=== PATIENT | male | born 1940 | race African-American/Black ===

== ENCOUNTER 2022-06-07 21:47 | Observation (INO) ==
[2022-06-07 22:28] LABS: Basophils # (auto) 0.02 K/uL (0-0.2); Basophils % (auto) 0.4 %; Eosinophils # (auto) 0.05 K/uL (0-0.50); Eosinophils % (auto) 1.1 %; Hematocrit (blood only) 36.3 % (42.0-52.0); Hemoglobin 12.1 g/dl (14.0-18.0); Immature Granulocytes # (auto) 0.02 K/uL (0.01-0.20); Immature Granulocytes % (auto) 0.4 %; Lymphocytes # (auto) 1.07 K/uL (1.2-3.4); Lymphocytes % (auto) 23.1 %; Mean Corpuscular Hemoglobin 36.6 pg (25.0-34.0); Mean Corpuscular Hgb Conc 33.3 g/dL (32.0-36.0); Mean Corpuscular Volume 109.7 fL (80.0-100.0); Mean Platelet Volume 11.4 fL (9.4-12.4); Monocytes # (auto) 0.57 K/uL (0.11-0.59); Monocytes % (auto) 12.3 %; Neutrophils % (auto) 62.7 %; Platelet Count 170 K/uL (130-400); RDW Standard Deviation 49.4 fL (36.4-46.3); Red Blood Count 3.31 M/uL (4.70-6.10); White Blood Count 4.63 K/ul (4.8-10.8)
[2022-06-07 22:39] LABS: INR 1.1 (0.9-1.1); Partial Thromboplastin Time 27.1 Seconds (21.0-31.0); Prothrombin Time 11.2 Seconds (9.0-12.0)
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
[2022-06-07 23:03] LABS: Albumin Level 3.3 gm/dl (3.4-5.0); Bilirubin,Total 0.5 mg/dl (0.2-1.0); Calcium 8.3 mg/dl (8.5-10.1); Potassium 3.4 mmol/L (3.5-5.1)
[2022-06-07 23:09] LABS: BUN Creatinine Ratio 14.3 (10-20); Creatinine Clr Calc Pharmacy 58.7 ml/min; Est GFR (African American) 71.5 ml/min; Est GFR (Non-African American) 61.7 ml/min; Globulin 3.4 gm/dl (2.5-4.0); Total Protein 6.7 gm/dl (6.0-8.3)
[2022-06-07 23:14] LABS: Troponin I High Sensitivity 5.1 pg/ml (0-20)
[2022-06-07] MEDS ORDERED: MoRPHine SULFATE 4 MG/ML 1 ML CARP\\VIAL IV STA (23:21)
[2022-06-08] MEDS ORDERED: ASPIRIN CHEW 324 MG PO STA (00:17)
[2022-06-08] MEDS ORDERED: MoRPHine SULFATE 2 MG/ML CARP IV STA (02:27)
[2022-06-08] MEDS ORDERED: ACETAMINOPHEN 325 MG TAB PO PRN (04:00)
[2022-06-08] MEDS ORDERED: POLYETHYLENE (MIRALAX) 17 GM PACK PO PRN (04:00)
[2022-06-08] MEDS ORDERED: MoRPHine SULFATE 2 MG/ML CARP IV PRN (04:00)
[2022-06-08] MEDS ORDERED: NITROGLYCERIN SL 0.4 MG/TAB TAB SL PRN (04:00)
[2022-06-08 06:10] LABS: Basophils # (auto) 0.02 K/uL (0-0.2); Basophils % (auto) 0.4 %; Eosinophils # (auto) 0.07 K/uL (0-0.50); Eosinophils % (auto) 1.3 %; Hematocrit (blood only) 36.8 % (42.0-52.0); Hemoglobin 12.4 g/dl (14.0-18.0); Immature Granulocytes # (auto) 0.01 K/uL (0.01-0.20); Immature Granulocytes % (auto) 0.2 %; Lymphocytes # (auto) 1.92 K/uL (1.2-3.4); Lymphocytes % (auto) 35.4 %; Mean Corpuscular Hemoglobin 36.9 pg (25.0-34.0); Mean Corpuscular Hgb Conc 33.7 g/dL (32.0-36.0); Mean Corpuscular Volume 109.5 fL (80.0-100.0); Mean Platelet Volume 11.3 fL (9.4-12.4); Monocytes # (auto) 0.62 K/uL (0.11-0.59); Monocytes % (auto) 11.4 %; Neutrophils # (auto) 2.78 K/uL (1.40-6.50); Neutrophils % (auto) 51.3 %; Platelet Count 181 K/uL (130-400); RDW Standard Deviation 48.7 fL (36.4-46.3); Red Blood Count 3.36 M/uL (4.70-6.10); White Blood Count 5.42 K/ul (4.8-10.8)
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
[2022-06-08 06:19] LABS: BUN Creatinine Ratio 12.5 (10-20); Calcium 8.4 mg/dl (8.5-10.1); Creatinine Clr Calc Pharmacy 63.2 ml/min; Est GFR (African American) 78.2 ml/min; Est GFR (Non-African American) 67.5 ml/min; Magnesium 1.8 mg/dl (1.7-2.4); Potassium 3.6 mmol/L (3.5-5.1)
[2022-06-08 06:39] LABS: Troponin I High Sensitivity 10.1 pg/ml (0-20)
--- NOTE | 2022-06-08 07:38 | XRay Report ---
XR chest 1V portable CLINICAL HISTORY: Chest pain, nonspecific COMPARISON STUDY: Chest radiograph April 28, 2022. FINDINGS: Lung volumes are normal. Lungs are clear. There is no pneumothorax or pleural effusion. Car diomegaly is unchanged. Small hiatal hernia is again noted. There is no evidence for pulmonary edema. IMPRESSION: No acute cardiopulmonary findings. No change in appearance of the chest. ACT 112: Negative or not required by law. Electronically signed by: Orville Alston M.D. 06/08/2022 7:37 AM
[2022-06-08] MEDS: carvediloL 6.25 MG TAB PO SCH ×2 (08:11→21:25)
[2022-06-08] MEDS: RANOLAZINE 500 MG ER TAB PO SCH ×2 (08:11→22:15)
[2022-06-08] MEDS: ATORVASTATIN 40 MG TAB PO SCH (08:11)
[2022-06-08] MEDS: ASPIRIN 325 MG ECTAB PO SCH (08:11)
[2022-06-08] MEDS: CLOPIDOGREL BISULFATE 75 MG TAB PO SCH (08:11)
[2022-06-08] MEDS: LOSARTAN POTASSIUM 25 MG TAB PO SCH (08:11)
[2022-06-08] MEDS: MULTIVITAMIN TAB PO SCH (08:11)
[2022-06-08] MEDS: ISOSORBIDE MONO EXTENDED REL 30 MG TABCR PO SCH (08:12)
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
[2022-06-08] MEDS ORDERED: ATROPINE SULFATE 0.1 MG/ML 10ML SYR IV ONE (11:45)
[2022-06-08] MEDS ORDERED: METOPROLOL TARTRATE 1 MG/ML VIAL IV ONE (11:45)
[2022-06-08] MEDS ORDERED: DOBUTamine HCL 12.5 MG/ML 20 ML VIAL IV ONE (11:45)
--- NOTE | 2022-06-08 11:57 | Electrocardiogram Report ---
Test Reason : Blood Pressure : / mmHG Vent. Rate : 074 BPM Atrial Rate : 074 BPM P-R Int : 154 ms QRS Dur : 086 ms QT Int : 388 ms P-R-T Axes : 010 072 101 degrees QTc Int : 430 ms Poor data quality, interpretation may be adversely affected Sinus rhythm with Premature supraventricular complexes Nonspecific ST and T wave abnormality Abnormal ECG When compared with ECG of 28-APR-2022 18:10, Premature supraventricular complexes are now Present Confirmed by Clay Hearn ([id number]) on 06/08/2022 11:57:42 AM Referred By: Behzad [facility] Confirmed By:Clay Hearn
--- NOTE | 2022-06-08 12:04 | Electrocardiogram Report ---
Test Reason : Blood Pressure : / mmHG Vent. Rate : 060 BPM Atrial Rate : 060 BPM P-R Int : 168 ms QRS Dur : 088 ms QT Int : 420 ms P-R-T Axes : 046 -16 -09 degrees QTc Int : 420 ms Sinus rhythm with Premature atrial complexes Minimal voltage criteria for LVH, may be normal variant T wave abnormality, consider lateral ischemia Abnormal ECG When compared with ECG of 07-JUN-2022 22:04, (unconfirmed) Questionable change in QRS axis T wave inversion now evident in Anterior leads Confirmed by Clay Hearn ([id number]) on 06/08/2022 12:04:23 PM Referred By: Behzad JULIO Confirmed By:Clay Hearn
[2022-06-08] MEDS ORDERED: PERFLUTREN LIPID MICROSPHERE (DEFINITY) IV ONE (12:21)
[2022-06-08] MEDS: PANTOprazole 40 MG TAB PO SCH (15:55)
[2022-06-08] MEDS: NSS + 20MEQ KCL 20 MEQ/1,000 ML BAG IV SCH (16:00)
--- NOTE | 2022-06-08 16:30 | Hospitalist Progress Note ---
Date of Service June 08, 2022 Assessment & Plan (1) Chest pain: Plan: Presented with chest pain typical for angina Serial troponins are unremarkable and Echocardiogram showed normal LV wall thickness without regional wall motion abnormalities, EF 55 to 60%, aortic valve sclerosis mild without significant stenosis, mild tricuspid regurgitation, borderline to mild pulmonary hypertension and pulmonary artery systolic pressure estimated to be 38 mmHg with grade 1 diastolic dysfunction Has had negative dobutamine stress test Appreciate cardiology input and recommendation (2) Coronary artery disease: Plan: Significant coronary artery disease as in the chart Awaiting records (3) Hypertension: Plan: Noted to be very high blood pressure initially That went down to 111/71 Patient shows orthostatic symptoms with dizziness on standing and with ambulation We will continue current blood pressure medications We will try small dose of intravenous fluid (4) Dyslipidemia, goal LDL below 70: Plan: Continue statin (5) Gastroesophageal reflux: Plan: Has not been taking any PPI Will start PPI (6) Depression: Plan: Continue current medicine Plan DVT prophylaxis Will start subcu heparin CODE STATUS Full Admission and Anticipated Discharge Date Admission Date: June 08, 2022 Subjective 06/08/2022 The patient was seen and examined in emergency room He has significant cardiac disease and was admitted with chest pain that was typical for angina He also complains to have dizziness with standing and with ambulation Review of Systems Review of Systems: All systems reviewed and are unremarkable except as noted below Cardiovascular: Additional Comments: Chest pressure/pain in the lower central chest Gastrointestinal: Epigastric discomfort Neurologic: Dizziness on standing and ambulation Physical Exam Physical Exam: Lying in bed comfortable Constitutional: well developed, well nourished, + ill appearing and + obese Eyes: PERRL, conjunctivae normal, anicteric sclerae ENMT: external ear and nose normal, oropharynx normal Neck: trachea midline, no thyromegaly Respiratory: no respiratory distress Auscultation: + diminished lung sounds and + crackles (Minimal crackles bibasally) Cardiovascular: Rate/Rhythm: regular rate, regular rhythm and + bradycardic Heart Sounds: normal S1, normal S2 and + murmur Extremities: no edema Gastrointestinal (Abdomen): Inspection/Auscultation: normal bowel sounds; abdomen not distended Percussion/Palpation: + abdomen tender (Epigastric tenderness) and abdomen soft Musculoskeletal: No acute arthritis involving any joint Neurologic: Alert, awake and oriented x3. No focal sensory or no motor deficit appreciated Lymphatic: no cervical or axillary lymphadenopathy Results & Data Results & Data ([facility]) Vital Signs (Past 12 Hours) Vital Signs Pulse Pulse Resp BP BP Pulse Ox O2 Del Method 06/08/22 11:00 59 L 18 111/71 96 Room Air 06/08/22 09:00 63 18 160/84 H 95 Room Air 06/08/22 06:40 60 17 98 06/08/22 06:30 64 14 99 06/08/22 06:30 164/73 H 06/08/22 06:20 98 06/08/22 06:10 96 06/08/22 06:01 157/80 H 06/08/22 06:01 98 06/08/22 06:00 97 06/08/22 05:50 100 06/08/22 05:40 98 06/08/22 05:31 96 06/08/22 05:30 98 06/08/22 05:20 96 06/08/22 06:46 Room Air 06/08/22 05:10 96 06/08/22 05:00 98 06/08/22 05:00 153/79 H 06/08/22 04:55 95 06/08/22 04:40 64 16 95 06/08/22 04:30 59 L 15 93 06/08/22 04:30 165/81 H Laboratory Results Short CBC 06/07/22 06/08/22 Range/Units 22:09 05:34 WBC 4.63 L 5.42 (4.8-10.8) K/ul Hgb 12.1 L 12.4 L (14.0-18.0) g/dl Hct 36.3 L 36.8 L (42.0-52.0) % Plt Count 170 181 (130-400) K/uL BMP 06/07/22 06/08/22 22:09 05:34 Sodium 137 139 Potassium 3.4 L 3.6 Chloride 108 H 107 Carbon Dioxide 23 27 BUN 16 13 Creatinine 1.12 1.04 Glucose 134 H 95 Calcium 8.3 L 8.4 L Liver Function 06/07/22 Range/Units 22:09 Total Bilirubin 0.5 (0.2-1.0) mg/dl AST 12 L (13-39) U/L ALT 8 (7-52) U/L Alkaline Phosphatase 126 H (34-104) U/L Albumin 3.3 L (3.4-5.0) gm/dl Medications Administered Current Inpatient Medications Acetaminophen (Acetaminophen 325 Mg Tab) 650 mg PO Q4H PRN PRN Reason: Pain or Fever Stop: 07/08/22 03:59 Aspirin (Aspirin 325 Mg Ectab) 325 mg PO DAILY [facility] Stop: 07/08/22 08:59 Last Admin: 06/08/22 08:11 Dose: 325 mg Atorvastatin Calcium (Atorvastatin 40 Mg Tab) 80 mg PO DAILY [facility] Stop: 07/08/22 08:59 Last Admin: 06/08/22 08:11 Dose: 80 mg Carvedilol (Carvedilol 6.25 Mg Tab) 6.25 mg PO BID [facility] Stop: 07/08/22 08:59 Last Admin: 06/08/22 08:11 Dose: 6.25 mg Clopidogrel Bisulfate (Clopidogrel Bisulfate 75 Mg Tab) 75 mg PO DAILY [facility] Stop: 07/08/22 08:59 Last Admin: 06/08/22 08:11 Dose: 75 mg Potassium Chloride/Sodium Chloride (Normal Saline W/20 Meq Kcl) 20 meq in 1,000 mls @ 80 mls/hr IV .[id number] [facility]; Protocol Stop: 06/09/22 15:59 Last Admin: 06/08/22 16:00 Dose: 80 mls/hr Isosorbide Mononitrate (Isosorbide [place] Extended Rel 30 Mg Tabcr) 30 mg PO DAILY [facility] Stop: 07/08/22 08:59 Last Admin: 06/08/22 08:12 Dose: 30 mg Losartan Potassium (Losartan Potassium 25 Mg Tab) 25 mg PO DAILY [facility] Stop: 07/08/22 08:59 Last Admin: 06/08/22 08:11 Dose: 25 mg Morphine Sulfate (Morphine Sulfate 2 Mg/Ml Carp) 2 mg IV Q30M PRN PRN Reason: Chest Pain Stop: 06/22/22 03:59 Multivitamins (Multivitamin Tab) 1 tab PO DAILY [facility] Stop: 07/08/22 08:59 Last Admin: 06/08/22 08:11 Dose: 1 tab Nitroglycerin (Nitroglycerin Sl 0.4 Mg/Tab Tab) 0.4 mg SL UD PRN PRN Reason: Chest Pain Stop: 07/08/22 03:59 Pantoprazole Sodium (Pantoprazole 40 Mg Tab) 40 mg PO QAM [facility] Stop: 07/08/22 14:59 Last Admin: 06/08/22 15:55 Dose: 40 mg Polyethylene Glycol (Polyethylene (Miralax) 17 Gm Pack) 17 gm PO DAILY PRN PRN Reason: Constipation Stop: 07/08/22 03:59 Ranolazine (Ranolazine 500 Mg Er Tab) 1,000 mg PO BID [facility] Stop: 07/08/22 08:59 Last Admin: 06/08/22 08:11 Dose: 1,000 mg (1) Chest pain Chest pain type: unspecified Qualified Code(s): R07.9 - Chest pain, unspecified
[2022-06-08] MEDS: HEPARIN SOD 5,000 UNIT/0.5 ML VIAL SQ SCH ×2 (18:36→21:45)
[2022-06-09] MEDS: NSS + 20MEQ KCL 20 MEQ/1,000 ML BAG IV SCH (06:13)
--- NOTE | 2022-06-09 07:42 | CT Scan Report ---
CT head/brain wo con CLINICAL HISTORY: 81 years-old Male with fall. Acute head injury status post fall TECHNIQUE: Multiple axial CT images of the head were obtained without contrast. A dose lowering tech nique was utilized adhering to the principles of ALARA. CT DOSE: 614.27 mGy.cm COMPARISON: None. FINDINGS: No acute intracranial hemorrhage, midline shift, intracranial mass, hydrocephalus, territorial ischem ia or abnormal extra-axial collection. Involutional changes with mild white matter hypodensities sugg estive of chronic microvascular ischemic disease. The calvarium is intact. Chronic appearing right maxillary osseous defect may be on a postsurgical ba sis. The paranasal sinuses, mastoid air cells, and middle ear cavities are clear. IMPRESSION: No acute intracranial abnormality or calvarial fracture. ACT 112: Negative or not required by law. The above report was generated using voice recognition software. It may contain grammatical, syntax o r spelling errors. Electronically signed by: Dustin Hurtado M.D. 06/09/2022 7:41 AM
[2022-06-09 08:16] LABS: Basophils # (auto) 0.02 K/uL (0-0.2); Basophils % (auto) 0.4 %; Eosinophils # (auto) 0.09 K/uL (0-0.50); Eosinophils % (auto) 1.9 %; Hematocrit (blood only) 38.2 % (42.0-52.0); Hemoglobin 12.4 g/dl (14.0-18.0); Immature Granulocytes # (auto) 0.01 K/uL (0.01-0.20); Immature Granulocytes % (auto) 0.2 %; Lymphocytes # (auto) 1.16 K/uL (1.2-3.4); Lymphocytes % (auto) 24.2 %; Mean Corpuscular Hemoglobin 36.3 pg (25.0-34.0); Mean Corpuscular Hgb Conc 32.5 g/dL (32.0-36.0); Mean Corpuscular Volume 111.7 fL (80.0-100.0); Mean Platelet Volume 11.3 fL (9.4-12.4); Monocytes # (auto) 0.48 K/uL (0.11-0.59); Neutrophils # (auto) 3.03 K/uL (1.40-6.50); Neutrophils % (auto) 63.3 %; Platelet Count 179 K/uL (130-400); RDW Coefficient of Variation 12.1 % (11.5-14.5); Red Blood Count 3.42 M/uL (4.70-6.10); White Blood Count 4.79 K/ul (4.8-10.8)
--- NOTE | 2022-06-09 08:34 | Communication Note ---
Date of Service: June 09, 2022 Patent seems was dizzy while going to bathroom and hit head to door. Seemed confused for sometime. Now back to baseline and could narrate what happened.. CT head ok. Exam speech clear and non focal. [place]ine to monitor. Ordered PT.
[2022-06-09 08:40] LABS: BUN Creatinine Ratio 10.4 (10-20); Calcium 8.9 mg/dl (8.5-10.1); Creatinine Clr Calc Pharmacy 51.3 ml/min; Est GFR (African American) 62.6 ml/min; Magnesium 1.8 mg/dl (1.7-2.4); Potassium 3.9 mmol/L (3.5-5.1)
[2022-06-09 09:16] LABS: RBC Morphology Unremarkable
[2022-06-09] MEDS: carvediloL 6.25 MG TAB PO SCH ×2 (10:42→20:53)
[2022-06-09] MEDS: RANOLAZINE 500 MG ER TAB PO SCH ×2 (10:43→20:56)
[2022-06-09] MEDS: HEPARIN SOD 5,000 UNIT/0.5 ML VIAL SQ SCH ×2 (10:43→20:56)
[2022-06-09] MEDS: MULTIVITAMIN TAB PO SCH (10:44)
[2022-06-09] MEDS: ASPIRIN 325 MG ECTAB PO SCH (10:44)
[2022-06-09] MEDS: CLOPIDOGREL BISULFATE 75 MG TAB PO SCH (10:44)
[2022-06-09] MEDS: ISOSORBIDE MONO EXTENDED REL 30 MG TABCR PO SCH (10:45)
[2022-06-09] MEDS: LOSARTAN POTASSIUM 25 MG TAB PO SCH (10:45)
[2022-06-09] MEDS: ATORVASTATIN 40 MG TAB PO SCH (10:45)
[2022-06-09] MEDS: PANTOprazole 40 MG TAB PO SCH (10:46)
[2022-06-09] MEDS ORDERED: MECLIZINE 12.5 MG TAB PO PRN (12:54)
--- NOTE | 2022-06-09 13:15 | Electrocardiogram Report ---
Test Reason : Blood Pressure : / mmHG Vent. Rate : 065 BPM Atrial Rate : 065 BPM P-R Int : 164 ms QRS Dur : 086 ms QT Int : 438 ms P-R-T Axes : 080 037 -15 degrees QTc Int : 455 ms Normal sinus rhythm Nonspecific T wave abnormality Abnormal ECG When compared with ECG of 08-JUN-2022 09:30, Premature atrial complexes are no longer Present Confirmed by Clay Hearn ([id number]) on 06/09/2022 1:15:36 PM Referred By: Behzad JULIO Confirmed By:Clay Hearn
--- NOTE | 2022-06-09 14:50 | Hospitalist Progress Note ---
Date of Service June 09, 2022 Assessment & Plan (1) Chest pain: Plan: Presented with chest pain typical for angina Serial troponins are unremarkable and Echocardiogram showed normal LV wall thickness without regional wall motion abnormalities, EF 55 to 60%, aortic valve sclerosis mild without significant stenosis, mild tricuspid regurgitation, borderline to mild pulmonary hypertension and pulmonary artery systolic pressure estimated to be 38 mmHg with grade 1 diastolic dysfunction Has had negative dobutamine stress test Appreciate cardiology input and recommendation No more chest pain and/or palpitation Ongoing dizziness Received small amount of intravenous fluid and has been drinking enough No postural hypotension Will try small dose of meclizine Likely discharge tomorrow (2) Coronary artery disease: Plan: Significant coronary artery disease as in the chart Awaiting records (3) Hypertension: Plan: Noted to be very high blood pressure initially That went down to 111/71 Patient shows orthostatic symptoms with dizziness on standing and with ambulation We will continue current blood pressure medications We will try small dose of intravenous fluid Blood pressure remains stable at 158/72 today (4) Dyslipidemia, goal LDL below 70: Plan: Continue statin (5) Gastroesophageal reflux: Plan: Has not been taking any PPI Will start PPI (6) Depression: Plan: Continue current medicine Plan DVT prophylaxis Will start subcu heparin CODE STATUS Full Admission and Anticipated Discharge Date Admission Date: June 08, 2022 Subjective 06/08/2022 The patient was seen and examined in emergency room He has significant cardiac disease and was admitted with chest pain that was typical for angina He also complains to have dizziness with standing and with ambulation 06/09/2022 The patient was seen and examined in emergency room He has been complaining of ongoing dizziness but does not have any more chest pain and/or palpitation His orthostatic vitals remain unremarkable He will be given small dose of Antivert for symptomatic relief of vertigo Review of Systems Review of Systems: All systems reviewed and are unremarkable except as noted below Cardiovascular: Additional Comments: Chest pressure/pain in the lower central chest Gastrointestinal: Epigastric discomfort Neurologic: Dizziness on standing and ambulation Physical Exam Physical Exam: Lying in bed comfortable Constitutional: well developed, well nourished, + ill appearing and + obese Eyes: PERRL, conjunctivae normal, anicteric sclerae ENMT: external ear and nose normal, oropharynx normal Neck: trachea midline, no thyromegaly Respiratory: no respiratory distress Auscultation: + diminished lung sounds and + crackles (Minimal crackles bibasally) Cardiovascular: Rate/Rhythm: regular rate, regular rhythm and + bradycardic Heart Sounds: normal S1, normal S2 and + murmur Extremities: no edema Gastrointestinal (Abdomen): Inspection/Auscultation: normal bowel sounds; abdomen not distended Percussion/Palpation: + abdomen tender (Epigastric tenderness) and abdomen soft Musculoskeletal: All systems reviewed and are unremarkable except as noted below Neurologic: Alert, awake and oriented x3. No focal sensory and motor deficit appreciated Psychiatric: A+Ox3, euthymic affect Lymphatic: no cervical or axillary lymphadenopathy Results & Data Results & Data ([facility]) Vital Signs (Past 12 Hours) Vital Signs Temp Pulse Resp BP Pulse Ox O2 Del Method 06/09/22 11:14 37 C 70 18 158/72 H 97 Room Air 06/09/22 06:00 36.4 C L 64 18 176/67 H 100 Room Air 06/09/22 03:51 36.7 C 69 18 110/68 94 Room Air 06/09/22 03:58 67 20 188/83 H 99 Room Air Laboratory Results Short CBC 06/09/22 Range/Units 07:25 WBC 4.79 L (4.8-10.8) K/ul Hgb 12.4 L (14.0-18.0) g/dl Hct 38.2 L (42.0-52.0) % Plt Count 179 (130-400) K/uL BMP 06/09/22 07:25 Sodium 138 Potassium 3.9 Chloride 107 Carbon Dioxide 26 BUN 13 Creatinine 1.25 Glucose 136 H Calcium 8.9 Medications Administered Current Inpatient Medications Acetaminophen (Acetaminophen 325 Mg Tab) 650 mg PO Q4H PRN PRN Reason: Pain or Fever Stop: 07/08/22 03:59 Aspirin (Aspirin 325 Mg Ectab) 325 mg PO DAILY [facility] Stop: 07/08/22 08:59 Last Admin: 06/09/22 10:44 Dose: 325 mg Atorvastatin Calcium (Atorvastatin 40 Mg Tab) 80 mg PO DAILY [facility] Stop: 07/08/22 08:59 Last Admin: 06/09/22 10:45 Dose: 80 mg Carvedilol (Carvedilol 6.25 Mg Tab) 6.25 mg PO BID [facility] Stop: 07/08/22 08:59 Last Admin: 06/09/22 10:42 Dose: 6.25 mg Clopidogrel Bisulfate (Clopidogrel Bisulfate 75 Mg Tab) 75 mg PO DAILY [facility] Stop: 07/08/22 08:59 Last Admin: 06/09/22 10:44 Dose: 75 mg Heparin Sodium (Porcine) (Heparin Sod 5,000 Unit/0.5 Ml Vial) 5,000 units SQ Q12 [facility] Stop: 07/08/22 16:44 Last Admin: 06/09/22 10:43 Dose: 5,000 units Potassium Chloride/Sodium Chloride (Normal Saline W/20 Meq Kcl) 20 meq in 1,000 mls @ 80 mls/hr IV .[id number] [facility]; Protocol Stop: 06/09/22 15:59 Last Admin: 06/09/22 06:13 Dose: 80 mls/hr Isosorbide Mononitrate (Isosorbide [place] Extended Rel 30 Mg Tabcr) 30 mg PO DAILY [facility] Stop: 07/08/22 08:59 Last Admin: 06/09/22 10:45 Dose: 30 mg Losartan Potassium (Losartan Potassium 25 Mg Tab) 25 mg PO DAILY [facility] Stop: 07/08/22 08:59 Last Admin: 06/09/22 10:45 Dose: 25 mg Meclizine HCl (Meclizine 12.5 Mg Tab) 12.5 mg PO Q6H PRN PRN Reason: Vertigo Stop: 07/09/22 12:53 Last Admin: 06/09/22 14:43 Dose: 12.5 mg Morphine Sulfate (Morphine Sulfate 2 Mg/Ml Carp) 2 mg IV Q30M PRN PRN Reason: Chest Pain Stop: 06/22/22 03:59 Multivitamins (Multivitamin Tab) 1 tab PO DAILY [facility] Stop: 07/08/22 08:59 Last Admin: 06/09/22 10:44 Dose: 1 tab Nitroglycerin (Nitroglycerin Sl 0.4 Mg/Tab Tab) 0.4 mg SL UD PRN PRN Reason: Chest Pain Stop: 07/08/22 03:59 Last Admin: 06/09/22 04:09 Dose: 0.4 mg Pantoprazole Sodium (Pantoprazole 40 Mg Tab) 40 mg PO QAM [facility] Stop: 07/08/22 14:59 Last Admin: 06/09/22 10:46 Dose: 40 mg Polyethylene Glycol (Polyethylene (Miralax) 17 Gm Pack) 17 gm PO DAILY PRN PRN Reason: Constipation Stop: 07/08/22 03:59 Ranolazine (Ranolazine 500 Mg Er Tab) 1,000 mg PO BID [facility] Stop: 07/08/22 08:59 Last Admin: 06/09/22 10:43 Dose: 1,000 mg (1) Chest pain Chest pain type: unspecified Qualified Code(s): R07.9 - Chest pain, unspecified
[2022-06-10] MEDS: HEPARIN SOD 5,000 UNIT/0.5 ML VIAL SQ SCH (08:02)
[2022-06-10] MEDS: LOSARTAN POTASSIUM 25 MG TAB PO SCH (08:03)
[2022-06-10] MEDS: ASPIRIN 325 MG ECTAB PO SCH (08:03)
[2022-06-10] MEDS: carvediloL 6.25 MG TAB PO SCH (08:03)
[2022-06-10] MEDS: ISOSORBIDE MONO EXTENDED REL 30 MG TABCR PO SCH (08:03)
[2022-06-10] MEDS: RANOLAZINE 500 MG ER TAB PO SCH (08:03)
[2022-06-10] MEDS: MULTIVITAMIN TAB PO SCH (08:03)
[2022-06-10] MEDS: ATORVASTATIN 40 MG TAB PO SCH (08:03)
[2022-06-10] MEDS: CLOPIDOGREL BISULFATE 75 MG TAB PO SCH (08:04)
[2022-06-10] MEDS: PANTOprazole 40 MG TAB PO SCH (08:04)
--- NOTE | 2022-06-10 10:05 | Hospitalist Progress Note ---
Date of Service June 10, 2022 Assessment & Plan (1) Chest pain: Plan: Presented with chest pain typical for angina Serial troponins are unremarkable and Echocardiogram showed normal LV wall thickness without regional wall motion abnormalities, EF 55 to 60%, aortic valve sclerosis mild without significant stenosis, mild tricuspid regurgitation, borderline to mild pulmonary hypertension and pulmonary artery systolic pressure estimated to be 38 mmHg with grade 1 diastolic dysfunction Has had negative dobutamine stress test Appreciate cardiology input and recommendation No more chest pain and/or palpitation Remains stable without any cardiac symptoms Ongoing dizziness Received small amount of intravenous fluid and has been drinking enough No postural hypotension Will try small dose of meclizine Dizziness resolved and there is no orthostatic changes Will be discharged home this afternoon (2) Coronary artery disease: Plan: Significant coronary artery disease as in the chart Awaiting records (3) Hypertension: Plan: Noted to be very high blood pressure initially That went down to 111/71 Patient shows orthostatic symptoms with dizziness on standing and with ambulation We will continue current blood pressure medications We will try small dose of intravenous fluid Blood pressure remains stable at 158/72 today Will not change any blood pressure medications (4) Dyslipidemia, goal LDL below 70: Plan: Continue statin (5) Gastroesophageal reflux: Plan: Has not been taking any PPI Will start PPI PPI has been working and will be continued (6) Depression: Plan: Continue current medicine Plan DVT prophylaxis Will start subcu heparin CODE STATUS Full Discharge to long term this afternoon Admission and Anticipated Discharge Date Admission Date: June 08, 2022 Subjective 06/08/2022 The patient was seen and examined in emergency room He has significant cardiac disease and was admitted with chest pain that was typical for angina He also complains to have dizziness with standing and with ambulation 06/09/2022 The patient was seen and examined in emergency room He has been complaining of ongoing dizziness but does not have any more chest pain and/or palpitation His orthostatic vitals remain unremarkable He will be given small dose of Antivert for symptomatic relief of vertigo 06/10/2022 The patient was seen and examined in medical telemetry unit He has been feeling much better and does not have any more dizziness He remains hemodynamically stable with a blood pressure on the higher side No postural changes were noted Review of Systems Review of Systems: All systems reviewed and are unremarkable except as noted below Cardiovascular: Additional Comments: No more chest pain and/or pressure Gastrointestinal: Epigastric discomfort Neurologic: Dizziness on standing and ambulation-resolved Physical Exam 2 Physical Exam: Lying in bed comfortable Constitutional: well developed, well nourished, + ill appearing and + obese Eyes: PERRL, conjunctivae normal, anicteric sclerae ENMT: external ear and nose normal, oropharynx normal Neck: trachea midline, no thyromegaly Respiratory: no respiratory distress Auscultation: + diminished lung sounds and + crackles (Minimal crackles bibasally) Cardiovascular: Rate/Rhythm: regular rate, regular rhythm and + bradycardic Heart Sounds: normal S1, normal S2 and + murmur Extremities: no edema Gastrointestinal (Abdomen): Inspection/Auscultation: normal bowel sounds; abdomen not distended Percussion/Palpation: + abdomen tender (Epigastric tenderness) and abdomen soft Musculoskeletal: No acute arthritis involving any joint Neurologic: Alert, awake and oriented x3. Moves all extremities equally and there is no focal neurological deficit Psychiatric: A+Ox3, euthymic affect Lymphatic: no cervical or axillary lymphadenopathy Results & Data Results & Data ([facility]) Vital Signs (Past 12 Hours) Vital Signs Temp Pulse Pulse Resp BP BP Pulse Ox 06/10/22 08:30 06/10/22 07:24 36.5 C 66 18 151/71 H 97 06/10/22 03:06 36.8 C 71 18 152/82 H 96 06/09/22 22:59 36.4 C L 78 18 120/68 95 06/09/22 22:16 36.8 C 69 16 108/64 96 O2 Del Method 06/10/22 08:30 Room Air 06/10/22 07:24 Room Air 06/10/22 03:06 Room Air 06/09/22 22:59 Room Air 06/09/22 22:16 Room Air Medications Administered Current Inpatient Medications Acetaminophen (Acetaminophen 325 Mg Tab) 650 mg PO Q4H PRN PRN Reason: Pain or Fever Stop: 07/08/22 03:59 Aspirin (Aspirin 325 Mg Ectab) 325 mg PO DAILY [facility] Stop: 07/08/22 08:59 Last Admin: 06/10/22 08:03 Dose: 325 mg Atorvastatin Calcium (Atorvastatin 40 Mg Tab) 80 mg PO DAILY [facility] Stop: 07/08/22 08:59 Last Admin: 06/10/22 08:03 Dose: 80 mg Carvedilol (Carvedilol 6.25 Mg Tab) 6.25 mg PO BID [facility] Stop: 07/08/22 08:59 Last Admin: 06/10/22 08:03 Dose: 6.25 mg Clopidogrel Bisulfate (Clopidogrel Bisulfate 75 Mg Tab) 75 mg PO DAILY [facility] Stop: 07/08/22 08:59 Last Admin: 06/10/22 08:04 Dose: 75 mg Heparin Sodium (Porcine) (Heparin Sod 5,000 Unit/0.5 Ml Vial) 5,000 units SQ Q12 [facility] Stop: 07/08/22 16:44 Last Admin: 06/10/22 08:02 Dose: 5,000 units Isosorbide Mononitrate (Isosorbide [place] Extended Rel 30 Mg Tabcr) 30 mg PO DAILY [facility] Stop: 07/08/22 08:59 Last Admin: 06/10/22 08:03 Dose: 30 mg Losartan Potassium (Losartan Potassium 25 Mg Tab) 25 mg PO DAILY [facility] Stop: 07/08/22 08:59 Last Admin: 06/10/22 08:03 Dose: 25 mg Meclizine HCl (Meclizine 12.5 Mg Tab) 12.5 mg PO Q6H PRN PRN Reason: Vertigo Stop: 07/09/22 12:53 Last Admin: 06/09/22 14:43 Dose: 12.5 mg Morphine Sulfate (Morphine Sulfate 2 Mg/Ml Carp) 2 mg IV Q30M PRN PRN Reason: Chest Pain Stop: 06/22/22 03:59 Multivitamins (Multivitamin Tab) 1 tab PO DAILY [facility] Stop: 07/08/22 08:59 Last Admin: 06/10/22 08:03 Dose: 1 tab Nitroglycerin (Nitroglycerin Sl 0.4 Mg/Tab Tab) 0.4 mg SL UD PRN PRN Reason: Chest Pain Stop: 07/08/22 03:59 Last Admin: 06/09/22 04:09 Dose: 0.4 mg Pantoprazole Sodium (Pantoprazole 40 Mg Tab) 40 mg PO QAM [facility] Stop: 07/08/22 14:59 Last Admin: 06/10/22 08:04 Dose: 40 mg Polyethylene Glycol (Polyethylene (Miralax) 17 Gm Pack) 17 gm PO DAILY PRN PRN Reason: Constipation Stop: 07/08/22 03:59 Ranolazine (Ranolazine 500 Mg Er Tab) 1,000 mg PO BID [facility] Stop: 07/08/22 08:59 Last Admin: 06/10/22 08:03 Dose: 1,000 mg (1) Chest pain Chest pain type: unspecified Qualified Code(s): R07.9 - Chest pain, unspecified
--- NOTE | 2022-06-10 10:47 | Electrocardiogram Report ---
Test Reason : Blood Pressure : / mmHG Vent. Rate : 065 BPM Atrial Rate : 065 BPM P-R Int : 142 ms QRS Dur : 078 ms QT Int : 402 ms P-R-T Axes : 037 001 -44 degrees QTc Int : 418 ms Sinus rhythm with Premature supraventricular complexes Voltage criteria for left ventricular hypertrophy ST elevation, consider early repolarization, pericarditis, or injury Nonspecific T wave abnormality Abnormal ECG When compared with ECG of 09-JUN-2022 04:08, Premature supraventricular complexes are now Present Non-specific change in ST segment in Anterior leads Inverted T waves have replaced nonspecific T wave abnormality in Inferior leads Nonspecific T wave abnormality, worse in Anterior leads Confirmed by Clay Hearn ([id number]) on 06/10/2022 10:47:01 AM Referred By: Behzad SCI Confirmed By:Clay Hearn
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
== END 2022-06-10 16:32 ==
LOC: EDINP 21:47 → ED 21:47 → 2W 06-08 04:00

== ENCOUNTER 2022-06-15 20:37 | Inpatient (IN) ==
[2022-06-15 21:55] LABS: Alanine Aminotransferase 14 U/L (7-52); Albumin Globulin Ratio 0.7 (0.9-2); Albumin Level 3.5 gm/dl (3.4-5.0); Alkaline Phosphatase 114 U/L (34-104); BUN Creatinine Ratio 24.1 (10-20); Bilirubin,Total 1.8 mg/dl (0.2-1.0); Blood Urea Nitrogen 33 mg/dl (6-23); Calcium 9.2 mg/dl (8.5-10.1); Carbon Dioxide 24 mmol/L (21-32); Chloride 102 mmol/L (98-107); Est GFR (African American) 56.1 ml/min; Est GFR (Non-African American) 48.4 ml/min; Glucose 136 mg/dl (70-99(Fasting)); Total Protein 8.5 gm/dl (6.0-8.3)
[2022-06-15 22:17] LABS: Basophils # (auto) 0.02 K/uL (0-0.2); Basophils % (auto) 0.1 %; Hematocrit (blood only) 40.5 % (42.0-52.0); Hemoglobin 13.5 g/dl (14.0-18.0); Immature Granulocytes # (auto) 0.07 K/uL (0.01-0.20); Immature Granulocytes % (auto) 0.5 %; Lymphocytes # (auto) 0.93 K/uL (1.2-3.4); Lymphocytes % (auto) 6.4 %; Mean Corpuscular Hemoglobin 36.6 pg (25.0-34.0); Mean Corpuscular Hgb Conc 33.3 g/dL (32.0-36.0); Mean Corpuscular Volume 109.8 fL (80.0-100.0); Mean Platelet Volume 10.5 fL (9.4-12.4); Monocytes # (auto) 1.69 K/uL (0.11-0.59); Monocytes % (auto) 11.7 %; Neutrophils # (auto) 11.75 K/uL (1.40-6.50); Neutrophils % (auto) 81.3 %; Platelet Count 248 K/uL (130-400); RDW Coefficient of Variation 11.8 % (11.5-14.5); RDW Standard Deviation 48.6 fL (36.4-46.3); Red Blood Count 3.69 M/uL (4.70-6.10); White Blood Count 14.46 K/ul (4.8-10.8)
[2022-06-15] MEDS ORDERED: diphenhydrAMINE 50 MG/ML VIAL IV STA (23:07)
[2022-06-15] MEDS ORDERED: methylPREDNISolone 125 MG/2 ML VIAL IV STA (23:07)
[2022-06-15] MEDS ORDERED: TRANEXAMIC ACID / 0.7% NACL 1,000 MG/100 ML BAG IV STA (23:07)
--- NOTE | 2022-06-15 23:11 | Emergency Department Note ---
History of Present Illness General Chief complaint: Throat Pain Stated complaint: THROAT PAIN, TONSIL INFLAMMED Time Seen by Provider: 06/15/22 22:53 History of Present Illness Maximum Pain Intensity: 9 81-year-old male presents emergency department from [facility] reportedly was recently admitted for a cardiac work-up he is on losartan he states a 3-day history of cough cold congestion difficulty swallowing. He states that he was vomiting over the past 2 days. Patient states that he feels like his throat is swelling he initially had laryngitis and was unable to speak and lost his voice. Now he is able to swallow however he states that there is a fullness in the back of his throat. There are no other complaints. There is been no fever no trauma. Home Medications Medication Instructions Recorded Confirmed Type aspirin 325 mg tablet 325 mg PO DAILY 06/08/22 06/15/22 History atorvastatin 80 mg tablet 80 mg PO DAILY 06/08/22 06/15/22 History carvedilol 6.25 mg tablet 6.25 mg PO BID 06/08/22 06/15/22 History clopidogrel 75 mg tablet 75 mg PO DAILY 06/08/22 06/15/22 History isosorbide mononitrate 30 mg 30 mg PO DAILY 06/08/22 06/15/22 History tablet,extended release 24 hr losartan 25 mg tablet 25 mg PO DAILY 06/08/22 06/15/22 History multivitamin 1 tab PO DAILY 06/08/22 06/15/22 History nitroglycerin 0.4 mg sublingual 0.4 mg sublingual UD PRN Chest Pain 06/08/22 06/15/22 History tablet ranolazine 1,000 mg 1,000 mg PO BID 06/08/22 06/15/22 History tablet,extended release,12 hr pantoprazole 40 mg tablet,delayed 40 mg PO QAM 30 days #30 tabs 06/10/22 06/15/22 Rx release benzocaine 6 mg-menthol 10 mg 1 marcellus PO BID 06/15/22 06/15/22 History lozenges (Chloraseptic Sore Throat) guaifenesin 100 mg/5 mL oral liquid 400 mg PO QID PRN Cough 06/15/22 06/15/22 History guaifenesin 400 mg tablet (Mucus 400 mg PO .START BID 06/17/22 06/15/22 06/15/22 History Relief) nystatin 100,000 unit/mL oral 6 ml PO BID 06/15/22 06/15/22 History suspension Allergies Allergy/AdvReac Type Severity Reaction Status Date / Time Iodinated Contrast Media Allergy Unknown Verified 06/15/22 23:05 iodine Allergy Unknown Verified 06/15/22 23:05 Past Med/Surg History Medical History Angina pectoris, unspecified Coronary artery disease Depression Gastroesophageal reflux Hyperlipidemia Hypertension Social History Smoking Status: Never smoker Hx Alcohol Use: No Hx Substance Use: No Preferred Language: Frisian Communication Ability: Effective Sack Sorter Required: No Beliefs That Will Affect Care: None Current Living Situation: Other Current Living Situation Comment: correctional facility Feels Safe at Home: No Is there a partner from a previous relationship who is making you feel unsafe now?: No Assistive Devices: None Review of Systems A total of 10 systems reviewed and were otherwise negative Constitutional: no fever Ear, Nose, Mouth, Throat: + hoarseness Respiratory: + cough Cardiovascular: + dyspnea Physical Exam Vital Signs Vital Signs - 24 hr 06/15/22 20:48 Temperature 36.4 C L Temperature Source Temporal Artery Scan Pulse Rate 109 H Respiratory Rate 18 Blood Pressure 131/86 Blood Pressure Mean 101 Pulse Oximetry 98 Oxygen Delivery Method Room Air Sepsis Recent Fever Within 48 Hours No Sepsis New/Unexplained Change in Mental Status No Sepsis Action Taken by Nursing No Action Required GENERAL: Patient is awake alert in no acute distress patient is resting comfortably and showing no signs of anxiety EYES: The conjunctivae are clear. The pupils are round and reactive. EARS, NOSE, MOUTH AND THROAT: The nose is without any evidence of any deformity. Mucous membranes are moist. Tongue is midline. Patient has some diffuse swelling in the posterior pharynx the uvula is midline the patient is able to maintain his own secretions he does have hoarseness to his voice that he states is not normal. NECK: The neck is nontender and supple. RESPIRATORY: Normal respiratory effort is noted there is no evidence of wheezing rhonchi or rales CARDIOVASCULAR: Regular rate and rhythm noted there no murmurs rubs or gallops normal S1 normal S2. GASTROINTESTINAL: The abdomen is soft. Abdomen is nontender. PELVIS: The Pelvis is stable. No tenderness to palpation is noted. BACK: No midline tenderness or or step-off noted range of motion in flexion extension as well as rotation no signs of muscle spasm noted MUSCULOSKELETAL/EXTREMITIES: There is no evidence of gross deformity full range of motion is noted in the hips and shoulders. SKIN: There is no obvious evidence of any rash. There are no petechiae, pallor or cyanosis noted. NEUROLOGIC: Patient is awake alert and oriented x3 strength is symmetric Course Reevaluation(s) Reevaluation #1: Patient is resting in no distress phonating without any difficulty able to swallow his own secretions. Patient was started on IV Rocephin, TXA, Benadryl, Solu-Medrol, Pepcid Time: :46 Consultations [facility]ation #1: [facility] versus angioedema Time: :46 Administered Medications Discontinued Medications Diphenhydramine HCl (Diphenhydramine 50 Mg/Ml Vial) 25 mg IV NOW STA Stop: 06/15/22 23:08 Last Admin: 06/15/22 23:16 Dose: 25 mg Documented By: LACEY Tranexamic Acid (Tranexamic Acid / 0.7% Nacl) 1,000 mg in 100 mls @ 600 mls/hr IV NOW STA Stop: 06/15/22 23:16 Last Admin: 06/15/22 23:17 Dose: 600 mls/hr Documented By: LACEY Methylprednisolone (Methylprednisolone 125 Mg/2 Ml Vial) 125 mg IV NOW STA Stop: 06/15/22 23:08 Last Admin: 06/15/22 23:16 Dose: 125 mg Documented By: LACEY Medical Decision Making Medical Records Attestation: I reviewed the patient's medical records. Home Medications Current Medication List: was personally reviewed by me Laboratory Data Attestation: I reviewed the patient's lab results. Patient has leukocytosis 06/15/22 22:00 06/15/22 21:10 Lab Results 06/15/22 06/15/22 06/15/22 Range/Units 21:10 21:10 21:10 WBC Cancelled RBC Cancelled Hgb Cancelled Hct Cancelled MCV Cancelled MCH Cancelled MCHC Cancelled RDW Std Deviation Cancelled RDW Coeff of [place] Cancelled Plt Count Cancelled MPV Cancelled Immature Gran % (Auto) Cancelled Neut % (Auto) Cancelled Lymph % (Auto) Cancelled [place] % (Auto) Cancelled Eos % (Auto) Cancelled Baso % (Auto) Cancelled Neut # (Auto) Cancelled Lymph # (Auto) Cancelled [place] # (Auto) Cancelled Eos # (Auto) Cancelled Baso # (Auto) Cancelled Immature Gran # (Auto) Cancelled Absolute Nucleated RBC Cancelled Nucleated RBC % (auto) Cancelled Neutrophils % (Manual) Cancelled Band Neutrophils % Cancelled Lymphocytes % (Manual) Cancelled Prolymphocyte % Cancelled Reactive Lymphs % (Man) Cancelled Monocytes % (Manual) Cancelled Eosinophils % (Manual) Cancelled Basophils % (Manual) Cancelled Metamyelocytes % (Man) Cancelled Myelocytes % (Man) Cancelled Promyelocytes % (Man) Cancelled Blast Cells % (Manual) Cancelled Plasma Cell % (Manual) Cancelled Other Cells % Cancelled Nucleated RBC % Cancelled Neutrophils # (Manual) Cancelled Band Neutrophils # Cancelled Total Absolute Neuts Cancelled Lymphocytes # (Manual) Cancelled Prolymphocyte # Cancelled Reactive Lymphs # Cancelled Total Abs Lymphocytes Cancelled Monocytes # (Manual) Cancelled Eosinophils # (Manual) Cancelled Basophils # (Manual) Cancelled Metamyelocytes # (Man) Cancelled Myelocytes # (Manual) Cancelled Promyelocytes # (Man) Cancelled Blast Cells # (Man) Cancelled Plasma Cell # (Manual) Cancelled Other Cells # Cancelled Nucleated RBCs # (Man) Cancelled Hypersegmented Neuts Cancelled Hyposegmented Neuts Cancelled Hypogranular Neuts Cancelled Large Granular Lymphs Cancelled # Lrg Granular Lymphs Cancelled Hairy Cells Cancelled Smudge Cells Cancelled Toxic Granulation Cancelled Toxic Vacuolation Cancelled Dohle Bodies Cancelled Lola Rods Cancelled Platelet Estimate Cancelled Hypogranular Platelets Cancelled Clumped Platelets Cancelled Giant Platelets Cancelled Platelet Satelliting Cancelled RBC Morphology Cancelled Polychromasia Cancelled Hypochromasia Cancelled Poikilocytosis Cancelled Basophilic Stippling Cancelled Anisocytosis Cancelled Microcytosis Cancelled Macrocytosis Cancelled Spherocytes Cancelled Pappenheimer Bodies Cancelled Sickle Cells Cancelled Target Cells Cancelled Tear Drop Cells Cancelled Ovalocytes Cancelled Stomatocytes Cancelled Cooney-Brundidge Bodies Cancelled Echinocytes Cancelled Acanthocytes (Spur) Cancelled Rouleaux Cancelled RBC Agglutinates Cancelled Schistocytes Cancelled [place] Cell Cancelled Sodium TNP Potassium TNP Chloride 102 (98-107) mmol/L Carbon Dioxide 24 (21-32) mmol/L Anion Gap TNP BUN 33 H (6-23) mg/dl Creatinine 1.37 (0.6-1.4) mg/dl Est Cr Clr Drug Dosing Not Reportable Est GFR ( Amer) 56.1 ml/min Est GFR (Non-Af Amer) 48.4 ml/min BUN/Creatinine Ratio 24.1 H (10-20) Glucose 136 H (70-99(Fasting)) mg/dl Calcium 9.2 (8.5-10.1) mg/dl Total Bilirubin 1.8 H (0.2-1.0) mg/dl AST TNP ALT 14 (7-52) U/L Alkaline Phosphatase 114 H (34-104) U/L Total Protein 8.5 H (6.0-8.3) gm/dl Albumin 3.5 (3.4-5.0) gm/dl Globulin 5.0 H (2.5-4.0) gm/dl Albumin/Globulin Ratio 0.7 L (0.9-2) SARS-CoV-2, RNA, NAAT (NEGATIVE) Group A Strep (PCR) NOT DETECTED (NotDetected) Blood Parasites ID Cancelled 06/15/22 06/15/22 Range/Units 22:00 23:40 WBC 14.46 H RBC 3.69 L Hgb 13.5 L Hct 40.5 L MCV 109.8 H MCH 36.6 H MCHC 33.3 RDW Std Deviation 48.6 H RDW Coeff of [place] 11.8 Plt Count 248 MPV 10.5 Immature Gran % (Auto) 0.5 Neut % (Auto) 81.3 Lymph % (Auto) 6.4 [place] % (Auto) 11.7 Eos % (Auto) 0.0 Baso % (Auto) 0.1 Neut # (Auto) 11.75 H Lymph # (Auto) 0.93 L [place] # (Auto) 1.69 H Eos # (Auto) 0.00 Baso # (Auto) 0.02 Immature Gran # (Auto) 0.07 Absolute Nucleated RBC Nucleated RBC % (auto) Neutrophils % (Manual) Band Neutrophils % Lymphocytes % (Manual) Prolymphocyte % Reactive Lymphs % (Man) Monocytes % (Manual) Eosinophils % (Manual) Basophils % (Manual) Metamyelocytes % (Man) Myelocytes % (Man) Promyelocytes % (Man) Blast Cells % (Manual) Plasma Cell % (Manual) Other Cells % Nucleated RBC % Neutrophils # (Manual) Band Neutrophils # Total Absolute Neuts Lymphocytes # (Manual) Prolymphocyte # Reactive Lymphs # Total Abs Lymphocytes Monocytes # (Manual) Eosinophils # (Manual) Basophils # (Manual) Metamyelocytes # (Man) Myelocytes # (Manual) Promyelocytes # (Man) Blast Cells # (Man) Plasma Cell # (Manual) Other Cells # Nucleated RBCs # (Man) Hypersegmented Neuts Hyposegmented Neuts Hypogranular Neuts Large Granular Lymphs # Lrg Granular Lymphs Hairy Cells Smudge Cells Toxic Granulation Toxic Vacuolation Dohle Bodies Lola Rods Platelet Estimate Hypogranular Platelets Clumped Platelets Giant Platelets Platelet Satelliting RBC Morphology Polychromasia Hypochromasia Poikilocytosis Basophilic Stippling Anisocytosis Microcytosis Macrocytosis Spherocytes Pappenheimer Bodies Sickle Cells Target Cells Tear Drop Cells Ovalocytes Stomatocytes Cooney-Brundidge Bodies Echinocytes Acanthocytes (Spur) Rouleaux RBC Agglutinates Schistocytes Sezary Cell Sodium Potassium Chloride (98-107) mmol/L Carbon Dioxide (21-32) mmol/L Anion Gap BUN (6-23) mg/dl Creatinine (0.6-1.4) mg/dl Est Cr Clr Drug Dosing Est GFR ( Amer) ml/min Est GFR (Non-Af Amer) ml/min BUN/Creatinine Ratio (10-20) Glucose (70-99(Fasting)) mg/dl Calcium (8.5-10.1) mg/dl Total Bilirubin (0.2-1.0) mg/dl AST ALT (7-52) U/L Alkaline Phosphatase (34-104) U/L Total Protein (6.0-8.3) gm/dl Albumin (3.4-5.0) gm/dl Globulin (2.5-4.0) gm/dl Albumin/Globulin Ratio (0.9-2) SARS-CoV-2, RNA, NAAT NEGATIVE (NEGATIVE) Group [facility] Strep ([facility]) [facility] Blood Parasites ID Imaging Data Attestation: I personally reviewed and interpreted this imaging study as fo llows: My Impression: Chest x-ray interpreted by me negative for infiltrate CT neck reviewed by me and appreciate radiologist interpretation Radiologist's Impression: * Patient: IAN HUMPHRIES [id number] (Male) : 42 Status: ER Date: 06/16/22 00:36 Room #: History: neck pain, marker placed Slices: 540 Priors: Tech: Jaz Jacobson @ [id number] Exams: CT NECK Contrast: Accession Numbers: [id number] Referring Physician: LISA JULIO Preliminary Findings Only See Final Report For Complete Findings CT NECK: Enlarged right submandibular gland with adjacent inflammatory stranding. This may be infectious or inflammatory. No evidence of abscess. The palatine tonsils are markedly enlarged resulting in mass-effect of the adjacent airway. Clinical correlation is recommended. Heterogeneously enlarged left thyroid gland, consider further evaluation with dedicated thyroid ultrasound on a nonemergent basis. Radiologist: Terri Maurer MD1:31 AM10 days left MDM Narrative Medical decision making differential diagnosis includes angioedema, viral syndrome, pharyngitis, tonsillitis, upper respiratory tract infection, bronchitis, pneumonia, metabolic derangement, dehydration Medical records were reviewed by me, patient admission for chest pain External medical records from the [facility] were reviewed by me Nursing notes were reviewed by me Plan is to check labs, chest x-ray, CT patient's neck Patient has an abnormal CT concerning his angioedema versus an infectious etiology, patient was treated with antibiotics and other medications for angioedema he remained in stable condition. Patient requires admission Impression & Plan Acute tonsillitis, Angioedema Discharge Plan Visit Data Chief Complaint: Throat Pain Stated Complaint: THROAT PAIN, TONSIL INFLAMMED ED Provider: Jonathon Griffith Discharge Problem: Acute tonsillitis, Angioedema Patient Disposition: Admitted As Inpatient Forms Stand Alone Forms: My [facility] Prescriptions Prescriptions: No Action aspirin 325 mg Tablet 325 mg PO DAILY Rx Instructions: take with food losartan 25 mg Tablet 25 mg PO DAILY multivitamin Tablet 1 tab PO DAILY atorvastatin 80 mg Tablet 80 mg PO DAILY carvedilol 6.25 mg Tablet 6.25 mg PO BID Rx Instructions: must administer with a meal/food isosorbide mononitrate 30 mg Tablet Extended Release 24 Hr 30 mg PO DAILY clopidogrel 75 mg Tablet 75 mg PO DAILY nitroglycerin 0.4 mg Tablet, Sublingual 0.4 mg sublingual UD PRN (Reason: Chest Pain) Rx Instructions: place 1 tablet under the tongue on daily as needed x3 if no relief ,call medical ranolazine 1,000 mg Tablet Extended Release 12 Hr 1,000 mg PO BID pantoprazole 40 mg Tablet,Delayed Release (Dr/Ec) 40 mg PO QAM 30 Days Qty: 30 0RF guaifenesin [Mucus Relief] 400 mg Tablet 400 mg PO .START BID 06/17/22 nystatin [Mycostatin] 100,000 unit/mL Suspension 6 ml PO BID Rx Instructions: swish and swallow to stop 06/20/22 Chloraseptic Sore Throat 6-10 mg Lozenge 1 marcellus PO BID Rx Instructions: sugar free guaifenesin [Robitussin] 100 mg/5 mL Liquid 400 mg PO QID PRN (Reason: Cough) Rx Instructions: 20 ml dose Referrals Referrals: Lisa JULIO [Primary Care Provider] -
[2022-06-16] MEDS ORDERED: cefTRIAXone SODIUM 2,000 MG/70 ML BAG IV STA (01:33)
[2022-06-16] MEDS ORDERED: AMPICILLIN/SULBACTAM SOD 3,000 MG in 0.9 % SODIUM CHLORIDE 100 ML IV STA (01:45)
--- NOTE | 2022-06-16 01:52 | History & Physical Report ---
Date of Service June 16, 2022 Assessment & Plan (1) Sepsis: Plan: Multifactorial: Oropharyngeal (tonsillar) source with signs of upper airway obstruction Sialodenitis Aspiration pneumonitis hx CAD status post stent hypertension, slightly elevated hyperlipidemia on statin Rx mild tricuspid regurgitation pulmonary hypertension history of latent TB status post treatment chronic anemia, hemoglobin at baseline Nontoxic goiter as per records Hyperglycemia rule out DM psychotic disorder as per records PCU monitoring CS, Zosyn Solu-Medrol given upper airway obstruction Aspiration precautions, neb treatment 1 dose given scattered wheezing on exam ENT consult Re: Tonsillopharyngitis, sialodenitis N.p.o. until patient seen by ENT Outpatient work-up for nontoxic goiter if not yet done Check hemoglobin A1c DVT prophylaxis per Lovenox subcu Full code Text document was generated using [employer] voice recognition software. It may contain grammatical or spelling errors. Kindly contact undersigned for clarification of any documentation item in quest ion. History of Present Illness Chief Complaint: Sore throat, trouble swallowing Primary Care Provider: SUMANTH Wen History obtained from patient and records. History somewhat difficult to obtain secondary to current muffled speech. Medical history significant for CAD status post stent, hypertension, hyperlipidemia, mild tricuspid regurgitation, pulmonary hypertension, history of latent TB status post treatment, GERD, chronic anemia (baseline hemoglobin 12- 13), nontoxic goiter as per records, antisocial personality disorder/mood disorder as per records. Recent confinement last week for chest pain. ACS ruled out with negative dobutamine stress echo. 3 days ago, patient noted sore throat, trouble swallowing. Painful swelling under the jaw associated with tooth ache. Painful mouth opening as per patient. Episode of neck swelling last year which led to confinement at a hospital in [place]. Swelling attributed to infection. Biopsy done of a lump was negative for cancer as per patient. Patient had an episode of emesis followed by cough symptoms productive of yellow-green sputum. Patient short of breath. Denies chest pain. Denies abdominal pain. Patient brought to the ER for evaluation. 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 Allergies Allergy/AdvReac Type Severity Reaction Status Date / Time Iodinated Contrast Media Allergy Unknown Verified 06/15/22 23:05 iodine Allergy Unknown Verified 06/15/22 23:05 Home Medications Medication Instructions Recorded Confirmed Type aspirin 325 mg tablet 325 mg PO DAILY 06/08/22 06/15/22 History atorvastatin 80 mg tablet 80 mg PO DAILY 06/08/22 06/15/22 History carvedilol 6.25 mg tablet 6.25 mg PO BID 06/08/22 06/15/22 History clopidogrel 75 mg tablet 75 mg PO DAILY 06/08/22 06/15/22 History isosorbide mononitrate 30 mg 30 mg PO DAILY 06/08/22 06/15/22 History tablet,extended release 24 hr losartan 25 mg tablet 25 mg PO DAILY 06/08/22 06/15/22 History multivitamin 1 tab PO DAILY 06/08/22 06/15/22 History nitroglycerin 0.4 mg sublingual 0.4 mg sublingual UD PRN Chest Pain 06/08/22 06/15/22 History tablet ranolazine 1,000 mg 1,000 mg PO BID 06/08/22 06/15/22 History tablet,extended release,12 hr pantoprazole 40 mg tablet,delayed 40 mg PO QAM 30 days #30 tabs 06/10/22 06/15/22 Rx release benzocaine 6 mg-menthol 10 mg 1 marcellus PO BID 06/15/22 06/15/22 History lozenges (Chloraseptic Sore Throat) guaifenesin 100 mg/5 mL oral liquid 400 mg PO QID PRN Cough 06/15/22 06/15/22 History guaifenesin 400 mg tablet (Mucus 400 mg PO .START BID 06/17/22 06/15/22 06/15/22 History Relief) nystatin 100,000 unit/mL oral 6 ml PO BID 06/15/22 06/15/22 History suspension Past Med/Surg History Medical History Angina pectoris, unspecified Coronary artery disease Depression Gastroesophageal reflux Hyperlipidemia Hypertension Social History Smoking Status: Never smoker Hx Alcohol Use: No Hx Substance Use: No Preferred Language: Swedish Communication Ability: Effective Obstetrician/Gynecologist Required: No Beliefs That Will Affect Care: None Current Living Situation: Other Current Living Situation Comment: SUMANTH WEN Feels Safe at Home: No Is there a partner from a previous relationship who is making you feel unsafe now?: No Assistive Devices: Glasses Review of Systems Review of Systems: Could not be reliably obtained secondary to muffled speech Physical Exam Physical Exam: GENERAL: Slightly uncomfortable, no stridor, muffled hyponasal voice, pleasant, no respiratory distress SKIN: Pallor, warm HEENT: Partial alopecia, pale palpebral conjunctivae, no ptosis, asymmetric nasal tip/philtrum, no trismus, dry buccal mucosa, partially edentulous, carious molars right mandible NECK : Supple, right submandibular tenderness CHEST : Decreased breath sounds, scattered expiratory wheezes, no tenderness HEART : Tachycardic, no obvious murmurs ABDOMEN: Some distention, nontender EXTREMITIES : Minimal LE swelling, no LE tenderness, no other conspicuous deformities noted NEUROLOGIC : Coherent, nasal asymmetry, gait and stance not assessed Results & Data Results & Data ([facility]) Vital Signs (Past 12 Hours) Vital Signs Temp Pulse Resp BP Pulse Ox O2 Del Method 06/15/22 20:48 36.4 C L 109 H 18 131/86 98 Room Air Laboratory Results Laboratory Results WBC 14.46 K/ul (4.8-10.8) H 06/15/22 22:00 RBC 3.69 M/uL (4.70-6.10) L 06/15/22 22:00 Hgb 13.5 g/dl (14.0-18.0) L 06/15/22 22:00 Hct 40.5 % (42.0-52.0) L 06/15/22 22:00 MCV 109.8 fL (80.0-100.0) H 06/15/22 22:00 MCH 36.6 pg (25.0-34.0) H 06/15/22 22:00 MCHC 33.3 g/dL (32.0-36.0) 06/15/22 22:00 RDW Std Deviation 48.6 fL (36.4-46.3) H 06/15/22 22:00 RDW Coeff of [place] 11.8 % (11.5-14.5) 06/15/22 22:00 Plt Count 248 K/uL (130-400) 06/15/22 22:00 MPV 10.5 fL (9.4-12.4) 06/15/22 22:00 Immature Gran % (Auto) 0.5 % 06/15/22 22:00 Neut % (Auto) 81.3 % 06/15/22 22:00 Lymph % (Auto) 6.4 % 06/15/22 22:00 [place] % (Auto) 11.7 % 06/15/22 22:00 Eos % (Auto) 0.0 % 06/15/22 22:00 Baso % (Auto) 0.1 % 06/15/22 22:00 Neut # (Auto) 11.75 K/uL (1.40-6.50) H 06/15/22 22:00 Lymph # (Auto) 0.93 K/uL (1.2-3.4) L 06/15/22 22:00 [place] # (Auto) 1.69 K/uL (0.11-0.59) H 06/15/22 22:00 Eos # (Auto) 0.00 K/uL (0-0.50) 06/15/22 22:00 Baso # (Auto) 0.02 K/uL (0-0.2) 06/15/22 22:00 Immature Gran # (Auto) 0.07 K/uL (0.01-0.20) 06/15/22 22:00 Absolute Nucleated RBC Cancelled 06/15/22 21:10 Nucleated RBC % (auto) Cancelled 06/15/22 21:10 Neutrophils % (Manual) Cancelled 06/15/22 21:10 Band Neutrophils % Cancelled 06/15/22 21:10 Lymphocytes % (Manual) Cancelled 06/15/22 21:10 Prolymphocyte % Cancelled 06/15/22 21:10 Reactive Lymphs % (Man) Cancelled 06/15/22 21:10 Monocytes % (Manual) Cancelled 06/15/22 21:10 Eosinophils % (Manual) Cancelled 06/15/22 21:10 Basophils % (Manual) Cancelled 06/15/22 21:10 Metamyelocytes % (Man) Cancelled 06/15/22 21:10 Myelocytes % (Man) Cancelled 06/15/22 21:10 Promyelocytes % (Man) Cancelled 06/15/22 21:10 Blast Cells % (Manual) Cancelled 06/15/22 21:10 Plasma Cell % (Manual) Cancelled 06/15/22 21:10 Other Cells % Cancelled 06/15/22 21:10 Nucleated RBC % Cancelled 06/15/22 21:10 Neutrophils # (Manual) Cancelled 06/15/22 21:10 Band Neutrophils # Cancelled 06/15/22 21:10 Total Absolute Neuts Cancelled 06/15/22 21:10 Lymphocytes # (Manual) Cancelled 06/15/22 21:10 Prolymphocyte # Cancelled 06/15/22 21:10 Reactive Lymphs # Cancelled 06/15/22 21:10 Total Abs Lymphocytes Cancelled 06/15/22 21:10 Monocytes # (Manual) Cancelled 06/15/22 21:10 Eosinophils # (Manual) Cancelled 06/15/22 21:10 Basophils # (Manual) Cancelled 06/15/22 21:10 Metamyelocytes # (Man) Cancelled 06/15/22 21:10 Myelocytes # (Manual) Cancelled 06/15/22 21:10 Promyelocytes # (Man) Cancelled 06/15/22 21:10 Blast Cells # (Man) Cancelled 06/15/22 21:10 Plasma Cell # (Manual) Cancelled 06/15/22 21:10 Other Cells # Cancelled 06/15/22 21:10 Nucleated RBCs # (Man) Cancelled 06/15/22 21:10 Hypersegmented Neuts Cancelled 06/15/22 21:10 Hyposegmented Neuts Cancelled 06/15/22 21:10 Hypogranular Neuts Cancelled 06/15/22 21:10 Large Granular Lymphs Cancelled 06/15/22 21:10 # Lrg Granular Lymphs Cancelled 06/15/22 21:10 Hairy Cells Cancelled 06/15/22 21:10 Smudge Cells Cancelled 06/15/22 21:10 Toxic Granulation Cancelled 06/15/22 21:10 Toxic Vacuolation Cancelled 06/15/22 21:10 Dohle Bodies Cancelled 06/15/22 21:10 Lola Rods Cancelled 06/15/22 21:10 Platelet Estimate Cancelled 06/15/22 21:10 Hypogranular Platelets Cancelled 06/15/22 21:10 Clumped Platelets Cancelled 06/15/22 21:10 Giant Platelets Cancelled 06/15/22 21:10 Platelet Satelliting Cancelled 06/15/22 21:10 RBC Morphology Cancelled 06/15/22 21:10 Polychromasia Cancelled 06/15/22 21:10 Hypochromasia Cancelled 06/15/22 21:10 Poikilocytosis Cancelled 06/15/22 21:10 Basophilic Stippling Cancelled 06/15/22 21:10 Anisocytosis Cancelled 06/15/22 21:10 Microcytosis Cancelled 06/15/22 21:10 Macrocytosis Cancelled 06/15/22 21:10 Spherocytes Cancelled 06/15/22 21:10 Pappenheimer Bodies Cancelled 06/15/22 21:10 Sickle Cells Cancelled 06/15/22 21:10 Target Cells Cancelled 06/15/22 21:10 Tear Drop Cells Cancelled 06/15/22 21:10 Ovalocytes Cancelled 06/15/22 21:10 Stomatocytes Cancelled 06/15/22 21:10 Cooney-[place]ala[place] Bodies Cancelled 06/15/22 21:10 Echinocytes Cancelled 06/15/22 21:10 Acanthocytes (Spur) Cancelled 06/15/22 21:10 Rouleaux Cancelled 06/15/22 21:10 RBC Agglutinates Cancelled 06/15/22 21:10 Schistocytes Cancelled 06/15/22 21:10 Sezary Cell Cancelled 06/15/22 21:10 Sodium TNP 06/15/22 21:10 Potassium TNP 06/15/22 21:10 Chloride 102 mmol/L (98-107) 06/15/22 21:10 Carbon Dioxide 24 mmol/L (21-32) 06/15/22 21:10 Anion Gap TNP 06/15/22 21:10 BUN 33 mg/dl (6-23) H 06/15/22 21:10 Creatinine 1.37 mg/dl (0.6-1.4) 06/15/22 21:10 Est Cr Clr Drug Dosing Not Reportable 06/15/22 21:10 Est GFR ( Amer) 56.1 ml/min 06/15/22 21:10 Est GFR (Non-Af Amer) 48.4 ml/min 06/15/22 21:10 BUN/Creatinine Ratio 24.1 (10-20) H 06/15/22 21:10 Glucose 136 mg/dl (70-99(Fasting)) H 06/15/22 21:10 Calcium 9.2 mg/dl (8.5-10.1) 06/15/22 21:10 Total Bilirubin 1.8 mg/dl (0.2-1.0) H 06/15/22 21:10 AST TNP 06/15/22 21:10 ALT 14 U/L (7-52) 06/15/22 21:10 Alkaline Phosphatase 114 U/L (34-104) H 06/15/22 21:10 Total Protein 8.5 gm/dl (6.0-8.3) H 06/15/22 21:10 Albumin 3.5 gm/dl (3.4-5.0) 06/15/22 21:10 Globulin 5.0 gm/dl (2.5-4.0) H 06/15/22 21:10 Albumin/Globulin Ratio 0.7 (0.9-2) L 06/15/22 21:10 SARS-CoV-2, RNA, NAAT NEGATIVE (NEGATIVE) 06/15/22 23:40 Group A Strep (PCR) NOT DETECTED (NotDetected) 06/15/22 21:10 Blood Parasites ID Cancelled 06/15/22 21:10 Diagnostic Findings Soft tissue neck CT initial read: Enlarged right submandibular gland with adjacent inflammatory stranding. This may be infectious or inflammatory. No evidence of abscess. The palatine tonsils are markedly enlarged resulting in mass-effect of the adjacent airway. Clinical correlation is recommended. Heterogeneously enlarged left thyroid gland, consider further evaluation with dedicated thyroid ultrasound on a nonemergent basis. Chest x-ray as per my interpretation: Cardiomegaly, elevated right hemidiaphragm, atelectasis EKG as per my interpretation :
[2022-06-16] MEDS ORDERED: PIPERACILLIN/TAZOBACTAM 4.5 GM/120 ML BAG IV STA (02:18)
[2022-06-16] MEDS ORDERED: XOPENEX/ATROVENT 1.25mg/0.5MG NEB COMBO NEB STA (02:45)
[2022-06-16] MEDS ORDERED: LEVALBUTEROL 1.25MG/0.5ML NEB INH STA (02:45)
[2022-06-16] MEDS ORDERED: IPRATROPIUM BROMIDE NEB SOLN 0.02% 2.5 ML VIAL INH STA (02:45)
[2022-06-16] MEDS ORDERED: SODIUM CHLORIDE 0.9% 1000ML 1,000 ML IV STA (02:55)
[2022-06-16 03:45] LABS: INR 1.1 (0.9-1.1); Partial Thromboplastin Ratio 1.2; Partial Thromboplastin Time 33.8 Seconds (21.0-31.0); Prothrombin Time 11.8 Seconds (9.0-12.0)
[2022-06-16 03:46] LABS: Potassium 3.9 mmol/L (3.5-5.1)
[2022-06-16] MEDS ORDERED: traMADol HCL 50 MG TABLET PO PRN (03:47)
[2022-06-16] MEDS ORDERED: ACETAMINOPHEN 325 MG TAB PO PRN (03:47)
[2022-06-16] MEDS ORDERED: PROMETHAZINE HCL 6.25 MG in SODIUM CHLORIDE 0.9% 50 ML IV PRN (03:47)
[2022-06-16] MEDS: SODIUM CHLORIDE 0.9% 1000ML 1,000 ML IV SCH ×2 (05:47→23:53)
[2022-06-16 06:49] LABS: Hematocrit (blood only) 37.5 % (42.0-52.0); Hemoglobin 12.7 g/dl (14.0-18.0); Mean Corpuscular Hemoglobin 36.8 pg (25.0-34.0); Mean Corpuscular Hgb Conc 33.9 g/dL (32.0-36.0); Mean Corpuscular Volume 108.7 fL (80.0-100.0); Mean Platelet Volume 10.8 fL (9.4-12.4); Platelet Count 251 K/uL (130-400); RDW Coefficient of Variation 11.8 % (11.5-14.5); RDW Standard Deviation 47.1 fL (36.4-46.3); Red Blood Count 3.45 M/uL (4.70-6.10); White Blood Count 13.25 K/ul (4.8-10.8)
[2022-06-16 06:57] LABS: BUN Creatinine Ratio 30.2 (10-20); Calcium 9.1 mg/dl (8.5-10.1); Creatinine Clr Calc Pharmacy 45.7 ml/min; Est GFR (African American) 60.3 ml/min; Potassium 3.7 mmol/L (3.5-5.1)
[2022-06-16 07:43] LABS: Basophils # (auto) 0.01 K/uL (0-0.2); Basophils % (auto) 0.1 %; Immature Granulocytes # (auto) 0.09 K/uL (0.01-0.20); Immature Granulocytes % (auto) 0.7 %; Lymphocytes # (auto) 0.45 K/uL (1.2-3.4); Lymphocytes % (auto) 3.4 %; Monocytes # (auto) 0.13 K/uL (0.11-0.59); Neutrophils # (auto) 12.57 K/uL (1.40-6.50); Neutrophils % (auto) 94.8 %
[2022-06-16 07:58] LABS: Estimated Average Glucose 85 mg/dl; Hemoglobin A1C 4.6 % (4.5-5.6)
[2022-06-16] MEDS: ASPIRIN 81 MG ECTAB PO SCH (09:29)
[2022-06-16] MEDS: ATORVASTATIN 40 MG TAB PO SCH (09:30)
[2022-06-16] MEDS: carvediloL 6.25 MG TAB PO SCH ×2 (09:31→21:31)
[2022-06-16] MEDS: ENOXAPARIN INJ 40 MG/0.4 ML SYR SQ SCH (09:31)
[2022-06-16] MEDS: CLOPIDOGREL BISULFATE 75 MG TAB PO SCH (09:31)
[2022-06-16] MEDS: LOSARTAN POTASSIUM 25 MG TAB PO SCH (09:32)
[2022-06-16] MEDS: ISOSORBIDE MONO EXTENDED REL 30 MG TABCR PO SCH (09:32)
[2022-06-16] MEDS: methylPREDNISolone 40 MG in SYRINGE 0 ML IV SCH (09:33)
[2022-06-16] MEDS: MULTIVITAMIN TAB PO SCH (09:33)
[2022-06-16] MEDS: PANTOprazole 40 MG TAB PO SCH (09:34)
[2022-06-16] MEDS: RANOLAZINE 500 MG ER TAB PO SCH ×2 (09:34→21:31)
[2022-06-16] MEDS: PIPERACILLIN/TAZOBACTAM 3.375 GM in DEXTROSE 5% 100 ML IV SCH ×2 (09:35→17:31)
--- NOTE | 2022-06-16 09:36 | CT Scan Report ---
NECK CT WITHOUT CONTRAST CLINICAL HISTORY: Neck pain. IV dye allergy. COMPARISON STUDY: No previous studies for comparison. TECHNIQUE: Axial images of the neck were obtained without IV contrast. Sagittal and coronal reconstru ctions were viewed. Automated exposure control was utilized for the study. A dose lowering technique was utilized adhering to the principles of ALARA. No intravenous contrast was administered due to IV dye allergy. FINDINGS: Visualized portions of the intracranial contents are unremarkable. Marked tonsillar enlarge ment is greater on the right with associated parapharyngeal edema. Although suboptimally assessed on this unenhanced exam, there is a suspected 1.7 x 1.7 cm right peritonsillar abscess on axial image 50 of 108. Tonsillar enlargement results in moderate airway narrowing. There is no soft tissue gas. Mil d prevertebral edema. There is thickening of the right platysma muscle. There is mild asymmetric enla rgement of the right submandibular and parotid glands. Multinodular left thyroid lobe is incidentally noted. Lung apices are unremarkable. No acute fractures are present within the cervical spine. Epigl ottis is normal. No sialolith is identified. IMPRESSION: 1. Markedly enlarged palatine tonsils, greater on the right, with extensive associated inflammation, suggestive of acute tonsillitis. Moderate associated airway narrowing. Probable 1.7 cm right peritons illar abscess, suboptimally assessed on this unenhanced exam. This finding will be called/faxed to [facility] ordering provider at time of dictation. 2. Multinodular left lobe thyroid gland. ACT 112: Negative or not required by law. Electronically signed by: Orville Alston M.D. 06/16/2022 9:34 AM
--- NOTE | 2022-06-16 10:25 | XRay Report ---
XR chest 1V portable CLINICAL HISTORY: Cough. COMPARISON STUDY: Chest radiograph June 07, 2022. FINDINGS: No pneumothorax or pleural effusion is present. Cardiomediastinal silhouette is stable. Sma ll hiatal hernia is again noted. There is no consolidation to suggest pneumonia. No evidence for pulm onary edema. IMPRESSION: No acute cardiopulmonary findings. No change in appearance of the chest. ACT 112: Negative or not required by law. Electronically signed by: Orville Alston M.D. 06/16/2022 10:24 AM
--- NOTE | 2022-06-16 18:44 | Communication Note ---
Date of Service: June 16, 2022 Pt was seen and examined for sore throat and dysphagia. Lying in bed with 2 securities guard at bedside. Pt said that whenever she eats or take his pills that he regurgitated them. Pt said that his breathing is stable. He has been spitting on a tissue constantly. Denies any chest pain, palpitation, dizziness and SOB. he is saturated well on RA. On exam there is no stridor, no accessory muscle used. Soft tissue CT showed markedly enlarged palatine tonsils, greater on the right, with extensive associated inflammation, suggestive of acute tonsillitis. Moderate associated airway narrowing. Probable 1.7 cm right peritonsillar abscess, suboptimally assessed on this unenhanced exam. Multinodular left lobe thyroid gland.case discussed with ENT dr. Derek cobb about the CT finding. Dr. Cobb will evaluate pt later. Continue IV Zosyn and IV Solumedrol. I discussed the case with staff certified nurse midwife in case pt decompensates that will require to transfer to ICU. Speech consult. Will keep NPO for now until evaluate by speech therapy. Continue monitor closely. MD Presley
[2022-06-16] MEDS: METOPROLOL TARTRATE 1 MG/ML VIAL IV SCH (23:19)
[2022-06-16] MEDS ORDERED: Nursing to Pharmacy Communication SCH (23:45)
[2022-06-17] MEDS: PIPERACILLIN/TAZOBACTAM 3.375 GM in DEXTROSE 5% 100 ML IV SCH ×3 (02:03→17:36)
[2022-06-17] MEDS: SODIUM CHLORIDE 0.9% 1000ML 1,000 ML IV SCH ×2 (02:03→13:09)
[2022-06-17] MEDS: METOPROLOL TARTRATE 1 MG/ML VIAL IV SCH ×4 (05:53→23:43)
[2022-06-17] MEDS: CLOPIDOGREL BISULFATE 75 MG TAB PO SCH (08:39)
[2022-06-17] MEDS: ATORVASTATIN 40 MG TAB PO SCH (08:39)
[2022-06-17] MEDS: MULTIVITAMIN TAB PO SCH (08:39)
[2022-06-17] MEDS: ISOSORBIDE MONO EXTENDED REL 30 MG TABCR PO SCH (08:39)
[2022-06-17] MEDS: LOSARTAN POTASSIUM 25 MG TAB PO SCH (08:39)
[2022-06-17] MEDS: carvediloL 6.25 MG TAB PO SCH ×2 (08:39→20:09)
[2022-06-17] MEDS: ASPIRIN 81 MG ECTAB PO SCH (08:39)
[2022-06-17] MEDS: RANOLAZINE 500 MG ER TAB PO SCH ×2 (08:40→20:09)
[2022-06-17] MEDS: PANTOprazole 40 MG TAB PO SCH (08:40)
[2022-06-17] MEDS: ENOXAPARIN INJ 40 MG/0.4 ML SYR SQ SCH (08:45)
[2022-06-17] MEDS: methylPREDNISolone 40 MG in SYRINGE 0 ML IV SCH (08:46)
[2022-06-17 08:53] LABS: Hematocrit (blood only) 35.1 % (42.0-52.0); Hemoglobin 11.9 g/dl (14.0-18.0); Mean Corpuscular Hemoglobin 36.6 pg (25.0-34.0); Mean Corpuscular Hgb Conc 33.9 g/dL (32.0-36.0); Mean Platelet Volume 10.9 fL (9.4-12.4); Platelet Count 264 K/uL (130-400); RDW Coefficient of Variation 11.7 % (11.5-14.5); RDW Standard Deviation 46.5 fL (36.4-46.3); Red Blood Count 3.25 M/uL (4.70-6.10); White Blood Count 20.59 K/ul (4.8-10.8)
[2022-06-17 09:11] LABS: BUN Creatinine Ratio 31.9 (10-20); Creatinine Clr Calc Pharmacy 30.8 ml/min; Est GFR (African American) 37.5 ml/min; Est GFR (Non-African American) 32.4 ml/min; Potassium 3.4 mmol/L (3.5-5.1)
[2022-06-17] MEDS: POTASSIUM CHLORIDE / WTR 10 MEQ/100 ML PLCT IV SCH ×2 (10:30→11:53)
--- NOTE | 2022-06-17 17:29 | Hospitalist Progress Note ---
Date of Service June 17, 2022 Assessment & Plan (1) Acute tonsillitis: Plan: Sepsis Present on admission with chest pain and sore throat Met sepsis criteria on admission with tachycardia and Leukocytosis Soft Tissue CT showed markedly enlarged palatine tonsils, greater on the right, with extensive associated inflammation, suggestive of acute tonsillitis. Moderate associated airway narrowing. Probable 1.7 cm right peritonsillar abscess. Received Unasyn in the ER and steroid Currently on IV Zosyn and Solumedrol ENT consulted - no indication for any surgical intervention Speech on board - Plan for bedside FEES tomorrow Case discussed with store host Dr. Tapia yesterday in case pt became unstable to minitor in the ICU We will keep n.p.o. for now Elevated WBC WBC increased to 20.5 today mostly due to steroid in the setting of infection Continue IV abx Thyroid nodule 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 Continue outpatient follow up Acute kidney injury Mostly due to poor oral intake Creatinine 1.9 today Continue IV fluid Avoid nephrotoxic agent Continue monitor BMP Hypokalemia Potassium 3.4 today K replaced Continue monitor BMP CAD Denies any chest pain Currently unable to swallow any PO meds Metoprolol, statin, aspirin and Plavix on hold since pt NPO Will change aspirin to rectal HTN BP stable Continue to hold PO med If BP start to elevate, will add PRN IV Continue monitor BP DVT px on Lovenox Code status Full code Admission and Anticipated Discharge Date Admission Date: June 16, 2022 Subjective Pt was seen and examined for follow up of dysphagia and sore throat Lying in bed with 2 officers at bedside Pt said that he continues to spit his pills He could not swallow his tablets because he feels like they stuck Denies any chest pain, palpitation, dizziness and SOB Review of Systems Review of Systems: All systems reviewed & are unremarkable except as noted in Subjective Physical Exam Physical Exam: General- No acute distress Head- atraumatic Eyes- PERRL, EOMI, ENT- oropharynx clear Neck- supple, no JVD Lungs- No stridor, no crackle, no wheezing Heart- regular rhythm; no murmur Abdomen- normal bowel sounds, soft, nontender Extremities- no calf tenderness Neuro- alert, oriented x 3; PERRL, EOMI; no facial palsy; no dysarthria Skin- warm & dry Results & Data Results & Data ([facility]) Vital Signs (Past 12 Hours) Vital Signs Temp Pulse Pulse Resp BP BP Pulse Ox 06/17/22 15:58 36.9 C 77 18 139/86 97 06/17/22 16:19 63 06/17/22 12:30 78 136/78 06/17/22 12:00 36.8 C 78 18 136/87 95 06/17/22 08:00 06/17/22 08:00 36.9 C 77 18 125/71 95 06/17/22 07:14 63 06/17/22 05:53 72 116/70 06/17/22 05:52 36.8 C 72 16 116/70 94 O2 Del Method 06/17/22 15:58 Room Air 06/17/22 16:19 06/17/22 12:30 06/17/22 12:00 Room Air 06/17/22 08:00 Room Air 06/17/22 08:00 Room Air 06/17/22 07:14 06/17/22 05:53 06/17/22 05:52 Room Air
[2022-06-18] MEDS: PIPERACILLIN/TAZOBACTAM 3.375 GM in DEXTROSE 5% 100 ML IV SCH ×3 (01:31→17:14)
[2022-06-18] MEDS: SODIUM CHLORIDE 0.9% 1000ML 1,000 ML IV SCH ×2 (01:32→12:26)
--- NOTE | 2022-06-18 05:19 | ENT Consultation ---
Date of Consultation June 16, 2022 Assessment & Plan (1) Acute tonsillitis: (2) Peritonsillar abscess: (3) Dysphagia: (4) Thyroid nodule: Plan Mr. Villalobos is an 81 year old gentleman with a history of CAD s/p stent, angina, HTN, TB, and thyroid goiter who presents with tonsillitis complicated by a peritonsillar abscess, dysphagia, and an enlarged left thyroid lobe. Mr. Villalobos is overall doing well and, while the CT is noncontrasted, the fluid collection appears small on imaging, while he has began to improve on antibiotics and his exam is overall reassuring. His swallowing should continue to improve, however, speech has been consulted given that his baseline function is uncertain and he has had difficulty with oral intake and while taking his medicine and also has pooled secretions on exam. -Speech/swallow therapy -Advance diet as tolerated -Ok for discharge once improving, tolerating oral diet, and transitioned to oral antibiotics -Thyroid ultrasound to include bilateral necks as outpatient History of Present Illness Reason for Consultation: Peritonsillar Abscess Attending Physician: Suzan Sherwood MD History of Present Illness Mr. Villalobos is an 81 year old gentleman with a history of CAD s/p stent, angina, HTN, TB, and thyroid goiter who presents with right peritonsillar abscess. Several days prior to presentation, he had a sore throat, primarily on the right side, along with odynophagia and trismus. He has also had intermittent coughing and choking while taking things by mouth, including his medicines while being admitted. In the ED, he is hemodynamically stable, afebrile, with a WBC of 14. A noncontrasted CT scan reveals phlegmonous changes of the oropharynx, likely with a small fluid collection, bilateral scattered and reactive lymphadenopathy, as well as a large heterogenous thyroid lobe on the left without a discrete nodule. Allergies Allergy/AdvReac Type Severity Reaction Status Date / Time Iodinated Contrast Media Allergy Unknown Verified 06/15/22 23:05 iodine Allergy Unknown Verified 06/15/22 23:05 Home Medications Medication Instructions Recorded Confirmed Type aspirin 325 mg tablet 325 mg PO DAILY 06/08/22 06/15/22 History atorvastatin 80 mg tablet 80 mg PO DAILY 06/08/22 06/15/22 History carvedilol 6.25 mg tablet 6.25 mg PO BID 06/08/22 06/15/22 History clopidogrel 75 mg tablet 75 mg PO DAILY 06/08/22 06/15/22 History isosorbide mononitrate 30 mg 30 mg PO DAILY 06/08/22 06/15/22 History tablet,extended release 24 hr losartan 25 mg tablet 25 mg PO DAILY 06/08/22 06/15/22 History multivitamin 1 tab PO DAILY 06/08/22 06/15/22 History nitroglycerin 0.4 mg sublingual 0.4 mg sublingual UD PRN Chest Pain 06/08/22 06/15/22 History tablet ranolazine 1,000 mg 1,000 mg PO BID 06/08/22 06/15/22 History tablet,extended release,12 hr pantoprazole 40 mg tablet,delayed 40 mg PO QAM 30 days #30 tabs 06/10/22 06/15/22 Rx release benzocaine 6 mg-menthol 10 mg 1 marcellus PO BID 06/15/22 06/15/22 History lozenges (Chloraseptic Sore Throat) guaifenesin 100 mg/5 mL oral liquid 400 mg PO QID PRN Cough 06/15/22 06/15/22 History guaifenesin 400 mg tablet (Mucus 400 mg PO .START BID 06/17/22 06/15/22 06/15/22 History Relief) nystatin 100,000 unit/mL oral 6 ml PO BID 06/15/22 06/15/22 History suspension Patient History Medical History (Updated 06/18/22 @ 05:49 by Derek Interiano MD) Angina pectoris, unspecified Coronary artery disease Depression Gastroesophageal reflux Hyperlipidemia Hypertension Peritonsillar abscess Social History Smoking Status: Never smoker Hx Alcohol Use: No Hx Substance Use: No Preferred Language: Algerian Communication Ability: Effective Instructional Aide Required: No Beliefs That Will Affect Care: None Current Living Situation: Other Current Living Situation Comment: SUMANTH GONZALEZ Feels Safe at Home: No Is there a partner from a previous relationship who is making you feel unsafe now?: No Assistive Devices: Glasses Physical Exam Physical Exam: GENERAL: NAD, AOx3 FACE: Symmetric and intact EYES: EOMI, reactive and symmetric pupils EARS: Auricles are symmetric, external auditory canals are patent NOSE: Mild external deviation, mucosa intact ORAL CAVITY: No trismus, edentulous; Mucosal intact without lesions, ulcerations, or superficial changes; Tongue mobile OROPHARYNX: No masses or bleeding, erythema and fullness of tonsillar pillars bilaterally, right greater than the left; Symmetric palatal rise NECK: No masses, lymphadenopathy, or salivary tumors; Trachea midline RESPIRATORY: Symmetric chest expansion, no wheezing, stridor, or shortness of breath CARDIAC: Warm and well perfused extremities, no evidence of peripheral vascular disease NEURO: Alert and oriented, CNII-XII grossly intact Results & Data ([facility]) Vital Signs (Past 12 Hours) Vital Signs Temp Pulse Pulse Resp BP BP Pulse Ox 06/18/22 03:35 36.4 C L 58 L 20 143/71 H 98 06/17/22 22:00 60 06/17/22 23:43 62 143/75 H 06/17/22 23:42 36.6 C 62 16 143/75 H 95 06/17/22 19:34 36.7 C 70 20 129/71 96 06/17/22 19:40 O2 Del Method 06/18/22 03:35 Room Air 06/17/22 22:00 06/17/22 23:43 06/17/22 23:42 Room Air 06/17/22 19:34 Room Air 06/17/22 19:40 Room Air PG Care Time/CCT Total # of Minutes Spent Total Time Spent with Patient: Total time spent is greater than 50% in coordination of care (as documented) at patient's floor/unit and/or counseling patient: Coding Level of Care Code INP/OBS CONSULT LVL 2, 35 MIN Diagnoses Acute tonsillitis J03.90 Peritonsillar abscess J36 Dysphagia R13.10 Thyroid nodule E04.1
[2022-06-18 06:15] LABS: Hematocrit (blood only) 34.4 % (42.0-52.0); Hemoglobin 11.6 g/dl (14.0-18.0); Mean Corpuscular Hemoglobin 36.5 pg (25.0-34.0); Mean Corpuscular Hgb Conc 33.7 g/dL (32.0-36.0); Mean Corpuscular Volume 108.2 fL (80.0-100.0); Mean Platelet Volume 10.9 fL (9.4-12.4); Platelet Count 254 K/uL (130-400); RDW Coefficient of Variation 11.8 % (11.5-14.5); RDW Standard Deviation 46.7 fL (36.4-46.3); Red Blood Count 3.18 M/uL (4.70-6.10); White Blood Count 13.15 K/ul (4.8-10.8)
[2022-06-18] MEDS: METOPROLOL TARTRATE 1 MG/ML VIAL IV SCH (06:19)
[2022-06-18 06:25] LABS: BUN Creatinine Ratio 38.9 (10-20); Calcium 8.5 mg/dl (8.5-10.1); Creatinine Clr Calc Pharmacy 46.8 ml/min; Est GFR (Non-African American) 53.5 ml/min; Potassium 3.7 mmol/L (3.5-5.1)
[2022-06-18] MEDS: CLOPIDOGREL BISULFATE 75 MG TAB PO SCH (08:31)
[2022-06-18] MEDS: ATORVASTATIN 40 MG TAB PO SCH (08:31)
[2022-06-18] MEDS: carvediloL 6.25 MG TAB PO SCH ×2 (08:31→20:45)
[2022-06-18] MEDS: ASPIRIN 81 MG ECTAB PO SCH (08:31)
[2022-06-18] MEDS: ISOSORBIDE MONO EXTENDED REL 30 MG TABCR PO SCH (08:32)
[2022-06-18] MEDS: RANOLAZINE 500 MG ER TAB PO SCH ×2 (08:32→20:47)
[2022-06-18] MEDS: MULTIVITAMIN TAB PO SCH (08:32)
[2022-06-18] MEDS: LOSARTAN POTASSIUM 25 MG TAB PO SCH (08:32)
[2022-06-18] MEDS: ENOXAPARIN INJ 40 MG/0.4 ML SYR SQ SCH (08:35)
[2022-06-18] MEDS: methylPREDNISolone 40 MG in SYRINGE 0 ML IV SCH (08:35)
[2022-06-18] MEDS: PANTOprazole 40 MG TAB PO SCH (08:36)
--- NOTE | 2022-06-18 11:31 | Fluoroscopy Report ---
MODIFIED BARIUM SWALLOW CLINICAL HISTORY: Difficulty swallowing. COMPARISON STUDY: Neck CT June 15, 2022. FLUOROSCOPY TIME: 4.2 minutes. Exposure dose: 57.65 mGy TECHNIQUE: A modified barium swallow was performed in conjunction with Speech Pathology. The patient ingested varying consistencies of barium containing material. Video fluoroscopy was performed. FINDINGS: No tracheal aspiration was identified with thin liquids by spoon or cup. There was no trach eal aspiration with mildly thick liquids, pudding or crackers with paste. Note was made of mild hodges cular and piriform sinus residuals. There was moderate esophageal dysmotility. 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 IMPRESSION: 1. No tracheal aspiration identified. 2. Mild residuals within the vallecula and piriform sinuses. 3. 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 Esophageal dysmotility. 4. Full recommendations by Speech pathology to follow. ACT 112: Negative or not required by law. Electronically signed by: Orville Alston M.D. 06/18/2022 11:29 AM
--- NOTE | 2022-06-18 16:10 | Hospitalist Progress Note ---
Date of Service June 18, 2022 Assessment & Plan (1) Acute tonsillitis: Plan: Sepsis Present on admission with chest pain and sore throat Met sepsis criteria on admission with tachycardia and Leukocytosis Soft Tissue CT showed markedly enlarged palatine tonsils, greater on the right, with extensive associated inflammation, suggestive of acute tonsillitis. Moderate associated airway narrowing. Probable 1.7 cm right peritonsillar abscess. Case discussed with want ad supervisor Dr. Tapia yesterday in case pt became unstable to minitor in the ICU Received Unasyn in the ER and steroid Currently on IV Zosyn and Solumedrol ENT consulted - no indication for any surgical intervention Speech on board Video swallow done showed no tracheal aspiration identified. Mild residuals within the vallecula and piriform sinuses. Moderate narrowing at the upper es ophagus due to the cricopharyngeus. Esophageal dysmotility. Case discussed with GI ( no official consult) that recommended outpatient EGD but not until the peritonsillar abscess is resolved. 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 Continue outpatient follow up Acute kidney injury Mostly due to poor oral intake Creatinine increased to 1.9 creatinine improved to 1.2 with IV fluid Avoid nephrotoxic agent Continue monitor BMP Hypokalemia Potassium 3.7 today Continue monitor BMP CAD Denies any chest pain will resume PO Metoprolol, statin, aspirin and Plavix HTN BP stable PO hypertensive meds resumed Continue monitor BP DVT px on Lovenox Code status Full code Admission and Anticipated Discharge Date Admission Date: June 16, 2022 Subjective Pt was seen and examined for follow up of dysphagia and sore throat Lying in bed with 2 officers at bedside Pt said that he feels better today He said that he is not spitting much today he said that he does not have any sore throat today Denies any chest pain, palpitation, dizziness and SOB Review of Systems Review of Systems: All systems reviewed & are unremarkable except as noted in Subjective Physical Exam Physical Exam: General- No acute distress Head- atraumatic Eyes- PERRL, EOMI, ENT- oropharynx clear Neck- supple, no JVD Lungs- No stridor, no crackle, no wheezing Heart- regular rhythm; no murmur Abdomen- normal bowel sounds, soft, nontender Extremities- no calf tenderness Neuro- alert, oriented x 3; PERRL, EOMI; no facial palsy; no dysarthria Skin- warm & dry Results & Data Results & Data ([facility]) Vital Signs (Past 12 Hours) Vital Signs Temp Pulse Pulse Resp BP BP Pulse Ox 06/18/22 15:00 61 06/18/22 12:03 36.6 C 57 L 18 143/77 H 100 06/18/22 09:47 59 L 06/18/22 07:30 36.5 C 57 L 18 146/74 H 97 06/18/22 06:19 53 L 141/92 H O2 Del Method 06/18/22 15:00 06/18/22 12:03 Room Air 06/18/22 09:47 06/18/22 07:30 Room Air 06/18/22 06:19
[2022-06-19] MEDS: PIPERACILLIN/TAZOBACTAM 3.375 GM in DEXTROSE 5% 100 ML IV SCH ×2 (01:17→09:29)
[2022-06-19 06:34] LABS: Hematocrit (blood only) 37.3 % (42.0-52.0); Hemoglobin 12.4 g/dl (14.0-18.0); Mean Corpuscular Hemoglobin 36.4 pg (25.0-34.0); Mean Corpuscular Hgb Conc 33.2 g/dL (32.0-36.0); Mean Corpuscular Volume 109.4 fL (80.0-100.0); Mean Platelet Volume 10.6 fL (9.4-12.4); Platelet Count 268 K/uL (130-400); RDW Coefficient of Variation 11.5 % (11.5-14.5); RDW Standard Deviation 46.6 fL (36.4-46.3); Red Blood Count 3.41 M/uL (4.70-6.10); White Blood Count 10.04 K/ul (4.8-10.8)
[2022-06-19 06:51] LABS: BUN Creatinine Ratio 27.2 (10-20); Calcium 8.5 mg/dl (8.5-10.1); Creatinine Clr Calc Pharmacy 51.8 ml/min; Est GFR (African American) 62.6 ml/min; Potassium 3.5 mmol/L (3.5-5.1)
[2022-06-19] MEDS: methylPREDNISolone 40 MG in SYRINGE 0 ML IV SCH (09:29)
[2022-06-19] MEDS: PANTOprazole 40 MG TAB PO SCH (09:31)
[2022-06-19] MEDS: carvediloL 6.25 MG TAB PO SCH ×2 (09:31→19:38)
[2022-06-19] MEDS: ATORVASTATIN 40 MG TAB PO SCH (09:31)
[2022-06-19] MEDS: ENOXAPARIN INJ 40 MG/0.4 ML SYR SQ SCH (09:32)
[2022-06-19] MEDS: MULTIVITAMIN TAB PO SCH (09:32)
[2022-06-19] MEDS: CLOPIDOGREL BISULFATE 75 MG TAB PO SCH (09:32)
[2022-06-19] MEDS: ASPIRIN 81 MG ECTAB PO SCH (09:32)
[2022-06-19] MEDS: ISOSORBIDE MONO EXTENDED REL 30 MG TABCR PO SCH (10:20)
[2022-06-19] MEDS: RANOLAZINE 500 MG ER TAB PO SCH ×3 (10:20→19:39)
[2022-06-19] MEDS ORDERED: AMOXICILLIN/CLAVULANATE 875 MG TAB PO SCH (14:15)
--- NOTE | 2022-06-19 17:57 | Hospitalist Progress Note ---
Date of Service June 19, 2022 Assessment & Plan (1) Acute tonsillitis: Plan: Sepsis Present on admission with chest pain and sore throat Met sepsis criteria on admission with tachycardia and Leukocytosis Soft Tissue CT showed markedly enlarged palatine tonsils, greater on the right, with extensive associated inflammation, suggestive of acute tonsillitis. Moderate associated airway narrowing. Probable 1.7 cm right peritonsillar abscess. Case discussed with giant tire repairer Dr. Tapia yesterday in case pt became unstable to minitor in the ICU Received Unasyn in the ER and steroid Currently on IV Zosyn and Solumedrol ENT consulted - no indication for any surgical intervention Speech on board Video swallow done showed no tracheal aspiration identified. Mild residuals within the vallecula and piriform sinuses. 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 Esophageal dysmotility. Case discussed with GI ( no official consult) that recommended outpatient EGD but not until the peritonsillar abscess is resolved. I gave pt name to GI team (Roni) that they can schedule and to arrange outpatient GI visit to make sure he is ready for EGD and work up for esophageal dysmotility Speech recommended to start on minced and moist diet - Tolerated well Spoke to ENT today that agreed with Augmentin, will do the suspension form. No Steroid needed on discharge as per ENT dr. Interiano I called [facility] and gave a detail sign out to the Mid level [facility] has to order the Augmentin suspension because they don't have it in stock They are expected to get it on I reached out to our pharmacy (spoke to Christine ) about to dispense 2 doses of Augmentin tomorrow [facility] Christine agreed to dispense the 2 doses Augmentin, but asked to place the order tomorrow before discharge Continue aspiration precaution Elevated WBC WBC increased to 20.5 today mostly due to steroid in the setting of infection WBC normalized at 10K today IV Zosyn changed to PO augmentin Thyroid nodule 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 Continue outpatient follow up Acute kidney injury Mostly due to poor oral intake Creatinine increased to 1.9 creatinine improved to 1.2 with IV fluid Avoid nephrotoxic agent Continue monitor BMP resolved Hypokalemia Potassium 3.7 today Continue monitor BMP CAD Denies any chest pain will resume PO Metoprolol, statin, aspirin and Plavix HTN BP stable PO hypertensive meds resumed Continue monitor BP DVT px on Lovenox Code status Full code Disposition Plan to discharge to [facility] tomorrow Admission and Anticipated Discharge Date Admission Date: June 16, 2022 Subjective Pt was seen and examined for follow up of dysphagia and sore throat Lying in bed with no acute distress with 2 officers at bedside Pt said that he feels alot better he was able to tolerate his diet I called [facility] and gave a detail sign out to the Mid level Ericka [facility] has to order the Augmentin suspension because they don't have it in stock They are expected to get it on I reached out to our pharmacy (spoke to Christine ) about to dispense 2 doses of Augmentin tomorrow to [facility] to the [facility] Christine agreed to dispense the 2 doses Augmentin, but asked to place the order tomorrow before discharge Denies any chest pain, palpitation, dizziness, sore throat and SOB Review of Systems Review of Systems: All systems reviewed & are unremarkable except as noted in Subjective Physical Exam Physical Exam: General- No acute distress Head- atraumatic Eyes- PERRL, EOMI, ENT- oropharynx clear Neck- supple, no JVD Lungs- No stridor, no crackle, no wheezing Heart- regular rhythm; no murmur Abdomen- normal bowel sounds, soft, nontender Extremities- no calf tenderness Neuro- alert, oriented x 3; PERRL, EOMI; no facial palsy; no dysarthria Skin- warm & dry Results & Data Results & Data ([facility]) Vital Signs (Past 12 Hours) Vital Signs Temp Pulse Pulse Resp BP Pulse Ox O2 Del Method 06/19/22 14:26 67 06/19/22 15:44 36.8 C 63 17 144/84 H 97 Room Air 06/19/22 11:29 36.5 C 60 17 130/65 97 Room Air 06/19/22 06:00 61 06/19/22 07:34 36.5 C 57 L 17 159/81 H 99 Room Air
[2022-06-20] MEDS ORDERED: AMOXICILLIN/CLAVULANATE SUSP 400/57 MG 5 ML BTL PO SCH ×4 (03:00→18:00)
[2022-06-20] MEDS: methylPREDNISolone 40 MG in SYRINGE 0 ML IV SCH (09:26)
[2022-06-20] MEDS: carvediloL 6.25 MG TAB PO SCH (09:26)
[2022-06-20] MEDS: CLOPIDOGREL BISULFATE 75 MG TAB PO SCH (09:27)
[2022-06-20] MEDS: ATORVASTATIN 40 MG TAB PO SCH (09:27)
[2022-06-20] MEDS: MULTIVITAMIN TAB PO SCH (09:27)
[2022-06-20] MEDS: ASPIRIN 81 MG ECTAB PO SCH (09:27)
[2022-06-20] MEDS: ENOXAPARIN INJ 40 MG/0.4 ML SYR SQ SCH (09:28)
[2022-06-20] MEDS: PANTOprazole 40 MG TAB PO SCH (09:28)
[2022-06-20] MEDS: RANOLAZINE 500 MG ER TAB PO SCH (09:32)
[2022-06-20] MEDS: ISOSORBIDE MONO EXTENDED REL 30 MG TABCR PO SCH (09:32)
[2022-06-20] MEDS ORDERED: ISOSORBIDE MONONITRATE 20 MG TAB PO SCH ×2 (09:45→10:00)
--- NOTE | 2022-06-20 10:00 | Discharge Summary ---
Date of Service June 20, 2022 Admission HPI Per Admitting Provider History obtained from patient and records. History somewhat difficult to obtain secondary to current muffled speech. Medical history significant for CAD status post stent, hypertension, hyperlipidemia, mild tricuspid regurgitation, pulmonary hypertension, history of latent TB status post treatment, GERD, chronic anemia (baseline hemoglobin 12- 13), nontoxic goiter as per records, antisocial personality disorder/mood disorder as per records. Recent confinement last week for chest pain. ACS ruled out with negative dobutamine stress echo. 3 days ago, patient noted sore throat, trouble swallowing. Painful swelling under the jaw associated with tooth ache. Painful mouth opening as per patient. Episode of neck swelling last year which led to confinement at a hospital in [place]. Swelling attributed to infection. Biopsy done of a lump was negative for cancer as per patient. Patient had an episode of emesis followed by cough symptoms productive of yellow-green sputum. Patient short of breath. Denies chest pain. Denies abdominal pain. Patient brought to the ER for evaluation. Medical History as above Surgical History : Cleft lip/palate repair, cataract surgeries Family History : Heart disease, DM, craniofacial cleft deformities Personal/Social history : Non-smoker, no EtOH intake, detention inmate Admission Exam Per Admitting Provider GENERAL: Slightly uncomfortable, no stridor, muffled hyponasal voice, pleasant, no respiratory distress SKIN: Pallor, warm HEENT: Partial alopecia, pale palpebral conjunctivae, no ptosis, asymmetric nasal tip/philtrum, no trismus, dry buccal mucosa, partially edentulous, carious molars right mandible NECK : Supple, right submandibular tenderness CHEST : Decreased breath sounds, scattered expiratory wheezes, no tenderness HEART : Tachycardic, no obvious murmurs ABDOMEN: Some distention, nontender EXTREMITIES : Minimal LE swelling, no LE tenderness, no other conspicuous deformities noted NEUROLOGIC : Coherent, nasal asymmetry, gait and stance not assessed Principal Diagnosis Acute tonsillitis Sepsis SURI Discharge Exam General- elderly M in No acute distress Head- atraumatic Eyes- PERRL, EOMI, ENT- oropharynx erythematous R>L Neck- supple, no JVD Lungs- No stridor, no crackle, no wheezing Heart- regular rhythm; no murmur Abdomen- normal bowel sounds, soft, nontender Extremities- no calf tenderness Neuro- alert, oriented x 3; PERRL, EOMI; no facial palsy; no dysarthria, moves extremities Skin- warm & dry Discharge Data Allergies Allergy/AdvReac Type Severity Reaction Status Date / Time Iodinated Contrast Media Allergy Unknown Verified 06/15/22 23:05 iodine Allergy Unknown Verified 06/15/22 23:05 Consultations 06/16/22 01:44 ED Decision to Admit Stat 06/16/22 02:42 Consult Otolaryngology (Head and Neck) Routine Ordered Studies 06/15/22 23:01 CT neck soft tissues [CT soft tissue neck wo con] Urgent FINDINGS: Visualized portions of the intracranial contents are unremarkable. Marked tonsillar enlargement is greater on the right with associated parapharyngeal edema. Although suboptimally assessed on this unenhanced exam, there is a suspected 1.7 x 1.7 cm right peritonsillar abscess on axial image 50 of 108. Tonsillar enlargement results in moderate airway narrowing. There is no soft tissue gas. Mild prevertebral edema. There is thickening of the right platysma muscle. There is mild asymmetric enlargement of the right submandibular and parotid glands. Multinodular left thyroid lobe is incidentally noted. Lung apices are unremarkable. No acute fractures are present within the cervical spine. Epiglottis is normal. No sialolith is identified. IMPRESSION: 1. Markedly enlarged palatine tonsils, greater on the right, with extensive associated inflammation, suggestive of acute tonsillitis. Moderate associated airway narrowing. Probable 1.7 cm right peritonsillar abscess, suboptimally assessed on this unenhanced exam. This finding will be called/faxed to the ordering provider at time of dictation. 2. Multinodular left lobe thyroid gland. 06/18/22 07:00 FL video swallow Routine FINDINGS: No tracheal aspiration was identified with thin liquids by spoon or cup. There was no tracheal aspiration with mildly thick liquids, pudding or crackers with paste. Note was made of mild vallecular and piriform sinus residuals. There was moderate esophageal dysmotility. 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 IMPRESSION: 1. No tracheal aspiration identified. 2. Mild residuals within the vallecula and piriform sinuses. 3. 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 Esophageal dysmotility. 4. Full recommendations by Speech pathology to follow. Hospital Course (1) Acute tonsillitis: Sepsis Present on admission with chest pain and sore throat Met sepsis criteria on admission with tachycardia and Leukocytosis Soft Tissue CT showed markedly enlarged palatine tonsils, greater on the right, with extensive associated inflammation, suggestive of acute tonsillitis. Moderate associated airway narrowing. Probable 1.7 cm right peritonsillar abscess. Case discussed with plan consultant Dr. Tapia initially in case pt became unstable to monitor in the ICU Received Unasyn in the ER and steroid Then on IV Zosyn and Solumedrol ENT consulted - no indication for any surgical intervention Speech on board Video swallow done showed no tracheal aspiration identified. Mild residuals within the vallecula and piriform sinuses. 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 Esophageal dysmotility. Case discussed with GI ( no official consult) that recommended outpatient EGD but not until the peritonsillar abscess is resolved. [facility] to schedule and to arrange outpatient GI visit to make sure he is ready for EGD and work up for esophageal dysmotility Speech recommended to start on minced and moist diet - Tolerated well Spoke to ENT that agreed with Augmentin, will do the suspension form. No Steroid needed on discharge as per ENT Dr. Laisha Sherwood called [facility] and gave a detail sign out to the Mid level Ericka [facility] has to order the Augmentin suspension because they don't have it in stock They are expected to get it on [facility] about to dispense 2 doses of Augmentin (24 hrs supply) today to take to the detention Continue aspiration precaution Elevated WBC WBC increased to 20.5 mostly due to steroid in the setting of infection WBC normalized at 10K IV Zosyn changed to PO augmentin - plan to finish 10 day course Thyroid nodule 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 US neck recommended as outpt Continue outpatient follow up Acute kidney injury Mostly due to poor oral intake Creatinine increased to 1.9 creatinine improved to 1.2 with IV fluid Avoid nephrotoxic agent Continue monitor BMP resolved Hypokalemia replete and monitor Continue monitor BMP CAD Denies any chest pain will resume PO Metoprolol, statin, aspirin and Plavix HTN BP stable PO hypertensive meds resumed Not able to take due to size of the pill Changed Imdur to 20 mg twice daily isosorbide mononitrate immediate release form that can be crushed with applesauce. Discussed with pharmacy, they will provide 24-hour supply for detention. He should resume his regular regimen once able to swallow pills. Patient has been doing better and better every day with swallowing. He should be soon able to take his regular pills with applesauce. Continue monitor BP Disposition Plan to discharge to [facility] Total Time Total Time Spent Total Time Spent (In Minutes): 40 Discharge Plan Discharge Items [facility]position[facility] Reason For Visit: UPPER AIRWAY OBSTRUCTION, SEPSIS Discharge Diagnosis: Acute tonsillitis Sepsis SURI Activity: Per Instructions section Non-emergency contact: Primary Care Provider Call non-emergency contact if: you have any medication questions and your symptoms worsen Follow-up/Referrals: Behzad JULIO [Primary Care Provider] - Diet: Heart Healthy Diet Texture: Pureed (blended smooth) Addtl Attending Provider Instructions: Finish antibiotic Augmentin, for total of 10 days. For next few days, take Isosorbide mononitrate immediate release form - 20 mg twice a day (instead of Imdur 30 mg extended release daily), crushed with applesauce, until swallowing is easier for you. You should take all the pills with applesauce if possible, to make swallowing easier. Once you can take your regular pills, switch to your previous regimen. You will be provided with Augmentin suspension and Isosorbide mononitrate immediate release form - 20 mg tablet, 24 hrs supply from our pharmacy. Pending Studies at Discharge: Yes Studies:: Final blood culture Stand-Alone Forms: My [facility] Skilled Items Patient informed of condition?: Yes Discharge Level of Care: Other Communicable Disease: No Discharge Prognosis: Stable Lines: None Urinary Catheter: No Medications and DC Order Prescriptions: New amoxicillin-pot clavulanate 400-57 mg/5 mL Suspension For Reconstitution 875 mg PO Q12H 7 Days Qty: 134.026 0RF Continued aspirin 325 mg Tablet 325 mg PO DAILY Rx Instructions: take with food losartan 25 mg Tablet 25 mg PO DAILY multivitamin Tablet 1 tab PO DAILY atorvastatin 80 mg Tablet 80 mg PO DAILY carvedilol 6.25 mg Tablet 6.25 mg PO BID Rx Instructions: must administer with a meal/food isosorbide mononitrate 30 mg Tablet Extended Release 24 Hr 30 mg PO DAILY clopidogrel 75 mg Tablet 75 mg PO DAILY nitroglycerin 0.4 mg Tablet, Sublingual 0.4 mg sublingual UD PRN (Reason: Chest Pain) Rx Instructions: place 1 tablet under the tongue on daily as needed x3 if no relief ,call medical ranolazine 1,000 mg Tablet Extended Release 12 Hr 1,000 mg PO BID pantoprazole 40 mg Tablet,Delayed Release (Dr/Ec) 40 mg PO QAM 30 Days Qty: 30 0RF guaifenesin [Mucus Relief] 400 mg Tablet 400 mg PO .START BID 06/17/22 nystatin [Mycostatin] 100,000 unit/mL Suspension 6 ml PO BID Rx Instructions: swish and swallow to stop 06/20/22 Chloraseptic Sore Throat 6-10 mg Lozenge 1 marcellus PO BID Rx Instructions: sugar free guaifenesin [Robitussin] 100 mg/5 mL Liquid 400 mg PO QID PRN (Reason: Cough) Rx Instructions: 20 ml dose Discharge Orders: Discharge Order (Routine); Ordered 06/20/22 Ordered By: Mathew Maldonado Admission Data Admit Date/Time: 06/16/22 02:39 Attending Provider: Mathew Maldonado Admit Provider: Ernie Edge Primary Care Provider: Behzad JULIO Other Providers: Ernie Edge ; Erna Aburto ; Matthew Chew ; Rose Munson ; Derek Interiano ; Suzan Sherwood
== END 2022-06-20 12:46 | DRG 872 ==
LOC: ED 20:37 → SUATTDRO 06-16 02:39 → 2S 06-16 02:39

== ENCOUNTER 2022-10-10 11:55 | Observation (INO) ==
[~2022-10-10 11:55] MED LIST: SODIUM CHLORIDE 0.9% 1000ML 1,000 ML IV ONE
--- NOTE | 2022-10-10 11:57 | Emergency Department Note ---
Impression & Plan Stroke-like symptoms, Hypertension, Fall, Sacral fracture, closed ED Provider Note NAME: IAN [id number] YANDEL AGE: 81 SEX: M ARRIVES VIA: Ambulance INFORMANT: Patient ED PROVIDER(S): Sabino Gallegos MD CHIEF COMPLAINT: Stroke symptoms, [facility], referred. PLAN: Disposition: Admit MEDICAL DECISION MAKING: The patient is a 81-year-old gentleman, current custodial inmate at [facility] with a past medical history of CAD with history PCI on aspirin and Plavix, hyp ertension hyperlipidemia, mild tricuspid regurgitation, pulmonary hypertension, history of latent TB status posttreatment, GERD, chronic anemia with baseline hemoglobin 12-13, nontoxic goiter per records and antisocial personality/mood disorder per records who presents to the emergency department from his custodial facility for acute change in mental status with confusion dizziness and concern for stroke with EMS report of right facial weakness as well as right upper and lower extremity weakness patient had been seen at the [facility] this morning for routine blood work related to recent cataract procedure and on return to his cell attempted to go to the wrong cell and symptoms were then noted. The patient then reported that he had fallen last night and hit his head. He reports he awoke this morning feeling a degree of the symptoms but did not mention them initially when seen in the [facility]. On arrival to the emergency department the patient was taken immediately to CAT scan for imaging for stroke alert. Given the patient has a listed contrast allergy, contrast was deferred however trauma imaging was initiated due to unclear history. CT of the head was negative for ICH or ischemia. CT of the C- spine negative for acute traumatic injuries. On my evaluation, the patient is hypertensive 190/90s and vital signs otherwise stable. He appears clinically dry. The patient initially would speak and enunciate but whispering very softly. As conversation progressed he was able to speak normally. He initially would not move his right upper or right lower extremity but conversation he was asked if he had any pain he indicated that his chest hurt and his arm hurt at which point he did raise his right arm against gravity. Given the degree of the patient's neurologic impairment stroke alert was continued and case was discussed [place] [facility] [place] who evaluated the patient via telestroke terminal. Following her stroke evaluation agrees that further stroke evaluation with MRI/MRA of the head and neck is appropriate however suspicion for stroke is less and patient's examination does have component of functional overlay. EKG without overt acute ischemia. Chest x-ray negative for acute cardiopulmonary process. WBC and platelets within normal limits. H/H similar to prior. Chemistry without metabolic acidosis. Total bilirubin 1.2, nonspecific and similar to prior with LFTs otherwise unremarkable. Initial high-sensitivity troponin 6.0, within normal limits. COVID-19 RNA, NAVARRO test was negative. CT of the head was negative for ICH or CVA. CT of the C-spine negative for acute traumatic injuries. CT of the chest demonstrates incidental mild ane urysmal dilatation of the ascending aorta up to 4.[address] of the abdomen pelvis demonstrates subtle acute mildly displaced comminuted fracture of the inferior sacrum with trace surrounding presacral edema/hemorrhage. Case was discussed with Shirley Abdullahi [facility] PILO, with Dr. [facility] Hospitalist who will evaluate the patient for admission. Triage Nursing notes reviewed and agree them. Prior/outside medical records reviewed Vital Signs: reviewed Differential diagnosis: Infection, dehydration, metabolic abnormality, hypo/hyperglycemia, electrolyte disturbance, anemia, hypoxia, cardiac sources, intracerebral event, toxicologic, neurologic, as well as other pathologies. ER treatment provided: See below. Diagnostics interpreted by me: ECG: Sinus rhythm with PACs, 60 bpm, LVH, no overt ST elevation or depression, QTc 432, QRS 78 Cardiac Monitoring: An order for continuous cardiac monitoring was placed and demonstrated Sinus rhythm with PACs, 60 bpm. Laboratory studies: See below Imaging studies: See below Consultation(s): [place] Giordano, [facility] [place]. [facility], with Dr. Weinstein [facility] Hospitalist who will evaluate the patient for admission. HPI: The patient is a 81-year-old gentleman, current custodial inmate at [facility] with a past medical history of CAD with history PCI on aspirin and Plavix, hypertension hyperlipidemia, mild tricuspid regurgitation, pulmonary hypertension, history of latent TB status posttreatment, GERD, chronic anemia with baseline hemoglobin 12-13, nontoxic goiter per records and antisocial perso nality/mood disorder per records who presents to the emergency department from his custodial facility for acute change in mental status with confusion dizziness and concern for stroke with EMS report of right facial weakness as well as right upper and lower extremity weakness patient had been seen at the [facility] this morning for routine blood work related to recent cataract procedure and on return to his cell attempted to go to the wrong cell and symptoms were then noted. The patient then reported that he had fallen last night and hit his head. He reports he awoke this morning feeling a degree of the symptoms but did not mention them initially when seen in the [facility]. ROS: See above HPI for pertinent positives & negatives. A total of 10 systems reviewed and were otherwise negative. VITALS:See Below PHYSICAL EXAMINATION: GENERAL: Awake, alert, fatigued-appearing, in no distress HENT: Normocephalic, atraumatic. Oropharynx with dry mucous membranes and otherwise unremarkable. EYES: Normal conjunctiva. Sclera non-icteric. EOMI. No nystamgus. PEARRL. NECK: Supple. No nuchal rigidity. FROM. No JVD. RESPIRATORY: Clear to auscultation. CARDIAC: Regular rate, normal rhythm. Extremities warm and well perfused. Pulses equal. ABDOMEN: Soft, non-distended. No tenderness to palpation. No rebound or guarding. No masses. RECTAL: Deferred. MUSCULOSKELETAL: Chest examination reveals no tenderness. The back is symmetrical on inspection without obvious abnormality. No midline CTL spine tenderness to palpation or step-offs. There is no CVA tenderness to palpation. No joint edema. LOWER EXTREMITIES: Calves are equal size bilaterally and non-tender. No edema. No discoloration. NEURO: No overt facial droop. Patient initially would speak and enunciate but whispering very softly. As conversation progressed he was able to speak normally. He initially would not move his right upper or right lower extremity but conversation he was asked if he had any pain he indicated that his chest hurt and his arm hurt at which point he did raise his right arm against gravity. SKIN: No rash or jaundice noted. ED COURSE: Critical Care: I have personally spent greater than 35 minutes of critical care time in the direct management of this patient. This includes bedside care, interpretation of diagnostic studies, and testing, discussion with consultants, patient, and family members, and other required patient management activities. This 35 minutes is in excess of all separately billable procedures. Sabino Gallegos MD Past Med/Surg History Medical History Angina pectoris, unspecified Antisocial personality disorder Atherosclerotic heart disease Chronic anemia Chronic pain Constipation Coronary artery disease Depression Dysphagia Gastroesophageal reflux Hx of gastritis Hyperlipidemia Hypertension Hypertensive renal disease without failure Inmate in correctional facility Latent tuberculosis infection [place] current use of anticoagulant therapy Myocardial Infarction multiple--had heart caths with total of 2 stents placed ?? (per records) On anticoagulant therapy plavix daily Osteoarthritis Peritonsillar abscess Thyroid nodule Unspecified mononeuropathy of right upper limb Surgical History History of cardiac cath per records multiple heart caths, last was 2018?? with stent placed History of heart artery stent x2? Hx of cataract extraction lt. Social History Smoking Status: Unknown if ever smoked Hx Alcohol Use: No Hx Substance Use: No Preferred Language: Estonian Communication Ability: Effective Cone Treater Required: No Beliefs That Will Affect Care: None Current Living Situation: Other Current Living Situation Comment: [facility] Other Information That Helps Us Care for You: No Feels Safe at Home: Yes Safety Concerns: Feels Safe At This Time Assistive Devices: Glasses Allergies Allergies Allergy/AdvReac Type Severity Reaction Status Date / Time Iodinated Contrast Media Allergy Unknown Unknown Verified 10/03/22 12:12 iodine Allergy Unknown Unknown Verified 10/03/22 12:12 Home Meds Home Medications Medication Instructions Recorded Confirmed aspirin 325 mg tablet 325 mg PO QAM 06/08/22 10/10/22 atorvastatin 80 mg tablet 80 mg PO QPM 06/08/22 10/10/22 clopidogrel 75 mg tablet 75 mg PO QPM 06/08/22 10/10/22 isosorbide mononitrate 30 mg 30 mg PO QAM 06/08/22 10/10/22 tablet,extended release 24 hr losartan 25 mg tablet 25 mg PO QAM 06/08/22 10/10/22 multivitamin 1 tab PO QAM 06/08/22 10/10/22 nitroglycerin 0.4 mg sublingual 0.4 mg sublingual UD PRN Chest Pain 06/08/22 10/10/22 tablet carvedilol 12.5 mg tablet 12.5 mg PO BID 08/14/22 10/10/22 pantoprazole 40 mg tablet,delayed 40 mg PO QAM 08/14/22 10/10/22 release bromfenac 0.07 % eye drops 1 drp ophthalmic (eye) DAILY 10/10/22 10/10/22 (Prolensa) difluprednate 0.05 % eye drops 1 drp ophthalmic (eye) DAILY 10/10/22 10/10/22 gatifloxacin 0.5 % eye drops 1 drp ophthalmic (eye) TID 10/10/22 10/10/22 prednisolone acetate 1 % eye 1 drp ophthalmic (eye) UD 10/10/22 10/10/22 drops,suspension Results & Data (ED) Vital Signs Vital Signs - 24 hr 10/10/22 11:52 10/10/22 12:31 10/10/22 12:38 Temperature 36.7 C Temperature Source Oral Pulse Rate 55 L 59 L Pulse Rate [Apical] Pulse Rate from SpO2 Sensor Respiratory Rate 24 Respiratory Effort / Characteristics Non-Labored Respiratory Depth Normal Respiratory Pattern Regular Blood Pressure 190/96 H Blood Pressure [Left Arm] Blood Pressure Mean 127 Blood Pressure Mean [Left Arm] Pulse Oximetry 98 98 Oxygen Delivery Method Room Air Room Air Oxygen Flow Rate 0 Sepsis Recent Fever Within 48 Hours No Sepsis New/Unexplained Change in Mental Status N/A Sepsis Action Taken by Nursing No Action Required 10/10/22 13:25 10/10/22 13:00 10/10/22 13:30 Temperature Temperature Source Pulse Rate 56 L Pulse Rate [Apical] 54 L Pulse Rate from SpO2 Sensor 53 L Respiratory Rate 18 18 Respiratory Effort / Characteristics Respiratory Depth Respiratory Pattern Blood Pressure 161/76 H Blood Pressure [Left Arm] 163/100 H Blood Pressure Mean 99 Blood Pressure Mean [Left Arm] 121 Pulse Oximetry 99 98 Oxygen Delivery Method Room Air Oxygen Flow Rate Sepsis Recent Fever Within 48 Hours Sepsis New/Unexplained Change in Mental Status Sepsis Action Taken by Nursing 10/10/22 13:30 Temperature Temperature Source Pulse Rate 54 L Pulse Rate [Apical] Pulse Rate from SpO2 Sensor 54 L Respiratory Rate 21 Respiratory Effort / Characteristics Respiratory Depth Respiratory Pattern Blood Pressure Blood Pressure [Left Arm] Blood Pressure Mean Blood Pressure Mean [Left Arm] Pulse Oximetry 97 Oxygen Delivery Method Oxygen Flow Rate Sepsis Recent Fever Within 48 Hours Sepsis New/Unexplained Change in Mental Status Sepsis Action Taken by Nursing Laboratory Data Attestation: I reviewed the patient's lab results. 10/10/22 12:21 10/10/22 12:21 Lab Results 10/10/22 10/10/22 10/10/22 Range/Units 12:21 12:21 12:21 WBC 5.64 (4.8-10.8) K/ul RBC 3.57 L (4.70-6.10) M/uL Hgb 12.6 L (14.0-18.0) g/dl POC Hgb (14.0-18.0) g/dl Hct 38.6 L (42.0-52.0) % POC Hct (42-52) % MCV 108.1 H (80.0-100.0) fL MCH 35.3 H (25.0-34.0) pg MCHC 32.6 (32.0-36.0) g/dL RDW Std Deviation 53.1 H (36.4-46.3) fL RDW Coeff of [place] 13.3 (11.5-14.5) % Plt Count 204 (130-400) K/uL MPV 11.5 (9.4-12.4) fL Immature Gran % (Auto) 0.4 % Neut % (Auto) 67.2 % Lymph % (Auto) 20.4 % [place] % (Auto) 10.5 % Eos % (Auto) 1.1 % Baso % (Auto) 0.4 % Neut # (Auto) 3.80 (1.40-6.50) K/uL Lymph # (Auto) 1.15 L (1.2-3.4) K/uL [place] # (Auto) 0.59 (0.11-0.59) K/uL Eos # (Auto) 0.06 (0-0.50) K/uL Baso # (Auto) 0.02 (0-0.2) K/uL Immature Gran # (Auto) 0.02 (0.01-0.20) K/uL PT 11.4 (9.0-12.0) Seconds INR 1.0 (0.9-1.1) APTT 26.6 (21.0-31.0) Seconds PTT Ratio 0.9 POC Sodium (135-144) mmol/L Sodium 138 (136-145) mmol/L POC Potassium (3.3-5.0) mmol/L Potassium 4.0 (3.5-5.1) mmol/L POC Chloride (101-112) mmol/L Chloride 106 (98-107) mmol/L Carbon Dioxide 26 (21-32) mmol/L POC Total CO2 (24-31) mmol/L Anion Gap 6 (3-11) POC Anion Gap (16-25) mmol/L POC BUN (7-18) mg/dl BUN 11 (6-23) mg/dl Creatinine 1.03 (0.6-1.4) mg/dl POC Creatinine (0.6-1.3) mg/dl Est Cr Clr Drug Dosing 67.5 ml/min Est GFR ( Amer) 79.1 ml/min Est GFR (Non-Af Amer) 68.3 ml/min BUN/Creatinine Ratio 10.7 (10-20) Glucose 104 H (70-99(Fasting)) mg/dl POC Glucose (other) (70-99) mg/dl Calcium 8.8 (8.6-10.3) mg/dl POC Ioniz Calcium Pia (1.12-1.32) mmol/l Magnesium 1.8 (1.7-2.4) mg/dl Total Bilirubin 1.2 H (0.2-1.0) mg/dl AST 13 (13-39) U/L ALT 10 (7-52) U/L Alkaline Phosphatase 116 H (34-104) U/L Troponin I High Sens 6.0 (0-20) pg/ml Total Protein 7.1 (6.0-8.3) gm/dl Albumin 3.4 (3.4-5.0) gm/dl Globulin 3.7 (2.5-4.0) gm/dl Albumin/Globulin Ratio 0.9 (0.9-2) SARS-CoV-2, RNA, NAAT (NEGATIVE) Blood Type Antibody Screen 10/10/22 10/10/22 10/10/22 Range/Units 12:21 12:27 12:41 WBC (4.8-10.8) K/ul RBC (4.70-6.10) M/uL Hgb (14.0-18.0) g/dl POC Hgb 13.6 L (14.0-18.0) g/dl Hct (42.0-52.0) % POC Hct 40 L (42-52) % MCV (80.0-100.0) fL MCH (25.0-34.0) pg MCHC (32.0-36.0) g/dL RDW Std Deviation (36.4-46.3) fL RDW Coeff of [place] (11.5-14.5) % Plt Count (130-400) K/uL MPV (9.4-12.4) fL Immature Gran % (Auto) % Neut % (Auto) % Lymph % (Auto) % [place] % (Auto) % Eos % (Auto) % Baso % (Auto) % Neut # (Auto) (1.40-6.50) K/uL Lymph # (Auto) (1.2-3.4) K/uL [place] # (Auto) (0.11-0.59) K/uL Eos # (Auto) (0-0.50) K/uL Baso # (Auto) (0-0.2) K/uL Immature Gran # (Auto) (0.01-0.20) K/uL PT (9.0-12.0) Seconds INR (0.9-1.1) APTT (21.0-31.0) Seconds PTT Ratio POC Sodium 140 (135-144) mmol/L Sodium (136-145) mmol/L POC Potassium 4.0 (3.3-5.0) mmol/L Potassium (3.5-5.1) mmol/L POC Chloride 104 (101-112) mmol/L Chloride (98-107) mmol/L Carbon Dioxide (21-32) mmol/L POC Total CO2 24 (24-31) mmol/L Anion Gap (3-11) POC Anion Gap 17.0 (16-25) mmol/L POC BUN 10 (7-18) mg/dl BUN (6-23) mg/dl Creatinine (0.6-1.4) mg/dl POC Creatinine 1.0 (0.6-1.3) mg/dl Est Cr Clr Drug Dosing ml/min Est GFR ( Amer) ml/min Est GFR (Non-Af Amer) ml/min BUN/Creatinine Ratio (10-20) Glucose (70-99(Fasting)) mg/dl POC Glucose (other) 106 H (70-99) mg/dl Calcium (8.6-10.3) mg/dl POC Ioniz Calcium Pia 1.18 (1.12-1.32) mmol/l Magnesium (1.7-2.4) mg/dl Total Bilirubin (0.2-1.0) mg/dl AST (13-39) U/L ALT (7-52) U/L Alkaline Phosphatase (34-104) U/L Troponin I High Sens (0-20) pg/ml Total Protein (6.0-8.3) gm/dl Albumin (3.4-5.0) gm/dl Globulin (2.5-4.0) gm/dl Albumin/Globulin Ratio (0.9-2) SARS-CoV-2, RNA, NAAT NEGATIVE (NEGATIVE) Blood Type O Positive Antibody Screen NEGATIVE Administered Medications Discontinued Medications Sodium Chloride (Nss 1000ml) 1,000 mls @ 999 mls/hr IV .Q1H1M ONE Stop: 10/10/22 12:53 Last Infusion: 10/10/22 14:10 Dose: 0 mls/hr Documented By: Admin: 10/10/22 12:45 Dose: 999 mls/hr Documented By: NOAH Imaging Data Radiologist's Impression: Abdomen/Pelvis CT 10/10/22 00:[address] WITHOUT CONTRAST HISTORY: Acute chest and abdominal trauma trauma TECHNIQUE: Multiaxial CT images of the abdomen and pelvis were performed without contrast. A dose lowering technique was utilized adhering to the principles of ALARA. COMPARISON STUDY: Chest, thoracic and lumbar spine study of the same day FINDINGS: Cardiomegaly with decreased attenuation of the cardiac blood pool suggestive of anemia. 7 mm subpleural solid nodule within the right middle lobe, image 20 series 4. Similar appearing 4 mm nodule in the left lower lobe on image 46. No pneumatosis or pneumoperitoneum. The unenhanced spleen, pancreas, gallbladder and adrenal glands are unremarkable. Liver is also within normal limits. Mild nonspecific bilateral perinephric stranding. 3.7 cm exophytic cyst of the superior pole right kidney with subcentimeter marginal calcification. 2 mm nonobstructing calculus of the superior pole right kidney. 2.9 cm cyst in the inferior pole left kidney with layering milk of calcium. Cortical thinning of the kidneys. No ureteral calculi or hydronephrosis. Prostatomegaly with calcifications of vas deferens. Urinary bladder wall thickening with partial distention. Small fat filled inguinal hernias. Atherosclerosis of the aorta. Moderate sized hiatal hernia. No bowel obstruction. Extensive colonic diverticulosis. Wall thickening of the mid sigmoid colon likely secondary to chronic diverticular disease. Appendix is not visualized. Postoperative changes of the anterior abdominal wall. Degenerative changes of the spine, pelvis and hips. Subtle acute minimally displaced mildly comminuted fracture of the S5 segment with mild adjacent presacral edema. IMPRESSION: 1. Subtle acute minimally displaced comminuted fracture of the inferior sacrum with trace surrounding presacral edema/hemorrhage. 2. No additional acute posttraumatic intra-abdominal or intrapelvic abnormality identified. 3. Moderate hiatal hernia. 4. 7 mm subpleural solid nodule of the right middle lobe. Please refer to chest CT of same day for discussion of appropriate follow-up. 5. Additional findings as above. ACT 112: Negative or not required by law. The above report was generated using voice recognition software. It may contain grammatical, syntax or spelling errors. Electronically signed by: Dustin Hurtado M.D. 10/10/2022 1:[address] 10/10/22 00:00 CT lumbar spine wo con CLINICAL HISTORY: trauma TECHNIQUE: Multidetector row helical CT of the lumbar spine was performed without administration of intravenous contrast. Coronal and sagittal reformations were obtained. Automated dose lowering techniques and/or adjustment according to patient size were utilized for this exam. CT DOSE: 1394.31 mGy.cm Comparison: None available at the time of this dictation. FINDINGS: For counting purposes, the last complete intervertebral disc space is considered L5-S1. No acute fractures are identified. Degenerative changes are noted in the visualized spine. Vertebral body alignment is within normal limits. A right renal cyst is seen. Atherosclerotic calcifications are seen. IMPRESSION: Degenerative changes without evidence of acute bony injury. ACT 112: Negative or not required by law. Electronically signed by: Jer Zarate M.D. 10/10/2022 12:[address] 10/10/22 00:00 CT SCAN OF THE CHEST WITHOUT IV CONTRAST; CT SCAN OF THE THORACIC SPINE WITHOUT CONTRAST CLINICAL HISTORY: Trauma. Fall. COMPARISON STUDY: Chest x-ray dated 06/15/2022. TECHNIQUE: CT scan of the thorax was performed from the thoracic inlet to the upper abdomen. Additionally, CT scan of the thoracic spine is performed from the lower cervical spine to the upper lumbar spine. Images for both examinations are reviewed in the axial, sagittal, and coronal planes. IV contrast was not administered for this examination as per the referring clinician. Note that the examination is suboptimal without IV contrast. A dose lowering technique was utilized adhering to the principles of ALARA. The examination is degraded by motion artifact, as well as by streak artifact from the arms which could not be elevated above the chest. CT DOSE: 2300.02 mGy.cm FINDINGS: Thyroid: The left lobe of the thyroid gland is enlarged and heterogeneous, typical for goiter. This extends into the superior mediastinum. Thoracic aorta: There is moderate atherosclerotic calcification of the thoracic aorta. There is moderate and minimal dilatation of the ascending thoracic aorta which measures up to 4.4 cm in diameter. The remainder of the thoracic aorta is normal in caliber, and the arch demonstrates standard 3-vessel anatomy. Heart: The heart is enlarged and without pericardial effusion. The coronary arteries and aortic valve leaflets are densely calcified. There is diminished attenuation of the cardiac blood pool as compared to the myocardium suggesting anemia. Lungs and pleural spaces: Evaluation of the lung parenchyma is degraded by motion artifact. There is no airspace consolidation, pleural effusion, or pneumothorax. Scarring/atelectasis is present at the lung bases. The trachea and central airways are clear. There is a 7 mm pleural-based nodule in the right middle lobe seen on image #159. Mediastinum: There is no mediastinal hematoma or lymphadenopathy. Letty: Not well assessed without IV contrast. Axillae: There is no axillary lymphadenopathy. Upper abdomen: There is a moderate hiatal hernia. A 3.5 cm cyst is cc in the right kidney. Skeletal structures: The skeletal structures are osteopenic. See below for dedicated discussion of the thoracic spine. The bony thorax appears intact. No lytic or blastic bony lesions are seen. THORACIC SPINE: There is no evidence of fracture or malalignment. Vertebral body height and alignment are maintained throughout the thoracic spine. Small anterior osteophytes are seen throughout. The transverse and spinous processes are intact. The disc spaces are preserved. There is no evidence of large disc herniation or high-grade central canal stenosis by CT. Posterior disc bulge is noted at L1-L2. The paraspinous soft tissues are normal in appearance. IMPRESSION: 1. There is no acute posttraumatic intrathoracic abnormality. 2. There is no airspace consolidation, pleural effusion, or pneumothorax. 3. There is no evidence of fracture or malalignment involving the thoracic spine. 4. Cardiomegaly. 5. There is mild aneurysmal dilatation of the ascending thoracic aorta which measures up to 4.4 cm in diameter. 6. There is a 7 mm pleural-based nodule in the right middle lobe. This is pathologically indeterminate and can be followed as per the Fleischner criteria. See below. 7. Moderate hiatal hernia. 8. Additional findings as above. Please refer to below summary of Fleischner criteria recommendations for follow- up of incidental CT nodules (Nick Simons, Guidelines for management of small pulmonary nodules detected on CT scans: A statement from the Fleischner Society, Radiology 237: [phone].) SOLID NODULES Solitary nodule size: <6 mm * low risk patients: no follow-up needed * high risk patients: optional CT at 12 months Solitary nodule size: 6-8 mm * low risk patients: follow-up at 6-12 months, then consider further follow-up at 18-24 months * high risk patients: initial follow-up CT at 6-12 months and then at 18-24 months if no change Solitary nodule size: >8 mm * either low or high risk patients - consider follow-up CT at 3 months, and/or CT-PET, and/or biopsy Multiple nodules size: <6 mm * low risk patients: no routine follow-up * high risk patients: optional CT at 12 months Multiple nodules size: 6-8 mm * low risk patients: follow-up at 3-6 months, then consider further follow-up at 18-24 months * high risk patients: follow-up at 3-6 months, then at 18-24 months if no change Multiple nodules size: >8 mm * low risk patients: follow-up at 3-6 months, then consider further follow-up at 18-24 months * high risk patients: follow-up at 3-6 months, then at 18-24 months if no change Note: newly detected indeterminate nodule in persons 35 years of age or older. * low risk patients: minimal or absent history of smoking and/or other known risk factors * high risk patients: history of smoking or of other known risk factors (e.g. first degree relative with lung cancer, or exposure to asbestos, radon, uranium) * if a nodule up to 8 mm is partly solid or is ground glass further follow-up is required after 24 months to exclude possible slow growing adenocarcinoma (ALISA) SUBSOLID NODULES Solitary pure ground-glass nodule * nodule size <6 mm - no CT follow-up required * nodule size >=6 mm - follow-up CT at 6-12 months, then every 2 years until 5 years Solitary part-solid nodule * nodule size <6 mm - no CT follow-up required * nodule size >=6 mm - follow-up CT at 3-6 months. If unchanged, and solid component remains <6 mm, then annual follow-up for 5 years Multiple subsolid nodules * nodule size <6 mm - follow-up CT at 3-6 months, consider further follow-up at 2 and 4 years if stable * nodule size >=6 mm - follow-up CT at 3-6 months, subsequent management based on the most suspicious nodule(s) ACT 112: Negative or not required by law. Electronically signed by: Eliud Welsh M.D. 10/10/2022 12:[address] 10/10/22 11:52 CT cervical spine wo con CLINICAL HISTORY: fall, stroke symptoms TECHNIQUE: Multidetector row helical CT of the cervical spine was performed without administration of intravenous contrast. Coronal and sagittal reformations were obtained. Automated dose lowering techniques and/or adjustment according to patient size were utilized for this exam. Comparison: None available at the time of this dictation. FINDINGS: No acute fractures or subluxations are identified. Degenerative changes are seen in the visualized spine. 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 The alignment is normal. Soft tissues are unremarkable. IMPRESSION: Degenerative changes without evidence of acute bony injury. ACT 112: Negative or not required by law. Electronically signed by: Jer Zarate M.D. 10/10/2022 12:[address] 10/10/22 11:52 CT SCAN OF THE CHEST WITHOUT IV CONTRAST; CT SCAN OF THE THORACIC SPINE WITHOUT CONTRAST CLINICAL HISTORY: Trauma. Fall. COMPARISON STUDY: Chest x-ray dated 06/15/2022. TECHNIQUE: CT scan of the thorax was performed from the thoracic inlet to the upper abdomen. Additionally, CT scan of the thoracic spine is performed from the lower cervical spine to the upper lumbar spine. Images for both examinations are reviewed in the axial, sagittal, and coronal planes. IV contrast was not administered for this examination as per the referring clinician. Note that the examination is suboptimal without IV contrast. A dose lowering technique was utilized adhering to the principles of ALARA. The examination is degraded by motion artifact, as well as by streak artifact from the arms which could not be elevated above the chest. CT DOSE: 2300.02 mGy.cm FINDINGS: Thyroid: The left lobe of the thyroid gland is enlarged and heterogeneous, typical for goiter. This extends into the superior mediastinum. Thoracic aorta: There is moderate atherosclerotic calcification of the thoracic aorta. There is moderate and minimal dilatation of the ascending thoracic aorta which measures up to 4.4 cm in diameter. The remainder of the thoracic aorta is normal in caliber, and the arch demonstrates standard 3-vessel anatomy. Heart: The heart is enlarged and without pericardial effusion. The coronary arteries and aortic valve leaflets are densely calcified. There is diminished attenuation of the cardiac blood pool as compared to the myocardium suggesting anemia. Lungs and pleural spaces: Evaluation of the lung parenchyma is degraded by motion artifact. There is no airspace consolidation, pleural effusion, or pneumothorax. Scarring/atelectasis is present at the lung bases. The trachea and central airways are clear. There is a 7 mm pleural-based nodule in the right middle lobe seen on image #159. Mediastinum: There is no mediastinal hematoma or lymphadenopathy. Letty: Not well assessed without IV contrast. Axillae: There is no axillary lymphadenopathy. Upper abdomen: There is a moderate hiatal hernia. A 3.5 cm cyst is cc in the right kidney. Skeletal structures: The skeletal structures are osteopenic. See below for dedicated discussion of the thoracic spine. The bony thorax appears intact. No lytic or blastic bony lesions are seen. THORACIC SPINE: There is no evidence of fracture or malalignment. Vertebral body height and alignment are maintained throughout the thoracic spine. Small anterior osteophytes are seen throughout. The transverse and spinous processes are intact. The disc spaces are preserved. There is no evidence of large disc herniation or high-grade central canal stenosis by CT. Posterior disc bulge is noted at L1-L2. The paraspinous soft tissues are normal in appearance. IMPRESSION: 1. There is no acute posttraumatic intrathoracic abnormality. 2. There is no airspace consolidation, pleural effusion, or pneumothorax. 3. There is no evidence of fracture or malalignment involving the thoracic spine. 4. Cardiomegaly. 5. There is mild aneurysmal dilatation of the ascending thoracic aorta which measures up to 4.4 cm in diameter. 6. There is a 7 mm pleural-based nodule in the right middle lobe. This is pa thologically indeterminate and can be followed as per the Fleischner criteria. See below. 7. Moderate hiatal hernia. 8. Additional findings as above. Please refer to below summary of Fleischner criteria recommendations for follow- up of incidental CT nodules (Nick Simons, Guidelines for management of small pulmonary nodules detected on CT scans: A statement from the Fleischner S ociety, Radiology 237: [phone].) SOLID NODULES Solitary nodule size: <6 mm * low risk patients: no follow-up needed * high risk patients: optional CT at 12 months Solitary nodule size: 6-8 mm * low risk patients: follow-up at 6-12 months, then consider further follow-up at 18-24 months * high risk patients: initial follow-up CT at 6-12 months and then at 18-24 months if no change Solitary nodule size: >8 mm * either low or high risk patients - consider follow-up CT at 3 months, and/or CT-PET, and/or biopsy Multiple nodules size: <6 mm * low risk patients: no routine follow-up * high risk patients: optional CT at 12 months Multiple nodules size: 6-8 mm * low risk patients: follow-up at 3-6 months, then consider further follow-up at 18-24 months * high risk patients: follow-up at 3-6 months, then at 18-24 months if no change Multiple nodules size: >8 mm * low risk patients: follow-up at 3-6 months, then consider further follow-up at 18-24 months * high risk patients: follow-up at 3-6 months, then at 18-24 months if no change Note: newly detected indeterminate nodule in persons 35 years of age or older. * low risk patients: minimal or absent history of smoking and/or other known risk factors * high risk patients: history of smoking or of other known risk factors (e.g. first degree relative with lung cancer, or exposure to asbestos, radon, uranium) * if a nodule up to 8 mm is partly solid or is ground glass further follow-up is required after 24 months to exclude possible slow growing adenocarcinoma (ALISA) SUBSOLID NODULES Solitary pure ground-glass nodule * nodule size <6 mm - no CT follow-up required * nodule size >=6 mm - follow-up CT at 6-12 months, then every 2 years until 5 years Solitary part-solid nodule * nodule size <6 mm - no CT follow-up required * nodule size >=6 mm - follow-up CT at 3-6 months. If unchanged, and solid component remains <6 mm, then annual follow-up for 5 years Multiple subsolid nodules * nodule size <6 mm - follow-up CT at 3-6 months, consider further follow-up at 2 and 4 years if stable * nodule size >=6 mm - follow-up CT at 3-6 months, subsequent management based on the most suspicious nodule(s) ACT 112: Negative or not required by law. Electronically signed by: Eliud Welsh M.D. 10/10/2022 12:[address] 10/10/22 11:52 CT SCAN OF THE BRAIN WITHOUT IV CONTRAST CLINICAL HISTORY: Neurological deficit. Stroke like symptoms. COMPARISON STUDY: CT of the brain dated 06/09/2022. TECHNIQUE: Unenhanced axial CT scan of the brain is performed from the vertex to the skull base. A dose lowering technique was utilized adhering to the principles of ALARA. FINDINGS: Brain parenchyma: There is age-related involutional change noting [id number] subcortical and periventricular microangiopathic disease. There is no hemorrhage, mass effect, or evidence of acute territorial ischemia by CT criteria. Guajardo-white matter differentiation is preserved. No extra-axial fluid collection is seen. Ventricles, sulci, cisterns: Prominent secondary to involutional change. Intracranial vasculature: There is atherosclerotic calcification of the cavernous carotid and vertebral arteries. Calvarium: Unremarkable. Sinuses and mastoids: The visualized paranasal sinuses are clear. There is a large right mastoid effusion. The left mastoid air cells are well pneumatized. Orbits: The bony orbits are grossly intact. There is a left ocular lens implant. IMPRESSION: There is no hemorrhage, mass effect, or evidence of acute territorial ischemia by CT criteria. ACT 112: Negative or not required by law. Electronically signed by: Eliud Welsh M.D. 10/10/2022 12:16 PM Discharge Plan Visit Data Chief Complaint: Stroke Alert Stated Complaint: STROKE ALERT ED Provider: Sabino Gallegos Discharge Problem: Stroke-like symptoms, Hypertension, Fall, Sacral fracture, closed Patient Disposition: Admitted As Inpatient Discharge Instructions Interventions: ED Discharge Assessment Last Done: 10/10/22 17:51
--- NOTE | 2022-10-10 12:18 | CT Scan Report ---
CT SCAN OF THE BRAIN WITHOUT IV CONTRAST CLINICAL HISTORY: Neurological deficit. Stroke like symptoms. COMPARISON STUDY: CT of the brain dated 06/09/2022. TECHNIQUE: Unenhanced axial CT scan of the brain is performed from the vertex to the skull base. A do se lowering technique was utilized adhering to the principles of ALARA. FINDINGS: Brain parenchyma: There is age-related involutional change noting ogrr-cu-iqbrfulx subcortical and pe riventricular microangiopathic disease. There is no hemorrhage, mass effect, or evidence of acute ter ritorial ischemia by CT criteria. Guajardo-white matter differentiation is preserved. No extra-axial flui d collection is seen. Ventricles, sulci, cisterns: Prominent secondary to involutional change. Intracranial vasculature: There is atherosclerotic calcification of the cavernous carotid and vertebr al arteries. Calvarium: Unremarkable. Sinuses and mastoids: The visualized paranasal sinuses are clear. There is a large right mastoid effu rosamaria. The left mastoid air cells are well pneumatized. Orbits: The bony orbits are grossly intact. There is a left ocular lens implant. IMPRESSION: There is no hemorrhage, mass effect, or evidence of acute territorial ischemia by CT nicolette abrams. ACT 112: Negative or not required by law. Electronically signed by: Eliud Welsh M.D. 10/10/2022 12:16 PM
--- NOTE | 2022-10-10 12:33 | CT Scan Report ---
CT cervical spine wo con CLINICAL HISTORY: fall, stroke symptoms TECHNIQUE: Multidetector row helical CT of the cervical spine was performed without administration of intravenous contrast. Coronal and sagittal reformations were obtained. Automated dose lowering techn iques and/or adjustment according to patient size were utilized for this exam. Comparison: None available at the time of this dictation. FINDINGS: No acute fractures or subluxations are identified. Degenerative changes are seen in the visualized sp ine. 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 The alignment is normal. S oft tissues are unremarkable. IMPRESSION: Degenerative changes without evidence of acute bony injury. ACT 112: Negative or not required by law. Electronically signed by: Jer Zarate M.D. 10/10/2022 12:32 PM
--- NOTE | 2022-10-10 12:37 | CT Scan Report ---
CT SCAN OF THE CHEST WITHOUT IV CONTRAST; CT SCAN OF THE THORACIC SPINE WITHOUT CONTRAST CLINICAL HISTORY: Trauma. Fall. COMPARISON STUDY: Chest x-ray dated 06/15/2022. TECHNIQUE: CT scan of the thorax was performed from the thoracic inlet to the upper abdomen. Additio susan, CT scan of the thoracic spine is performed from the lower cervical spine to the upper lumbar s pine. Images for both examinations are reviewed in the axial, sagittal, and coronal planes. IV contra st was not administered for this examination as per the referring clinician. Note that the examinatio n is suboptimal without IV contrast. A dose lowering technique was utilized adhering to the principle s of ALARA. The examination is degraded by motion artifact, as well as by streak artifact from the ar ms which could not be elevated above the chest. CT DOSE: 2300.02 mGy.cm FINDINGS: Thyroid: The left lobe of the thyroid gland is enlarged and heterogeneous, typical for goiter. This e xtends into the superior mediastinum. Thoracic aorta: There is moderate atherosclerotic calcification of the thoracic aorta. There is moder ate and minimal dilatation of the ascending thoracic aorta which measures up to 4.4 cm in diameter. T he remainder of the thoracic aorta is normal in caliber, and the arch demonstrates standard 3-vessel anatomy. Heart: The heart is enlarged and without pericardial effusion. The coronary arteries and aortic valve leaflets are densely calcified. There is diminished attenuation of the cardiac blood pool as compare d to the myocardium suggesting anemia. Lungs and pleural spaces: Evaluation of the lung parenchyma is degraded by motion artifact. There is no airspace consolidation, pleural effusion, or pneumothorax. Scarring/atelectasis is present at the lung bases. The trachea and central airways are clear. There is a 7 mm pleural-based nodule in the ri ght middle lobe seen on image #159. Mediastinum: There is no mediastinal hematoma or lymphadenopathy. Letty: Not well assessed without IV contrast. Axillae: There is no axillary lymphadenopathy. Upper abdomen: There is a moderate hiatal hernia. A 3.5 cm cyst is cc in the right kidney. Skeletal structures: The skeletal structures are osteopenic. See below for dedicated discussion of th e thoracic spine. The bony thorax appears intact. No lytic or blastic bony lesions are seen. THORACIC SPINE: There is no evidence of fracture or malalignment. Vertebral body height and alignment are maintained throughout the thoracic spine. Small anterior osteophytes are seen throughout. The tr ansverse and spinous processes are intact. The disc spaces are preserved. There is no evidence of lar ge disc herniation or high-grade central canal stenosis by CT. Posterior disc bulge is noted at L1-L2 . The paraspinous soft tissues are normal in appearance. IMPRESSION: 1. There is no acute posttraumatic intrathoracic abnormality. 2. There is no airspace consolidation, pleural effusion, or pneumothorax. 3. There is no evidence of fracture or malalignment involving the thoracic spine. 4. Cardiomegaly. 5. There is mild aneurysmal dilatation of the ascending thoracic aorta which measures up to 4.4 cm in diameter. 6. There is a 7 mm pleural-based nodule in the right middle lobe. This is pathologically indeterminat e and can be followed as per the Fleischner criteria. See below. 7. Moderate hiatal hernia. 8. Additional findings as above. Please refer to below summary of Fleischner criteria recommendations for follow-up of incidental CT n odules (Nick Simons, Guidelines for management of small pulmonary nodules detected on CT scans: A sta tement from the Fleischner Society, Radiology 237: [phone].) SOLID NODULES Solitary nodule size: <6 mm * low risk patients: no follow-up needed * high risk patients: optional CT at 12 months Solitary nodule size: 6-8 mm * low risk patients: follow-up at 6-12 months, then consider further follow-up at 18-24 months * high risk patients: initial follow-up CT at 6-12 months and then at 18-24 months if no change Solitary nodule size: >8 mm * either low or high risk patients - consider follow-up CT at 3 months, and/or CT-PET, and/or biopsy Multiple nodules size: <6 mm * low risk patients: no routine follow-up * high risk patients: optional CT at 12 months Multiple nodules size: 6-8 mm * low risk patients: follow-up at 3-6 months, then consider further follow-up at 18-24 months * high risk patients: follow-up at 3-6 months, then at 18-24 months if no change Multiple nodules size: >8 mm * low risk patients: follow-up at 3-6 months, then consider further follow-up at 18-24 months * high risk patients: follow-up at 3-6 months, then at 18-24 months if no change Note: newly detected indeterminate nodule in persons 35 years of age or older. * low risk patients: minimal or absent history of smoking and/or other known risk factors * high risk patients: history of smoking or of other known risk factors (e.g. first degree relative with lung cancer, or exposure to asbestos, radon, uranium) * if a nodule up to 8 mm is partly solid or is ground glass further follow-up is required after 24 m onths to exclude possible slow growing adenocarcinoma (ALISA) SUBSOLID NODULES Solitary pure ground-glass nodule * nodule size <6 mm - no CT follow-up required * nodule size >=6 mm - follow-up CT at 6-12 months, then every 2 years until 5 years Solitary part-solid nodule * nodule size <6 mm - no CT follow-up required * nodule size >=6 mm - follow-up CT at 3-6 months. If unchanged, and solid component remains <6 mm, then annual follow-up for 5 years Multiple subsolid nodules * nodule size <6 mm - follow-up CT at 3-6 months, consider further follow-up at 2 and 4 years if sta ble * nodule size >=6 mm - follow-up CT at 3-6 months, subsequent management based on the most suspiciou s nodule(s) ACT 112: Negative or not required by law. Electronically signed by: Eliud Welsh M.D. 10/10/2022 12:36 PM
[2022-10-10 12:39] LABS: iSTAT Hemoglobin 13.6 g/dl (14.0-18.0); iSTAT Ionized Calcium 1.18 mmol/l (1.12-1.32)
--- NOTE | 2022-10-10 12:39 | CT Scan Report ---
CT lumbar spine wo con CLINICAL HISTORY: trauma TECHNIQUE: Multidetector row helical CT of the lumbar spine was performed without administration of i ntravenous contrast. Coronal and sagittal reformations were obtained. Automated dose lowering techniq ues and/or adjustment according to patient size were utilized for this exam. CT DOSE: 1394.31 mGy.cm Comparison: None available at the time of this dictation. FINDINGS: For counting purposes, the last complete intervertebral disc space is considered L5-S1. No acute fractures are identified. Degenerative changes are noted in the visualized spine. Vertebral body alignment is within normal limits. A right renal cyst is seen. Atherosclerotic calcifications ar e seen. IMPRESSION: Degenerative changes without evidence of acute bony injury. ACT 112: Negative or not required by law. Electronically signed by: Jer Zarate M.D. 10/10/2022 12:38 PM
[2022-10-10 12:51] LABS: Basophils # (auto) 0.02 K/uL (0-0.2); Basophils % (auto) 0.4 %; Eosinophils # (auto) 0.06 K/uL (0-0.50); Eosinophils % (auto) 1.1 %; Hematocrit (blood only) 38.6 % (42.0-52.0); Hemoglobin 12.6 g/dl (14.0-18.0); Immature Granulocytes # (auto) 0.02 K/uL (0.01-0.20); Immature Granulocytes % (auto) 0.4 %; Lymphocytes # (auto) 1.15 K/uL (1.2-3.4); Lymphocytes % (auto) 20.4 %; Mean Corpuscular Hemoglobin 35.3 pg (25.0-34.0); Mean Corpuscular Hgb Conc 32.6 g/dL (32.0-36.0); Mean Corpuscular Volume 108.1 fL (80.0-100.0); Mean Platelet Volume 11.5 fL (9.4-12.4); Monocytes # (auto) 0.59 K/uL (0.11-0.59); Monocytes % (auto) 10.5 %; Neutrophils % (auto) 67.2 %; Platelet Count 204 K/uL (130-400); RDW Coefficient of Variation 13.3 % (11.5-14.5); RDW Standard Deviation 53.1 fL (36.4-46.3); Red Blood Count 3.57 M/uL (4.70-6.10); White Blood Count 5.64 K/ul (4.8-10.8)
[2022-10-10 13:00] LABS: Albumin Globulin Ratio 0.9 (0.9-2); Albumin Level 3.4 gm/dl (3.4-5.0); BUN Creatinine Ratio 10.7 (10-20); Bilirubin,Total 1.2 mg/dl (0.2-1.0); Calcium 8.8 mg/dl (8.6-10.3); Creatinine Clr Calc Pharmacy 67.5 ml/min; Est GFR (African American) 79.1 ml/min; Est GFR (Non-African American) 68.3 ml/min; Globulin 3.7 gm/dl (2.5-4.0); Magnesium 1.8 mg/dl (1.7-2.4); Total Protein 7.1 gm/dl (6.0-8.3)
--- NOTE | 2022-10-10 13:05 | CT Scan Report ---
ABDOMEN AND PELVIS CT WITHOUT CONTRAST HISTORY: Acute chest and abdominal trauma trauma TECHNIQUE: Multiaxial CT images of the abdomen and pelvis were performed without contrast. A dose lo wering technique was utilized adhering to the principles of ALARA. COMPARISON STUDY: Chest, thoracic and lumbar spine study of the same day FINDINGS: Cardiomegaly with decreased attenuation of the cardiac blood pool suggestive of anemia. 7 m m subpleural solid nodule within the right middle lobe, image 20 series 4. Similar appearing 4 mm nod ule in the left lower lobe on image 46. No pneumatosis or pneumoperitoneum. The unenhanced spleen, pa ncreas, gallbladder and adrenal glands are unremarkable. Liver is also within normal limits. Mild nonspecific bilateral perinephric stranding. 3.7 cm exophytic cyst of the superior pole right ki dney with subcentimeter marginal calcification. 2 mm nonobstructing calculus of the superior pole rig ht kidney. 2.9 cm cyst in the inferior pole left kidney with layering milk of calcium. Cortical thinn ing of the kidneys. No ureteral calculi or hydronephrosis. Prostatomegaly with calcifications of vas deferens. Urinary bladder wall thickening with partial distention. Small fat filled inguinal hernias. Atherosclerosis of the aorta. Moderate sized hiatal hernia. No bowel obstruction. Extensive colonic diverticulosis. Wall thickening of the mid sigmoid colon likely secondary to chronic diverticular disease. Appendix is not visualize d. Postoperative changes of the anterior abdominal wall. Degenerative changes of the spine, pelvis an d hips. Subtle acute minimally displaced mildly comminuted fracture of the S5 segment with mild adjac ent presacral edema. IMPRESSION: 1. Subtle acute minimally displaced comminuted fracture of the inferior sacrum with trace surrounding presacral edema/hemorrhage. 2. No additional acute posttraumatic intra-abdominal or intrapelvic abnormality identified. 3. Moderate hiatal hernia. 4. 7 mm subpleural solid nodule of the right middle lobe. Please refer to chest CT of same day for di scussion of appropriate follow-up. 5. Additional findings as above. ACT 112: Negative or not required by law. The above report was generated using voice recognition software. It may contain grammatical, syntax o r spelling errors. Electronically signed by: Dustin Hurtado M.D. 10/10/2022 1:04 PM
[2022-10-10 13:10] LABS: Partial Thromboplastin Ratio 0.9; Partial Thromboplastin Time 26.6 Seconds (21.0-31.0); Prothrombin Time 11.4 Seconds (9.0-12.0)
--- NOTE | 2022-10-10 14:24 | History & Physical Report ---
Date of Service October 10, 2022 Assessment & Plan (1) Stroke-like symptoms: Plan: Patient is 81 y/o M with PMH HTN, HLD, CAD s/p stents, chronic anemia, GERD, mood disorder presented to ER from [facility] with complaint of right-sided weakness and facial droop noted today around 10:45AM. Reported dizziness since last night with reported fall. Today continued dizziness. In ER noted initially not moving right side body and had whispering speech. During ER course speech returned to normal but had noted right sided weakness DDX: TIA vs stroke CT head:There is no hemorrhage, mass effect, or evidence of acute territorial ischemia Tele to monitor for arrhythmias Lipid panel, A1c, TSH in a.m. MRI brain U/S carotids Echo with bubble study Aspiration precautions Fall precautions PT/OT consult Continue aspirin, Plavix, atorvastain Allow permissive HTN Neurology consult (2) Fall: Plan: Reported dizziness and fall last night CT Head: no acute intracranial abnormality CT C-Spine: Degenerative changes without evidence of acute bony injury. CT Thoracic Spine: There is no acute posttraumatic intrathoracic abnormality. There is no airspace consolidation, pleural effusion, or pneumothorax. There is no evidence of fracture or malalignment involving the thoracic spine. CT Lumbar Spine: Degenerative changes without evidence of acute bony injury. CT ABD/PEVIS: Subtle acute minimally displaced comminuted fracture of the inferior sacrum with trace surrounding presacral edema/hemorrhage. No additional acute posttraumatic intra-abdominal or intrapelvic abnormality identified. Moderate hiatal hernia. Orthostatics to r/o orthostatic hypotension causing dizziness Fall precautions (3) Sacral fracture, closed: Plan: CT ABD/PEVIS: Subtle acute minimally displaced comminuted fracture of the inferior sacrum with trace surrounding presacral edema/hemorrhage. No additional acute posttraumatic intra-abdominal or intrapelvic abnormality identified. Patient denies any back, pelvic, buttock pain currently Ortho consult (4) Chest pain: (5) Coronary artery disease: Plan: History CAD s/p stents Reported episode mid chest discomfort this morning Initial high-sensitivity troponin negative. EKG sinus rhythm rate 60, T wave flattening inferior leads (prior EKG with T wave inversion in inferior leads) Denies current chest pain History negative dobutamine stress echo in June 2022 Trend troponin Echo Continue aspirin, Plavix, carvedilol, atorvastatin, isosorbide (6) Ascending aortic aneurysm: Plan: CT CHEST: There is mild aneurysmal dilatation of the ascending thoracic aorta which measures up to 4.4 cm in diameter Will need outpatient follow up (7) Pulmonary nodule: Plan: CT CHEST: 7 mm pleural-based nodule in the right middle lobe. This is pathologically indeterminate and can be followed as per the Fleischner criteria. Will need outpatient follow-up CT Scan at 6-12 months, then consider further follow-up at 18-24 months (8) Hypertension: Plan: Continue carvedilol, losartan (9) Dyslipidemia, goal LDL below 70: Plan: Continue atorvastatin (10) Chronic anemia: Plan: Hgb: 12.6. Baseline~12 Monitor H&H (11) Gastroesophageal reflux: Plan: Continue PPI (12) Hx of cataract extraction: Plan: History of left cataract extraction and August 2022 Continue eyedrops as directed DVT Prophylaxis Lovenox SQ Full Code as per discussion with pt Inmate at [facility] Pt was seen and care coordinated with Dr Weinstein. See addendum I spent a total of 80 minutes reviewing notes, outpatient records, labs, medication, coordinating, documenting and providing care for this patient excluding time spent in the performance of separately billed services. History of Present Illness Chief Complaint: Right sided weakness Primary Care Provider: [facility] Patient is 81 y/o M with PMH HTN, HLD, CAD s/p stents, chronic anemia, GERD, mood disorder presented to ER from [facility] with complaint of right-sided weakness. History obtained from patient, chart review. Patient states last night he started as dizziness which she describes as "feeling drunk". He states he fell last night and hit his head and right shoulder. Patient denies LOC. He is unsure of the time of the incident. Reports this morning woke up and took his morning meds from the [facility]. He states as he was walking back he could not remember where his cell was and walked into the wrong cell. He states the guards had to tell him which so was his. He also reports he was having dizziness also described as feeling drunk while he was walking. He states he was having right arm pain and mid chest discomfort. Correctional facility staff noted patient had right-sided weakness and had questionable right facial droop at around 10:45 AM. It is reported his vitals were with BP 177/90, HR: 84, Pulse ox: 90%RA and BSG of 124. He was brought to ER for further evaluation. Denies fever/chills, diaphoresis, N/V/D/C, GARCIA, vision changes, neck pain, back pain, pelvic pain, extremity pain, SOB, orthopnea, palpitations, cough, sore throat, otalgia, rhinorrhea, abdominal pain, paresthesias, extremity edema, rashes, urinary symptoms. Denies alcohol use, recreational drug use. Denies history CVA. ER physician reports when patient arrived to ER he was whispering and not moving his right upper or right lower extremity. During ER course it is reported patient started speaking more clearly and and a normal audible level. It was also noted that patient was now moving right upper and right lower extremity however had noted right-sided weakness. Telestroke neurology consulted and recommended admission and further stroke workup. Allergies Allergy/AdvReac Type Severity Reaction Status Date / Time Iodinated Contrast Media Allergy Unknown Unknown Verified 10/03/22 12:12 iodine Allergy Unknown Unknown Verified 10/03/22 12:12 Home Medications Medication Instructions Recorded Confirmed Type aspirin 325 mg tablet 325 mg PO QAM 06/08/22 10/10/22 History atorvastatin 80 mg tablet 80 mg PO QPM 06/08/22 10/10/22 History clopidogrel 75 mg tablet 75 mg PO QPM 06/08/22 10/10/22 History isosorbide mononitrate 30 mg 30 mg PO QAM 06/08/22 10/10/22 History tablet,extended release 24 hr losartan 25 mg tablet 25 mg PO QAM 06/08/22 10/10/22 History multivitamin 1 tab PO QAM 06/08/22 10/10/22 History nitroglycerin 0.4 mg sublingual 0.4 mg sublingual UD PRN Chest Pain 06/08/22 10/10/22 History tablet carvedilol 12.5 mg tablet 12.5 mg PO BID 08/14/22 10/10/22 History pantoprazole 40 mg tablet,delayed 40 mg PO QAM 08/14/22 10/10/22 History release bromfenac 0.07 % eye drops 1 drp ophthalmic (eye) DAILY 10/10/22 10/10/22 History (Prolensa) difluprednate 0.05 % eye drops 1 drp ophthalmic (eye) DAILY 10/10/22 10/10/22 History gatifloxacin 0.5 % eye drops 1 drp ophthalmic (eye) TID 10/10/22 10/10/22 History prednisolone acetate 1 % eye 1 drp ophthalmic (eye) UD 10/10/22 10/10/22 History drops,suspension Past Med/Surg History Medical History (Updated 10/10/22 @ 15:03 by Coby Abdullahi PA-C) Angina pectoris, unspecified Antisocial personality disorder Atherosclerotic heart disease Chronic anemia Chronic pain Constipation Coronary artery disease Depression Dysphagia Gastroesophageal reflux Hx of gastritis Hyperlipidemia Hypertension Hypertensive renal disease without failure Inmate in correctional facility 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 (per records) On anticoagulant therapy plavix daily Osteoarthritis Peritonsillar abscess Thyroid nodule Unspecified mononeuropathy of right upper limb Surgical History (Updated 10/10/22 @ 14:52 by Coby Abdullahi PA-C) History of cardiac cath per records multiple heart caths, last was 2018?? with stent placed History of heart artery stent x2? Hx of cataract extraction lt. Social History Smoking Status: Unknown if ever smoked Preferred Language: Egyptian Communication Ability: unknown Knowledge Management Advisor Required: No Beliefs That Will Affect Care: None Current Living Situation: Other Current Living Situation Comment: inmate [facility] osegu[facility] Feels Safe at Home: Yes Assistive Devices: None Review of Systems Review of Systems: All systems reviewed & are unremarkable except as noted in HPI & below Physical Exam Physical Exam: General: no acute distress, WDWN Head: normocephalic, atraumatic Eyes: PERRL, EOM's intact, conjunctiva non-injected, anicteric ENT: normal inspection external ears, nose, mucous membranes moist Neck: supple, trachea midline Lungs: clear, no respiratory distress, no wheezing/rhonchi/rales CV: RRR, no murmur, no pretibial edema Abd: +mid abdominal surgical scar, normal BS, soft, non-tender Ext: no cyanosis, no calf tenderness Neuro: A&O x 3,normal affect, No nystagmus, facial sensation is intact and symmetric, no noted significant facial drooping, hearing grossly intact, soft palate elevates symmetrically, no dysarthria, shoulder shrug intact, tongue is midline, normal movement, no fasciculations. +RUE strength 3/5, +RLE strength 3/5, LUE and LLE strength 5/5. Skin: warm, dry, +linear scars to bilateral forearms Results & Data Results & Data Vital Signs (Past 12 Hours) Vital Signs Temp Pulse Pulse Resp BP BP Pulse Ox 10/10/22 14:01 159/98 H 10/10/22 14:01 67 20 10/10/22 14:00 64 21 10/10/22 13:30 54 L 21 97 10/10/22 13:30 161/76 H 10/10/22 13:00 56 L 18 98 10/10/22 13:25 54 L 18 163/100 H 99 10/10/22 12:38 59 L 10/10/22 12:31 98 10/10/22 11:52 36.7 C 55 L 24 190/96 H 98 O2 Del Method O2 Flow Rate 10/10/22 14:01 10/10/22 14:01 10/10/22 14:00 10/10/22 13:30 10/10/22 13:30 10/10/22 13:00 10/10/22 13:25 Room Air 10/10/22 12:38 10/10/22 12:31 Room Air 0 10/10/22 11:52 Room Air Laboratory Results Short CBC 10/10/22 Range/Units 12:21 WBC 5.64 (4.8-10.8) K/ul Hgb 12.6 L (14.0-18.0) g/dl Hct 38.6 L (42.0-52.0) % Plt Count 204 (130-400) K/uL BMP 10/10/22 12:21 Sodium 138 Potassium 4.0 Chloride 106 Carbon Dioxide 26 BUN 11 Creatinine 1.03 Glucose 104 H Calcium 8.8 Liver Function 10/10/22 Range/Units 12:21 Total Bilirubin 1.2 H (0.2-1.0) mg/dl AST 13 (13-39) U/L ALT 10 (7-52) U/L Alkaline Phosphatase 116 H (34-104) U/L Albumin 3.4 (3.4-5.0) gm/dl Diagnostic Findings Abdomen/Pelvis CT 10/10/22 00:[address] WITHOUT CONTRAST HISTORY: Acute chest and abdominal trauma trauma TECHNIQUE: Multiaxial CT images of the abdomen and pelvis were performed without contrast. A dose lowering technique was utilized adhering to the principles of ALARA. COMPARISON STUDY: Chest, thoracic and lumbar spine study of the same day FINDINGS: Cardiomegaly with decreased attenuation of the cardiac blood pool suggestive of anemia. 7 mm subpleural solid nodule within the right middle lobe, image 20 series 4. Similar appearing 4 mm nodule in the left lower lobe on image 46. No pneumatosis or pneumoperitoneum. The unenhanced spleen, pancreas, gallbladder and adrenal glands are unremarkable. Liver is also within normal limits. Mild nonspecific bilateral perinephric stranding. 3.7 cm exophytic cyst of the superior pole right kidney with subcentimeter marginal calcification. 2 mm nonobstructing calculus of the superior pole right kidney. 2.9 cm cyst in the inferior pole left kidney with layering milk of calcium. Cortical thinning of the kidneys. No ureteral calculi or hydronephrosis. Prostatomegaly with calcifications of vas deferens. Urinary bladder wall thickening with partial distention. Small fat filled inguinal hernias. Atherosclerosis of the aorta. Moderate sized hiatal hernia. No bowel obstruction. Extensive colonic diverticulosis. Wall thickening of the mid sigmoid colon likely secondary to chronic diverticular disease. Appendix is not visualized. Postoperative changes of the anterior abdominal wall. Degenerative changes of the spine, pelvis and hips. Subtle acute minimally displaced mildly comminuted fracture of the S5 segment with mild adjacent presacral edema. IMPRESSION: 1. Subtle acute minimally displaced comminuted fracture of the inferior sacrum with trace surrounding presacral edema/hemorrhage. 2. No additional acute posttraumatic intra-abdominal or intrapelvic abnormality identified. 3. Moderate hiatal hernia. 4. 7 mm subpleural solid nodule of the right middle lobe. Please refer to chest CT of same day for discussion of appropriate follow-up. 5. Additional findings as above. ACT 112: Negative or not required by law. The above report was generated using voice recognition software. It may contain grammatical, syntax or spelling errors. Electronically signed by: Dustin Hurtado M.D. 10/10/2022 1:[address] 10/10/22 00:00 CT lumbar spine wo con CLINICAL HISTORY: trauma TECHNIQUE: Multidetector row helical CT of the lumbar spine was performed without administration of intravenous contrast. Coronal and sagittal reformations were obtained. Automated dose lowering techniques and/or adjustment according to patient size were utilized for this exam. CT DOSE: 1394.31 mGy.cm Comparison: None available at the time of this dictation. FINDINGS: For counting purposes, the last complete intervertebral disc space is considered L5-S1. No acute fractures are identified. Degenerative changes are noted in the visualized spine. Vertebral body alignment is within normal limits. A right renal cyst is seen. Atherosclerotic calcifications are seen. IMPRESSION: Degenerative changes without evidence of acute bony injury. ACT 112: Negative or not required by law. Electronically signed by: Jer Zarate M.D. 10/10/2022 12:[address] 10/10/22 00:00 CT SCAN OF THE CHEST WITHOUT IV CONTRAST; CT SCAN OF THE THORACIC SPINE WITHOUT CONTRAST CLINICAL HISTORY: Trauma. Fall. COMPARISON STUDY: Chest x-ray dated 06/15/2022. TECHNIQUE: CT scan of the thorax was performed from the thoracic inlet to the upper abdomen. Additionally, CT scan of the thoracic spine is performed from the lower cervical spine to the upper lumbar spine. Images for both examinations are reviewed in the axial, sagittal, and coronal planes. IV contrast was not administered for this examination as per the referring clinician. Note that the examination is suboptimal without IV contrast. A dose lowering technique was utilized adhering to the principles of ALARA. The examination is degraded by motion artifact, as well as by streak artifact from the arms which could not be elevated above the chest. CT DOSE: 2300.02 mGy.cm FINDINGS: Thyroid: The left lobe of the thyroid gland is enlarged and heterogeneous, typical for goiter. This extends into the superior mediastinum. Thoracic aorta: There is moderate atherosclerotic calcification of the thoracic aorta. There is moderate and minimal dilatation of the ascending thoracic aorta which measures up to 4.4 cm in diameter. The remainder of the thoracic aorta is normal in caliber, and the arch demonstrates standard 3-vessel anatomy. Heart: The heart is enlarged and without pericardial effusion. The coronary arteries and aortic valve leaflets are densely calcified. There is diminished attenuation of the cardiac blood pool as compared to the myocardium suggesting anemia. Lungs and pleural spaces: Evaluation of the lung parenchyma is degraded by motion artifact. There is no airspace consolidation, pleural effusion, or pneumothorax. Scarring/atelectasis is present at the lung bases. The trachea and central airways are clear. There is a 7 mm pleural-based nodule in the right middle lobe seen on image #159. Mediastinum: There is no mediastinal hematoma or lymphadenopathy. Letty: Not well assessed without IV contrast. Axillae: There is no axillary lymphadenopathy. Upper abdomen: There is a moderate hiatal hernia. A 3.5 cm cyst is cc in the right kidney. Skeletal structures: The skeletal structures are osteopenic. See below for dedicated discussion of the thoracic spine. The bony thorax appears intact. No lytic or blastic bony lesions are seen. THORACIC SPINE: There is no evidence of fracture or malalignment. Vertebral body height and alignment are maintained throughout the thoracic spine. Small anterior osteophytes are seen throughout. The transverse and spinous processes are intact. The disc spaces are preserved. There is no evidence of large disc herniation or high-grade central canal stenosis by CT. Posterior disc bulge is noted at L1-L2. The paraspinous soft tissues are normal in appearance. IMPRESSION: 1. There is no acute posttraumatic intrathoracic abnormality. 2. There is no airspace consolidation, pleural effusion, or pneumothorax. 3. There is no evidence of fracture or malalignment involving the thoracic spine. 4. Cardiomegaly. 5. There is mild aneurysmal dilatation of the ascending thoracic aorta which measures up to 4.4 cm in diameter. 6. There is a 7 mm pleural-based nodule in the right middle lobe. This is pathologically indeterminate and can be followed as per the Fleischner criteria. See below. 7. Moderate hiatal hernia. 8. Additional findings as above. Please refer to below summary of Fleischner criteria recommendations for follow- up of incidental CT nodules (Nick Simons, Guidelines for management of small pulmonary nodules detected on CT scans: A statement from the Fleischner Society, Radiology 237: [phone].) SOLID NODULES Solitary nodule size: <6 mm * low risk patients: no follow-up needed * high risk patients: optional CT at 12 months Solitary nodule size: 6-8 mm * low risk patients: follow-up at 6-12 months, then consider further follow-up at 18-24 months * high risk patients: initial follow-up CT at 6-12 months and then at 18-24 months if no change Solitary nodule size: >8 mm * either low or high risk patients - consider follow-up CT at 3 months, and/or CT-PET, and/or biopsy Multiple nodules size: <6 mm * low risk patients: no routine follow-up * high risk patients: optional CT at 12 months Multiple nodules size: 6-8 mm * low risk patients: follow-up at 3-6 months, then consider further follow-up at 18-24 months * high risk patients: follow-up at 3-6 months, then at 18-24 months if no change Multiple nodules size: >8 mm * low risk patients: follow-up at 3-6 months, then consider further follow-up at 18-24 months * high risk patients: follow-up at 3-6 months, then at 18-24 months if no change Note: newly detected indeterminate nodule in persons 35 years of age or older. * low risk patients: minimal or absent history of smoking and/or other known risk factors * high risk patients: history of smoking or of other known risk factors (e.g. first degree relative with lung cancer, or exposure to asbestos, radon, uranium) * if a nodule up to 8 mm is partly solid or is ground glass further follow-up is required after 24 months to exclude possible slow growing adenocarcinoma (ALISA) SUBSOLID NODULES Solitary pure ground-glass nodule * nodule size <6 mm - no CT follow-up required * nodule size >=6 mm - follow-up CT at 6-12 months, then every 2 years until 5 years Solitary part-solid nodule * nodule size <6 mm - no CT follow-up required * nodule size >=6 mm - follow-up CT at 3-6 months. If unchanged, and solid component remains <6 mm, then annual follow-up for 5 years Multiple subsolid nodules * nodule size <6 mm - follow-up CT at 3-6 months, consider further follow-up at 2 and 4 years if stable * nodule size >=6 mm - follow-up CT at 3-6 months, subsequent management based on the most suspicious nodule(s) ACT 112: Negative or not required by law. Electronically signed by: Eliud Welsh M.D. 10/10/2022 12:[address] 10/10/22 11:52 CT cervical spine wo con CLINICAL HISTORY: fall, stroke symptoms TECHNIQUE: Multidetector row helical CT of the cervical spine was performed without administration of intravenous contrast. Coronal and sagittal reformati ons were obtained. Automated dose lowering techniques and/or adjustment according to patient size were utilized for this exam. Comparison: None available at the time of this dictation. FINDINGS: No acute fractures or subluxations are identified. Degenerative changes are seen in the visualized spine. 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 The alignment is normal. Soft tissues are unremarkable. IMPRESSION: Degenerative changes without evidence of acute bony injury. ACT 112: Negative or not required by law. Electronically signed by: Jer Zarate M.D. 10/10/2022 12:[address] 10/10/22 11:52 CT SCAN OF THE CHEST WITHOUT IV CONTRAST; CT SCAN OF THE THORACIC SPINE WITHOUT CONTRAST CLINICAL HISTORY: Trauma. Fall. COMPARISON STUDY: Chest x-ray dated 06/15/2022. TECHNIQUE: CT scan of the thorax was performed from the thoracic inlet to the upper abdomen. Additionally, CT scan of the thoracic spine is performed from the lower cervical spine to the upper lumbar spine. Images for both examinations are reviewed in the axial, sagittal, and coronal planes. IV contrast was not administered for this examination as per the referring clinician. Note that the examination is suboptimal without IV contrast. A dose lowering technique was utilized adhering to the principles of ALARA. The examination is degraded by mo tion artifact, as well as by streak artifact from the arms which could not be elevated above the chest. CT DOSE: 2300.02 mGy.cm FINDINGS: Thyroid: The left lobe of the thyroid gland is enlarged and heterogeneous, typical for goiter. This extends into the superior mediastinum. Thoracic aorta: There is moderate atherosclerotic calcification of the thoracic aorta. There is moderate and minimal dilatation of the ascending thoracic aorta which measures up to 4.4 cm in diameter. The remainder of the thoracic aorta is normal in caliber, and the arch demonstrates standard 3-vessel anatomy. Heart: The heart is enlarged and without pericardial effusion. The coronary arteries and aortic valve leaflets are densely calcified. There is diminished attenuation of the cardiac blood pool as compared to the myocardium suggesting anemia. Lungs and pleural spaces: Evaluation of the lung parenchyma is degraded by motion artifact. There is no airspace consolidation, pleural effusion, or pneumothorax. Scarring/atelectasis is present at the lung bases. The trachea and central airways are clear. There is a 7 mm pleural-based nodule in the right middle lobe seen on image #159. Mediastinum: There is no mediastinal hematoma or lymphadenopathy. Letty: Not well assessed without IV contrast. Axillae: There is no axillary lymphadenopathy. Upper abdomen: There is a moderate hiatal hernia. A 3.5 cm cyst is cc in the right kidney. Skeletal structures: The skeletal structures are osteopenic. See below for dedicated discussion of the thoracic spine. The bony thorax appears intact. No lytic or blastic bony lesions are seen. THORACIC SPINE: There is no evidence of fracture or malalignment. Vertebral body height and alignment are maintained throughout the thoracic spine. Small anterior osteophytes are seen throughout. The transverse and spinous processes are intact. The disc spaces are preserved. There is no evidence of large disc herniation or high-grade central canal stenosis by CT. Posterior disc bulge is noted at L1-L2. The paraspinous soft tissues are normal in appearance. IMPRESSION: 1. There is no acute posttraumatic intrathoracic abnormality. 2. There is no airspace consolidation, pleural effusion, or pneumothorax. 3. There is no evidence of fracture or malalignment involving the thoracic spine. 4. Cardiomegaly. 5. There is mild aneurysmal dilatation of the ascending thoracic aorta which measures up to 4.4 cm in diameter. 6. There is a 7 mm pleural-based nodule in the right middle lobe. This is pathologically indeterminate and can be followed as per the Fleischner criteria. See below. 7. Moderate hiatal hernia. 8. Additional findings as above. Please refer to below summary of Fleischner criteria recommendations for follow- up of incidental CT nodules (Nick Simons, Guidelines for management of small pulmonary nodules detected on CT scans: A statement from the [employer], Radiology 237: [phone].) SOLID NODULES Solitary nodule size: <6 mm * low risk patients: no follow-up needed * high risk patients: optional CT at 12 months Solitary nodule size: 6-8 mm * low risk patients: follow-up at 6-12 months, then consider further follow-up at 18-24 months * high risk patients: initial follow-up CT at 6-12 months and then at 18-24 months if no change Solitary nodule size: >8 mm * either low or high risk patients - consider follow-up CT at 3 months, and/or CT-PET, and/or biopsy Multiple nodules size: <6 mm * low risk patients: no routine follow-up * high risk patients: optional CT at 12 months Multiple nodules size: 6-8 mm * low risk patients: follow-up at 3-6 months, then consider further follow-up at 18-24 months * high risk patients: follow-up at 3-6 months, then at 18-24 months if no change Multiple nodules size: >8 mm * low risk patients: follow-up at 3-6 months, then consider further follow-up at 18-24 months * high risk patients: follow-up at 3-6 months, then at 18-24 months if no change Note: newly detected indeterminate nodule in persons 35 years of age or older. * low risk patients: minimal or absent history of smoking and/or other known risk factors * high risk patients: history of smoking or of other known risk factors (e.g. first degree relative with lung cancer, or exposure to asbestos, radon, uranium) * if a nodule up to 8 mm is partly solid or is ground glass further follow-up is required after 24 months to exclude possible slow growing adenocarcinoma (ALISA) SUBSOLID NODULES Solitary pure ground-glass nodule * nodule size <6 mm - no CT follow-up required * nodule size >=6 mm - follow-up CT at 6-12 months, then every 2 years until 5 years Solitary part-solid nodule * nodule size <6 mm - no CT follow-up required * nodule size >=6 mm - follow-up CT at 3-6 months. If unchanged, and solid component remains <6 mm, then annual follow-up for 5 years Multiple subsolid nodules * nodule size <6 mm - follow-up CT at 3-6 months, consider further follow-up at 2 and 4 years if stable * nodule size >=6 mm - follow-up CT at 3-6 months, subsequent management based on the most suspicious nodule(s) ACT 112: Negative or not required by law. Electronically signed by: Eliud Welsh M.D. 10/10/2022 12:[address] 10/10/22 11:52 CT SCAN OF THE BRAIN WITHOUT IV CONTRAST CLINICAL HISTORY: Neurological deficit. Stroke like symptoms. COMPARISON STUDY: CT of the brain dated 06/09/2022. TECHNIQUE: Unenhanced axial CT scan of the brain is performed from the vertex to the skull base. A dose lowering technique was utilized adhering to the principles of ALARA. FINDINGS: Brain parenchyma: There is age-related involutional change noting [id number] subcortical and periventricular microangiopathic disease. There is no hemorrhage, mass effect, or evidence of acute territorial ischemia by CT criteria. Guajardo-white matter differentiation is preserved. No extra-axial fluid c ollection is seen. Ventricles, sulci, cisterns: Prominent secondary to involutional change. Intracranial vasculature: There is atherosclerotic calcification of the cavernous carotid and vertebral arteries. Calvarium: Unremarkable. Sinuses and mastoids: The visualized paranasal sinuses are clear. There is a large right mastoid effusion. The left mastoid air cells are well pneumatized. Orbits: The bony orbits are grossly intact. There is a left ocular lens implant. IMPRESSION: There is no hemorrhage, mass effect, or evidence of acute territorial ischemia by CT criteria. ACT 112: Negative or not required by law. Electronically signed by: Eliud Welsh M.D. 10/10/2022 12:16 PM Supervising Physician Co-Signing Physician Notes 81 y/o M with PMH HTN, HLD, CAD s/p stents, chronic anemia, GERD, mood disorder presented to ER from [facility] with complaint of right-sided weakness and facial droop noted today around 10:45AM. Reported dizziness since last night with reported fall. Today continued dizziness. Ortho consult for sacral fracture ordered MRi head orthostats to rule out orthostatic hypotension. (4) Chest pain Chest pain type: unspecified Qualified Code(s): R07.9 - Chest pain, unspecified
--- NOTE | 2022-10-10 15:30 | Magnetic Resonance Report ---
MRI OF THE BRAIN WITHOUT IV CONTRAST CLINICAL HISTORY: Strokelike symptoms. COMPARISON STUDY: CT of the brain dated 10/10/2022. TECHNIQUE: MRI of the brain was performed utilizing various T1 and T2-weighted sequences in the axial , sagittal, and coronal planes. IV contrast was not administered for this examination. FINDINGS: Brain parenchyma: There is age-related involutional change noting mild to moderate subcortical and pe riventricular microangiopathic disease. There is no hemorrhage or mass effect. There is no restricted diffusion to suggest acute ischemia. Guajardo-white matter differentiation is preserved. No extra-axial fluid collection is seen. The cerebellar tonsils are normal in configuration. Ventricles, sulci, and cisterns: Prominent secondary to involutional change. Pituitary and sella: Partially empty sella is incidentally noted. Intracranial vasculature: Normal flow voids are maintained at the skull base. Orbits: The bony orbits are grossly intact. Orbital contents are normal in appearance noting a left o cular lens implant. Sinuses and mastoids: There is a large right mastoid effusion. The left mastoid air cells are clear. Trace mucosal thickening seen within the right frontal sinus and ethmoid sinuses. Calvarium: Unremarkable. Cervical cord: Partially visualized cervical spinal cord is normal in morphology and signal intensity . IMPRESSION: 1. No acute intracranial abnormality. 2. Large right mastoid effusion. ACT 112: Negative or not required by law. Electronically signed by: Eliud Welsh M.D. 10/10/2022 3:29 PM
[2022-10-10] MEDS ORDERED: POLYETHYLENE (MIRALAX) 17 GM PACK PO PRN (17:27)
[2022-10-10] MEDS ORDERED: ONDANSETRON INJ 2 MG/ML 2 ML VIAL IV PRN (17:27)
[2022-10-10] MEDS ORDERED: PHARMACIST DISCHARGE MED REC CONSULT PRN (17:27)
[2022-10-10] MEDS: ENOXAPARIN INJ 40 MG/0.4 ML SYR SQ SCH (20:09)
[2022-10-10] MEDS: carvediloL 12.5 MG TAB PO SCH (20:10)
[2022-10-10] MEDS: prednisoLONE acetate 1% OP SUSP 5 ML BTL OPL SCH ×3 (20:10→20:23)
[2022-10-10] MEDS: ATORVASTATIN 40 MG TAB PO SCH (20:11)
[2022-10-10] MEDS: CLOPIDOGREL BISULFATE 75 MG TAB PO SCH (20:11)
--- NOTE | 2022-10-10 22:26 | Ultrasound Report ---
ULTRASOUND OF THE CAROTID ARTERIES CLINICAL HISTORY: Strokelike symptoms. COMPARISON STUDY: No priors. TECHNIQUE: Real-time, grayscale, and color Doppler sonography of the carotid arteries is performed. I mages are reviewed in the transverse and longitudinal planes. FINDINGS: The carotid arteries are patent bilaterally and demonstrate antegrade flow. There is mild atheroscler otic plaque seen in the carotid bulbs bilaterally. Normal doppler arterial waveforms are seen through out. Velocity measurements are listed below. Common carotid peak systolic velocity (cm/sec): RIGHT: 85 LEFT: 122 ICA proximal peak systolic velocity (cm/sec): RIGHT: 60 LEFT: 55 ICA mid peak systolic velocity (cm/sec): RIGHT: 57 LEFT: 54 ICA distal peak systolic velocity (cm/sec): RIGHT: 55 LEFT: 28 ICA/CC peak systolic ratio: RIGHT: 0.7 LEFT: 0.5 Antegrade flow was shown in the vertebral arteries. The external carotid arteries are patent. IMPRESSION: 1. There is no sonographic evidence of hemodynamically significant stenosis in the right or left howard tid arterial system. 2. Antegrade flow is shown in the vertebral arteries. ACT 112: Negative or not required by law. Electronically signed by: Eliud Welsh M.D. 10/10/2022 10:25 PM
[2022-10-11 06:28] LABS: Basophils # (auto) 0.02 K/uL (0-0.2); Basophils % (auto) 0.4 %; Eosinophils # (auto) 0.06 K/uL (0-0.50); Eosinophils % (auto) 1.1 %; Hemoglobin 12.1 g/dl (14.0-18.0); Immature Granulocytes # (auto) 0.03 K/uL (0.01-0.20); Immature Granulocytes % (auto) 0.5 %; Lymphocytes # (auto) 1.45 K/uL (1.2-3.4); Lymphocytes % (auto) 25.9 %; Mean Corpuscular Hemoglobin 35.2 pg (25.0-34.0); Mean Corpuscular Hgb Conc 32.7 g/dL (32.0-36.0); Mean Corpuscular Volume 107.6 fL (80.0-100.0); Mean Platelet Volume 11.1 fL (9.4-12.4); Monocytes # (auto) 0.66 K/uL (0.11-0.59); Monocytes % (auto) 11.8 %; Neutrophils # (auto) 3.38 K/uL (1.40-6.50); Neutrophils % (auto) 60.3 %; Platelet Count 188 K/uL (130-400); RDW Coefficient of Variation 13.3 % (11.5-14.5); RDW Standard Deviation 52.5 fL (36.4-46.3); Red Blood Count 3.44 M/uL (4.70-6.10)
[2022-10-11 08:10] LABS: Calcium 8.3 mg/dl (8.6-10.3); Potassium 3.8 mmol/L (3.5-5.1)
[2022-10-11 08:16] LABS: BUN Creatinine Ratio 15.6 (10-20); Chol HDL Ratio 2.5 (0-5); Creatinine Clr Calc Pharmacy 74.7 ml/min; Est GFR (African American) 93.2 ml/min; Est GFR (Non-African American) 80.4 ml/min
[2022-10-11 08:19] LABS: Estimated Average Glucose 94 mg/dl; Hemoglobin A1C 4.9 % (4.5-5.6)
[2022-10-11] MEDS: prednisoLONE acetate 1% OP SUSP 5 ML BTL OPL SCH ×4 (08:55→21:27)
[2022-10-11] MEDS: ASPIRIN 325 MG ECTAB PO SCH (08:55)
[2022-10-11] MEDS: carvediloL 12.5 MG TAB PO SCH ×2 (08:55→17:19)
[2022-10-11] MEDS: MULTIVITAMIN TAB PO SCH (08:56)
[2022-10-11] MEDS: ISOSORBIDE MONO EXTENDED REL 30 MG TABCR PO SCH (08:56)
[2022-10-11] MEDS: PANTOprazole 40 MG TAB PO SCH (08:57)
[2022-10-11] MEDS: ACETAMINOPHEN 325 MG TAB PO PRN (08:57)
[2022-10-11] MEDS ORDERED: LOSARTAN POTASSIUM 25 MG TAB PO SCH (09:00)
--- NOTE | 2022-10-11 09:58 | Hospitalist Progress Note ---
Date of Service October 11, 2022 Assessment & Plan (1) Stroke-like symptoms: Plan: Patient is 81 y/o M with PMH HTN, HLD, CAD s/p stents, chronic anemia, GERD, mood disorder presented to ER from [facility] with complaint of right-sided weakness and facial droop noted around 10:45AM. Reported dizziness since last night with reported fall. Then continued dizziness. In ER noted initially not moving right side body and had whispering speech. During ER course speech returned to normal but had noted right sided weakness DDX: TIA vs stroke CT head:There is no hemorrhage, mass effect, or evidence of acute territorial ischemia Tele to monitor for arrhythmias Lipid panel - LDL 61 A1c 4.9%, TSH 3.1 MRI brain -1. No acute intracranial abnormality. 2. Large right mastoid effusion. U/S carotids- 1. There is no sonographic evidence of hemodynamically significant stenosis in the right or left carotid arterial system. 2. Antegrade flow is shown in the vertebral arteries. Echo with bubble study -bubble study done. LV is normal in size. There is normal LV wall thickness. LV wall motion is normal. EF 55 to 60%. Grade 1 diastolic dysfunction. There is no atrial septal defect. Agitated saline contrast injection performed with late transition. Small patent foramen ovale possible/not excluded. Aortic valve sclerosis mild, without significant aortic valvular stenosis. Aspiration precautions Fall precautions PT/OT consult Continue aspirin, Plavix, atorvastain Allow permissive HTN Neurology consulted Recommendations: Treat hypertension as you are doing. Patient is already on aspirin and Plavix which is maximum Antiplatelet therapy for stroke prevention. No further neurologic testing or treatment recommendations to make at this time. (2) Fall: Plan: Reported dizziness and fall last night CT Head: no acute intracranial abnormality CT C-Spine: Degenerative changes without evidence of acute bony injury. CT Thoracic Spine: There is no acute posttraumatic intrathoracic abnormality. There is no airspace consolidation, pleural effusion, or pneumothorax. There is no evidence of fracture or malalignment involving the thoracic spine. CT Lumbar Spine: Degenerative changes without evidence of acute bony injury. CT ABD/PEVIS: Subtle acute minimally displaced comminuted fracture of the inferior sacrum with trace surrounding presacral edema/hemorrhage. No additional acute posttraumatic intra-abdominal or intrapelvic abnormality identified. Moderate hiatal hernia. Orthostatics to r/o orthostatic hypotension causing dizziness Fall precautions PT recommends using a walker (3) Sacral fracture, closed: Plan: CT ABD/PEVIS: Subtle acute minimally displaced comminuted fracture of the inferior sacrum with trace surrounding presacral edema/hemorrhage. No additional acute posttraumatic intra-abdominal or intrapelvic abnormality identified. Patient denies any back, pelvic, buttock pain currently Orthopedics consulted - Wbat. Pain control. (4) Chest pain: (5) Coronary artery disease: Plan: History CAD s/p stents Reported episode mid chest morning of admission Initial high-sensitivity troponin negative. EKG sinus rhythm rate 60, T wave flattening inferior leads (prior EKG with T wave inversion in inferior leads) History negative dobutamine stress echo in June 2022 Trend troponin Echo Continue aspirin, Plavix, carvedilol, atorvastatin, isosorbide Right sided chest pain this AM (10/11/22) and per pt prior to admission ( as above) Echo reviewed by cardiology and cardiology consulted - losartan dose increased. Possible PFO noted on echo, continue ASA. Current findings do not suggest acute coronary syndrome with atypical chest pain Echocardiogram with preserved LV systolic function recent stress testing negative for ischemia. Cannot exclude patent foramen ovale. Will be continue antiplatelet therapy Plan as above Increase antihypertensive therapies initially with losartan with room to increase isosorbide mononitrate if persistently elevated No indications for further cardiac testing (6) Ascending aortic aneurysm: Plan: CT CHEST: There is mild aneurysmal dilatation of the ascending thoracic aorta which measures up to 4.4 cm in diameter Will need outpatient follow up (7) Pulmonary nodule: Plan: CT CHEST: 7 mm pleural-based nodule in the right middle lobe. This is pathologically indeterminate and can be followed as per the Fleischner criteria. Will need outpatient follow-up CT Scan at 6-12 months, then consider further follow-up at 18-24 months (8) Hypertension: Plan: Continue carvedilol, losartan (9) Dyslipidemia, goal LDL below 70: Plan: Continue atorvastatin (10) Chronic anemia: Plan: Hgb: 12.6. Baseline~12 Monitor H&H (11) Gastroesophageal reflux: Plan: Continue PPI (12) Hx of cataract extraction: Plan: History of left cataract extraction and August 2022 Continue eyedrops as directed DVT Prophylaxis Lovenox SQ Full Code as per discussion with pt Inmate at [facility] Admission and Anticipated Discharge Date Admission Date: October 10, 2022 Subjective Patient seen in follow-up of strokelike symptoms/right-sided weakness This morning patient also complaining of right-sided chest pain radiating to his jaw and arm Patient seen by neurology and cardiology this morning. Currently laying in bed, in no acute distress No fevers chills no shortness of breath, no abdominal pain No more weakness Discussed with Dr. Enriquez, at [facility], she would like a call in the morning as she will not be available today to accept him. Review of Systems Review of Systems: All systems reviewed & are unremarkable except as noted in Subjective Physical Exam Physical Exam: General: no acute distress, WDWN Head: normocephalic, atraumatic Eyes: PERRL, EOM's intact, conjunctiva non-injected, anicteric ENT: normal inspection external ears, nose, mucous membranes moist Neck: supple Lungs: clear, no respiratory distress, no wheezing/rhonchi/rales CV: RRR, no murmur, no pretibial edema Abd: +mid abdominal surgical scar, normal BS, soft, non-tender Ext: moves extremities Neuro: A&O x 3,normal affect, no dysarthria, no facial asymmetry, speech fluent, moves extremities Skin: warm, dry, +linear scars to bilateral forearms Results & Data Results & Data Vital Signs (Past 12 Hours) Vital Signs Temp Pulse Pulse Resp BP Pulse Ox O2 Del Method 10/11/22 07:04 36.5 C 64 18 147/81 H 98 Room Air 10/11/22 03:00 36.5 C 63 22 134/51 L 97 Room Air 10/10/22 22:01 82 10/10/22 23:00 36.4 C L 71 22 159/77 H 95 Room Air Laboratory Results 10/11/22 10/11/22 10/11/22 Range/Units 06:01 06:01 06:01 WBC (4.8-10.8) K/ul RBC (4.70-6.10) M/uL Hgb (14.0-18.0) g/dl POC Hgb (14.0-18.0) g/dl Hct (42.0-52.0) % POC Hct (42-52) % MCV (80.0-100.0) fL MCH (25.0-34.0) pg MCHC (32.0-36.0) g/dL RDW Std Deviation (36.4-46.3) fL RDW Coeff of [place] (11.5-14.5) % Plt Count (130-400) K/uL MPV (9.4-12.4) fL Immature Gran % (Auto) % Neut % (Auto) % Lymph % (Auto) % [place] % (Auto) % Eos % (Auto) % Baso % (Auto) % Neut # (Auto) (1.40-6.50) K/uL Lymph # (Auto) (1.2-3.4) K/uL [place] # (Auto) (0.11-0.59) K/uL Eos # (Auto) (0-0.50) K/uL Baso # (Auto) (0-0.2) K/uL Immature Gran # (Auto) (0.01-0.20) K/uL PT (9.0-12.0) Seconds INR (0.9-1.1) APTT (21.0-31.0) Seconds PTT Ratio POC Sodium (135-144) mmol/L Sodium (136-145) mmol/L POC Potassium (3.3-5.0) mmol/L Potassium (3.5-5.1) mmol/L POC Chloride (101-112) mmol/L Chloride (98-107) mmol/L Carbon Dioxide (21-32) mmol/L POC Total CO2 (24-31) mmol/L Anion Gap (3-11) POC Anion Gap (16-25) mmol/L POC BUN (7-18) mg/dl BUN (6-23) mg/dl Creatinine (0.6-1.4) mg/dl POC Creatinine (0.6-1.3) mg/dl Est Cr Clr Drug Dosing ml/min Est GFR ( Amer) ml/min Est GFR (Non-Af Amer) ml/min BUN/Creatinine Ratio (10-20) Glucose (70-99(Fasting)) mg/dl POC Glucose (other) (70-99) mg/dl Estimat Average Glucose 94 mg/dl Hemoglobin A1c 4.9 (4.5-5.6) % Calcium (8.6-10.3) mg/dl POC Ioniz Calcium Pia (1.12-1.32) mmol/l Magnesium (1.7-2.4) mg/dl Total Bilirubin (0.2-1.0) mg/dl AST (13-39) U/L ALT (7-52) U/L Alkaline Phosphatase (34-104) U/L Troponin I High Sens Pending (0-20) pg/ml Total Protein (6.0-8.3) gm/dl Albumin (3.4-5.0) gm/dl Globulin (2.5-4.0) gm/dl Albumin/Globulin Ratio (0.9-2) Triglycerides (0-150) mg/dl Cholesterol (0-200) mg/dl LDL Cholesterol, Calc mg/dl VLDL Cholesterol, Calc (0-30) mg/dl HDL Cholesterol mg/dl Cholesterol/HDL Ratio (0-5) TSH 3.115 (0.300-4.500) uIu/ml Nasal Screen MRSA (PCR) (Negative) SARS-CoV-2, RNA, NAAT (NEGATIVE) Blood Type Antibody Screen 10/11/22 10/11/22 10/10/22 Range/Units 06:01 06:01 Unknown WBC 5.60 (4.8-10.8) K/ul RBC 3.44 L (4.70-6.10) M/uL Hgb 12.1 L (14.0-18.0) g/dl POC Hgb (14.0-18.0) g/dl Hct 37.0 L (42.0-52.0) % POC Hct (42-52) % MCV 107.6 H (80.0-100.0) fL MCH 35.2 H (25.0-34.0) pg MCHC 32.7 (32.0-36.0) g/dL RDW Std Deviation 52.5 H (36.4-46.3) fL RDW Coeff of [place] 13.3 (11.5-14.5) % Plt Count 188 (130-400) K/uL MPV 11.1 (9.4-12.4) fL Immature Gran % (Auto) 0.5 % Neut % (Auto) 60.3 % Lymph % (Auto) 25.9 % [place] % (Auto) 11.8 % Eos % (Auto) 1.1 % Baso % (Auto) 0.4 % Neut # (Auto) 3.38 (1.40-6.50) K/uL Lymph # (Auto) 1.45 (1.2-3.4) K/uL [place] # (Auto) 0.66 H (0.11-0.59) K/uL Eos # (Auto) 0.06 (0-0.50) K/uL Baso # (Auto) 0.02 (0-0.2) K/uL Immature Gran # (Auto) 0.03 (0.01-0.20) K/uL PT (9.0-12.0) Seconds INR (0.9-1.1) APTT (21.0-31.0) Seconds PTT Ratio POC Sodium (135-144) mmol/L Sodium 138 (136-145) mmol/L POC Potassium (3.3-5.0) mmol/L Potassium 3.8 (3.5-5.1) mmol/L POC Chloride (101-112) mmol/L Chloride 107 (98-107) mmol/L Carbon Dioxide 24 (21-32) mmol/L POC Total CO2 (24-31) mmol/L Anion Gap 7 (3-11) POC Anion Gap (16-25) mmol/L POC BUN (7-18) mg/dl BUN 14 (6-23) mg/dl Creatinine 0.90 (0.6-1.4) mg/dl POC Creatinine (0.6-1.3) mg/dl Est Cr Clr Drug Dosing 74.7 ml/min Est GFR ( Amer) 93.2 ml/min Est GFR (Non-Af Amer) 80.4 ml/min BUN/Creatinine Ratio 15.6 (10-20) Glucose 100 H (70-99(Fasting)) mg/dl POC Glucose (other) (70-99) mg/dl Estimat Average Glucose mg/dl Hemoglobin A1c (4.5-5.6) % Calcium 8.3 L (8.6-10.3) mg/dl POC Ioniz Calcium Pia (1.12-1.32) mmol/l Magnesium (1.7-2.4) mg/dl Total Bilirubin (0.2-1.0) mg/dl AST (13-39) U/L ALT (7-52) U/L Alkaline Phosphatase (34-104) U/L Troponin I High Sens (0-20) pg/ml Total Protein (6.0-8.3) gm/dl Albumin (3.4-5.0) gm/dl Globulin (2.5-4.0) gm/dl Albumin/Globulin Ratio (0.9-2) Triglycerides 68 (0-150) mg/dl Cholesterol 124 (0-200) mg/dl LDL Cholesterol, Calc 61 mg/dl VLDL Cholesterol, Calc 14 (0-30) mg/dl HDL Cholesterol 49 mg/dl Cholesterol/HDL Ratio 2.5 (0-5) TSH (0.300-4.500) uIu/ml Nasal Screen MRSA (PCR) Negative (Negative) SARS-CoV-2, RNA, NAAT (NEGATIVE) Blood Type Antibody Screen 10/10/22 10/10/22 10/10/22 Range/Units 14:17 12:41 12:27 WBC (4.8-10.8) K/ul RBC (4.70-6.10) M/uL Hgb (14.0-18.0) g/dl POC Hgb 13.6 L (14.0-18.0) g/dl Hct (42.0-52.0) % POC Hct 40 L (42-52) % MCV (80.0-100.0) fL MCH (25.0-34.0) pg MCHC (32.0-36.0) g/dL RDW Std Deviation (36.4-46.3) fL RDW Coeff of [place] (11.5-14.5) % Plt Count (130-400) K/uL MPV (9.4-12.4) fL Immature Gran % (Auto) % Neut % (Auto) % Lymph % (Auto) % [place] % (Auto) % Eos % (Auto) % Baso % (Auto) % Neut # (Auto) (1.40-6.50) K/uL Lymph # (Auto) (1.2-3.4) K/uL [place] # (Auto) (0.11-0.59) K/uL Eos # (Auto) (0-0.50) K/uL Baso # (Auto) (0-0.2) K/uL Immature Gran # (Auto) (0.01-0.20) K/uL PT (9.0-12.0) Seconds INR (0.9-1.1) APTT (21.0-31.0) Seconds PTT Ratio POC Sodium 140 (135-144) mmol/L Sodium (136-145) mmol/L POC Potassium 4.0 (3.3-5.0) mmol/L Potassium (3.5-5.1) mmol/L POC Chloride 104 (101-112) mmol/L Chloride (98-107) mmol/L Carbon Dioxide (21-32) mmol/L POC Total CO2 24 (24-31) mmol/L Anion Gap (3-11) POC Anion Gap 17.0 (16-25) mmol/L POC BUN 10 (7-18) mg/dl BUN (6-23) mg/dl Creatinine (0.6-1.4) mg/dl POC Creatinine 1.0 (0.6-1.3) mg/dl Est Cr Clr Drug Dosing ml/min Est GFR ( Amer) ml/min Est GFR (Non-Af Amer) ml/min BUN/Creatinine Ratio (10-20) Glucose (70-99(Fasting)) mg/dl POC Glucose (other) 106 H (70-99) mg/dl Estimat Average Glucose mg/dl Hemoglobin A1c (4.5-5.6) % Calcium (8.6-10.3) mg/dl POC Ioniz Calcium Pia 1.18 (1.12-1.32) mmol/l Magnesium (1.7-2.4) mg/dl Total Bilirubin (0.2-1.0) mg/dl AST (13-39) U/L ALT (7-52) U/L Alkaline Phosphatase (34-104) U/L Troponin I High Sens 6.5 (0-20) pg/ml Total Protein (6.0-8.3) gm/dl Albumin (3.4-5.0) gm/dl Globulin (2.5-4.0) gm/dl Albumin/Globulin Ratio (0.9-2) Triglycerides (0-150) mg/dl Cholesterol (0-200) mg/dl LDL Cholesterol, Calc mg/dl VLDL Cholesterol, Calc (0-30) mg/dl HDL Cholesterol mg/dl Cholesterol/HDL Ratio (0-5) TSH (0.300-4.500) uIu/ml Nasal Screen MRSA (PCR) (Negative) SARS-CoV-2, RNA, NAAT NEGATIVE (NEGATIVE) Blood Type Antibody Screen 10/10/22 10/10/22 10/10/22 Range/Units 12:21 12:21 12:21 WBC (4.8-10.8) K/ul RBC (4.70-6.10) M/uL Hgb (14.0-18.0) g/dl POC Hgb (14.0-18.0) g/dl Hct (42.0-52.0) % POC Hct (42-52) % MCV (80.0-100.0) fL MCH (25.0-34.0) pg MCHC (32.0-36.0) g/dL RDW Std Deviation (36.4-46.3) fL RDW Coeff of [place] (11.5-14.5) % Plt Count (130-400) K/uL MPV (9.4-12.4) fL Immature Gran % (Auto) % Neut % (Auto) % Lymph % (Auto) % [place] % (Auto) % Eos % (Auto) % Baso % (Auto) % Neut # (Auto) (1.40-6.50) K/uL Lymph # (Auto) (1.2-3.4) K/uL [place] # (Auto) (0.11-0.59) K/uL Eos # (Auto) (0-0.50) K/uL Baso # (Auto) (0-0.2) K/uL Immature Gran # (Auto) (0.01-0.20) K/uL PT 11.4 (9.0-12.0) Seconds INR 1.0 (0.9-1.1) APTT 26.6 (21.0-31.0) Seconds PTT Ratio 0.9 POC Sodium (135-144) mmol/L Sodium 138 (136-145) mmol/L POC Potassium (3.3-5.0) mmol/L Potassium 4.0 (3.5-5.1) mmol/L POC Chloride (101-112) mmol/L Chloride 106 (98-107) mmol/L Carbon Dioxide 26 (21-32) mmol/L POC Total CO2 (24-31) mmol/L Anion Gap 6 (3-11) POC Anion Gap (16-25) mmol/L POC BUN (7-18) mg/dl BUN 11 (6-23) mg/dl Creatinine 1.03 (0.6-1.4) mg/dl POC Creatinine (0.6-1.3) mg/dl Est Cr Clr Drug Dosing 67.5 ml/min Est GFR ( Amer) 79.1 ml/min Est GFR (Non-Af Amer) 68.3 ml/min BUN/Creatinine Ratio 10.7 (10-20) Glucose 104 H (70-99(Fasting)) mg/dl POC Glucose (other) (70-99) mg/dl Estimat Average Glucose mg/dl Hemoglobin A1c (4.5-5.6) % Calcium 8.8 (8.6-10.3) mg/dl POC Ioniz Calcium Pia (1.12-1.32) mmol/l Magnesium 1.8 (1.7-2.4) mg/dl Total Bilirubin 1.2 H (0.2-1.0) mg/dl AST 13 (13-39) U/L ALT 10 (7-52) U/L Alkaline Phosphatase 116 H (34-104) U/L Troponin I High Sens 6.0 (0-20) pg/ml Total Protein 7.1 (6.0-8.3) gm/dl Albumin 3.4 (3.4-5.0) gm/dl Globulin 3.7 (2.5-4.0) gm/dl Albumin/Globulin Ratio 0.9 (0.9-2) Triglycerides (0-150) mg/dl Cholesterol (0-200) mg/dl LDL Cholesterol, Calc mg/dl VLDL Cholesterol, Calc (0-30) mg/dl HDL Cholesterol mg/dl Cholesterol/HDL Ratio (0-5) TSH (0.300-4.500) uIu/ml Nasal Screen MRSA (PCR) (Negative) SARS-CoV-2, RNA, NAAT (NEGATIVE) Blood Type O Positive Antibody Screen NEGATIVE 10/10/22 Range/Units 12:21 WBC 5.64 (4.8-10.8) K/ul RBC 3.57 L (4.70-6.10) M/uL Hgb 12.6 L (14.0-18.0) g/dl POC Hgb (14.0-18.0) g/dl Hct 38.6 L (42.0-52.0) % POC Hct (42-52) % MCV 108.1 H (80.0-100.0) fL MCH 35.3 H (25.0-34.0) pg MCHC 32.6 (32.0-36.0) g/dL RDW Std Deviation 53.1 H (36.4-46.3) fL RDW Coeff of [place] 13.3 (11.5-14.5) % Plt Count 204 (130-400) K/uL MPV 11.5 (9.4-12.4) fL Immature Gran % (Auto) 0.4 % Neut % (Auto) 67.2 % Lymph % (Auto) 20.4 % [place] % (Auto) 10.5 % Eos % (Auto) 1.1 % Baso % (Auto) 0.4 % Neut # (Auto) 3.80 (1.40-6.50) K/uL Lymph # (Auto) 1.15 L (1.2-3.4) K/uL [place] # (Auto) 0.59 (0.11-0.59) K/uL Eos # (Auto) 0.06 (0-0.50) K/uL Baso # (Auto) 0.02 (0-0.2) K/uL Immature Gran # (Auto) 0.02 (0.01-0.20) K/uL PT (9.0-12.0) Seconds INR (0.9-1.1) APTT (21.0-31.0) Seconds PTT Ratio POC Sodium (135-144) mmol/L Sodium (136-145) mmol/L POC Potassium (3.3-5.0) mmol/L Potassium (3.5-5.1) mmol/L POC Chloride (101-112) mmol/L Chloride (98-107) mmol/L Carbon Dioxide (21-32) mmol/L POC Total CO2 (24-31) mmol/L Anion Gap (3-11) POC Anion Gap (16-25) mmol/L POC BUN (7-18) mg/dl BUN (6-23) mg/dl Creatinine (0.6-1.4) mg/dl POC Creatinine (0.6-1.3) mg/dl Est Cr Clr Drug Dosing ml/min Est GFR ( Amer) ml/min Est GFR (Non-Af Amer) ml/min BUN/Creatinine Ratio (10-20) Glucose (70-99(Fasting)) mg/dl POC Glucose (other) (70-99) mg/dl Estimat Average Glucose mg/dl Hemoglobin A1c (4.5-5.6) % Calcium (8.6-10.3) mg/dl POC Ioniz Calcium Pia (1.12-1.32) mmol/l Magnesium (1.7-2.4) mg/dl Total Bilirubin (0.2-1.0) mg/dl AST (13-39) U/L ALT (7-52) U/L Alkaline Phosphatase (34-104) U/L Troponin I High Sens (0-20) pg/ml Total Protein (6.0-8.3) gm/dl Albumin (3.4-5.0) gm/dl Globulin (2.5-4.0) gm/dl Albumin/Globulin Ratio (0.9-2) Triglycerides (0-150) mg/dl Cholesterol (0-200) mg/dl LDL Cholesterol, Calc mg/dl VLDL Cholesterol, Calc (0-30) mg/dl HDL Cholesterol mg/dl Cholesterol/HDL Ratio (0-5) TSH (0.300-4.500) uIu/ml Nasal Screen MRSA (PCR) (Negative) SARS-CoV-2, RNA, NAAT (NEGATIVE) Blood Type Antibody Screen Medications Administered Current Inpatient Medications Acetaminophen (Acetaminophen 325 Mg Tab) 650 mg PO Q4H PRN PRN Reason: Pain or Fever Stop: 11/09/22 17:26 Last Admin: 10/11/22 08:57 Dose: 650 mg Aspirin (Aspirin 325 Mg Ectab) 325 mg PO QDB [facility] Stop: 11/10/22 07:29 Last Admin: 10/11/22 08:55 Dose: 325 mg Atorvastatin Calcium (Atorvastatin 40 Mg Tab) 80 mg PO QPM [facility] Stop: 11/09/22 20:59 Last Admin: 10/10/22 20:11 Dose: 80 mg Carvedilol (Carvedilol 12.5 Mg Tab) 12.5 mg PO BIDM [facility] Stop: 11/09/22 17:44 Last Admin: 10/11/22 08:55 Dose: 12.5 mg Clopidogrel Bisulfate (Clopidogrel Bisulfate 75 Mg Tab) 75 mg PO QPM [facility] Stop: 11/09/22 20:59 Last Admin: 10/10/22 20:11 Dose: 75 mg Enoxaparin Sodium (Enoxaparin Inj 40 Mg/0.4 Ml Syr) 40 mg SQ Q24H [facility] Stop: 11/09/22 17:59 Last Admin: 10/10/22 20:09 Dose: 40 mg Isosorbide Mononitrate (Isosorbide [place] Extended Rel 30 Mg Tabcr) 30 mg PO [facility] Stop: 11/10/22 08:59 Last Admin: 10/11/22 08:56 Dose: 30 mg Losartan Potassium (Losartan Potassium 25 Mg Tab) 25 mg PO [facility] Stop: 11/10/22 08:59 Last Admin: 10/11/22 08:56 Dose: 25 mg Miscellaneous (Order Awaiting Action: Bromfenac [Prolensa] 0.07 % Drops) 1 each N/A [facility] Stop: 11/12/22 00:00 Miscellaneous (Order Awaiting Action: Difluprednate 0.05 % Drops) 1 each N/A QS [facility] Stop: 11/11/22 00:00 Miscellaneous (Order Awaiting Action: Gatifloxacin 0.5% Drops) 1 each N/A QS [facility] Stop: 11/12/22 00:00 Miscellaneous Information (Pharmacist Discharge Med Rec Consult) 1 each N/A UD PRN PRN Reason: Consult Stop: 11/09/22 17:26 Multivitamins (Multivitamin Tab) 1 tab PO [facility] Stop: 11/10/22 08:59 Last Admin: 10/11/22 08:56 Dose: 1 tab Ondansetron HCl (Ondansetron Inj 2 Mg/Ml 2 Ml Vial) 4 mg IV Q6H PRN PRN Reason: Nausea Stop: 11/09/22 17:26 Pantoprazole Sodium (Pantoprazole 40 Mg Tab) 40 mg PO [facility] Stop: 11/10/22 08:59 Last Admin: 10/11/22 08:57 Dose: 40 mg Polyethylene Glycol (Polyethylene (Miralax) 17 Gm Pack) 17 gm PO DAILY PRN PRN Reason: Constipation Stop: 11/09/22 17:26 Prednisolone Acetate (Prednisolone Acetate 1% Op Susp 5 Ml Btl) 1 drops OPL Q4HWA [facility] Stop: 10/13/22 07:59 Last Admin: 10/11/22 08:55 Dose: 1 drops Prednisolone Acetate (Prednisolone Acetate 1% Op Susp 5 Ml Btl) 1 drops OPL BID [facility] Stop: 10/20/22 08:59 Prednisolone Acetate (Prednisolone Acetate 1% Op Susp 5 Ml Btl) 1 drops OPL DAILY [facility] Stop: 10/27/22 08:59 (4) Chest pain Chest pain type: unspecified Qualified Code(s): R07.9 - Chest pain, unspecified
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
[2022-10-11] MEDS ORDERED: LOSARTAN POTASSIUM 25 MG TAB PO ONE (10:36)
--- NOTE | 2022-10-11 12:34 | XRay Report ---
XR shoulder RT min 2V routine CLINICAL HISTORY: Right shoulder pain following fall. COMPARISON: Chest CT October 10, 2022. FINDINGS: Alignment of the right shoulder is anatomic. There is no acute fracture. There is severe A C joint osteoarthritis with joint space narrowing and osteophytosis. There is mild glenohumeral joint osteoarthritis. IMPRESSION: 1. No acute fracture or dislocation within the right shoulder. 2. Severe right AC joint osteoarthritis. ACT 112: Negative or not required by law. Electronically signed by: Orville Alston M.D. 10/11/2022 12:33 PM
[2022-10-11] MEDS: ENOXAPARIN INJ 40 MG/0.4 ML SYR SQ SCH (17:19)
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
[2022-10-11] MEDS: ATORVASTATIN 40 MG TAB PO SCH (21:28)
[2022-10-11] MEDS: CLOPIDOGREL BISULFATE 75 MG TAB PO SCH (21:28)
--- NOTE | 2022-10-12 05:57 | Electrocardiogram Report ---
Test Reason : Blood Pressure : / mmHG Vent. Rate : 060 BPM Atrial Rate : 060 BPM P-R Int : 154 ms QRS Dur : 078 ms QT Int : 432 ms P-R-T Axes : 078 -12 -01 degrees QTc Int : 432 ms Sinus rhythm with Premature atrial complexes Minimal voltage criteria for LVH, may be normal variant Abnormal ECG When compared with ECG of 10-JUN-2022 05:43, T wave inversion less evident in Inferior leads Nonspecific T wave abnormality no longer evident in Anterior leads Confirmed by Gamaliel Vasquez ([id number]) on 10/12/2022 5:57:26 AM Referred By: Behzad JULIO Confirmed By:Gamaliel Vasquez
[2022-10-12] MEDS: ASPIRIN 325 MG ECTAB PO SCH (07:44)
[2022-10-12] MEDS: carvediloL 12.5 MG TAB PO SCH (07:44)
[2022-10-12] MEDS: PANTOprazole 40 MG TAB PO SCH (07:45)
[2022-10-12] MEDS: ACETAMINOPHEN 325 MG TAB PO PRN (07:45)
[2022-10-12] MEDS: ISOSORBIDE MONO EXTENDED REL 30 MG TABCR PO SCH (07:45)
[2022-10-12] MEDS: MULTIVITAMIN TAB PO SCH (07:45)
[2022-10-12] MEDS: prednisoLONE acetate 1% OP SUSP 5 ML BTL OPL SCH (07:47)
[2022-10-12] MEDS ORDERED: LOSARTAN POTASSIUM 50 MG TAB PO SCH (09:00)
--- NOTE | 2022-10-12 10:20 | Discharge Summary ---
Date of Service October 12, 2022 Admission HPI Per Admitting Provider Patient is 81 y/o M with PMH HTN, HLD, CAD s/p stents, chronic anemia, GERD, mood disorder presented to ER from [facility] with complaint of right-sided weakness. History obtained from patient, chart review. Patient states last night he started as dizziness which she describes as "feeling drunk". He states he fell last night and hit his head and right shoulder. Patient denies LOC. He is unsure of the time of the incident. Reports this morning woke up and took his morning meds from the [facility]. He states as he was walking back he could not remember where his cell was and walked into the wrong cell. He states the guards had to tell him which so was his. He also reports he was having dizziness also described as feeling drunk while he was walking. He states he was having right arm pain and mid chest discomfort. [facility] staff noted patient had right-sided weakness and had questionable right facial droop at around 10:45 AM. It is reported his vitals were with BP 177/90, HR: 84, Pulse ox: 90%RA and BSG of 124. He was brought to ER for further evaluation. Denies fever/chills, diaphoresis, N/V/D/C, GARCIA, vision changes, neck pain, back pain, pelvic pain, extremity pain, SOB, orthopnea, palpitations, cough, sore throat, otalgia, rhinorrhea, abdominal pain, paresthesias, extremity edema, rashes, urinary symptoms. Denies alcohol use, recreational drug use. Denies history CVA. ER physician reports when patient arrived to ER he was whispering and not moving his right upper or right lower extremity. During ER course it is reported patient started speaking more clearly and and a normal audible level. It was also noted that patient was now moving right upper and right lower extremity however had noted right-sided weakness. Telestroke neurology consulted and recommended admission and further stroke workup. Admission Exam Per Admitting Provider General: no acute distress, WDWN Head: normocephalic, atraumatic Eyes: PERRL, EOM's intact, conjunctiva non-injected, anicteric ENT: normal inspection external ears, nose, mucous membranes moist Neck: supple, trachea midline Lungs: clear, no respiratory distress, no wheezing/rhonchi/rales CV: RRR, no murmur, no pretibial edema Abd: +mid abdominal surgical scar, normal BS, soft, non-tender Ext: no cyanosis, no calf tenderness Neuro: A&O x 3,normal affect, No nystagmus, facial sensation is intact and symmetric, no noted significant facial drooping, hearing grossly intact, soft palate elevates symmetrically, no dysarthria, shoulder shrug intact, tongue is midline, normal movement, no fasciculations. +RUE strength 3/5, +RLE strength 3/5, LUE and LLE strength 5/5. Skin: warm, dry, +linear scars to bilateral forearms Principal Diagnosis Strokelike symptoms, right-sided weakness Right chest discomfort Fall Discharge Exam General: no acute distress, WDWN Head: normocephalic, atraumatic Eyes: PERRL, EOM's intact, conjunctiva non-injected, anicteric ENT: normal inspection external ears, nose, mucous membranes moist Neck: supple Lungs: clear, no respiratory distress, no wheezing/rhonchi/rales CV: RRR, no murmur, no pretibial edema Abd: +mid abdominal surgical scar, normal BS, soft, non-tender Ext: moves extremities Neuro: A&O x 3,normal affect, no dysarthria, no facial asymmetry, speech fluent, moves extremities Skin: warm, dry, +linear scars to bilateral forearms Discharge Data Allergies Allergy/AdvReac Type Severity Reaction Status Date / Time Iodinated Contrast Media Allergy Unknown Unknown Verified 10/03/22 12:12 iodine Allergy Unknown Unknown Verified 10/03/22 12:12 Consultations 10/10/22 13:16 ED Decision to Admit Stat 10/10/22 17:27 Consult Neurology Routine Consult Orthopedic Surgery Routine 10/11/22 09:55 Consult Cardiology Routine Ordered Studies 10/10/22 CT abd pelvis wo con Stat FINDINGS: Cardiomegaly with decreased attenuation of the cardiac blood pool suggestive of anemia. 7 mm subpleural solid nodule within the right middle lobe, image 20 series 4. Similar appearing 4 mm nodule in the left lower lobe on image 46. No pneumatosis or pneumoperitoneum. The unenhanced spleen, pancreas, gallbladder and adrenal glands are unremarkable. Liver is also within normal limits. Mild nonspecific bilateral perinephric stranding. 3.7 cm exophytic cyst of the superior pole right kidney with subcentimeter marginal calcification. 2 mm nonobstructing calculus of the superior pole right kidney. 2.9 cm cyst in the inferior pole left kidney with layering milk of calcium. Cortical thinning of the kidneys. No ureteral calculi or hydronephrosis. Prostatomegaly with calcifications of vas deferens. Urinary bladder wall thickening with partial distention. Small fat filled inguinal hernias. Atherosclerosis of the aorta. Moderate sized hiatal hernia. No bowel obstruction. Extensive colonic diverticulosis. Wall thickening of the mid sigmoid colon likely secondary to chronic diverticular disease. Appendix is not visualized. Postoperative changes of the anterior abdominal wall. Degenerative changes of the spine, pelvis and hips. Subtle acute minimally displaced mildly comminuted fracture of the S5 segment with mild adjacent presacral edema. IMPRESSION: 1. Subtle acute minimally displaced comminuted fracture of the inferior sacrum with trace surrounding presacral edema/hemorrhage. 2. No additional acute posttraumatic intra-abdominal or intrapelvic abnormality identified. 3. Moderate hiatal hernia. 4. 7 mm subpleural solid nodule of the right middle lobe. Please refer to chest CT of same day for discussion of appropriate follow-up. 5. Additional findings as above. CT lumbar spine wo con Stat FINDINGS: For counting purposes, the last complete intervertebral disc space is considered L5-S1. No acute fractures are identified. Degenerative changes are noted in the visualized spine. Vertebral body alignment is within normal limits. A right renal cyst is seen. Atherosclerotic calcifications are seen. IMPRESSION: Degenerative changes without evidence of acute bony injury. CT thoracic spine wo con Stat FINDINGS: Thyroid: The left lobe of the thyroid gland is enlarged and heterogeneous, typical for goiter. This extends into the superior mediastinum. Thoracic aorta: There is moderate atherosclerotic calcification of the thoracic aorta. There is moderate and minimal dilatation of the ascending thoracic aorta which measures up to 4.4 cm in diameter. The remainder of the thoracic aorta is normal in caliber, and the arch demonstrates standard 3-vessel anatomy. Heart: The heart is enlarged and without pericardial effusion. The coronary arteries and aortic valve leaflets are densely calcified. There is diminished attenuation of the cardiac blood pool as compared to the myocardium suggesting anemia. Lungs and pleural spaces: Evaluation of the lung parenchyma is degraded by motion artifact. There is no airspace consolidation, pleural effusion, or pneumothorax. Scarring/atelectasis is present at the lung bases. The trachea and central airways are clear. There is a 7 mm pleural-based nodule in the right middle lobe seen on image #159. Mediastinum: There is no mediastinal hematoma or lymphadenopathy. Letty: Not well assessed without IV contrast. Axillae: There is no axillary lymphadenopathy. Upper abdomen: There is a moderate hiatal hernia. A 3.5 cm cyst is cc in the right kidney. Skeletal structures: The skeletal structures are osteopenic. See below for dedicated discussion of the thoracic spine. The bony thorax appears intact. No lytic or blastic bony lesions are seen. THORACIC SPINE: There is no evidence of fracture or malalignment. Vertebral body height and alignment are maintained throughout the thoracic spine. Small anterior osteophytes are seen throughout. The transverse and spinous processes are intact. The disc spaces are preserved. There is no evidence of large disc herniation or high-grade central canal stenosis by CT. Posterior disc bulge is noted at L1-L2. The paraspinous soft tissues are normal in appearance. IMPRESSION: 1. There is no acute posttraumatic intrathoracic abnormality. 2. There is no airspace consolidation, pleural effusion, or pneumothorax. 3. There is no evidence of fracture or malalignment involving the thoracic spine. 4. Cardiomegaly. 5. There is mild aneurysmal dilatation of the ascending thoracic aorta which measures up to 4.4 cm in diameter. 6. There is a 7 mm pleural-based nodule in the right middle lobe. This is pathologically indeterminate and can be followed as per the Fleischner criteria. See below. 7. Moderate hiatal hernia. 8. Additional findings as above. 10/10/22 11:52 CT cervical spine wo con Stat FINDINGS: No acute fractures or subluxations are identified. Degenerative changes are seen in the visualized spine. 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 The alignment is normal. Soft tissues are unremarkable. IMPRESSION: Degenerative changes without evidence of acute bony injury. CT chest diagnostic wo con Stat FINDINGS: Thyroid: The left lobe of the thyroid gland is enlarged and heterogeneous, typical for goiter. This extends into the superior mediastinum. Thoracic aorta: There is moderate atherosclerotic calcification of the thoracic aorta. There is moderate and minimal dilatation of the ascending thoracic aorta which measures up to 4.4 cm in diameter. The remainder of the thoracic aorta is normal in caliber, and the arch demonstrates standard 3-vessel anatomy. Heart: The heart is enlarged and without pericardial effusion. The coronary arteries and aortic valve leaflets are densely calcified. There is diminished attenuation of the cardiac blood pool as compared to the myocardium suggesting anemia. Lungs and pleural spaces: Evaluation of the lung parenchyma is degraded by motion artifact. There is no airspace consolidation, pleural effusion, or pneumothorax. Scarring/atelectasis is present at the lung bases. The trachea and central airways are clear. There is a 7 mm pleural-based nodule in the right middle lobe seen on image #159. Mediastinum: There is no mediastinal hematoma or lymphadenopathy. Letty: Not well assessed without IV contrast. Axillae: There is no axillary lymphadenopathy. Upper abdomen: There is a moderate hiatal hernia. A 3.5 cm cyst is cc in the right kidney. Skeletal structures: The skeletal structures are osteopenic. See below for dedicated discussion of the thoracic spine. The bony thorax appears intact. No lytic or blastic bony lesions are seen. THORACIC SPINE: There is no evidence of fracture or malalignment. Vertebral body height and alignment are maintained throughout the thoracic spine. Small anterior osteophytes are seen throughout. The transverse and spinous processes are intact. The disc spaces are preserved. There is no evidence of large disc herniation or high-grade central canal stenosis by CT. Posterior disc bulge is noted at L1-L2. The paraspinous soft tissues are normal in appearance. IMPRESSION: 1. There is no acute posttraumatic intrathoracic abnormality. 2. There is no airspace consolidation, pleural effusion, or pneumothorax. 3. There is no evidence of fracture or malalignment involving the thoracic spine. 4. Cardiomegaly. 5. There is mild aneurysmal dilatation of the ascending thoracic aorta which measures up to 4.4 cm in diameter. 6. There is a 7 mm pleural-based nodule in the right middle lobe. This is pathologically indeterminate and can be followed as per the Fleischner criteria. See below. 7. Moderate hiatal hernia. 8. Additional findings as above. Please refer to below summary of Fleischner criteria recommendations for follow- up of incidental CT nodules (Nick Simons, Guidelines for management of small pulmonary nodules detected on CT scans: A statement from the Fleischner Society, Radiology 237: [id number].) SOLID NODULES Solitary nodule size: <6 mm * low risk patients: no follow-up needed * high risk patients: optional CT at 12 months Solitary nodule size: 6-8 mm * low risk patients: follow-up at 6-12 months, then consider further follow-up at 18-24 months * high risk patients: initial follow-up CT at 6-12 months and then at 18-24 months if no change Solitary nodule size: >8 mm * either low or high risk patients - consider follow-up CT at 3 months, and/or CT-PET, and/or biopsy Multiple nodules size: <6 mm * low risk patients: no routine follow-up * high risk patients: optional CT at 12 months Multiple nodules size: 6-8 mm * low risk patients: follow-up at 3-6 months, then consider further follow-up at 18-24 months * high risk patients: follow-up at 3-6 months, then at 18-24 months if no change Multiple nodules size: >8 mm * low risk patients: follow-up at 3-6 months, then consider further follow-up at 18-24 months * high risk patients: follow-up at 3-6 months, then at 18-24 months if no change Note: newly detected indeterminate nodule in persons 35 years of age or older. * low risk patients: minimal or absent history of smoking and/or other known risk factors * high risk patients: history of smoking or of other known risk factors (e.g. first degree relative with lung cancer, or exposure to asbestos, radon, uranium) * if a nodule up to 8 mm is partly solid or is ground glass further follow-up is required after 24 months to exclude possible slow growing adenocarcinoma (ALISA) SUBSOLID NODULES Solitary pure ground-glass nodule * nodule size <6 mm - no CT follow-up required * nodule size >=6 mm - follow-up CT at 6-12 months, then every 2 years until 5 years Solitary part-solid nodule * nodule size <6 mm - no CT follow-up required * nodule size >=6 mm - follow-up CT at 3-6 months. If unchanged, and solid co mponent remains <6 mm, then annual follow-up for 5 years Multiple subsolid nodules * nodule size <6 mm - follow-up CT at 3-6 months, consider further follow-up at 2 and 4 years if stable * nodule size >=6 mm - follow-up CT at 3-6 months, subsequent management based on the most suspicious nodule(s) CT head/brain wo con Stat FINDINGS: Brain parenchyma: There is age-related involutional change noting [id number] subcortical and periventricular microangiopathic disease. There is no hemorrhage, mass effect, or evidence of acute territorial ischemia by CT criteria. Guajardo-white matter differentiation is preserved. No extra-axial fluid collection is seen. Ventricles, sulci, cisterns: Prominent secondary to involutional change. Intracranial vasculature: There is atherosclerotic calcification of the cavernous carotid and vertebral arteries. Calvarium: Unremarkable. Sinuses and mastoids: The visualized paranasal sinuses are clear. There is a large right mastoid effusion. The left mastoid air cells are well pneumatized. Orbits: The bony orbits are grossly intact. There is a left ocular lens implant. IMPRESSION: There is no hemorrhage, mass effect, or evidence of acute territorial ischemia by CT criteria. 10/10/22 14:04 MR brain wo con Routine FINDINGS: Brain parenchyma: There is age-related involutional change noting mild to moderate subcortical and periventricular microangiopathic disease. There is no hemorrhage or mass effect. There is no restricted diffusion to suggest acute ischemia. Guajardo-white matter differentiation is preserved. No extra-axial fluid collection is seen. The cerebellar tonsils are normal in configuration. Ventricles, sulci, and cisterns: Prominent secondary to involutional change. Pituitary and sella: Partially empty sella is incidentally noted. Intracranial vasculature: Normal flow voids are maintained at the skull base. Orbits: The bony orbits are grossly intact. Orbital contents are normal in appearance noting a left ocular lens implant. Sinuses and mastoids: There is a large right mastoid effusion. The left mastoid air cells are clear. Trace mucosal thickening seen within the right frontal sinus and ethmoid sinuses. Calvarium: Unremarkable. Cervical cord: Partially visualized cervical spinal cord is normal in morphology and signal intensity. IMPRESSION: 1. No acute intracranial abnormality. 2. Large right mastoid effusion. 10/10/22 17:27 US carotid doppler BI Routine IMPRESSION: 1. There is no sonographic evidence of hemodynamically significant stenosis in the right or left carotid arterial system. 2. Antegrade flow is shown in the vertebral arteries. Hospital Course (1) Stroke-like symptoms: Patient is 81 y/o M with PMH HTN, HLD, CAD s/p stents, chronic anemia, GERD, mood disorder presented to ER from [facility] with complaint of right-sided weakness and facial droop noted around 10:45AM. Reported dizziness since last night with reported fall. Then continued dizziness. In ER noted initially not moving right side body and had whispering speech. During ER course speech returned to normal but had noted right sided weakness DDX: TIA vs stroke CT head:There is no hemorrhage, mass effect, or evidence of acute territorial ischemia Tele to monitor for arrhythmias Lipid panel - LDL 61 A1c 4.9%, TSH 3.1 MRI brain -1. No acute intracranial abnormality. 2. Large right mastoid effusion. U/S carotids- 1. There is no sonographic evidence of hemodynamically significant stenosis in the right or left carotid arterial system. 2. Antegrade flow is shown in the vertebral arteries. Echo with bubble study -bubble study done. LV is normal in size. There is normal LV wall thickness. LV wall motion is normal. EF 55 to 60%. Grade 1 diastolic dysfunction. There is no atrial septal defect. Agitated saline contrast injection performed with late transition. Small patent foramen ovale possible/not excluded. Aortic valve sclerosis mild, without significant aortic valvular stenosis. Aspiration precautions Fall precautions PT/OT consult Continue aspirin, Plavix, atorvastain Allow permissive HTN Neurology consulted Recommendations: Treat hypertension as you are doing. Patient is already on aspirin and Plavix which is maximum Antiplatelet therapy for stroke prevention. No further neurologic testing or treatment recommendations to make at this time. (2) Fall: Reported dizziness and fall last night CT Head: no acute intracranial abnormality CT C-Spine: Degenerative changes without evidence of acute bony injury. CT Thoracic Spine: There is no acute posttraumatic intrathoracic abnormality. There is no airspace consolidation, pleural effusion, or pneumothorax. There is no evidence of fracture or malalignment involving the thoracic spine. CT Lumbar Spine: Degenerative changes without evidence of acute bony injury. CT ABD/PEVIS: Subtle acute minimally displaced comminuted fracture of the inferior sacrum with trace surrounding presacral edema/hemorrhage. No additional acute posttraumatic intra-abdominal or intrapelvic abnormality identified. Moderate hiatal hernia. Orthostatics to r/o orthostatic hypotension causing dizziness Fall precautions PT recommends using a walker (3) Sacral fracture, closed: CT ABD/PEVIS: Subtle acute minimally displaced comminuted fracture of the inferior sacrum with trace surrounding presacral edema/hemorrhage. No additional acute posttraumatic intra-abdominal or intrapelvic abnormality identified. Patient denies any back, pelvic, buttock pain currently Orthopedics consulted - This is a stable fracture pattern that can be treated symptomatically.Pt is not currently have any complaints about the region. He may be weightbearing and range of motion as tolerated. I recommended sitting on a pillow as needed for comfort. Pain may persist for 6-8 weeks. He can follow- up with orthopedics on an as-needed basis only. (4) Chest pain: (5) Coronary artery disease: History CAD s/p stents Reported episode mid chest morning of admission Initial high-sensitivity troponin negative. EKG sinus rhythm rate 60, T wave flattening inferior leads (prior EKG with T wave inversion in inferior leads) History negative dobutamine stress echo in June 2022 Trend troponin Echo Continue aspirin, Plavix, carvedilol, atorvastatin, isosorbide Right sided chest pain in the morning of (10/11/22) and per pt prior to admission ( as above) Echo reviewed by cardiology and cardiology consulted - losartan dose increased to 50 mg daily. Possible PFO noted on echo, continue ASA. Current findings do not suggest acute coronary syndrome with atypical chest pain Echocardiogram with preserved LV systolic function recent stress testing negative for ischemia. Cannot exclude patent foramen ovale. Will be continue antiplatelet therapy Plan as above Increase antihypertensive therapies initially with losartan with room to increase isosorbide mononitrate if persistently elevated No indications for further cardiac testing (6) Ascending aortic aneurysm: CT CHEST: There is mild aneurysmal dilatation of the ascending thoracic aorta which measures up to 4.4 cm in diameter Will need outpatient follow up (7) Pulmonary nodule: CT CHEST: 7 mm pleural-based nodule in the right middle lobe. This is pathologically indeterminate and can be followed as per the Fleischner criteria. Will need outpatient follow-up CT Scan at 6-12 months, then consider further follow-up at 18-24 months (8) Hypertension: Continue carvedilol, losartan - as above (9) Dyslipidemia, goal LDL below 70: Continue atorvastatin (10) Chronic anemia: Hgb: 12.6. Baseline~12 Monitor H&H (11) Gastroesophageal reflux: Continue PPI (12) Hx of cataract extraction: History of left cataract extraction and August 2022 Continue eyedrops as directed Dispo: Inmate at [facility] Total Time Total Time Spent Total Time Spent (In Minutes): 40 Discharge Plan Discharge Items [facility] Disposition: [facility] Reason For Visit: STROKE ALERT Discharge Diagnosis: Strokelike symptoms, right-sided weakness Right chest discomfort Fall Activity: Per Instructions section Non-emergency contact: Primary Care Provider Call non-emergency contact if: you have any medication questions and your symptoms worsen Follow-up/Referrals: Behzad JULIO [Primary Care Provider] - Diet: Heart Healthy Addtl Attending Provider Instructions: Follow-up with your primary care provider. You did not have a stroke. Your blood pressure was uncontrolled, and your losartan was increased to 50 mg daily. You were seen by cardiology. You were also seen by orthopedics, and physical therapy. It is recommended that you use a walker when ambulating. Pending Studies at Discharge: No Skilled Items Patient informed of condition?: Yes DNR: No Discharge Level of Care: Other Communicable Disease: No Discharge Prognosis: Stable Lines: None Urinary Catheter: No Medications and DC Order Prescriptions: New losartan 50 mg Tablet 50 mg PO QAM Qty: 30 0RF Continued carvedilol 12.5 mg Tablet 12.5 mg PO BID Rx Instructions: must administer with a meal/food pantoprazole 40 mg Tablet,Delayed Release (Dr/Ec) 40 mg PO QAM Prolensa 0.07 % Drops 1 drp OPHTHALMIC (EYE) DAILY Rx Instructions: left eye prednisolone acetate 1 % Drops,Suspension 1 drp ophthalmic (eye) UD Rx Instructions: 10/05/22-10/12/22 1 drop L eye Q4H; 10/13-10/19/22 1 drop L eye BID, 10/20/22- 10/26/22 1 drop L eye daily difluprednate 0.05 % Drops 1 drp ophthalmic (eye) DAILY Rx Instructions: left eye gatifloxacin 0.5 % Drops 1 drp OPHTHALMIC (EYE) TID aspirin 325 mg Tablet 325 mg PO QAM Rx Instructions: take with food multivitamin Tablet 1 tab PO QAM atorvastatin 80 mg Tablet 80 mg PO QPM isosorbide mononitrate 30 mg Tablet Extended Release 24 Hr 30 mg PO QAM clopidogrel 75 mg Tablet 75 mg PO QPM nitroglycerin 0.4 mg Tablet, Sublingual 0.4 mg sublingual UD PRN (Reason: Chest Pain) Rx Instructions: place 1 tablet under the tongue on daily as needed x3 if no relief ,call medical Discontinued losartan 25 mg Tablet 25 mg PO QAM Admission Data Admit Date/Time: 10/10/22 13:34 Attending Provider: Mathew Maldonado Admit Provider: Paul Weinstein Primary Care Provider: Behzad JULIO Other Providers: Paul Weinstein ; [place] ; Gael Hendricks ; Jackson Freed
--- NOTE | 2022-10-13 06:39 | Electrocardiogram Report ---
Test Reason : Blood Pressure : / mmHG Vent. Rate : 063 BPM Atrial Rate : 063 BPM P-R Int : 164 ms QRS Dur : 078 ms QT Int : 444 ms P-R-T Axes : 054 -07 -30 degrees QTc Int : 454 ms Sinus rhythm with Premature supraventricular complexes Minimal voltage criteria for LVH, may be normal variant Nonspecific T wave abnormality Abnormal ECG When compared with ECG of 10-OCT-2022 12:32, No significant change Confirmed by Gamaliel Vasquez ([id number]) on 10/13/2022 6:38:40 AM Referred By: Behzad SCI Confirmed By:Gamaliel Vasquez
[2022-10-13] MEDS ORDERED: prednisoLONE acetate 1% OP SUSP 5 ML BTL OPL SCH (09:00)
--- NOTE | 2022-10-13 21:47 | Electrocardiogram Report ---
Test Reason : Blood Pressure : / mmHG Vent. Rate : 066 BPM Atrial Rate : 066 BPM P-R Int : 158 ms QRS Dur : 082 ms QT Int : 386 ms P-R-T Axes : 058 -15 -20 degrees QTc Int : 404 ms Poor data quality, interpretation may be adversely affected Sinus rhythm with Premature supraventricular complexes Moderate voltage criteria for LVH, may be normal variant Nonspecific T wave abnormality Abnormal ECG When compared with ECG of 11-OCT-2022 05:09, No significant change Confirmed by Gamaliel Vasquez ([id number]) on 10/13/2022 9:47:29 PM Referred By: Behzad JULIO Confirmed By:Gamaliel Vasquez
[2022-10-20] MEDS ORDERED: prednisoLONE acetate 1% OP SUSP 5 ML BTL OPL SCH (09:00)
== END 2022-10-12 12:09 ==
LOC: ED 11:55 → EDINP 11:55 → SUATTDRO 13:34 → 2S 17:51

== ENCOUNTER 2022-12-05 14:23 | Observation (INO) ==
[2022-12-05] MEDS ORDERED: NITROGLYCERIN SL 0.4 MG/TAB TAB SL STA (15:14)
[2022-12-05] MEDS ORDERED: ASPIRIN CHEW 324 MG PO STA (15:15)
--- NOTE | 2022-12-05 15:17 | Emergency Department Note ---
Impression & Plan Chest pain, Hypertension ED Provider Note HISTORY OF PRESENT ILLNESS: Patient is an 82-year-old male presenting with chest pain. Patient is an inmate at the detention. Reports that he woke up this morning and had some mild discomfort in his substernal chest region. He states that he got up and walked down his cell block when he developed significantly worsening of his chest pain that has continued throughout the day. Describes it as a sharp sensation in the substernal chest which radiates into the right shoulder. He reports rating down his right arm and he is having radiation up into his neck. Denies any changes in vision, including any double or blurry vision. Reports associated shortness of breath and nausea with the chest pain. He has a history of coronary artery d isease with stents in place and he is on Plavix. Denies any abdominal pain. Denies any nausea or vomiting. Patient currently rates the pain a 9 out of 10. ROS: as above PHYSICAL EXAM: Constitutional: Patient appears in no acute distress. HENT: Head: Normocephalic and atraumatic. Eyes: EOMI, PERRL Mouth/Throat: Mucous membranes moist. Neck: Trachea midline. Neck supple. Cardiovascular: RRR, No murmurs, rubs or gallops. Intact distal pulses. Pulmonary/Chest: No respiratory distress. Breath sounds clear and equal bilaterally. No wheezes or rales. Abdominal: Abdomen soft, no tenderness, rebound or guarding. Musculoskeletal: No edema, tenderness or deformity noted. Skin: Warm and dry. No rash, erythema, pallor or cyanosis Neurological: Alert and keenly responsive. CN II-XII grossly intact, moving all extremities equally and fully. MDM: - Vitals signs showed hypertension. - History obtained via patient. Patient presents with chest pain. Patient reports he woke up this morning and had some mild chest discomfort in his substernal chest region. Reports he got up and walked on his cell block and developed significant worsening of his chest pain and shortness of breath. He describes sharp substernal chest pain that radiates into his right shoulder. He reports pain radiates down his right arm and up his right neck. Denies any changes in vision. He has a history of CAD with stents in place. He is on Plavix - Chronic conditions affecting care: HTN; HLD; CAD (S/p PCI) - Differential diagnoses include, but are not limited to: Acute coronary syndrome; pulmonary embolism; dissection; tension pneumothorax; esophageal rupture; pneumonia - Order placed for continuous cardiac monitoring. At this time, monitor showed rate of 70 bpm with normal sinus rhythm, per my interpretation. - External medical records reviewed. EMS run sheet reviewed. Patient vitally stable in route. No medications given pre-hospital. - EKG reviewed by myself showed normal sinus rhythm. Rate 70 bpm. QTc 460. No acute ischemic changes - Laboratory workup interpreted by myself showed normal WBC; stable electrolytes; normal troponin; negative dimer - CXR negative for pneumonia, per my interpretation. - Patient initially given 324 mg PO aspirin and 0.4 mg SL nitro. On reassessment, patient still complaining of pain. Given 50 mcg IV fentanyl. - Patient continued to have pain. CTA chest obtained. However, patient noted to have contrast allergy. Pre-medicated with 40 mg IV solumedrol and 50 mg IV benadryl. - CT negative for PE or dissection. - Heart score 6 (History +1 moderately suspicious; EKG +0; Age +2; Risk factors +2; Initial troponin +0), amounting to a moderate score. - Discussion was had with adoption social worker about patient's case and need for admission. - Hospitalist, Dr. Restrepo, consulted for admission - Patient admitted to [facility] Hospitalist service for further evaluation and management. I provided 31 minutes of critical care time to this patient's care outside of billable procedures. ASSESSMENT AND PLAN: Diagnosis: chest pain; hypertension Plan: admit Past Med/Surg History Medical History Angina pectoris, unspecified Antisocial personality disorder Atherosclerotic heart disease Chronic anemia Chronic pain Constipation Coronary artery disease Depression Dysphagia Gastroesophageal reflux Hx of gastritis Hyperlipidemia Hypertension Hypertensive renal disease without failure Inmate in correctional facility Latent tuberculosis infection long term care administrator current use of anticoagulant therapy Myocardial Infarction multiple--had heart caths with total of 2 stents placed ?? (per records) On anticoagulant therapy plavix daily Osteoarthritis Peritonsillar abscess Thyroid nodule Unspecified mononeuropathy of right upper limb Surgical History History of cardiac cath per records multiple heart caths, last was 2018?? with stent placed History of heart artery stent x2? Hx of cataract extraction lt. Family History Mother , in her 80s of an [place] Myocardial infarction Father , of a gunshot wound in his 60s No problems noted. Social History Smoking Status: Never smoker Hx Alcohol Use: No Hx Substance Use: No Preferred Language: Turkmen Communication Ability: Effective Electronic Engraver Required: No Beliefs That Will Affect Care: None Current Living Situation: Other Current Living Situation Comment: [facility] Feels Safe at Home: Yes Assistive Devices: Glasses Allergies Allergies Allergy/AdvReac Type Severity Reaction Status Date / Time Iodinated Contrast Media Allergy Unknown Unknown Verified 12/05/22 16:35 iodine Allergy Unknown Unknown Verified 12/05/22 16:35 Home Meds Home Medications Medication Instructions Recorded Confirmed aspirin 325 mg tablet 325 mg PO QAM 06/08/22 12/05/22 atorvastatin 80 mg tablet 80 mg PO QPM 06/08/22 12/05/22 clopidogrel 75 mg tablet 75 mg PO QPM 06/08/22 12/05/22 isosorbide mononitrate 30 mg 30 mg PO QAM 06/08/22 12/05/22 tablet,extended release 24 hr multivitamin 1 tab PO QAM 06/08/22 12/05/22 nitroglycerin 0.4 mg sublingual 0.4 mg sublingual UD PRN Chest Pain 06/08/22 12/05/22 tablet carvedilol 12.5 mg tablet 12.5 mg PO BID 08/14/22 12/05/22 pantoprazole 40 mg tablet,delayed 40 mg PO QAM 08/14/22 12/05/22 release difluprednate 0.05 % eye drops 1 drp OPR QID 10/10/22 12/05/22 losartan 25 mg tablet 25 mg PO DAILY 12/05/22 12/05/22 Results & Data (ED) Vital Signs Vital Signs - 24 hr 12/05/22 14:29 12/05/22 15:33 12/05/22 15:00 Temperature 36.9 C Temperature Source Temporal Artery Scan Pulse Rate 79 73 74 Pulse Rate [Apical] Pulse Rate from SpO2 Sensor 73 Respiratory Rate 18 26 H Respiratory Effort / Characteristics Non-Labored Spontaneous Respiratory Depth Normal Respiratory Pattern Regular Blood Pressure 214/99 H Blood Pressure [Right Arm] Blood Pressure Mean 137 Blood Pressure Mean [Right Arm] Blood Pressure Position [Right Arm] Pulse Oximetry 94 96 Oxygen Delivery Method Room Air Sepsis Recent Fever Within 48 Hours No Sepsis New/Unexplained Change in Mental Status No Sepsis Action Taken by Nursing No Action Required 12/05/22 15:30 12/05/22 15:43 12/05/22 15:43 Temperature Temperature Source Pulse Rate 63 71 Pulse Rate [Apical] Pulse Rate from SpO2 Sensor 64 75 Respiratory Rate 28 H 22 Respiratory Effort / Characteristics Respiratory Depth Respiratory Pattern Blood Pressure 181/96 H Blood Pressure [Right Arm] Blood Pressure Mean 124 Blood Pressure Mean [Right Arm] Blood Pressure Position [Right Arm] Pulse Oximetry 97 99 Oxygen Delivery Method Sepsis Recent Fever Within 48 Hours Sepsis New/Unexplained Change in Mental Status Sepsis Action Taken by Nursing 12/05/22 16:00 12/05/22 16:00 12/05/22 16:30 Temperature Temperature Source Pulse Rate 56 L Pulse Rate [Apical] Pulse Rate from SpO2 Sensor 56 L Respiratory Rate 14 Respiratory Effort / Characteristics Respiratory Depth Respiratory Pattern Blood Pressure 181/102 H 167/95 H Blood Pressure [Right Arm] Blood Pressure Mean 128 119 Blood Pressure Mean [Right Arm] Blood Pressure Position [Right Arm] Pulse Oximetry 98 Oxygen Delivery Method Sepsis Recent Fever Within 48 Hours Sepsis New/Unexplained Change in Mental Status Sepsis Action Taken by Nursing 12/05/22 16:30 12/05/22 17:00 12/05/22 17:00 Temperature Temperature Source Pulse Rate 60 60 Pulse Rate [Apical] Pulse Rate from SpO2 Sensor 59 L 62 Respiratory Rate 23 19 Respiratory Effort / Characteristics Respiratory Depth Respiratory Pattern Blood Pressure 195/98 H Blood Pressure [Right Arm] Blood Pressure Mean 130 Blood Pressure Mean [Right Arm] Blood Pressure Position [Right Arm] Pulse Oximetry 99 98 Oxygen Delivery Method Sepsis Recent Fever Within 48 Hours Sepsis New/Unexplained Change in Mental Status Sepsis Action Taken by Nursing 12/05/22 17:30 12/05/22 18:00 12/05/22 18:00 Temperature Temperature Source Pulse Rate 64 67 Pulse Rate [Apical] Pulse Rate from SpO2 Sensor 62 68 Respiratory Rate 24 22 Respiratory Effort / Characteristics Respiratory Depth Respiratory Pattern Blood Pressure 176/97 H Blood Pressure [Right Arm] Blood Pressure Mean 123 Blood Pressure Mean [Right Arm] Blood Pressure Position [Right Arm] Pulse Oximetry 98 98 Oxygen Delivery Method Sepsis Recent Fever Within 48 Hours Sepsis New/Unexplained Change in Mental Status Sepsis Action Taken by Nursing 12/05/22 18:30 12/05/22 18:50 12/05/22 19:00 Temperature Temperature Source Pulse Rate 70 65 Pulse Rate [Apical] Pulse Rate from SpO2 Sensor 71 Respiratory Rate 22 Respiratory Effort / Characteristics Respiratory Depth Respiratory Pattern Blood Pressure 197/97 H Blood Pressure [Right Arm] Blood Pressure Mean 130 Blood Pressure Mean [Right Arm] Blood Pressure Position [Right Arm] Pulse Oximetry 99 Oxygen Delivery Method Sepsis Recent Fever Within 48 Hours Sepsis New/Unexplained Change in Mental Status Sepsis Action Taken by Nursing 12/05/22 19:00 12/05/22 20:34 Temperature Temperature Source Pulse Rate 65 Pulse Rate [Apical] 69 Pulse Rate from SpO2 Sensor 63 Respiratory Rate 20 18 Respiratory Effort / Characteristics Non-Labored Spontaneous Respiratory Depth Normal Respiratory Pattern Blood Pressure Blood Pressure [Right Arm] 192/98 H Blood Pressure Mean Blood Pressure Mean [Right Arm] 129 Blood Pressure Position [Right Arm] Lying Pulse Oximetry 100 97 Oxygen Delivery Method Room Air Sepsis Recent Fever Within 48 Hours Sepsis New/Unexplained Change in Mental Status Sepsis Action Taken by Nursing Laboratory Data 12/05/22 15:40 12/05/22 15:40 Lab Results 12/05/22 12/05/22 12/05/22 Range/Units 15:40 15:40 15:40 WBC 4.80 (4.8-10.8) K/ul RBC 3.67 L (4.70-6.10) M/uL Hgb 12.9 L (14.0-18.0) g/dl Hct 39.1 L (42.0-52.0) % MCV 106.5 H (80.0-100.0) fL MCH 35.1 H (25.0-34.0) pg MCHC 33.0 (32.0-36.0) g/dL RDW Std Deviation 47.2 H (36.4-46.3) fL RDW Coeff of [place] 12.1 (11.5-14.5) % Plt Count 211 (130-400) K/uL MPV 11.2 (9.4-12.4) fL Immature Gran % (Auto) 0.2 % Neut % (Auto) 54.7 % Lymph % (Auto) 31.7 % [place] % (Auto) 11.9 % Eos % (Auto) 1.3 % Baso % (Auto) 0.2 % Neut # (Auto) 2.63 (1.40-6.50) K/uL Lymph # (Auto) 1.52 (1.2-3.4) K/uL [place] # (Auto) 0.57 (0.11-0.59) K/uL Eos # (Auto) 0.06 (0-0.50) K/uL Baso # (Auto) 0.01 (0-0.2) K/uL Immature Gran # (Auto) 0.01 (0.01-0.20) K/uL PT Cancelled INR Cancelled APTT Cancelled PTT Ratio Cancelled D-Dimer Cancelled Sodium 139 (136-145) mmol/L Potassium 3.9 (3.5-5.1) mmol/L Chloride 109 H (98-107) mmol/L Carbon Dioxide 26 (21-32) mmol/L Anion Gap 4 (3-11) BUN 13 (6-23) mg/dl Creatinine 1.10 (0.6-1.4) mg/dl Est Cr Clr Drug Dosing 52.5 ml/min Est GFR ( Amer) 72.6 ml/min Est GFR (Non-Af Amer) 62.6 ml/min BUN/Creatinine Ratio 11.8 (10-20) Glucose 103 H (70-99(Fasting)) mg/dl Calcium 8.7 (8.6-10.3) mg/dl Total Bilirubin 0.5 (0.2-1.0) mg/dl AST 15 (13-39) U/L ALT 13 (7-52) U/L Alkaline Phosphatase 144 H (34-104) U/L Troponin I High Sens 6.8 (0-20) pg/ml Total Protein 7.3 (6.0-8.3) gm/dl Albumin 3.5 (3.4-5.0) gm/dl Globulin 3.8 (2.5-4.0) gm/dl Albumin/Globulin Ratio 0.9 (0.9-2) SARS-CoV-2, RNA, NAAT (NEGATIVE) 12/05/22 12/05/22 Range/Units 17:28 20:44 WBC (4.8-10.8) K/ul RBC (4.70-6.10) M/uL Hgb (14.0-18.0) g/dl Hct (42.0-52.0) % MCV (80.0-100.0) fL MCH (25.0-34.0) pg MCHC (32.0-36.0) g/dL RDW Std Deviation (36.4-46.3) fL RDW Coeff of [place] (11.5-14.5) % Plt Count (130-400) K/uL MPV (9.4-12.4) fL Immature Gran % (Auto) % Neut % (Auto) % Lymph % (Auto) % [place] % (Auto) % Eos % (Auto) % Baso % (Auto) % Neut # (Auto) (1.40-6.50) K/uL Lymph # (Auto) (1.2-3.4) K/uL [place] # (Auto) (0.11-0.59) K/uL Eos # (Auto) (0-0.50) K/uL Baso # (Auto) (0-0.2) K/uL Immature Gran # (Auto) (0.01-0.20) K/uL PT 10.9 INR 1.0 APTT 28.8 PTT Ratio 1.0 D-Dimer 410 Sodium (136-145) mmol/L Potassium (3.5-5.1) mmol/L Chloride (98-107) mmol/L Carbon Dioxide (21-32) mmol/L Anion Gap (3-11) BUN (6-23) mg/dl Creatinine (0.6-1.4) mg/dl Est Cr Clr Drug Dosing ml/min Est GFR ( Amer) ml/min Est GFR (Non-Af Amer) ml/min BUN/Creatinine Ratio (10-20) Glucose (70-99(Fasting)) mg/dl Calcium (8.6-10.3) mg/dl Total Bilirubin (0.2-1.0) mg/dl AST (13-39) U/L ALT (7-52) U/L Alkaline Phosphatase (34-104) U/L Troponin I High Sens (0-20) pg/ml Total Protein (6.0-8.3) gm/dl Albumin (3.4-5.0) gm/dl Globulin (2.5-4.0) gm/dl Albumin/Globulin Ratio (0.9-2) SARS-CoV-2, RNA, NAAT NEGATIVE (NEGATIVE) Administered Medications Discontinued Medications Aspirin (Aspirin Chew 324 Mg) 324 mg PO NOW STA Stop: 12/05/22 15:16 Last Admin: 12/05/22 15:40 Dose: 324 mg Documented By: RYLEE Diphenhydramine HCl (Diphenhydramine 50 Mg/Ml Vial) 50 mg IV ONE ONE Stop: 12/05/22 18:04 Last Admin: 12/05/22 18:24 Dose: 50 mg Documented By: NOAH Fentanyl Citrate (Fentanyl Citrate Pf 100 Mcg/2 Ml Vial) 50 mcg IV NOW STA Stop: 12/05/22 18:17 Last Admin: 12/05/22 18:24 Dose: 50 mcg Documented By: NOAH Ioversol (Ioversol 350 Mg 125ml Prefilled Syringe) 118 ml IV ONCE ONE Stop: 12/05/22 19:40 Last Admin: 12/05/22 19:39 Dose: 118 ml Documented By: SUNNY Methylprednisolone (Methylprednisolone 40 Mg/Ml Vial) 40 mg IV NOW ONE Stop: 12/05/22 18:04 Last Admin: 12/05/22 18:24 Dose: 40 mg Documented By: NOAH Nitroglycerin (Nitroglycerin Sl 0.4 Mg/Tab Tab) 0.4 mg SL NOW STA Stop: 12/05/22 15:15 Last Admin: 12/05/22 15:40 Dose: 0.4 mg Documented By: RYLEE Imaging Data Radiologist's Impression: Chest X-Ray 12/05/22 14:36 XR chest 1V portable HISTORY: 82 years-old Male Chest pain, nonspecific COMPARISON: 06/15/2022 TECHNIQUE: AP view of the chest FINDINGS: Cardiac silhouette is enlarged. Small hiatal hernia. Eventration of the right hemidiaphragm. No pneumothorax, pleural effusion, airspace consolidation or pulmonary edema. Degenerative changes of the shoulders and spine. IMPRESSION: 1. Cardiomegaly without acute process. 2. Hiatal hernia. ACT 112: Negative or not required by law. The above report was generated using voice recognition software. It may contain grammatical, syntax or spelling errors. Electronically signed by: Dustin Hurtado M.D. 12/05/2022 3:53 PM Chest CTA 12/05/22 18:03 Exam(s): CTA CHEST W/WO Contrast IV Amt: 118 ml optiray 350 EXAM: CT Angiography Chest Without and With Intravenous Contrast CLINICAL HISTORY: Reason for exam: chest pain radiating into back. TECHNIQUE: Axial computed tomographic angiography images of the chest without and with intravenous contrast. CTDI is 22.93 mGy and DLP is 763.48 mGy-cm. Automated exposure control was utilized for the study. A dose lowering technique was utilized adhering to the principles of ALARA. MIP reconstructed images were created and reviewed. CONTRAST: Patient received 118 ml optiray 350 of IV contrast COMPARISON: CT chest 10/10/22 FINDINGS: Pulmonary arteries: Adequate pulmonary artery opacification. Normal caliber main pulmonary artery. No pulmonary embolism. Aorta: No acute findings. No thoracic aortic intramural hematoma, aneurysm, or dissection. Lungs: Previously seen subpleural pulmonary nodule right middle lobe currently measures 3 mm, decreased in size from prior, likely benign. No airspace consolidation, pulmonary mass, or central endobronchial lesion. Pleural space: Unremarkable. No pleural effusion or pneumothorax. Heart: Mild cardiomegaly. Coronary artery atherosclerosis. No pericardial effusion. Mildly elevated RV/LV ratio suggesting right ventricular dysfunction. Mediastinum: Small hiatal hernia. Thyroid: Asymmetric thyroid gland, left lobe larger than right. Associated mild rightward tracheal deviation. Bones/joints: No acute fracture or dislocation. Soft tissues: Unremarkable. Lymph nodes: Unremarkable. No lymphadenopathy. Kidneys and ureters: Simple cortical cyst right kidney measuring 2.2 cm; no further follow-up required. IMPRESSION: 1. No thoracic aortic aneurysm or dissection. 2. No pulmonary embolism. 3. Small hiatal hernia. Electronically signed by: Shelli Kendall M.D. 12/05/22 20:10 PM Discharge Plan Visit Data Chief Complaint: Chest Pain Stated Complaint: CHEST PAIN ED Provider: Janet Hughes Discharge Problem: Chest pain, Hypertension Forms Stand Alone Forms: My [employer] Prescriptions Prescriptions: No Action carvedilol 12.5 mg Tablet 12.5 mg PO BID Rx Instructions: must administer with a meal/food pantoprazole 40 mg Tablet,Delayed Release (Dr/Ec) 40 mg PO QAM difluprednate 0.05 % Drops 1 drp OPR QID losartan 25 mg Tablet 25 mg PO DAILY aspirin 325 mg Tablet 325 mg PO QAM Rx Instructions: take with food multivitamin Tablet 1 tab PO QAM atorvastatin 80 mg Tablet 80 mg PO QPM isosorbide mononitrate 30 mg Tablet Extended Release 24 Hr 30 mg PO QAM clopidogrel 75 mg Tablet 75 mg PO QPM nitroglycerin 0.4 mg Tablet, Sublingual 0.4 mg sublingual UD PRN (Reason: Chest Pain) Rx Instructions: place 1 tablet under the tongue on daily as needed x3 if no relief ,call medical Referrals Referrals: Behzad JULIO [Primary Care Provider] -
--- NOTE | 2022-12-05 15:54 | XRay Report ---
XR chest 1V portable HISTORY: 82 years-old Male Chest pain, nonspecific COMPARISON: 06/15/2022 TECHNIQUE: AP view of the chest FINDINGS: Cardiac silhouette is enlarged. Small hiatal hernia. Eventration of the right hemidiaphragm. No pneum othorax, pleural effusion, airspace consolidation or pulmonary edema. Degenerative changes of the rex ulders and spine. IMPRESSION: 1. Cardiomegaly without acute process. 2. Hiatal hernia. ACT 112: Negative or not required by law. The above report was generated using voice recognition software. It may contain grammatical, syntax o r spelling errors. Electronically signed by: Dustin Hurtado M.D. 12/05/2022 3:53 PM
[2022-12-05 16:27] LABS: Basophils # (auto) 0.01 K/uL (0-0.2); Basophils % (auto) 0.2 %; Eosinophils # (auto) 0.06 K/uL (0-0.50); Eosinophils % (auto) 1.3 %; Hematocrit (blood only) 39.1 % (42.0-52.0); Hemoglobin 12.9 g/dl (14.0-18.0); Immature Granulocytes # (auto) 0.01 K/uL (0.01-0.20); Immature Granulocytes % (auto) 0.2 %; Lymphocytes # (auto) 1.52 K/uL (1.2-3.4); Lymphocytes % (auto) 31.7 %; Mean Corpuscular Hemoglobin 35.1 pg (25.0-34.0); Mean Corpuscular Volume 106.5 fL (80.0-100.0); Mean Platelet Volume 11.2 fL (9.4-12.4); Monocytes # (auto) 0.57 K/uL (0.11-0.59); Monocytes % (auto) 11.9 %; Neutrophils # (auto) 2.63 K/uL (1.40-6.50); Neutrophils % (auto) 54.7 %; Platelet Count 211 K/uL (130-400); RDW Coefficient of Variation 12.1 % (11.5-14.5); RDW Standard Deviation 47.2 fL (36.4-46.3); Red Blood Count 3.67 M/uL (4.70-6.10)
[2022-12-05 16:41] LABS: Albumin Globulin Ratio 0.9 (0.9-2); Albumin Level 3.5 gm/dl (3.4-5.0); BUN Creatinine Ratio 11.8 (10-20); Bilirubin,Total 0.5 mg/dl (0.2-1.0); Calcium 8.7 mg/dl (8.6-10.3); Creatinine Clr Calc Pharmacy 52.5 ml/min; Est GFR (African American) 72.6 ml/min; Est GFR (Non-African American) 62.6 ml/min; Globulin 3.8 gm/dl (2.5-4.0); Potassium 3.9 mmol/L (3.5-5.1); Total Protein 7.3 gm/dl (6.0-8.3)
[2022-12-05 16:47] LABS: Troponin I High Sensitivity 6.8 pg/ml (0-20)
[2022-12-05] MEDS ORDERED: diphenhydrAMINE 50 MG/ML VIAL IV ONE (18:03)
[2022-12-05] MEDS ORDERED: fentaNYL citrate PF 100 MCG/2 ML VIAL IV STA (18:16)
[2022-12-05 18:44] LABS: D Dimer 410 ug/L FEU (0-500); Partial Thromboplastin Time 28.8 Seconds (21.0-31.0); Prothrombin Time 10.9 Seconds (9.0-12.0)
[2022-12-05] MEDS ORDERED: IOVERSOL 350 MG 125mL Prefilled Syringe IV ONE (19:39)
--- NOTE | 2022-12-05 20:11 | CT Scan Report ---
Exam(s): CTA CHEST W/WO Contrast IV Amt: 118 ml optiray 350 EXAM: CT Angiography Chest Without and With Intravenous Contrast CLINICAL HISTORY: Reason for exam: chest pain radiating into back. TECHNIQUE: Axial computed tomographic angiography images of the chest without and with intravenous contrast. CTDI is 22.93 mGy and DLP is 763.48 mGy-cm. Automated exposure control was utilized for the study. A dose lowering technique was utilized adhering to the principles of ALARA. MIP reconstructed images were created and reviewed. CONTRAST: Patient received 118 ml optiray 350 of IV contrast COMPARISON: CT chest 10/10/22 FINDINGS: Pulmonary arteries: Adequate pulmonary artery opacification. Normal caliber main pulmonary artery. No pulmonary embolism. Aorta: No acute findings. No thoracic aortic intramural hematoma, aneurysm, or dissection. Lungs: Previously seen subpleural pulmonary nodule right middle lobe currently measures 3 mm, decreased in size from prior, likely benign. No airspace consolidation, pulmonary mass, or central endobronchial lesion. Pleural space: Unremarkable. No pleural effusion or pneumothorax. Heart: Mild cardiomegaly. Coronary artery atherosclerosis. No pericardial effusion. Mildly elevated RV/LV ratio suggesting right ventricular dysfunction. Mediastinum: Small hiatal hernia. Thyroid: Asymmetric thyroid gland, left lobe larger than right. Associated mild rightward tracheal deviation. Bones/joints: No acute fracture or dislocation. Soft tissues: Unremarkable. Lymph nodes: Unremarkable. No lymphadenopathy. Kidneys and ureters: Simple cortical cyst right kidney measuring 2.2 cm; no further follow-up required. IMPRESSION: 1. No thoracic aortic aneurysm or dissection. 2. No pulmonary embolism. 3. Small hiatal hernia. Electronically signed by: Shelli Kendall M.D. 12/05/22 20:10 PM
[2022-12-05] MEDS ORDERED: hydrALAZINE HCL 20 MG/ML VIAL IV STA (22:25)
[2022-12-05] MEDS ORDERED: carvediloL 12.5 MG TAB PO STA (23:44)
[2022-12-05] MEDS ORDERED: MoRPHine SULFATE 4 MG/ML 1 ML CARP\\VIAL IV STA (23:45)
--- NOTE | 2022-12-05 23:47 | History & Physical Report ---
Date of Service December 05, 2022 Assessment & Plan (1) Chest pain: Plan: 82 y/o M with PMH HTN, HLD, CAD s/p stents, chronic anemia, GERD, mood disorder presents with chest pain. Chest pain History of CAD s/p stents Initial EKG and troponins were unremarkable We will follow serial cardiac enzymes and echo N.p.o. for now ,telemetry floor Consult cardiology in a.m. History of CAD s/p stents On aspirin, Plavix, statin and beta-jessica and Imdur Hypertension On Coreg, losartan and Imdur We will monitor the blood pressure Hyperlipidemia on statin GERD on Protonix DVT prophylaxis SCDs for now Disposition observation telemetry floor Full code History of Present Illness Chief Complaint: Chest pain Primary Care Provider: SUMANTH Wen 82-year-old male with past medical history significant for HTN, HLD, CAD s/p stents, chronic anemia, GERD, mood disorder coming from nursing home with chest pain. Patient states he was going to eye doctor for his cataracts he noticed chest pain rating to his right neck and right arm. Patient was given aspirin, nitro and fentanyl in the ER which improved his pain but states is coming back. States no shortness of breath. Had some nausea and dizziness. No sweating. No headaches vision is okay. Some runny nose and sore throat. Denies any cough. No abdominal pain. Normal bowel and bladder movements. Currently resting comfortable hemodynamic stable. Allergies Allergy/AdvReac Type Severity Reaction Status Date / Time Iodinated Contrast Media Allergy Unknown Unknown Verified 12/05/22 16:35 iodine Allergy Unknown Unknown Verified 12/05/22 16:35 Home Medications Medication Instructions Recorded Confirmed Type aspirin 325 mg tablet 325 mg PO QAM 06/08/22 12/05/22 History atorvastatin 80 mg tablet 80 mg PO QPM 06/08/22 12/05/22 History clopidogrel 75 mg tablet 75 mg PO QPM 06/08/22 12/05/22 History isosorbide mononitrate 30 mg 30 mg PO QAM 06/08/22 12/05/22 History tablet,extended release 24 hr multivitamin 1 tab PO QAM 06/08/22 12/05/22 History nitroglycerin 0.4 mg sublingual 0.4 mg sublingual UD PRN Chest Pain 06/08/22 12/05/22 History tablet carvedilol 12.5 mg tablet 12.5 mg PO BID 04/11/23 08/02/23 History pantoprazole 40 mg tablet,delayed 40 mg PO QAM 08/14/22 12/05/22 History release difluprednate 0.05 % eye drops 1 drp OPR QID 10/10/22 12/05/22 History losartan 25 mg tablet 25 mg PO DAILY 12/05/22 12/05/22 History Past Med/Surg History Medical History Angina pectoris, unspecified Antisocial personality disorder Atherosclerotic heart disease Chronic anemia Chronic pain Constipation Coronary artery disease Depression Dysphagia Gastroesophageal reflux Hx of gastritis Hyperlipidemia Hypertension Hypertensive renal disease without failure Inmate in correctional facility Latent tuberculosis infection halfway current use of anticoagulant therapy Myocardial Infarction multiple--had heart caths with total of 2 stents placed ?? (per records) On anticoagulant therapy plavix daily Osteoarthritis Peritonsillar abscess Thyroid nodule Unspecified mononeuropathy of right upper limb Surgical History History of cardiac cath per records multiple heart caths, last was 2018?? with stent placed History of heart artery stent x2? Hx of cataract extraction lt. Family History Mother , in her 80s of an [place] Myocardial infarction Father , of a gunshot wound in his 60s No problems noted. Social History Smoking Status: Never smoker Hx Alcohol Use: No Hx Substance Use: No Preferred Language: Romansh Communication Ability: Effective Flask Maker Required: No Beliefs That Will Affect Care: None Current Living Situation: Other Current Living Situation Comment: SUMANTH Wen Feels Safe at Home: Yes Assistive Devices: Glasses Review of Systems Review of Systems: All systems reviewed & are unremarkable except as noted in Subjective Physical Exam Physical Exam: General- Not in distress. Head- atraumatic Eyes- PERRL ENT- oropharynx clear Neck- supple, no JVD, Lungs- clear to auscultation and percussion no added sounds Heart- regular rate and rhythm; no murmur, no gallop. Abdomen- normal bowel sounds, soft, nontender, no distension. Extremities- no pretibial edema, no erythema seen. Neuro- alert, oriented x 3; PERRL, no facial palsy; no dysarthria; moves extremities Skin- warm & dry Results & Data Results & Data Vital Signs (Past 12 Hours) Vital Signs Temp Pulse Pulse Resp BP BP Pulse Ox 12/05/22 23:30 81 19 184/113 H 96 12/05/22 22:46 76 12/05/22 22:54 201/109 H 12/05/22 22:54 77 18 12/05/22 22:31 92 H 16 12/05/22 22:30 79 18 97 12/05/22 22:00 76 20 95 12/05/22 22:00 192/119 H 12/05/22 21:31 68 20 97 12/05/22 21:31 177/120 H 12/05/22 21:30 67 22 12/05/22 21:00 69 21 12/05/22 20:34 68 22 97 12/05/22 20:34 192/98 H 12/05/22 20:30 65 20 96 12/05/22 20:01 69 21 96 12/05/22 20:00 70 22 96 12/05/22 20:34 69 18 192/98 H 97 12/05/22 19:00 65 20 100 12/05/22 19:00 197/97 H 12/05/22 18:50 65 12/05/22 18:30 70 22 99 12/05/22 18:00 67 22 98 12/05/22 18:00 176/97 H 12/05/22 17:30 64 24 98 12/05/22 17:00 60 19 98 12/05/22 17:00 195/98 H 12/05/22 16:30 60 23 99 12/05/22 16:30 167/95 H 12/05/22 16:00 56 L 14 98 12/05/22 16:00 181/102 H 12/05/22 15:43 71 22 99 12/05/22 15:43 181/96 H 12/05/22 15:30 63 28 H 97 12/05/22 15:00 74 26 H 96 12/05/22 15:33 73 12/05/22 14:29 36.9 C 79 18 214/99 H 94 O2 Del Method 12/05/22 23:30 Room Air 12/05/22 22:46 12/05/22 22:54 12/05/22 22:54 12/05/22 22:31 12/05/22 22:30 12/05/22 22:00 12/05/22 22:00 12/05/22 21:31 12/05/22 21:31 12/05/22 21:30 12/05/22 21:00 12/05/22 20:34 12/05/22 20:34 12/05/22 20:30 12/05/22 20:01 12/05/22 20:00 12/05/22 20:34 Room Air 12/05/22 19:00 12/05/22 19:00 12/05/22 18:50 12/05/22 18:30 12/05/22 18:00 12/05/22 18:00 12/05/22 17:30 12/05/22 17:00 12/05/22 17:00 12/05/22 16:30 12/05/22 16:30 12/05/22 16:00 12/05/22 16:00 12/05/22 15:43 12/05/22 15:43 12/05/22 15:30 12/05/22 15:00 12/05/22 15:33 12/05/22 14:29 Room Air Diagnostic Findings Laboratory Results WBC 4.80 K/ul (4.8-10.8) 12/05/22 15:40 RBC 3.67 M/uL (4.70-6.10) L 12/05/22 15:40 Hgb 12.9 g/dl (14.0-18.0) L 12/05/22 15:40 Hct 39.1 % (42.0-52.0) L 12/05/22 15:40 MCV 106.5 fL (80.0-100.0) H 12/05/22 15:40 MCH 35.1 pg (25.0-34.0) H 12/05/22 15:40 MCHC 33.0 g/dL (32.0-36.0) 12/05/22 15:40 RDW Std Deviation 47.2 fL (36.4-46.3) H 12/05/22 15:40 RDW Coeff of [place] 12.1 % (11.5-14.5) 12/05/22 15:40 Plt Count 211 K/uL (130-400) 12/05/22 15:40 MPV 11.2 fL (9.4-12.4) 12/05/22 15:40 Immature Gran % (Auto) 0.2 % 12/05/22 15:40 Neut % (Auto) 54.7 % 12/05/22 15:40 Lymph % (Auto) 31.7 % 12/05/22 15:40 [place] % (Auto) 11.9 % 12/05/22 15:40 Eos % (Auto) 1.3 % 12/05/22 15:40 Baso % (Auto) 0.2 % 12/05/22 15:40 Neut # (Auto) 2.63 K/uL (1.40-6.50) 12/05/22 15:40 Lymph # (Auto) 1.52 K/uL (1.2-3.4) 12/05/22 15:40 [place] # (Auto) 0.57 K/uL (0.11-0.59) 12/05/22 15:40 Eos # (Auto) 0.06 K/uL (0-0.50) 12/05/22 15:40 Baso # (Auto) 0.01 K/uL (0-0.2) 12/05/22 15:40 Immature Gran # (Auto) 0.01 K/uL (0.01-0.20) 12/05/22 15:40 PT 10.9 Seconds (9.0-12.0) 12/05/22 17:28 INR 1.0 (0.9-1.1) 12/05/22 17:28 APTT 28.8 Seconds (21.0-31.0) 12/05/22 17:28 PTT Ratio 1.0 12/05/22 17:28 D-Dimer 410 ug/L FEU (0-500) 12/05/22 17:28 Sodium 139 mmol/L (136-145) 12/05/22 15:40 Potassium 3.9 mmol/L (3.5-5.1) 12/05/22 15:40 Chloride 109 mmol/L (98-107) H 12/05/22 15:40 Carbon Dioxide 26 mmol/L (21-32) 12/05/22 15:40 Anion Gap 4 (3-11) 12/05/22 15:40 BUN 13 mg/dl (6-23) 12/05/22 15:40 Creatinine 1.10 mg/dl (0.6-1.4) 12/05/22 15:40 Est Cr Clr Drug Dosing 52.5 ml/min 12/05/22 15:40 Est GFR ( Amer) 72.6 ml/min 12/05/22 15:40 Est GFR (Non-Af Amer) 62.6 ml/min 12/05/22 15:40 BUN/Creatinine Ratio 11.8 (10-20) 12/05/22 15:40 Glucose 103 mg/dl (70-99(Fasting)) H 12/05/22 15:40 Calcium 8.7 mg/dl (8.6-10.3) 12/05/22 15:40 Total Bilirubin 0.5 mg/dl (0.2-1.0) 12/05/22 15:40 AST 15 U/L (13-39) 12/05/22 15:40 ALT 13 U/L (7-52) 12/05/22 15:40 Alkaline Phosphatase 144 U/L (34-104) H 12/05/22 15:40 Troponin I High Sens 6.8 pg/ml (0-20) 12/05/22 15:40 Total Protein 7.3 gm/dl (6.0-8.3) 12/05/22 15:40 Albumin 3.5 gm/dl (3.4-5.0) 12/05/22 15:40 Globulin 3.8 gm/dl (2.5-4.0) 12/05/22 15:40 Albumin/Globulin Ratio 0.9 (0.9-2) 12/05/22 15:40 SARS-CoV-2, RNA, NAAT NEGATIVE (NEGATIVE) 12/05/22 20:44 Impressions Chest X-Ray 12/05/22 14:36 XR chest 1V portable HISTORY: 82 years-old Male Chest pain, nonspecific COMPARISON: 06/15/2022 TECHNIQUE: AP view of the chest FINDINGS: Cardiac silhouette is enlarged. Small hiatal hernia. Eventration of the right hemidiaphragm. No pneumothorax, pleural effusion, airspace consolidation or pulmonary edema. Degenerative changes of the shoulders and spine. IMPRESSION: 1. Cardiomegaly without acute process. 2. Hiatal hernia. ACT 112: Negative or not required by law. The above report was generated using voice recognition software. It may contain grammatical, syntax or spelling errors. Electronically signed by: Dustin Hurtado M.D. 12/05/2022 3:53 PM Chest CTA 12/05/22 18:03 Exam(s): CTA CHEST W/WO Contrast IV Amt: 118 ml optiray 350 EXAM: CT Angiography Chest Without and With Intravenous Contrast CLINICAL HISTORY: Reason for exam: chest pain radiating into back. TECHNIQUE: Axial computed tomographic angiography images of the chest without and with intravenous contrast. CTDI is 22.93 mGy and DLP is 763.48 mGy-cm. Automated exposure control was utilized for the study. A dose lowering technique was utilized adhering to the principles of ALARA. MIP reconstructed images were created and reviewed. CONTRAST: Patient received 118 ml optiray 350 of IV contrast COMPARISON: CT chest 10/10/22 FINDINGS: Pulmonary arteries: Adequate pulmonary artery opacification. Normal caliber main pulmonary artery. No pulmonary embolism. Aorta: No acute findings. No thoracic aortic intramural hematoma, aneurysm, or dissection. Lungs: Previously seen subpleural pulmonary nodule right middle lobe currently measures 3 mm, decreased in size from prior, likely benign. No airspace consolidation, pulmonary mass, or central endobronchial lesion. Pleural space: Unremarkable. No pleural effusion or pneumothorax. Heart: Mild cardiomegaly. Coronary artery atherosclerosis. No pericardial effusion. Mildly elevated RV/LV ratio suggesting right ventricular dysfunction. Mediastinum: Small hiatal hernia. Thyroid: Asymmetric thyroid gland, left lobe larger than right. Associated mild rightward tracheal deviation. Bones/joints: No acute fracture or dislocation. Soft tissues: Unremarkable. Lymph nodes: Unremarkable. No lymphadenopathy. Kidneys and ureters: Simple cortical cyst right kidney measuring 2.2 cm; no further follow-up required. IMPRESSION: 1. No thoracic aortic aneurysm or dissection. 2. No pulmonary embolism. 3. Small hiatal hernia. Electronically signed by: Shelli Kendall M.D. 12/05/22 20:10 PM ECG Additional Comments: ECG sinus rhythm with PACs at a rate of [address] changes seen Code Status & VTE Plan VTE Prophylaxis Plan VTE Prophylaxis will be ordered: Yes
[2022-12-06] MEDS ORDERED: MoRPHine SULFATE 2 MG/ML CARP IV PRN (00:58)
[2022-12-06] MEDS ORDERED: POLYETHYLENE (MIRALAX) 17 GM PACK PO PRN (00:58)
[2022-12-06] MEDS ORDERED: NITROGLYCERIN SL 0.4 MG/TAB TAB SL PRN (00:58)
[2022-12-06] MEDS ORDERED: ACETAMINOPHEN 325 MG TAB PO PRN (00:58)
[2022-12-06] MEDS ORDERED: LABETALOL HCL IV 5 MG/ML 20ML IV STA (01:19)
[2022-12-06] MEDS ORDERED: MoRPHine SULFATE 4 MG/ML 1 ML CARP\\VIAL IV STA (01:19)
[2022-12-06] MEDS: NITROGLYCERIN 2% OINTMENT 30GM TUBE EXT SCH ×5 (01:46→23:00)
[2022-12-06] MEDS: carvediloL 12.5 MG TAB PO SCH ×2 (08:47→21:36)
[2022-12-06] MEDS: MULTIVITAMIN TAB PO SCH (08:47)
[2022-12-06] MEDS: ASPIRIN 325 MG ECTAB PO SCH (08:47)
[2022-12-06] MEDS: PANTOprazole 40 MG TAB PO SCH (08:48)
[2022-12-06] MEDS ORDERED: ISOSORBIDE MONO EXTENDED REL 30 MG TABCR PO SCH (09:00)
[2022-12-06] MEDS ORDERED: LOSARTAN POTASSIUM 25 MG TAB PO SCH (09:00)
--- NOTE | 2022-12-06 10:03 | Hospitalist Progress Note ---
Date of Service December 06, 2022 Assessment & Plan (1) Chest pain: Plan: 82 y/o M with PMH HTN, HLD, CAD s/p stents, chronic anemia, GERD, mood disorder presents with chest pain. Chest pain History of CAD s/p stents EKG did not show acute ST-T changes Troponin trend is normal Currently NPO Reviewed recent TTE Will follow up [employer] Videot[employer] Editor plan Continue aspirin, Plavix, atorvastatin, carvedilol and Imdur BP was significantly elevated on admission Hypertensive urgency Could this be a result of chest pain or cause of chest pain? BP is currently normal on home Coreg, losartan and Imdur Also on nitro q6h which may be contributing to better BP control May need meds optimization. Will defer to Cardiology Hyperlipidemia on statin GERD on Protonix DVT prophylaxis SCDs for now Disposition observation telemetry floor Full code I spent a total of 50 minutes coordinating, documenting and providing care for this patient excluding time spent in performance of separately billed services Admission and Anticipated Discharge Date Admission Date: December 05, 2022 Subjective Patient seen and examined Reports chest pain had been on and off overnight, none at this time Reports some headache and mild dizziness Denied any cough, shortness of breath at this time Denied nausea,vomiting,abd pain this morning Denied dysuria, freq, urgency Reports chronic intermittent numbness in the RUE and some pain in RLE. Stated that when he had chest pain, it radiated down the RUE and RLE as well. Denied depression, SI/HI Physical Exam Constitutional: + well hydrated and + obese; no acute distress Eyes: PERRL, conjunctivae normal, anicteric sclerae ENMT: external ear and nose normal, oropharynx normal Respiratory: normal respiratory effort, lungs clear to auscultation Cardiovascular: Rate/Rhythm: regular rate and regular rhythm S1 S2 Chest (Breasts): Additional Comments: No chest wall tenderness Gastrointestinal (Abdomen): normal bowel sounds, soft, nontender, no hepatosplenomegaly Musculoskeletal: no cyanosis or clubbing, extremities motor strength 5/5 No pedal edema Old scars on both forearms Neurologic: PERRL, EOMI, accommodation nl, no face palsy, no dysarthria Psychiatric: A+Ox3, euthymic affect Results & Data Results & Data Vital Signs (Past 12 Hours) Vital Signs Temp Pulse Pulse Resp BP BP BP 12/06/22 07:46 36.8 C 75 19 122/66 12/06/22 05:49 36.6 C 65 18 135/89 12/06/22 01:00 12/06/22 01:00 36.6 C 83 20 206/106 H 12/06/22 02:00 70 176/89 H 12/06/22 01:43 77 206/106 H 12/06/22 00:30 23 212/91 H 12/06/22 00:00 80 25 H 195/96 H 12/05/22 23:30 81 19 184/113 H 12/05/22 22:46 76 12/05/22 22:54 201/109 H 12/05/22 22:54 77 18 12/05/22 22:31 92 H 16 12/05/22 22:30 79 18 Pulse Ox O2 Del Method 12/06/22 07:46 95 Room Air 12/06/22 05:49 96 Room Air 12/06/22 01:00 Room Air 12/06/22 01:00 98 Room Air 12/06/22 02:00 12/06/22 01:43 12/06/22 00:30 97 Room Air 12/06/22 00:00 95 Room Air 12/05/22 23:30 96 Room Air 12/05/22 22:46 12/05/22 22:54 12/05/22 22:54 12/05/22 22:31 12/05/22 22:30 97 Laboratory Results Abnormal lab results 12/05/22 12/05/22 Range/Units 15:40 15:40 RBC 3.67 L (4.70-6.10) M/uL Hgb 12.9 L (14.0-18.0) g/dl Hct 39.1 L (42.0-52.0) % MCV 106.5 H (80.0-100.0) fL MCH 35.1 H (25.0-34.0) pg RDW Std Deviation 47.2 H (36.4-46.3) fL Chloride 109 H (98-107) mmol/L Glucose 103 H (70-99(Fasting)) mg/dl Alkaline Phosphatase 144 H (34-104) U/L
--- NOTE | 2022-12-06 10:27 | Cardiology Consultation ---
Date of Consultation December 06, 2022 Assessment & Plan (1) Chest pain: (2) Hypertensive urgency: (3) ASCVD (arteriosclerotic cardiovascular disease): (4) Dyslipidemia, goal LDL below 70: Plan Chest pain. Atypical. Cardiac catheterization in 2019 with minor nonobstructive coronary artery disease, patent LAD stent. Dobutamine stress echocardiography negative for pharmacologically induced myocardial ischemia in June 2022. EKGs this admission without acute change. High-sensitivity troponin I negative. Suspect hypertensive urgency, blood pressure notably 214/99 on presentation. Recommend aggressive blood pressure control and continued medical management of the patient's coronary artery disease recommended. Increase losartan to 50 mg/day. Increase isosorbide to 60 mg/day. Continue carvedilol, aspirin, clopidogrel, and high intensity statin therapy Remove Nitropaste as blood pressure improves with the above. Supervising Physician Co-Signing Physician Notes Patient seen examined the bedside. Reports dizziness, headache, and chest discomfort prompting hospital evaluation. Currently pain-free. Blood pressure improving with topical nitrates and titration of medications. PE: Gen: NAD, awake and alert. Heart: Regular rhythm, normal S1S2. No murmur. Lungs: Clear bilateral, no rales, rhonchi, wheezing extremities: No edema. A/P: Agree with above PA-C history, physical exam, assessment and plan. 82-year-old patient presents with hypertensive urgency and atypical chest discomfort. Cardiac enzymes are negative. 2D transthoracic echocardiogram pending at this time. Recommend titration of antihypertensive therapies. Continue carvedilol, aspirin, clopidogrel, and high intensity statin therapy. Nitropaste may be discontinued as blood pressure improves. History of Present Illness Reason for Consultation: Chest pain Requesting Physician: Dr. Restrepo Attending Physician: Dr. Weinstein History of Present Illness Mr. Richar Villalobos is an 82-year-old male who is being seen at the request of Dr. Restrepo, evaluation of chest discomfort. Patient notes exercising (push-ups and sit ups) on Saturday, exercises that he typically does about once per week. W morning he woke up feeling dizzy, with a headache, and with some chest discomfort. He notes going to the pill line and feeling tired as well as dizzy. He went back to his cell and slept for a while, awakening with more dizziness. He returned to the pill line, called to go see the eye doctor. In the dressing room he experienced worsening dizziness and chest discomfort along with right arm discomfort. He describes the chest discomfort as a thumping and points more towards the epigastric area, with associated nausea. He was transferred from the eye doctor to the [facility] ER. Blood pressure was markedly elevated on presentation, 214/99. EKG showed no acute change. EKG this morning notable for several T wave changes that are new compared to the EKGs obtained earlier this admission however are unchanged when compared to EKGs from a prior admission in June 2022. High-sensitivity troponin I negative x2 at 6.8 and 6.8 pg/mL. Chest x-ray revealed a small hiatal hernia and elevation of the right hemidiaphragm. Chest CTA showed no PE or catastrophe Cardiac Problem List: ASCVD Chart history of DC x3 Reported history of multiple prior PCI's of various locations including [facility], [facility], [facility] Left heart catheterization performed on February 06, 2019 with minor (10%) nonobstructive coronary artery disease, patent LAD stent. Hypertension Dyslipidemia Social History: Non-smoker. No smokeless tobacco. No alcohol. No illegal drug use. Originally from [facility]. Resident of [facility] Family History: Positive for CAD in multiple family members. Allergies Allergy/AdvReac Type Severity Reaction Status Date / Time Iodinated Contrast Media Allergy Unknown Unknown Verified 12/05/22 16:35 iodine Allergy Unknown Unknown Verified 12/05/22 16:35 Home Medications Medication Instructions Recorded Confirmed Type aspirin 325 mg tablet 325 mg PO QAM 06/08/22 12/05/22 History atorvastatin 80 mg tablet 80 mg PO QPM 06/08/22 12/05/22 History clopidogrel 75 mg tablet 75 mg PO QPM 06/08/22 12/05/22 History isosorbide mononitrate 30 mg 30 mg PO QAM 06/08/22 12/05/22 History tablet,extended release 24 hr multivitamin 1 tab PO QAM 06/08/22 12/05/22 History nitroglycerin 0.4 mg sublingual 0.4 mg sublingual UD PRN Chest Pain 06/08/22 12/05/22 History tablet carvedilol 12.5 mg tablet 12.5 mg PO BID 08/14/22 12/05/22 History pantoprazole 40 mg tablet,delayed 40 mg PO QAM 08/14/22 12/05/22 History release difluprednate 0.05 % eye drops 1 drp OPR QID 10/10/22 12/05/22 History losartan 25 mg tablet 25 mg PO DAILY 12/05/22 12/05/22 History Patient History Medical History Angina pectoris, unspecified 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 (per records) On anticoagulant therapy plavix daily Osteoarthritis Peritonsillar abscess Thyroid nodule Unspecified mononeuropathy of right upper limb Surgical History History of cardiac cath per records multiple heart caths, last was 2018?? with stent placed History of heart artery stent x2? Hx of cataract extraction lt. Family History Mother , in her 80s of an DC Myocardial infarction Father , of a gunshot wound in his 60s No problems noted. Social History Smoking Status: Former smoker Hx Alcohol Use: No Hx Substance Use: No Preferred Language: Indonesian Communication Ability: Effective Grain Weigher Required: No Beliefs That Will Affect Care: None Current Living Situation: Legal Guardian Current Living Situation Comment: [facility] Other Information That Helps Us Care for You: No Feels Safe at Home: Yes Safety Concerns: Feels Safe At This Time Assistive Devices: Glasses Review of Systems Review of Systems: Complete review of systems is otherwise as stated above, negative, noncontributory. Physical Exam Physical Exam: General: A&Ox3. NAD. Right arm shackled. Left lower extremity shackled. HENT: Normocephalic. Atraumatic. Eyes: PER. Conjunctiva pink, sclera clear. Neck: No carotid bruits. No JVD. No HJR. Heart: RRR. No murmur. No rub. No gallop. Lungs: Clear to auscultation. Abdomen: + Surgical scar. + Hernia. +BS. Soft. Nontender. Extremities: No clubbing, cyanosis, or edema. Limited neurological examination is without focal deficits. Pulses: radial=2/4, posterior tibial=2/4. Results & Data Vital Signs (Past 12 Hours) Vital Signs Temp Pulse Pulse Resp BP BP BP 12/06/22 07:46 36.8 C 75 19 122/66 12/06/22 05:49 36.6 C 65 18 135/89 12/06/22 01:00 12/06/22 01:00 36.6 C 83 20 206/106 H 12/06/22 02:00 70 176/89 H 12/06/22 01:43 77 206/106 H 12/06/22 00:30 23 212/91 H 12/06/22 00:00 80 25 H 195/96 H 12/05/22 23:30 81 19 184/113 H 12/05/22 22:46 76 12/05/22 22:54 201/109 H 12/05/22 22:54 77 18 12/05/22 22:31 92 H 16 12/05/22 22:30 79 18 Pulse Ox O2 Del Method 12/06/22 07:46 95 Room Air 12/06/22 05:49 96 Room Air 12/06/22 01:00 Room Air 12/06/22 01:00 98 Room Air 12/06/22 02:00 12/06/22 01:43 12/06/22 00:30 97 Room Air 12/06/22 00:00 95 Room Air 12/05/22 23:30 96 Room Air 12/05/22 22:46 12/05/22 22:54 12/05/22 22:54 12/05/22 22:31 12/05/22 22:30 97 Laboratory Results Cardiac Enzymes 12/05/22 12/06/22 Range/Units 15:40 00:47 AST 15 (13-39) U/L Troponin I High Sens 6.8 6.8 (0-20) pg/ml Coagulation 12/05/22 12/05/22 Range/Units 15:40 17:28 PT Cancelled 10.9 APTT Cancelled 28.8 CBC 12/05/22 Range/Units 15:40 WBC 4.80 (4.8-10.8) K/ul RBC 3.67 L (4.70-6.10) M/uL Hgb 12.9 L (14.0-18.0) g/dl Hct 39.1 L (42.0-52.0) % Plt Count 211 (130-400) K/uL Neut # (Auto) 2.63 (1.40-6.50) K/uL Lymph # (Auto) 1.52 (1.2-3.4) K/uL [place] # (Auto) 0.57 (0.11-0.59) K/uL Eos # (Auto) 0.06 (0-0.50) K/uL Baso # (Auto) 0.01 (0-0.2) K/uL Comprehensive Metabolic Panel 12/05/22 Range/Units 15:40 Sodium 139 (136-145) mmol/L Potassium 3.9 (3.5-5.1) mmol/L Chloride 109 H (98-107) mmol/L Carbon Dioxide 26 (21-32) mmol/L BUN 13 (6-23) mg/dl Creatinine 1.10 (0.6-1.4) mg/dl Glucose 103 H (70-99(Fasting)) mg/dl Calcium 8.7 (8.6-10.3) mg/dl AST 15 (13-39) U/L ALT 13 (7-52) U/L Alkaline Phosphatase 144 H (34-104) U/L Total Protein 7.3 (6.0-8.3) gm/dl Albumin 3.5 (3.4-5.0) gm/dl Intake and Output 12/05/22 12/06/22 12/06/22 22:59 06:59 14:59 Other: Other Intake Source NPO Weight 101.2 kg 96.6 kg Weight Measurement Method Built in [facility] Standing Scale Diagnostic Findings June 08, 2022 [facility] Normal pharmacological stress echocardiogram. No echocardiographic or EKG evidence of myocardial ischemia having achieved heart rate adequate for diagnostic purposes. October 11, 2022 TTE Interpretation Summary [facility] Bubble study done. Normal LV size. Normal LV wall thickness. Normal LV wall motion. Ejection fraction 55 to 60%. Grade 1 diastolic dysfunction. No atrial septal defect. Agitated saline contrast injection performed with late transition. Small patent foramen ovale possible/not excluded. Mild aortic valve sclerosis without significant stenosis. Continuous patient monitor personally reviewed, revealing sinus throughout with heart rates predominantly in the 60 to 80 bpm range.
[2022-12-06] MEDS ORDERED: ISOSORBIDE MONO EXTENDED REL 30 MG TABCR PO ONE (11:15)
[2022-12-06] MEDS ORDERED: ATORVASTATIN 40 MG TAB PO SCH (21:00)
[2022-12-06] MEDS ORDERED: CLOPIDOGREL BISULFATE 75 MG TAB PO SCH (21:00)
[2022-12-07] MEDS: NITROGLYCERIN 2% OINTMENT 30GM TUBE EXT SCH ×2 (06:14→12:26)
[2022-12-07 06:51] LABS: Hematocrit (blood only) 37.9 % (42.0-52.0); Hemoglobin 12.7 g/dl (14.0-18.0); Mean Corpuscular Hemoglobin 35.1 pg (25.0-34.0); Mean Corpuscular Hgb Conc 33.5 g/dL (32.0-36.0); Mean Corpuscular Volume 104.7 fL (80.0-100.0); Mean Platelet Volume 11.2 fL (9.4-12.4); Platelet Count 223 K/uL (130-400); RDW Coefficient of Variation 12.4 % (11.5-14.5); RDW Standard Deviation 48.2 fL (36.4-46.3); Red Blood Count 3.62 M/uL (4.70-6.10); White Blood Count 8.85 K/ul (4.8-10.8)
[2022-12-07 07:08] LABS: BUN Creatinine Ratio 21.6 (10-20); Calcium 8.7 mg/dl (8.6-10.3); Creatinine Clr Calc Pharmacy 42.2 ml/min; Est GFR (African American) 57.2 ml/min; Est GFR (Non-African American) 49.3 ml/min; Potassium 3.8 mmol/L (3.5-5.1)
[2022-12-07] MEDS ORDERED: ISOSORBIDE MONO EXTENDED REL 60 MG TABCR PO SCH (09:00)
[2022-12-07] MEDS ORDERED: LOSARTAN POTASSIUM 50 MG TAB PO SCH (09:00)
[2022-12-07] MEDS ORDERED: ALUMINUM/MAGNESIUM SUSP 30 ML UDC PO STA (09:02)
[2022-12-07] MEDS: carvediloL 12.5 MG TAB PO SCH (09:21)
[2022-12-07] MEDS: ASPIRIN 325 MG ECTAB PO SCH (09:59)
[2022-12-07] MEDS: PANTOprazole 40 MG TAB PO SCH (10:00)
[2022-12-07] MEDS: MULTIVITAMIN TAB PO SCH (10:00)
--- NOTE | 2022-12-07 11:32 | Cardiology Progress Note ---
Date of Service December 07, 2022 Assessment & Plan (1) Chest pain: (2) Hypertensive urgency: (3) ASCVD (arteriosclerotic cardiovascular disease): (4) Dyslipidemia, goal LDL below 70: Plan Chest pain. Atypical. Cardiac catheterization in 2019 with minor nonobstructive coronary artery disease, patent LAD stent. Dobutamine stress echocardiography negative for pharmacologically induced myocardial ischemia in June 2022. EKGs without acute change. High-sensitivity troponin I negative. Limited resting echocardiography this admission with preserved LV systolic function without wall motion abnormality. Suspect hypertensive urgency, blood pressure notably 214/99 on presentation. Recommend aggressive blood pressure control and continued medical management of the patient's coronary artery disease recommended. Losartan increased to 50 mg/day. Isosorbide increased to 60 mg/day. Recommend discontinuation of Nitropaste, addition of amlodipine 5 mg/day. Continue carvedilol, aspirin, clopidogrel, and high intensity statin therapy. Admission and Anticipated Discharge Date Admission Date: December 05, 2022 Subjective Patient seen and examined. Chart, medications, and telemetry reviewed. GI upset overnight noted, improved/resolved. No chest pain. No palpitations. No shortness of breath. No orthopnea or PND. No peripheral edema. No d izziness or lightheadedness. Telemetry: Sinus in the 60s in the 70s, short bouts of bigeminy overnight December 06, 2022 TTE Interpretation Summary ([facility], Dr. Dao): Limited views were obtained. Ejection fraction 55 to 60%. Mild concentric LVH. Normal LV wall motion. No pericardial effusion. Review of Systems Review of Systems: Complete review of systems is otherwise as stated above, negative, noncontributory. Physical Exam Physical Exam: General: A&Ox3. NAD. HENT: Normocephalic. Atraumatic. Eyes: PER. Conjunctiva pink, sclera clear. Neck: No JVD. Heart: RRR. No murmur. Lungs: Clear to auscultation. Abdomen: + Surgical scar. + Hernia. +BS. Soft. Nontender. Extremities: No edema. Limited neurological examination is without focal deficits. Pulses: Posterior tibial=2/4. Results & Data Vital Signs (Past 12 Hours) Vital Signs Temp Pulse Resp BP Pulse Ox O2 Del Method 12/07/22 09:58 69 133/66 96 Room Air 12/07/22 08:14 36.6 C 62 18 161/88 H 98 Room Air 12/07/22 04:29 36.4 C L 69 18 109/62 97 Room Air Laboratory Results CBC 12/07/22 Range/Units 05:52 WBC 8.85 (4.8-10.8) K/ul RBC 3.62 L (4.70-6.10) M/uL Hgb 12.7 L (14.0-18.0) g/dl Hct 37.9 L (42.0-52.0) % Plt Count 223 (130-400) K/uL Comprehensive Metabolic Panel 12/07/22 Range/Units 05:52 Sodium 135 L (136-145) mmol/L Potassium 3.8 (3.5-5.1) mmol/L Chloride 104 (98-107) mmol/L Carbon Dioxide 22 (21-32) mmol/L BUN 29 H (6-23) mg/dl Creatinine 1.34 (0.6-1.4) mg/dl Glucose 101 H (70-99(Fasting)) mg/dl Calcium 8.7 (8.6-10.3) mg/dl Intake and Output 12/06/22 12/07/22 12/07/22 22:59 06:59 14:59 Intake Total 100 / 450 350 / 450 Output Total 1050 / 1650 600 / 1650 260 / 260 Balance -950 / -1200 -250 / -1200 -260 / -260 Intake: Oral 100 / 450 350 / 450 Output: Urine 1050 / 1650 600 / 1650 260 / 260 Other: Other Intake Source NPO Weight 97.7 kg Weight Measurement Method Built in [facility]
[2022-12-07] MEDS ORDERED: amLODIPine BESYLATE 5 MG TAB PO SCH (11:45)
--- NOTE | 2022-12-07 12:22 | Discharge Summary ---
Date of Service December 07, 2022 Admission HPI Per Admitting Provider 82-year-old male with past medical history significant for HTN, HLD, CAD s/p stents, chronic anemia, GERD, mood disorder coming [facility] with chest pain. Patient states he was going to eye doctor for his cataracts he noticed chest pain rating to his right neck and right arm. Patient was given aspirin, nitro and fentanyl in the ER which improved his pain but states is coming back. States no shortness of breath. Had some nausea and dizziness. No sweating. No headaches vision is okay. Some runny nose and sore throat. Denies any cough. No abdominal pain. Normal bowel and bladder movements. Currently resting comfortable hemodynamic stable. Admission Exam Per Admitting Provider General- Not in distress. Head- atraumatic Eyes- PERRL ENT- oropharynx clear Neck- supple, no JVD, Lungs- clear to auscultation and percussion no added sounds Heart- regular rate and rhythm; no murmur, no gallop. Abdomen- normal bowel sounds, soft, nontender, no distension. Extremities- no pretibial edema, no erythema seen. Neuro- alert, oriented x 3; PERRL, no facial palsy; no dysarthria; moves extremities Skin- warm & dry Principal Diagnosis Chest pain Hypertensive urgency Discharge Exam Constitutional + well hydrated and + obese; no acute distress Eyes PERRL, conjunctivae normal, anicteric sclerae ENMT external ear and nose normal, oropharynx normal Respiratory normal respiratory effort, lungs clear to auscultation Cardiovascular Rate/Rhythm: regular rate and regular rhythm S1 S2 Gastrointestinal (Abdomen) normal bowel sounds, soft, nontender, no hepatosplenomegaly Musculoskeletal no cyanosis or clubbing, extremities motor strength 5/5 Neurologic PERRL, EOMI, accommodation nl, no face palsy, no dysarthria Psychiatric A+Ox3, euthymic affect Discharge Data Allergies Allergy/AdvReac Type Severity Reaction Status Date / Time Iodinated Contrast Media Allergy Unknown Unknown Verified 12/05/22 16:35 iodine Allergy Unknown Unknown Verified 12/05/22 16:35 Consultations 12/05/22 21:10 ED Decision to Admit Stat 12/06/22 08:00 Consult Cardiology Routine Ordered Studies 12/05/22 18:03 CTA chest dissec wo/w con [CT angio chest dissec wo/w con] Stat Hospital Course (1) Chest pain: 82 y/o M with PMH HTN, HLD, CAD s/p stents, chronic anemia, GERD, mood disorder presents with chest pain. Chest pain History of CAD s/p stents EKG did not show acute ST-T changes Troponin trend is normal Echocardiogram noted EF 55-60%, mild conc LVH, no pericardial effusion Chest pain resolved Reported left upper abd pain today which resolved with Maalox Already on PPI prior to presentation He states he gets heart burn often Pepcid 20mg bid added to patient's medications BP was significantly elevated on admission up to 214/99 Hypertensive urgency Was evaluated by Cardiology and adjustments made to his antihypertensive Imdur was increased to 60mg daily, Losartan was increased to 50mg daily Amlodipine 5mg was started BP has been better controlled in the past 24hours I called the [facility] and spoke with Dr Enriquez I updated her on findings and plans She reported that patient is not compliant with medications. She will monitor his BP with the new meds Counseled patient on need for adherence Total Time Total Time Spent Total Time Spent (In Minutes): 40 Total Time Includes: Examination of the Patient, Discharge Planning, Medication Reconciliation and Communication With Other Providers Discharge Plan Discharge Items Patient Disposition: [facility] Reason For Visit: CHEST PAIN Discharge Diagnosis: Chest pain Hypertensive urgency Activity: Resume your previous activity Non-emergency contact: Primary Care Provider Call non-emergency contact if: you have any medication questions Follow-up/Referrals: Behzad JULIO [Primary Care Provider] - Diet: Heart Healthy and Low Sodium (2gm) Addtl Attending Provider Instructions: Mr Villalobos You came to the hospital complaining of chest pain. You were evaluated. You had significantly elevated blood pressure. You were evaluated by the [employer]st [employer] and adjustments were made to your medications: - Your imdur was increased to 60mg daily - Your losartan was increased to 50mg daily - You were started on amlodipine 5mg daily - Pepcid was also added to your medication regimen It was a pleasure taking care of you. It is very important that you take your medications Pending Studies at Discharge: No Skilled Items Patient informed of condition?: Yes DNR: No Discharge Level of Care: Other Communicable Disease: No Discharge Prognosis: Stable Lines: None Urinary Catheter: No Medications and DC Order Prescriptions: New amlodipine [Norvasc] 5 mg Tablet 5 mg PO QAM Qty: 30 0RF famotidine [Pepcid] 20 mg tablet 20 mg PO BID Qty: 60 0RF Continued carvedilol 12.5 mg Tablet 12.5 mg PO BID Rx Instructions: must administer with a meal/food pantoprazole 40 mg Tablet,Delayed Release (Dr/Ec) 40 mg PO QAM difluprednate 0.05 % Drops 1 drp OPR QID aspirin 325 mg Tablet 325 mg PO QAM Rx Instructions: take with food multivitamin Tablet 1 tab PO QAM atorvastatin 80 mg Tablet 80 mg PO QPM clopidogrel 75 mg Tablet 75 mg PO QPM nitroglycerin 0.4 mg Tablet, Sublingual 0.4 mg sublingual UD PRN (Reason: Chest Pain) Rx Instructions: place 1 tablet under the tongue on daily as needed x3 if no relief ,call medical Changed isosorbide mononitrate 30 mg Tablet Extended Release 24 Hr 60 mg PO QAM 30 Days Qty: 60 0RF losartan 25 mg Tablet 50 mg PO DAILY 30 Days Qty: 60 0RF Admission Data Admit Date/Time: 12/05/22 23:44 Attending Provider: Abena Weinstein I. Admit Provider: James Restrepo Primary Care Provider: Behzad JULIO Other Providers: James Restrepo ; Pola Martinez Other Interventions: Discharge Summary Assessment (RN) Last Done: 12/07/22 12:56
--- NOTE | 2022-12-07 19:47 | Electrocardiogram Report ---
Test Reason : Blood Pressure : / mmHG Vent. Rate : 072 BPM Atrial Rate : 072 BPM P-R Int : 160 ms QRS Dur : 086 ms QT Int : 398 ms P-R-T Axes : 051 -08 012 degrees QTc Int : 435 ms Sinus rhythm with Premature supraventricular complexes Minimal voltage criteria for LVH, may be normal variant Borderline ECG When compared with ECG of 11-OCT-2022 08:47, No significant change was found Confirmed by Gamaliel Vasquez ([id number]) on 12/07/2022 7:47:21 PM Referred By: Behzad SCI Confirmed By:Gamaliel Vasquez
--- NOTE | 2022-12-07 20:03 | Electrocardiogram Report ---
Test Reason : Blood Pressure : / mmHG Vent. Rate : 070 BPM Atrial Rate : 070 BPM P-R Int : 168 ms QRS Dur : 082 ms QT Int : 426 ms P-R-T Axes : 054 -04 000 degrees QTc Int : 460 ms Sinus rhythm with Premature atrial complexes Minimal voltage criteria for LVH, may be normal variant Borderline ECG When compared with ECG of 05-DEC-2022 14:50, No significant change was found Confirmed by Gamaliel Vasquez ([id number]) on 12/07/2022 8:03:02 PM Referred By: Behzad JULIO Confirmed By:Gamaliel Vasquez
--- NOTE | 2022-12-07 22:02 | Electrocardiogram Report ---
Test Reason : Blood Pressure : / mmHG Vent. Rate : 072 BPM Atrial Rate : 072 BPM P-R Int : 152 ms QRS Dur : 084 ms QT Int : 446 ms P-R-T Axes : 058 -24 -48 degrees QTc Int : 488 ms Normal sinus rhythm Minimal voltage criteria for LVH, may be normal variant Prolonged QT Abnormal ECG When compared with ECG of 05-DEC-2022 18:19, Premature atrial complexes are no longer Present T wave inversion now evident in Inferolateral leads Confirmed by Gamaliel Vasquez ([id number]) on 12/07/2022 10:02:12 PM Referred By: Behzad JULIO Confirmed By:Gamaliel Vasquez
--- NOTE | 2022-12-08 00:06 | Electrocardiogram Report ---
Test Reason : Blood Pressure : / mmHG Vent. Rate : 064 BPM Atrial Rate : 064 BPM P-R Int : 164 ms QRS Dur : 082 ms QT Int : 438 ms P-R-T Axes : 066 -07 -24 degrees QTc Int : 451 ms Sinus rhythm with Premature supraventricular complexes Nonspecific T wave abnormality Abnormal ECG When compared with ECG of 06-DEC-2022 05:53, Premature supraventricular complexes are now Present T wave inversion less evident in Inferolateral leads Confirmed by Gamaliel Vasquez ([id number]) on 12/08/2022 12:06:09 AM Referred By: Behzad JULIO Confirmed By:Gamaliel Vasquez
== END 2022-12-07 13:49 ==
LOC: ED 14:23 → 2W 14:23

== ENCOUNTER 2023-10-23 20:37 | Observation (INO) ==
--- NOTE | 2023-10-23 20:58 | Emergency Department Note ---
Impression & Plan Chest pain, Weakness ED Provider Note NAME: IAN [id number] YANDEL AGE: 82 SEX: M : 1940 ARRIVES VIA: Ambulance INFORMANT: Patient, ED PROVIDER(S): Clay Enriquez DO CHIEF COMPLAINT: Chest pain HPI: The patient is an 82-year-old male who presented to the emergency department for an evaluation of chest pain. The patient has a history of coronary artery disease. He has had multiple stents placed in the past. He states that he rang the [facility] today while he was in his room because of chest pain. He became very weak in the legs. He states he did not pass out but he was lowered to the ground. He did not strike his head. He denies having any lower extremity swelling or pain. The patient has been compliant with his outpatient medications. He does take oral anticoagulants. He was in our facility recently for similar complaints. He did receive aspirin nitroglycerin and fluids prior to arrival. He states he had some relief of his pain. ROS: See above HPI for pertinent positives & negatives. A total of 10 systems reviewed and were otherwise negative. PAST MEDICAL HISTORY: See Below PAST SURGICAL HISTORY: See Below FAMILY HISTORY: See Below SOCIAL HISTORY: See Below HOME MEDICATIONS: See Below ALLERGIES: See Below VITALS: See Below PHYSICAL EXAMINATION: GENERAL: Patient is awake alert in no acute distress patient is resting comfortably and showing no signs of anxiety EYES: The conjunctivae are clear. The pupils are round and reactive. EARS, NOSE, MOUTH AND THROAT: The nose is without any evidence of any deformity. NECK: The neck is nontender and supple. RESPIRATORY: Normal respiratory effort is noted there is no evidence of wheezing rhonchi or rales CARDIOVASCULAR: Regular rate and rhythm noted there no murmurs rubs or gallops normal S1 normal S2. GASTROINTESTINAL: The abdomen is soft. Abdomen is nontender. MUSCULOSKELETAL/EXTREMITIES: There is no evidence of gross deformity full range of motion is noted in the hips and shoulders. SKIN: There is no obvious evidence of any rash. There are no petechiae, pallor or cyanosis noted. NEUROLOGIC: Patient is awake alert and oriented x3 MEDICAL DECISION MAKING: The patient is an 82-year-old male who presented to the emergency department for an evaluation of chest pain. The patient resides in the senior living system. He does have a history of coronary artery disease. I discussed the patient's laboratory and radiographic studies with him. I discussed the limitations of the emergency department workup for chest pain with him. Given the patient's comorbidities and risk factors I do not feel that he would be a good candidate for outpatient management at this time especially given his living situation. For this reason I discussed his condition with the on-call [facility] hospitalist. They have agreed to evaluate the patient in the emergency department for further management and disposition. Triage Nursing notes reviewed. Prior medical records reviewed Vital Signs: reviewed and remarkable for elevated blood pressure. Differential diagnosis: Cardiac ischemia, aortic dissection, pulmonary embolism, pneumothorax, pneumonia, pericarditis, myocarditis, esophageal rupture, GERD, cholecystitis, pancreatitis, musculoskeletal, as well as other pathologies. ER treatment provided: See below Diagnostics interpreted by me: ECG: EKG was obtained in the emergency department. My interpretation is normal sinus rhythm at 71 bpm. There was no ectopy. Nonspecific T wave abnormalities were noted in the low lateral leads. This was compared to a tracing from September 29, 2023. No specific changes were noted. An EKG was obtained at the [facility]. My interpretation is normal sinus rhythm at 63 bpm. LVH was noted by voltage criteria. There is no ectopy. This was compared to a tracing obtained in the emergency department and there were no significant differences. Cardiac Monitoring: An order was placed for continuous cardiac monitoring. The monitor shows a rate of 73 bpm with sinus rhythm. Laboratory studies: As stated above and show below. Imaging studies: See below. Radiographic imaging was reviewed by myself Consultation(s): I discussed this case with Dr. Palacios [facility] Past Med/Surg History Problem List (Updated 10/23/23 @ 22:52 by Clay Enriquez DO) Weakness (Acute) Chest pain (Acute) ASCVD (arteriosclerotic cardiovascular disease) Hypertensive urgency Chest pain (Acute) Hypertension (Acute) Lightheadedness Atypical chest pain Concussion Head trauma Hypertension (Acute) Fall (Acute) Pulmonary nodule Ascending aortic aneurysm Sacral fracture, closed (Acute) Fall Hx of cataract extraction lt. 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 (per records) Osteoarthritis Hypertensive renal disease without failure Atherosclerotic heart disease On anticoagulant therapy plavix daily Antisocial personality disorder Hypertension Angina pectoris, unspecified Hyperlipidemia Surgical History History of heart artery stent x2? History of cardiac cath per records multiple heart caths, last was 2018?? with stent placed Family History Mother , in her 80s of an [place] Myocardial infarction Father , of a gunshot wound in his 60s No problems noted. Social History Smoking Status: Never smoker Hx Alcohol Use: No Hx Substance Use: No Preferred Language: Nepali Communication Ability: Effective Weblogic Developer Required: No Beliefs That Will Affect Care: None Current Living Situation: Legal Guardian Current Living Situation Comment: LISA JULIO Feels Safe at Home: Yes Assistive Devices: Glasses Allergies Allergies Allergy/AdvReac Type Severity Reaction Status Date / Time Iodinated Contrast Media Allergy Unknown UNKNOWN--ON Verified 09/29/23 20:08 [facility] [place] [facility] L[facility] iodine Allergy Unknown UNKNOWN--ON Verified 09/29/23 20:08 [facility] [place] [facility] Home Meds Home Medications Medication Instructions Recorded Confirmed aspirin 325 mg tablet 325 mg PO QAM 06/08/22 10/23/23 atorvastatin 80 mg tablet 80 mg PO DAILY 06/08/22 10/23/23 clopidogrel 75 mg tablet 75 mg PO DAILY 06/08/22 10/23/23 multivitamin 1 tab PO QAM 06/08/22 10/23/23 nitroglycerin 0.4 mg sublingual 0.4 mg sublingual UD PRN Chest Pain 06/08/22 10/23/23 tablet carvedilol 12.5 mg tablet 12.5 mg PO BID 08/14/22 10/23/23 pantoprazole 40 mg tablet,delayed 40 mg PO QAM 08/14/22 10/23/23 release isosorbide mononitrate 60 mg 60 mg PO DAILY 12/13/22 10/23/23 tablet,extended release 24 hr losartan 50 mg tablet 50 mg PO DAILY 12/13/22 10/23/23 Previous Rx's Medication Instructions Recorded amlodipine 5 mg tablet (Norvasc) 5 mg PO QAM #30 tabs 12/07/22 Results & Data (ED) Vital Signs Vital Signs - 24 hr 10/23/23 20:45 10/23/23 20:50 10/23/23 21:06 Temperature 36.9 C Temperature Source Oral Pulse Rate 68 72 Pulse Rate [Left Apical] 73 Respiratory Rate 20 23 Respiratory Effort / Characteristics Non-Labored Spontaneous Non-Labored Spontaneous Respiratory Depth Normal Normal Respiratory Pattern Regular Regular Blood Pressure 168/91 H Blood Pressure [Left Arm] 143/85 H Blood Pressure Mean 116 Blood Pressure Mean [Left Arm] 104 Pulse Oximetry 98 99 Oxygen Delivery Method Room Air Room Air Sepsis Recent Fever Within 48 Hours No Sepsis New/Unexplained Change in Mental Status N/A Sepsis Action Taken by Nursing No Action Required 10/23/23 21:30 10/23/23 21:31 10/23/23 22:06 Temperature Temperature Source Pulse Rate 71 73 Pulse Rate [Left Apical] Respiratory Rate 17 15 Respiratory Effort / Characteristics Respiratory Depth Respiratory Pattern Blood Pressure 153/85 H Blood Pressure [Left Arm] Blood Pressure Mean 110 Blood Pressure Mean [Left Arm] Pulse Oximetry 99 97 Oxygen Delivery Method Room Air Room Air Sepsis Recent Fever Within 48 Hours Sepsis New/Unexplained Change in Mental Status Sepsis Action Taken by Detention Medications Current Medication List: was personally reviewed by me Laboratory Data Attestation: I reviewed the patient's lab results. 10/23/23 20:54 10/23/23 20:54 Lab Results 10/23/23 Range/Units 20:54 WBC 5.92 (4.8-10.8) K/ul RBC 3.53 L (4.70-6.10) M/uL Hgb 12.5 L (14.0-18.0) g/dl Hct 38.9 L (42.0-52.0) % MCV 110.2 H (80.0-100.0) fL MCH 35.4 H (25.0-34.0) pg MCHC 32.1 (32.0-36.0) g/dL RDW Std Deviation 48.3 H (36.4-46.3) fL RDW Coeff of [place] 11.9 (11.5-14.5) % Plt Count 191 (130-400) K/uL MPV 10.8 (9.4-12.4) fL Immature Gran % (Auto) 0.3 % Neut % (Auto) 61.8 % Lymph % (Auto) 25.5 % [place] % (Auto) 11.1 % Eos % (Auto) 1.0 % Baso % (Auto) 0.3 % Neut # (Auto) 3.65 (1.40-6.50) K/uL Lymph # (Auto) 1.51 (1.20-3.40) K/uL [place] # (Auto) 0.66 H (0.11-0.59) K/uL Eos # (Auto) 0.06 (0.00-0.50) K/uL Baso # (Auto) 0.02 (0.00-0.20) K/uL Immature Gran # (Auto) 0.02 (0.01-0.20) K/uL Polychromasia 1+ Macrocytosis Present PT 10.7 (9.0-12.0) Seconds INR 1.0 (0.9-1.1) APTT 27 (21-31) Seconds PTT Ratio 1.0 Sodium 139 (136-145) mmol/L Potassium 4.3 (3.5-5.1) mmol/L Chloride 108 H (98-107) mmol/L Carbon Dioxide 26 (21-32) mmol/L Anion Gap 5 (3-11) BUN 19 (6-23) mg/dl Creatinine 1.41 H (0.6-1.4) mg/dl Est Cr Clr Drug Dosing 47.5 ml/min Est GFR ( Amer) 53.8 ml/min Est GFR (Non-Af Amer) 46.4 ml/min BUN/Creatinine Ratio 13.5 (10-20) Glucose 115 H (70-99(Fasting)) mg/dl Calcium 8.3 L (8.6-10.3) mg/dl Total Bilirubin 0.7 (0.2-1.0) mg/dl AST 14 (13-39) U/L ALT 11 (7-52) U/L Alkaline Phosphatase 143 H (34-104) U/L Troponin I High Sens 5.2 (0-20) pg/ml Total Protein 7.2 (6.0-8.3) gm/dl Albumin 3.5 (3.4-5.0) gm/dl Globulin 3.7 (2.5-4.0) gm/dl Albumin/Globulin Ratio 0.9 (0.9-2) Lipase 8 L (11-82) U/L Administered Medications Discontinued Medications Sodium Chloride (Nss) 500 mls @ 999 mls/hr IV .Q31M STA Stop: 10/23/23 21:25 Last Admin: 10/23/23 21:02 Dose: 999 mls/hr Documented By: DAIJA Morphine Sulfate (Morphine Sulfate 4 Mg/Ml 1 Ml Carp\Vial) 4 mg IV NOW STA Stop: 10/23/23 20:56 Last Admin: 10/23/23 21:02 Dose: 4 mg Documented By: DAIJA Ondansetron HCl (Ondansetron Inj 2 Mg/Ml 2 Ml Vial) 4 mg IV NOW STA Stop: 10/23/23 20:56 Last Admin: 10/23/23 21:02 Dose: 4 mg Documented By: DAIJA Imaging Data Attestation: I personally reviewed and interpreted this imaging study as follows: My Impression: 1 view chest x-ray was obtained in the emergency department. My interpretation is no free air or definite infiltrate, hiatal hernia was noted, this was compared to a chest x-ray from September 29, 2023, no significant changes were noted, final report pending Discharge Plan Visit Data Chief Complaint: Chest Pain Stated Complaint: CHEST PAIN,SYNCOPE ED Provider: Clay Enriquez Discharge Problem: Chest pain, Weakness Patient Disposition: Being Evaluated by Hospitalist Forms Stand Alone Forms: My [facility] Prescriptions Prescriptions: No Action carvedilol 12.5 mg Tablet 12.5 mg PO BID Rx Instructions: must administer with a meal/food pantoprazole 40 mg Tablet,Delayed Release (Dr/Ec) 40 mg PO QAM amlodipine [Norvasc] 5 mg Tablet 5 mg PO QAM Qty: 30 0RF losartan 50 mg Tablet 50 mg PO DAILY isosorbide mononitrate 60 mg Tablet Extended Release 24 Hr 60 mg PO DAILY aspirin 325 mg Tablet 325 mg PO QAM Rx Instructions: take with food multivitamin Tablet 1 tab PO QAM atorvastatin 80 mg Tablet 80 mg PO DAILY clopidogrel 75 mg Tablet 75 mg PO DAILY nitroglycerin 0.4 mg Tablet, Sublingual 0.4 mg sublingual UD PRN (Reason: Chest Pain) Rx Instructions: place 1 tablet under the tongue on daily as needed x3 if no relief ,call medical Referrals Referrals: Lisa JULIO [Primary Care Provider] - Discharge Problem: Chest pain Qualifiers: Chest pain type: unspecified Qualified Code(s): R07.9 - Chest pain, unspecified
[2023-10-23] MEDS: ONDANSETRON INJ 2 MG/ML 2 ML VIAL IV STA (21:02)
[2023-10-23] MEDS: MoRPHine SULFATE 4 MG/ML 1 ML CARP\\VIAL IV STA (21:02)
[2023-10-23] MEDS: SODIUM CHLORIDE 0.9% 500 ML IV STA (21:02)
[2023-10-23 21:14] LABS: Basophils # (auto) 0.02 K/uL (0.00-0.20); Basophils % (auto) 0.3 %; Eosinophils # (auto) 0.06 K/uL (0.00-0.50); Hematocrit (blood only) 38.9 % (42.0-52.0); Hemoglobin 12.5 g/dl (14.0-18.0); Immature Granulocytes # (auto) 0.02 K/uL (0.01-0.20); Immature Granulocytes % (auto) 0.3 %; Lymphocytes # (auto) 1.51 K/uL (1.20-3.40); Lymphocytes % (auto) 25.5 %; Mean Corpuscular Hemoglobin 35.4 pg (25.0-34.0); Mean Corpuscular Hgb Conc 32.1 g/dL (32.0-36.0); Mean Corpuscular Volume 110.2 fL (80.0-100.0); Mean Platelet Volume 10.8 fL (9.4-12.4); Monocytes # (auto) 0.66 K/uL (0.11-0.59); Monocytes % (auto) 11.1 %; Neutrophils # (auto) 3.65 K/uL (1.40-6.50); Neutrophils % (auto) 61.8 %; Platelet Count 191 K/uL (130-400); RDW Coefficient of Variation 11.9 % (11.5-14.5); RDW Standard Deviation 48.3 fL (36.4-46.3); Red Blood Count 3.53 M/uL (4.70-6.10); White Blood Count 5.92 K/ul (4.8-10.8)
[2023-10-23 21:31] LABS: Albumin Globulin Ratio 0.9 (0.9-2); Albumin Level 3.5 gm/dl (3.4-5.0); BUN Creatinine Ratio 13.5 (10-20); Bilirubin,Total 0.7 mg/dl (0.2-1.0); Calcium 8.3 mg/dl (8.6-10.3); Creatinine Clr Calc Pharmacy 47.5 ml/min; Est GFR (African American) 53.8 ml/min; Est GFR (Non-African American) 46.4 ml/min; Globulin 3.7 gm/dl (2.5-4.0); Potassium 4.3 mmol/L (3.5-5.1); Total Protein 7.2 gm/dl (6.0-8.3)
[2023-10-23 21:37] LABS: Troponin I High Sensitivity 5.2 pg/ml (0-20)
[2023-10-23 21:46] LABS: Partial Thromboplastin Time 27 Seconds (21-31); Prothrombin Time 10.7 Seconds (9.0-12.0)
[2023-10-23 22:21] LABS: Macrocytosis Present; Polychromasia 1+
[2023-10-23] MEDS: amLODIPine BESYLATE 5 MG TAB PO ONE (23:04)
[2023-10-23 23:38] LABS: Magnesium 1.8 mg/dl (1.7-2.4)
[2023-10-24 00:05] LABS: Troponin I High Sensitivity 5.6 pg/ml (0-20)
--- NOTE | 2023-10-24 00:55 | History & Physical Report ---
Date of Service October 24, 2023 Assessment & Plan (1) Chest pain: Plan: CAD status post stent Rule out ACS Syncope possibly vagal from pain rule out orthostasis, obstructive cardiac pathology hypertension, slightly elevated hyperlipidemia, on statin Rx ARF hx GERD, stable on PPI chronic anemia, hemoglobin at baseline Hyperglycemia rule out DM antisocial personality disorder OBS PCU Continue antiplatelet and statin Rx for secondary CAD prevention Follow troponin Cardiology consult Re: Chest pain, history of CAD (Patient known to Dr. Ulloa of [facility] N.p.o. in anticipation of ischemic workup Orthostatic vitals, TTE for syncope workup Baseline UA, monitor creatinine response to IVF, hold losartan until creatinine back to baseline Check hemoglobin A1c DVT prophylaxis. Heparin subcu Full code Text document was generated using [employer] voice recognition software. It may contain grammatical or spelling errors. Kindly contact undersigned for clarification of any documentation item in question. History of Present Illness Chief Complaint: chest pain Primary Care Provider: SUMANTH Wen History obtained from patient and records. Medical history significant for CAD status post stent, hypertension, hyperlipidemia, GERD, chronic anemia (baseline hemoglobin 12-13), latent TB as per records. antisocial personality disorder, chronic pain. Last confinement December 2022 for chest pain secondary to hypertensive urgency. Patient seen at the ER last month for chest pressure going to his neck. Patient subsequently discharged from the ER. Patient had recurrence of chest pain going to his neck and arm with shortness of breath. Similar to anginal pain in the past but more intense. Different from reflux attacks as per patient. Chest pain and headache causing him to pass out. No witnessed seizures or incontinence. Patient given aspirin and nitroglycerin prior to ER arrival. Discomfort somewhat relieved by medications as per report. Medical History as above Surgical History : Appendectomy, cataract surgery Family History : Heart disease Personal/Social history : Non-smoker, no EtOH intake, senior care inmate Allergies Allergy/AdvReac Type Severity Reaction Status Date / Time Iodinated Contrast Media AdvReac Mild Dizziness Verified 10/24/23 04:53 iodine AdvReac Mild Dizziness Verified 10/24/23 04:53 Home Medications Medication Instructions Recorded Confirmed Type aspirin 325 mg tablet 325 mg PO QAM 06/08/22 10/23/23 History atorvastatin 80 mg tablet 80 mg PO DAILY 06/08/22 10/23/23 History clopidogrel 75 mg tablet 75 mg PO DAILY 06/08/22 10/23/23 History multivitamin 1 tab PO QAM 06/08/22 10/23/23 History nitroglycerin 0.4 mg sublingual 0.4 mg sublingual UD PRN Chest Pain 06/08/22 10/23/23 History tablet carvedilol 12.5 mg tablet 12.5 mg PO BID 08/14/22 10/23/23 History pantoprazole 40 mg tablet,delayed 40 mg PO QAM 08/14/22 10/23/23 History release amlodipine 5 mg tablet (Norvasc) 5 mg PO QAM #30 tabs 12/07/22 10/23/23 Rx isosorbide mononitrate 60 mg 60 mg PO DAILY 12/13/22 10/23/23 History tablet,extended release 24 hr losartan 50 mg tablet 50 mg PO DAILY 12/13/22 10/23/23 History Past Med/Surg History Problem List (Updated 10/23/23 @ 22:52 by Clay Enriquez DO) Weakness (Acute) Chest pain (Acute) ASCVD (arteriosclerotic cardiovascular disease) Hypertensive urgency Chest pain (Acute) Hypertension (Acute) Lightheadedness Atypical chest pain Concussion Head trauma Hypertension (Acute) Fall (Acute) Pulmonary nodule Ascending aortic aneurysm Sacral fracture, closed (Acute) Fall Hx of cataract extraction lt. Chronic anemia Stroke-like symptoms (Acute) Chest pain (Acute) Hypertension Dyslipidemia, goal LDL below 70 Acute tonsillitis (Acute) Angioedema (Acute) Sepsis Dysphagia Encounter for pre-operative examination Thyroid nodule Depression Coronary artery disease Gastroesophageal reflux Peritonsillar abscess Medical History nursing home current use of anticoagulant therapy Inmate in correctional facility Constipation Chronic pain 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 (per records) Osteoarthritis Hypertensive renal disease without failure Atherosclerotic heart disease On anticoagulant therapy plavix daily Antisocial personality disorder Hypertension Angina pectoris, unspecified Hyperlipidemia Surgical History History of heart artery stent x2? History of cardiac cath per records multiple heart caths, last was 2018?? with stent placed Family History Mother , in her 80s of an [place] Myocardial infarction Father , of a gunshot wound in his 60s No problems noted. Social History Smoking Status: Never smoker Hx Alcohol Use: No Hx Substance Use: No Preferred Language: Malawian Communication Ability: Effective Manager Program Required: No Beliefs That Will Affect Care: None Current Living Situation: Other Current Living Situation Comment: SUMANTH Wen Feels Safe at Home: Yes Assistive Devices: Glasses Review of Systems Review of Systems: As per HPI, all other systems reviewed and negative Physical Exam Physical Exam: GENERAL: Comfortable, pleasant, obese, slightly anxious, no respiratory distress SKIN: Pallor, warm HEENT: Alopecia, pale palpebral conjunctivae, no ptosis, dry buccal mucosa, edentulous NECK : Supple, no tenderness CHEST : CTA, no tenderness HEART : RRR, no obvious murmurs ABDOMEN: Some distention, nontender EXTREMITIES : Minimal LE swelling, no LE tenderness, no other conspicuous deformities noted NEUROLOGIC : Coherent, no facial asymmetry, no other gross focality Results & Data Results & Data Vital Signs (Past 12 Hours) Vital Signs Temp Pulse Pulse Resp BP BP Pulse Ox 10/24/23 00:32 61 19 111/66 94 10/24/23 00:00 59 L 19 120/70 95 10/23/23 23:07 97 10/23/23 22:56 70 16 150/88 H 95 10/23/23 22:06 73 15 97 10/23/23 21:31 153/85 H 10/23/23 21:30 71 17 99 10/23/23 21:06 73 23 143/85 H 99 10/23/23 20:55 63 23 95 10/23/23 20:50 72 10/23/23 20:45 36.9 C 68 20 168/91 H 98 O2 Del Method 10/24/23 00:32 Room Air 10/24/23 00:00 Room Air 10/23/23 23:07 Room Air 10/23/23 22:56 Room Air 10/23/23 22:06 Room Air 10/23/23 21:31 10/23/23 21:30 Room Air 10/23/23 21:06 Room Air 10/23/23 20:55 Room Air 10/23/23 20:50 10/23/23 20:45 Room Air Laboratory Results Laboratory Results WBC 5.92 K/ul (4.8-10.8) 10/23/23 20:54 RBC 3.53 M/uL (4.70-6.10) L 10/23/23 20:54 Hgb 12.5 g/dl (14.0-18.0) L 10/23/23 20:54 Hct 38.9 % (42.0-52.0) L 10/23/23 20:54 MCV 110.2 fL (80.0-100.0) H 10/23/23 20:54 MCH 35.4 pg (25.0-34.0) H 10/23/23 20:54 MCHC 32.1 g/dL (32.0-36.0) 10/23/23 20:54 RDW Std Deviation 48.3 fL (36.4-46.3) H 10/23/23 20:54 RDW Coeff of [place] 11.9 % (11.5-14.5) 10/23/23 20:54 Plt Count 191 K/uL (130-400) 10/23/23 20:54 MPV 10.8 fL (9.4-12.4) 10/23/23 20:54 Immature Gran % (Auto) 0.3 % 10/23/23 20:54 Neut % (Auto) 61.8 % 10/23/23 20:54 Lymph % (Auto) 25.5 % 10/23/23 20:54 [place] % (Auto) 11.1 % 10/23/23 20:54 Eos % (Auto) 1.0 % 10/23/23 20:54 Baso % (Auto) 0.3 % 10/23/23 20:54 Neut # (Auto) 3.65 K/uL (1.40-6.50) 10/23/23 20:54 Lymph # (Auto) 1.51 K/uL (1.20-3.40) 10/23/23 20:54 [place] # (Auto) 0.66 K/uL (0.11-0.59) H 10/23/23 20:54 Eos # (Auto) 0.06 K/uL (0.00-0.50) 10/23/23 20:54 Baso # (Auto) 0.02 K/uL (0.00-0.20) 10/23/23 20:54 Immature Gran # (Auto) 0.02 K/uL (0.01-0.20) 10/23/23 20:54 Polychromasia 1+ 10/23/23 20:54 Macrocytosis Present 10/23/23 20:54 PT 10.7 Seconds (9.0-12.0) 10/23/23 20:54 INR 1.0 (0.9-1.1) 10/23/23 20:54 APTT 27 Seconds (21-31) 10/23/23 20:54 PTT Ratio 1.0 10/23/23 20:54 Sodium 139 mmol/L (136-145) 10/23/23 20:54 Potassium 4.3 mmol/L (3.5-5.1) 10/23/23 20:54 Chloride 108 mmol/L (98-107) H 10/23/23 20:54 Carbon Dioxide 26 mmol/L (21-32) 10/23/23 20:54 Anion Gap 5 (3-11) 10/23/23 20:54 BUN 19 mg/dl (6-23) 10/23/23 20:54 Creatinine 1.41 mg/dl (0.6-1.4) H 10/23/23 20:54 Est Cr Clr Drug Dosing 47.5 ml/min 10/23/23 20:54 Est GFR ( Amer) 53.8 ml/min 10/23/23 20:54 Est GFR (Non-Af Amer) 46.4 ml/min 10/23/23 20:54 BUN/Creatinine Ratio 13.5 (10-20) 10/23/23 20:54 Glucose 115 mg/dl (70-99(Fasting)) H 10/23/23 20:54 Calcium 8.3 mg/dl (8.6-10.3) L 10/23/23 20:54 Magnesium 1.8 mg/dl (1.7-2.4) 10/23/23 23:04 Total Bilirubin 0.7 mg/dl (0.2-1.0) 10/23/23 20:54 AST 14 U/L (13-39) 10/23/23 20:54 ALT 11 U/L (7-52) 10/23/23 20:54 Alkaline Phosphatase 143 U/L (34-104) H 10/23/23 20:54 Troponin I High Sens 5.6 pg/ml (0-20) 10/23/23 23:04 Total Protein 7.2 gm/dl (6.0-8.3) 10/23/23 20:54 Albumin 3.5 gm/dl (3.4-5.0) 10/23/23 20:54 Globulin 3.7 gm/dl (2.5-4.0) 10/23/23 20:54 Albumin/Globulin Ratio 0.9 (0.9-2) 10/23/23 20:54 Lipase 8 U/L (11-82) L 10/23/23 20:54 CT head: No acute intracranial hemorrhage, midline shift, or mass effect. Diagnostic Findings Chest x-ray as per my interpretation cardiomegaly, no infiltrate EKG as per my interpretation : Rate 70, NSR, LAD, LAFB, LVH, T wave flattening inferior leads (1) Chest pain Chest pain type: unspecified Qualified Code(s): R07.9 - Chest pain, unspecified
[2023-10-24] MEDS ORDERED: oxyCODONE HCL IR 5 MG TAB (IMMEDIATE RELEASE) PO PRN (00:58)
[2023-10-24] MEDS ORDERED: LORazepam 0.5 MG TAB PO PRN (01:00)
[2023-10-24] MEDS: NITROGLYCERIN SL 0.4 MG/TAB TAB SL PRN (02:01)
[2023-10-24] MEDS: SODIUM CHLORIDE 0.9% 1,000 ML IV ONE (02:06)
--- NOTE | 2023-10-24 02:11 | CT Scan Report ---
Exam(s): CT HEAD Without Contrast EXAM: CT Head Without Intravenous Contrast CLINICAL HISTORY: Reason for exam: butt, syncope. TECHNIQUE: Axial computed tomography images of the head/brain without intravenous contrast. CTDI is 46.63 mGy and DLP is 799.24 mGy-cm. Automated exposure control was utilized for the study. A dose lowering technique was utilized adhering to the principles of ALARA. COMPARISON: No relevant prior studies available. FINDINGS: No acute intracranial hemorrhage. No midline shift or mass effect. The territorial mtz-white matter differentiation is maintained throughout. Age-related cerebral volume loss. Periventricular and subcortical white matter hypoattenuation, consistent with chronic microangiopathy. The visualized orbits appear grossly unremarkable. The calvarium is intact. The visualized paranasal sinuses and mastoid air cells are grossly clear. IMPRESSION: No acute intracranial hemorrhage, midline shift, or mass effect. Electronically signed by: Erich Saldaña MD 10/24/23 02:11 AM
[2023-10-24] MEDS: oxyCODONE HCL IR 5 MG TAB (IMMEDIATE RELEASE) PO PRN (02:30)
[2023-10-24] MEDS: ISOSORBIDE MONO EXTENDED REL 60 MG TABCR PO STA (03:18)
[2023-10-24] MEDS: HYDROmorphone INJ 0.5 MG/0.5 ML SYR IV PRN ×2 (03:55→08:09)
[2023-10-24] MEDS: HYDROmorphone INJ 0.5 MG/0.5 ML SYR IV STA (04:36)
[2023-10-24 05:00] LABS: Basophils # (auto) 0.02 K/uL (0.00-0.20); Basophils % (auto) 0.3 %; Eosinophils # (auto) 0.09 K/uL (0.00-0.50); Eosinophils % (auto) 1.5 %; Hemoglobin 11.5 g/dl (14.0-18.0); Immature Granulocytes # (auto) 0.01 K/uL (0.01-0.20); Immature Granulocytes % (auto) 0.2 %; Lymphocytes # (auto) 2.07 K/uL (1.20-3.40); Lymphocytes % (auto) 33.8 %; Mean Corpuscular Hemoglobin 35.5 pg (25.0-34.0); Mean Corpuscular Hgb Conc 32.9 g/dL (32.0-36.0); Mean Platelet Volume 11.1 fL (9.4-12.4); Monocytes # (auto) 0.71 K/uL (0.11-0.59); Monocytes % (auto) 11.6 %; Neutrophils # (auto) 3.23 K/uL (1.40-6.50); Neutrophils % (auto) 52.6 %; Platelet Count 186 K/uL (130-400); RDW Coefficient of Variation 11.8 % (11.5-14.5); RDW Standard Deviation 46.4 fL (36.4-46.3); Red Blood Count 3.24 M/uL (4.70-6.10); White Blood Count 6.13 K/ul (4.8-10.8)
[2023-10-24 05:10] LABS: BUN Creatinine Ratio 13.3 (10-20); Creatinine Clr Calc Pharmacy 54.6 ml/min; Est GFR (African American) 65.3 ml/min; Est GFR (Non-African American) 56.4 ml/min; Potassium 3.7 mmol/L (3.5-5.1)
[2023-10-24 05:16] LABS: Troponin I High Sensitivity 5.9 pg/ml (0-20)
[2023-10-24 05:30] LABS: D Dimer 470 ug/L FEU (0-500); Partial Thromboplastin Time 27 Seconds (21-31)
[2023-10-24] MEDS ORDERED: hydrOXYzine HCl 10 MG TAB PO PRN (05:47)
[2023-10-24] MEDS: ACETAMINOPHEN 1,000 MG/100 ML VIAL IV STA (05:48)
[2023-10-24] MEDS: hydrOXYzine HCl 10 MG TAB PO STA (05:51)
[2023-10-24] MEDS ORDERED: HEPARIN SOD 5,000 UNIT/0.5 ML VIAL SQ SCH (06:00)
[2023-10-24 07:13] LABS: Estimated Average Glucose 103 mg/dl; Hemoglobin A1C 5.2 % (4.5-5.6)
--- NOTE | 2023-10-24 07:19 | XRay Report ---
XR chest 1V portable HISTORY: 82 years-old Male Chest pain, nonspecific COMPARISON: 09/29/2023 TECHNIQUE: AP view of the chest FINDINGS: Cardiomegaly. Hiatal hernia. Coronary arterial stent. Atherosclerosis of the aorta. No pneumothorax o r pleural effusion. Mild subsegmental left basilar densities. Bones appear grossly intact. IMPRESSION: 1. Cardiomegaly without acute process. 2. Mild left basilar atelectasis. 3. Hiatal hernia. ACT 112: Negative or not required by law. The above report was generated using voice recognition software. It may contain grammatical, syntax o r spelling errors. Electronically signed by: Dustin Hurtado M.D. 10/24/2023 7:17 AM
[2023-10-24] MEDS: carvediloL 12.5 MG TAB PO SCH (08:09)
[2023-10-24] MEDS: PANTOprazole 40 MG TAB PO SCH (08:09)
[2023-10-24] MEDS: amLODIPine BESYLATE 5 MG TAB PO SCH (08:09)
[2023-10-24] MEDS: ASPIRIN 81 MG ECTAB PO SCH (08:09)
[2023-10-24] MEDS: ENOXAPARIN INJ 40 MG/0.4 ML SYR SQ SCH (08:09)
[2023-10-24] MEDS: ATORVASTATIN 40 MG TAB PO SCH (08:09)
[2023-10-24] MEDS: MULTIVITAMIN TAB PO SCH (08:09)
[2023-10-24] MEDS: CLOPIDOGREL BISULFATE 75 MG TAB PO SCH (08:09)
[2023-10-24] MEDS ORDERED: ASPIRIN 325 MG ECTAB PO SCH (09:00)
[2023-10-24] MEDS ORDERED: ISOSORBIDE MONO EXTENDED REL 60 MG TABCR PO SCH (09:00)
--- NOTE | 2023-10-24 10:11 | Electrocardiogram Report ---
Test Reason : Blood Pressure : / mmHG Vent. Rate : 071 BPM Atrial Rate : 071 BPM P-R Int : 130 ms QRS Dur : 078 ms QT Int : 404 ms P-R-T Axes : 029 -17 -10 degrees QTc Int : 439 ms Sinus rhythm with Premature atrial complexes Minimal voltage criteria for LVH, may be normal variant ( R in aVL ) Nonspecific T wave abnormality Abnormal ECG When compared with ECG of 29-SEP-2023 18:11, No significant change was found Confirmed by Clay Hearn ([id number]) on 10/24/2023 10:11:37 AM Referred By: Behzad JULIO Confirmed By:Clay Hearn
--- NOTE | 2023-10-24 10:15 | Electrocardiogram Report ---
Test Reason : Blood Pressure : / mmHG Vent. Rate : 055 BPM Atrial Rate : 055 BPM P-R Int : 170 ms QRS Dur : 082 ms QT Int : 454 ms P-R-T Axes : 056 -12 -29 degrees QTc Int : 434 ms Sinus bradycardia Nonspecific T wave abnormality Abnormal ECG When compared with ECG of 23-OCT-2023 20:42, (unconfirmed) Premature atrial complexes are no longer Present Confirmed by Clay Hearn ([id number]) on 10/24/2023 10:15:21 AM Referred By: Behzad SCI Confirmed By:Clay Hearn
--- NOTE | 2023-10-24 12:29 | Cardiology Consultation ---
Date of Consultation October 24, 2023 Assessment & Plan (1) Non-cardiac chest pain: -the patient has had nearly 24 hours of constant chest discomfort. -high sensitivity troponins are all normal. -no acute EKG changes. -physical examination suggests musculoskeletal discomfort. -no further cardiac evaluation necessary at this time. (2) ASCVD (arteriosclerotic cardiovascular disease): -LAD stent patent at catheterization, February 2019. -minimal disease elsewhere. -continue follow-up with Dr. Ulloa. (3) Hypertension: -adequate control on current regimen. (4) Hypercholesterolemia: -continue atorvastatin. History of Present Illness Attending Physician: Mathew Maldonado MD History of Present Illness Mr. Villalobos is an 82-year-old male admitted yesterday with an atypical chest pain syndrome. This consultation was ordered to assist in his cardiac management. Of note, the patient typically follows with Dr. Ulloa in the outpatient setting. The patient was in his usual state of when he developed substernal chest pressure which she claims radiated to his neck and right shoulder. There was associated shortness of breath. The patient explains that his legs got weak and he lowered himself to floor. He was then brought to the emergency room for further evaluation. Of note, he did receive aspirin and nitroglycerin en route which had little effect on his symptoms. There was no concurrent nausea, vomiting, or diaphoresis. The patient explains that his symptoms continue today. He does note tenderness to the touch over the sternal region. He does carry a history of coronary artery disease. Detailed records are not available for review. His most recent cardiac catheterization was performed February 2019 which noted a patent LAD stent and minor disease elsewhere. We have reviewed his normal high sensitivity troponins and his normal left ventricular size and function on his echocardiogram. Past medical and surgical history 1. Coronary artery disease-see above 2. Patent LAD BC-February 2019 3. Hypertension 4. Hypercholesterolemia 5. Chronic renal failure 6. GERD 7. Anemia of chronic disease 8. DJD 10. Latent tuberculosis 11. Antisocial personality disease 11. Depression 12. Left intra-ocular lens implants 13. Appendectomy Social history Inmate at [facility] if No tobacco alcohol Family history Mother in her 80s from an CT Father in his 60s from a gunshot wound Review of systems A 10 point review of systems was undertaken and negative except that described above. Allergies Allergy/AdvReac Type Severity Reaction Status Date / Time Iodinated Contrast Media AdvReac Mild Dizziness Verified 10/24/23 04:53 iodine AdvReac Mild Dizziness Verified 10/24/23 04:53 Home Medications Medication Instructions Recorded Confirmed Type aspirin 325 mg tablet 325 mg PO QAM 06/08/22 10/23/23 History atorvastatin 80 mg tablet 80 mg PO DAILY 06/08/22 10/23/23 History clopidogrel 75 mg tablet 75 mg PO DAILY 06/08/22 10/23/23 History multivitamin 1 tab PO QAM 06/08/22 10/23/23 History nitroglycerin 0.4 mg sublingual 0.4 mg sublingual UD PRN Chest Pain 06/08/22 0 10/23/23 History tablet carvedilol 12.5 mg tablet 12.5 mg PO BID 08/14/22 10/23/23 History pantoprazole 40 mg tablet,delayed 40 mg PO QAM 08/14/22 10/23/23 History release amlodipine 5 mg tablet (Norvasc) 5 mg PO QAM #30 tabs 12/07/22 10/23/23 Rx isosorbide mononitrate 60 mg 60 mg PO DAILY 12/13/22 10/23/23 History tablet,extended release 24 hr losartan 50 mg tablet 50 mg PO DAILY 12/13/22 10/23/23 History Patient History Medical History senior living current use of anticoagulant therapy Inmate in correctional facility Constipation Chronic pain 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 (per records) Osteoarthritis Hypertensive renal disease without failure Atherosclerotic heart disease On anticoagulant therapy plavix daily Antisocial personality disorder Hypertension Angina pectoris, unspecified Hyperlipidemia Surgical History History of heart artery stent x2? History of cardiac cath per records multiple heart caths, last was 2018?? with stent placed Family History Mother , in her 80s of an CT Myocardial infarction Father , of a gunshot wound in his 60s No problems noted. Social History Smoking Status: Never smoker Hx Alcohol Use: No Hx Substance Use: No Preferred Language: Vincentian Communication Ability: Effective Psychologist Industrial Organizational Required: No Beliefs That Will Affect Care: None Current Living Situation: Other Current Living Situation Comment: [facility] Feels Safe at Home: Yes Assistive Devices: Glasses Physical Exam Physical Exam: In general is a well-developed well-nourished black male in no acute distress. HEENT exam is negative. Neck is supple with full carotid upstrokes. No carotid bruits. Jugular is pressure is flat at 90. There is no thyromegaly. Cardiovascular exam reveals a regular rhythm with normal S1 and S2. Heart sounds are distant. No obvious murmurs. Chest reveals tenderness to palpation in the midsternal region which exacerbates his constant chest discomfort. Lungs are clear without rales, rhonchi, or wheezes. Abdomen is soft nontender without bruits. Extremities reveal intact radial artery pulses bilaterally. There is no peripheral edema. Results & Data Vital Signs (Past 12 Hours) Vital Signs Temp Pulse Pulse Pulse Resp BP Pulse Ox 10/24/23 11:15 36.4 C L 53 L 17 118/70 94 10/24/23 08:00 55 L 10/24/23 08:00 10/24/23 07:57 36.9 C 54 L 19 138/72 97 10/24/23 05:41 64 104/63 10/24/23 02:00 62 10/24/23 01:57 36.7 C 67 18 165/87 H 97 10/24/23 01:21 69 19 121/95 99 10/24/23 01:00 69 10/24/23 00:32 61 19 111/66 94 O2 Del Method 10/24/23 11:15 Room Air 10/24/23 08:00 10/24/23 08:00 Room Air 10/24/23 07:57 Room Air 10/24/23 05:41 10/24/23 02:00 10/24/23 01:57 Room Air 10/24/23 01:21 Room Air 10/24/23 01:00 10/24/23 00:32 Room Air Laboratory Results CBC notes hemoglobin 11.5, hematocrit 35.0, white count 6.1, and platelet count 097131. Electrolytes note a sodium 137, potassium 3.7, chloride 107, bicarb 24, BUN 16, creatinine 1.2, and glucose of 98. High sensitivity troponin on presentation was 5.2 with follow-up values of 5.6 and 5.9. Diagnostic Findings Echocardiogram notes normal left ventricular systolic function with ejection fraction 55-60%. There were no wall motion abnormalities. There was mild left ventricular hypertrophy. Mild tricuspid regurgitation. EKG notes normal sinus rhythm with a nonspecific T-wave abnormality. Chest x-ray notes cardiomegaly and no acute process. PG Care Time/CCT Total # of Minutes Spent Total Time Spent with Patient: Total time spent is greater than 50% in coordination of care (as documented) at patient's floor/unit and/or counseling patient: Coding Level of Care Code 29786 INT INP/OBS CARE 3/75MIN Diagnoses Non-cardiac chest pain R07.89 ASCVD (arteriosclerotic cardiovascular disease) I25.10 Hypertension I10 Hypercholesterolemia E78.00
[2023-10-24] MEDS: KETOROLAC TROMETHAMINE 15 MG/ML VIAL IV ONE (13:34)
--- NOTE | 2023-10-24 14:16 | XCELERA ---
[id number]
[2023-10-24] MEDS ORDERED: ACETAMINOPHEN 325 MG TAB PO PRN (14:32)
[2023-10-24 17:09] LABS: Adenovirus PCR Not Detected (NotDetected); Bordetella parapertussis PCR Not Detected (NotDetected); Bordetella pertussis PCR Not Detected (NotDetected); Chlamydia pneumoniae PCR Not Detected (NotDetected); Coronavirus 229E PCR Not Detected (NotDetected); Coronavirus CoV-2 (COVID19)PCR Not Detected (NotDetected); Coronavirus HKU1 PCR Not Detected (NotDetected); Coronavirus NL63 PCR Not Detected (NotDetected); Coronavirus OC43PCR Not Detected (NotDetected); Human Metapneumovirus PCR Not Detected (NotDetected); Influenza A PCR Not Detected (NotDetected); Influenza B PCR Not Detected (NotDetected); Mycoplasma pneumoniae PCR Not Detected (NotDetected); Parainfluenza Virus 1 PCR Not Detected (NotDetected); Parainfluenza Virus 2 PCR Not Detected (NotDetected); Parainfluenza Virus 3 PCR Not Detected (NotDetected); Parainfluenza Virus 4 PCR Not Detected (NotDetected); Respiratory Syncytial VirusPCR Not Detected (NotDetected); Rhinovirus/Enterovirus PCR Not Detected (NotDetected)
[2023-10-25 06:35] LABS: Hematocrit (blood only) 36.1 % (42.0-52.0); Hemoglobin 11.6 g/dl (14.0-18.0); Mean Corpuscular Hemoglobin 35.9 pg (25.0-34.0); Mean Corpuscular Hgb Conc 32.1 g/dL (32.0-36.0); Mean Corpuscular Volume 111.8 fL (80.0-100.0); Mean Platelet Volume 11.2 fL (9.4-12.4); Platelet Count 175 K/uL (130-400); RDW Coefficient of Variation 11.7 % (11.5-14.5); RDW Standard Deviation 47.9 fL (36.4-46.3); Red Blood Count 3.23 M/uL (4.70-6.10); White Blood Count 5.29 K/ul (4.8-10.8)
[2023-10-25 06:51] LABS: BUN Creatinine Ratio 17.4 (10-20); Calcium 8.3 mg/dl (8.6-10.3); Creatinine Clr Calc Pharmacy 54.7 ml/min; Est GFR (African American) 64.7 ml/min; Est GFR (Non-African American) 55.8 ml/min; Magnesium 1.8 mg/dl (1.7-2.4); Phosphorus 3.3 mg/dl (2.5-4.9); Potassium 4.3 mmol/L (3.5-5.1)
[2023-10-25 08:19] VITALS: RESP 18
[2023-10-25] MEDS: ISOSORBIDE MONO EXTENDED REL 60 MG TABCR PO SCH (08:25)
[2023-10-25] MEDS: SODIUM CHLORIDE 0.9% 500 ML IV ONE (08:34)
[2023-10-25 09:54] LABS: Appearance Urine Clear (Clear); Bacteria Urine Automated None Seen (None Seen); Bilirubin Urine Negative (Negative); Blood Urine Negative (Negative); Cast Urine Automated 0-2 /lpf (0-2); Color Urine Dark Yellow; Epithelial Cell Urine Auto 0-2 /hpf (0-2); Glucose Urine UA Negative (Negative); Ketones Urine Trace (Negative); Leukocyte Esterase Urine Negative (Negative); Nitrite Urine Negative (Negative); Protein Urine Trace (Negative); RBC Urine Automated 0-2 /hpf (0-2); Urobilinogen Urine Negative (Negative); WBC Urine Automated 0-5 /hpf (0-5); pH Urine 5.5 (4.5-7.5)
[2023-10-25] MEDS: diphenhydrAMINE 50 MG/ML VIAL IV STA (10:26)
[2023-10-25] MEDS: OPTIRAY 320 125ml IV ONE (10:40)
[2023-10-25] MEDS: methylPREDNISolone 40 MG in SYRINGE 0 ML IV ONE (10:51)
--- NOTE | 2023-10-25 11:00 | CT Scan Report ---
CT angio chest PE protocol CLINICAL HISTORY: PE TECHNIQUE: Multidetector row helical CT of the chest was performed with angiographic protocol. Andrea l and sagittal reformations were obtained. Coronal and sagittal MIPS were obtained from the axial luis a set and were submitted for review. Automated dose lowering techniques and/or adjustment according to patient size were utilized for this exam. CT DOSE: 897.69 mGy.cm Comparison: Comparison is made to CTA chest 12/05/2022 FINDINGS: Lungs and pleura: Atelectasis versus scarring is seen in the dependent portions of the lungs. Bronchi al wall thickening and possible groundglass opacities in the right lower lobe. There is a 7 mm pleura l-based nodule in the right middle lobe (series 4 image 84). Heart and pericardium: Heart size is normal. No pericardial effusion. Vessels: No evidence of pulmonary embolism. Moderate atherosclerosis is seen. Mediastinum and gilmer: Unremarkable. Chest wall and lower neck: Prominent left thyroid nodule is seen. Abdomen: There is a moderate hiatal hernia and esophageal wall thickening is seen. Bones: Minimal degenerative changes are seen. IMPRESSION: 1. No pulmonary embolus. 2. Groundglass opacities in right lower lobe and bronchial wall thickening may represent infectious/ inflammatory process. 3. 7 mm nodule right middle lobe, unchanged from prior exam. 4. Moderate hiatal hernia and esophageal wall thickening, ACT 112: Negative or not required by law. Electronically signed by: Jer Zarate M.D. 10/25/2023 10:59 AM
[2023-10-25 12:03] VITALS: BP 134/72; TEMP 97.7; O2SAT 95
--- NOTE | 2023-10-25 15:04 | Ultrasound Report ---
US carotid doppler BI CLINICAL HISTORY: 82 years-old Male with dizzines/ pre-syncope. Acute dizziness COMPARISON: 10/10/2022 TECHNIQUE: Multiple real time sonographic images of the carotid bifurcations were obtained assessing mtz scale, color Doppler and spectral wave form appearance FINDINGS: RIGHT CAROTID: The peak systolic velocity measured within the right ICA is 74 cm/sec. The end diast olic velocity measured 16 cm/sec. The ICA to CCA ratio measured 0.7 which correlates with a stenosis of 0-50%. Atherosclerosis. LEFT CAROTID: The peak systolic velocity measured within the left ICA is 57 cm/sec. The end diastol ic velocity measured 15 cm/sec. The ICA to CCA ratio measured 0.6 which correlates with a stenosis of 0-50%. There is normal antegrade vertebral flow bilaterally. IMPRESSION: 1. Atherosclerosis without hemodynamically significant stenosis. 2. Normal antegrade vertebral flow bilaterally. ACT 112: Negative or not required by law. The above report was generated using voice recognition software. It may contain grammatical, syntax o r spelling errors. Electronically signed by: Dustin Hurtado M.D. 10/25/2023 3:02 PM
[2023-10-25 16:05] VITALS: PULSE 64
--- NOTE | 2023-10-25 16:07 | Discharge Summary ---
Date of Service October 25, 2023 Admission HPI Per Admitting Provider History obtained from patient and records. Medical history significant for CAD status post stent, hypertension, hyperlipidemia, GERD, chronic anemia (baseline hemoglobin 12-13), latent TB as per records. antisocial personality disorder, chronic pain. Last confinement December 2022 for chest pain secondary to hypertensive urgency. Patient seen at the ER last month for chest pressure going to his neck. Patient subsequently discharged from the ER. Patient had recurrence of chest pain going to his neck and arm with shortness of breath. Similar to anginal pain in the past but more intense. Different from reflux attacks as per patient. Chest pain and headache causing him to pass out. No witnessed seizures or incontinence. Patient given aspirin and nitroglycerin prior to ER arrival. Discomfort somewhat relieved by medications as per report. Medical History as above Surgical History : Appendectomy, cataract surgery Family History : Heart disease Personal/Social history : Non-smoker, no EtOH intake, [facility] inmate Admission Exam Per Admitting Provider GENERAL: Comfortable, pleasant, obese, slightly anxious, no respiratory distress SKIN: Pallor, warm HEENT: Alopecia, pale palpebral conjunctivae, no ptosis, dry buccal mucosa, edentulous NECK : Supple, no tenderness CHEST : CTA, no tenderness HEART : RRR, no obvious murmurs ABDOMEN: Some distention, nontender EXTREMITIES : Minimal LE swelling, no LE tenderness, no other conspicuous deformities noted NEUROLOGIC : Coherent, no facial asymmetry, no other gross focality Principal Diagnosis Atypical chest pain, likely musculoskeletal Discharge Exam GENERAL: WD/WN M in NAD HEENT: NC/AT, Alopecia NECK : Supple, no tenderness CHEST : CTA, no tenderness HEART : RRR, no obvious murmurs ABDOMEN: Some distention, nontender, soft EXTREMITIES : Minimal LE swelling, no LE tenderness, moves extremities NEUROLOGIC : Coherent, no facial asymmetry, speech fluent, moves extremities SKIN: warm, dry Discharge Data Allergies Allergy/AdvReac Type Severity Reaction Status Date / Time Iodinated Contrast Media AdvReac Mild Dizziness Verified 10/24/23 04:53 iodine AdvReac Mild Dizziness Verified 10/24/23 04:53 Consultations 10/23/23 22:52 ED Decision to Admit Stat 10/24/23 01:57 Consult Cardiology Routine Ordered Studies 10/24/23 00:54 CT head/brain wo con Stat FINDINGS: No acute intracranial hemorrhage. No midline shift or mass effect. The territorial mtz-white matter differentiation is maintained throughout. Age-related cerebral volume loss. Periventricular and subcortical white matter hypoattenuation, consistent with chronic microangiopathy. The visualized orbits appear grossly unremarkable. The calvarium is intact. The visualized paranasal sinuses and mastoid air cells are grossly clear. IMPRESSION: No acute intracranial hemorrhage, midline shift, or mass effect. 10/25/23 08:58 CT angio chest PE protocol Urgent FINDINGS: Lungs and pleura: Atelectasis versus scarring is seen in the dependent portions of the lungs. Bronchial wall thickening and possible groundglass opacities in the right lower lobe. There is a 7 mm pleural-based nodule in the right middle lobe (series 4 image 84). Heart and pericardium: Heart size is normal. No pericardial effusion. Vessels: No evidence of pulmonary embolism. Moderate atherosclerosis is seen. Mediastinum and gilmer: Unremarkable. Chest wall and lower neck: Prominent left thyroid nodule is seen. Abdomen: There is a moderate hiatal hernia and esophageal wall thickening is s een. Bones: Minimal degenerative changes are seen. IMPRESSION: 1. No pulmonary embolus. 2. Groundglass opacities in right lower lobe and bronchial wall thickening may represent infectious/inflammatory process. 3. 7 mm nodule right middle lobe, unchanged from prior exam. 4. Moderate hiatal hernia and esophageal wall thickening, 10/25/23 13:00 US carotid doppler BI Urgent FINDINGS: RIGHT CAROTID: The peak systolic velocity measured within the right ICA is 74 cm/sec. The end diastolic velocity measured 16 cm/sec. The ICA to CCA ratio measured 0.7 which correlates with a stenosis of 0-50%. Atherosclerosis. LEFT CAROTID: The peak systolic velocity measured within the left ICA is 57 cm/sec. The end diastolic velocity measured 15 cm/sec. The ICA to CCA ratio measured 0.6 which correlates with a stenosis of 0-50%. There is normal antegrade vertebral flow bilaterally. IMPRESSION: 1. Atherosclerosis without hemodynamically significant stenosis. 2. Normal antegrade vertebral flow bilaterally. Hospital Course (1) Chest pain: CAD status post stent Rule out ACS Syncope possibly vagal from pain rule out orthostasis, obstructive cardiac pathology PCU Continue antiplatelet and statin Rx for secondary CAD prevention Follow troponin Cardiology consult Re: Chest pain, history of CAD (Patient known [place] [place]ll[place] [facility] [place] obtained -LV systolic function is normal. No regional wall motion abnormalities noted. There is mild concentric LVH. LVEF 55 to 60%. There is mild tricuspid regurg. Compared to study from December 2022, no significant change. Syncope work up - CT PE - no PE, Orthostatics vital signs - negative, CT head negative, carotid US negative Infectious work up - UA negative, CXR negative, procal negative, WBC normal. Blood cultx negat in [address] chest (to rule PE ) - 1. No pulmonary embolus. 2. Groundglass opacities in right lower lobe and bronchial wall thickening may represent infectious/inflammatory process. 3. 7 mm nodule right middle lobe, unchanged from prior exam. 4. Moderate hiatal hernia and esophageal wall thickening, Cardiology consulted - Non-cardiac chest pain: -the patient has had nearly 24 hours of constant chest discomfort. -high sensitivity troponins are all normal. -no acute EKG changes. -physical examination suggests musculoskeletal discomfort. -no further cardiac evaluation necessary at this time. Given findings on CT - can consider increasing pantoprazole to twice a day. Groundglass opacities - can consider starting empiric antibiotic vs guaifenesin. Pt also known to have severe arthritis and pain associated with that - can start NSAIDs, steroid taper, opioids, etc for pain management. Discussed w/ physician at [facility] - will leave further medical management to their discretion. Chronic conditions hypertension, BP controlled hyperlipidemia, on statin Rx hx GERD, cont. PPI chronic anemia, hemoglobin at baseline Hyperglycemia rule out DM, current hemoglobin A1c 5.2% antisocial personality disorder Total Time Total Time Spent Total Time Spent (In Minutes): 40 Discharge Plan Discharge Items [facility] Disposition[facility] Reason For Visit: CHEST PAIN Discharge Diagnosis: Atypical chest pain, likely musculoskeletal Activity: Per Instructions section Non-emergency contact: Primary Care Provider Call non-emergency contact if: you have any medication questions and your symptoms worsen Follow-up/Referrals: Behzad JULIO [Primary Care Provider] - Diet: Heart Healthy Addtl Attending Provider Instructions: Follow up with your primary care physician. All the results of your extensive work up will be sent to your physician and they will discuss with you further treatment plan. Pending Studies at Discharge: Yes Studies:: final blood cultx results Skilled Items Patient informed of condition?: Yes DNR: No Discharge Level of Care: Other Communicable Disease: No Discharge Prognosis: Other Lines: None Urinary Catheter: No Medications and DC Order Prescriptions: Continued carvedilol 12.5 mg Tablet 12.5 mg PO BID Rx Instructions: must administer with a meal/food pantoprazole 40 mg Tablet,Delayed Release (Dr/Ec) 40 mg PO QAM amlodipine [Norvasc] 5 mg Tablet 5 mg PO QAM Qty: 30 0RF losartan 50 mg Tablet 50 mg PO DAILY isosorbide mononitrate 60 mg Tablet Extended Release 24 Hr 60 mg PO DAILY aspirin 325 mg Tablet 325 mg PO QAM Rx Instructions: take with food multivitamin Tablet 1 tab PO QAM atorvastatin 80 mg Tablet 80 mg PO DAILY clopidogrel 75 mg Tablet 75 mg PO DAILY nitroglycerin 0.4 mg Tablet, Sublingual 0.4 mg sublingual UD PRN (Reason: Chest Pain) Rx Instructions: place 1 tablet under the tongue on daily as needed x3 if no relief ,call medical Admission Data Admit Date/Time: 10/24/23 00:56 Attending Provider: Mathew Maldonado Admit Provider: Ernie Edge Primary Care Provider: Behzad JULIO Other Providers: Ernie Edge; Pola Ulloa
--- NOTE | 2023-10-28 11:34 | Electrocardiogram Report ---
Test Reason : Blood Pressure : / mmHG Vent. Rate : 057 BPM Atrial Rate : 057 BPM P-R Int : 178 ms QRS Dur : 080 ms QT Int : 438 ms P-R-T Axes : 063 -07 -33 degrees QTc Int : 426 ms Sinus bradycardia Diffuse Minor Nonspecific T wave abnormality Abnormal ECG When compared with ECG of 24-OCT-2023 05:45, No significant change was found Confirmed by Andrew Price ([id number]) on 10/28/2023 11:33:50 AM Referred By: Behzad JULIO Confirmed By:Andrew Price
== END 2023-10-25 19:20 ==
LOC: ED 20:37 → 2S 20:37

== ENCOUNTER 2023-12-15 21:20 | Observation (INO) ==
--- NOTE | 2023-12-15 21:40 | Emergency Department Note ---
Impression & Plan Chest pain, HTN (hypertension), Hyperglycemia ED Provider Note NAME: IAN [id number] YANDEL AGE: 83 SEX: M : 1940 ARRIVES VIA: Ambulance INFORMANT: Patient ED PROVIDER(S): Royal Worthy DO CHIEF COMPLAINT: Chest pain HPI: Patient is an 83-year-old male who presents to the ER for chest pain with a past medical history of CAD, hypertension, hyperlipidemia. Patient notes that he had some intermittent chest pain since yesterday. It started again tonight around 6 PM. He notes it is worse with exertion. Improves with rest. Its midsternal goes to the left and right. Does go to his drawl. Does have some shortness of breath. Notes that sharp in nature. No dysuria, urgency, or frequency. No belly pain. No nausea or vomiting. ADDITIONAL HISTORY OBTAINED: Per HPI Chronic Medical/Social Conditions Affecting Care: Per HPI PAST MEDICAL HISTORY:See Below PAST SURGICAL HISTORY:See Below FAMILY HISTORY:See Below SOCIAL HISTORY:See Below HOME MEDICATIONS:See Below ALLERGIES:See Below VITALS:See Below PHYSICAL EXAMINATION: GENERAL: Sitting up in bed, alert, well appearing, well nourished, no distress, non-toxic EYE EXAM: normal conjunctiva. OROPHARYNX: mucous membranes are moist LUNGS: Clear to auscultation. Normal chest wall mechanics HEART: no murmurs, S1 normal and S2 normal ABDOMEN: abdomen soft, non-tender, normo-active bowel sounds, no masses, no rebound or guarding. BACK: Back is symmetrical on inspection and there is no deformity, no midline tenderness, no CVA tenderness. SKIN: no rashes and no bruising UPPER EXTREMITIES: upper extremities are grossly normal. LOWER EXTREMITIES: No pitting edema. NEURO EXAM: Normal sensorium, cranial nerves II-XII grossly intact, normal speech, no gross weakness of arms, no gross weakness of legs. MEDICAL DECISION MAKING: Patient is a 83-year-old male with a past medical history of CAD, hypertension and hyperlipidemia who presents ER for above-stated complaint. IV was established blood work was obtained. Labs show no significant leukocytosis or anemia. BMP along with LFTs bilirubin and lipase is unremarkable. Troponin was negative. Chest x-ray was clean. EKG was nondiagnostic. External records were reviewed from the group home and EKG was not significantly changed. Patient was given nitro while here and his pain improved significantly. He had aspirin prior to arrival as well as nitro. His updated bedside and discussed with the guards admitted for further workup. Consults/Care Managements Discussions: Per MDM Triage Nursing notes reviewed. Limited review of prior medical records performed Vital Signs: reviewed and remarkable for HTN Differential diagnosis: Cardiac ischemia, aortic dissection, pulmonary embolism, pneumothorax, pneumonia, pericarditis, myocarditis, esophageal rupture, GERD, cholecystitis, pancreatitis, musculoskeletal, as well as other pathologies. ER treatment provided: See below Diagnostics interpreted by me include EKG and cardiac monitoring as listed below: -Cardiac Monitoring: An order was placed for continuous cardiac monitoring. The monitor shows a rate of 70 with sinus rhythm. -ECG: Sinus rhythm rate 81 Left axis No PVCs QTc 439 -Laboratory studies:Interpreted by me as stated above in MDM and shown below. Imaging studies: Xrays: As interpreted by me: Portable AP upright 1 view of the chest shows no focal infiltrate CTs show: none Procedures:none Critical Care: None Past Med/Surg History Problem List (Updated 12/16/23 @ 00:32 by Royal Worthy DO) Hyperglycemia (Acute) HTN (hypertension) (Acute) Chest pain (Acute) Hypercholesterolemia Non-cardiac chest pain Weakness (Acute) Chest pain (Acute) ASCVD (arteriosclerotic cardiovascular disease) Hypertensive urgency Chest pain (Acute) Hypertension (Acute) Lightheadedness Atypical chest pain Concussion Head trauma Hypertension (Acute) Fall (Acute) Pulmonary nodule Ascending aortic aneurysm Sacral fracture, closed (Acute) Fall Hx of cataract extraction lt. Chronic anemia Stroke-like symptoms (Acute) Chest pain (Acute) Hypertension Dyslipidemia, goal LDL below 70 Acute tonsillitis (Acute) Angioedema (Acute) Sepsis Dysphagia Encounter for pre-operative examination Thyroid nodule Depression Coronary artery disease Gastroesophageal reflux Peritonsillar abscess Medical History [facility] current use of anticoagulant therapy Inmate in correctional facility Constipation Chronic pain 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 (per records) Osteoarthritis Hypertensive renal disease without failure Atherosclerotic heart disease On anticoagulant therapy plavix daily Antisocial personality disorder Hypertension Angina pectoris, unspecified Hyperlipidemia Surgical History History of heart artery stent x2? History of cardiac cath per records multiple heart caths, last was 2019?? with stent placed Family History Mother , in her 80s of an [place] Myocardial infarction Father , of a gunshot wound in his 60s No problems noted. Social History Smoking Status: Never smoker Hx Alcohol Use: No Hx Substance Use: No Preferred Language: Danish Communication Ability: Effective Director Of Ne[facility] [employer] [facility] Required: No Beliefs That Will Affect Care: None Current Living Situation: Other Current Living Situation Comment: [facility] Feels Safe at Home: Yes Assistive Devices: Glasses Allergies Allergies Allergy/AdvReac Type Severity Reaction Status Date / Time Iodinated Contrast Media AdvReac Mild Dizziness Verified 12/15/23 22:24 iodine AdvReac Mild Dizziness Verified 12/15/23 22:24 Home Meds Home Medications Medication Instructions Recorded Confirmed aspirin 325 mg tablet 325 mg PO QAM 06/08/22 12/15/23 atorvastatin 80 mg tablet 80 mg PO DAILY 06/08/22 12/15/23 clopidogrel 75 mg tablet 75 mg PO DAILY 06/08/22 12/15/23 multivitamin 1 tab PO QAM 06/08/22 12/15/23 nitroglycerin 0.4 mg sublingual 0.4 mg sublingual UD PRN Chest Pain 06/08/22 12/15/23 tablet carvedilol 12.5 mg tablet 12.5 mg PO BID 08/14/22 12/15/23 pantoprazole 40 mg tablet,delayed 40 mg PO QAM 08/14/22 12/15/23 release isosorbide mononitrate 60 mg 60 mg PO DAILY 12/13/22 12/15/23 tablet,extended release 24 hr losartan 50 mg tablet 50 mg PO DAILY 12/13/22 12/15/23 Previous Rx's Medication Instructions Recorded amlodipine 5 mg tablet (Norvasc) 5 mg PO QAM #30 tabs 12/07/22 Results & Data (ED) Vital Signs Vital Signs - 24 hr 12/15/23 21:22 12/15/23 21:25 12/15/23 21:25 Temperature 36.9 C Temperature Source Oral Pulse Rate 78 Pulse Rate [Apical] Pulse Rate from SpO2 Sensor Respiratory Rate 26 H Respiratory Effort / Characteristics Non-Labored Spontaneous Respiratory Depth Normal Respiratory Pattern Regular Blood Pressure 159/83 H Blood Pressure [Right Arm] Blood Pressure Mean 108 Blood Pressure Mean [Right Arm] Pulse Oximetry 97 97 97 Oxygen Delivery Method Room Air Room Air Room Air Oxygen Flow Rate 0 Sepsis Recent Fever Within 48 Hours No Sepsis New/Unexplained Change in Mental Status N/A Sepsis Action Taken by Nursing No Action Required 12/15/23 21:26 12/15/23 21:26 12/15/23 21:27 Temperature Temperature Source Pulse Rate 83 Pulse Rate [Apical] Pulse Rate from SpO2 Sensor Respiratory Rate 23 Respiratory Effort / Characteristics Respiratory Depth Respiratory Pattern Blood Pressure 159/83 H 159/83 H Blood Pressure [Right Arm] Blood Pressure Mean 107 107 Blood Pressure Mean [Right Arm] Pulse Oximetry Oxygen Delivery Method Oxygen Flow Rate Sepsis Recent Fever Within 48 Hours Sepsis New/Unexplained Change in Mental Status Sepsis Action Taken by Nursing 12/15/23 21:30 12/15/23 21:30 12/15/23 21:39 Temperature Temperature Source Pulse Rate 72 83 Pulse Rate [Apical] Pulse Rate from SpO2 Sensor Respiratory Rate 26 H 20 Respiratory Effort / Characteristics Respiratory Depth Respiratory Pattern Blood Pressure 166/102 H Blood Pressure [Right Arm] Blood Pressure Mean 144 Blood Pressure Mean [Right Arm] Pulse Oximetry Oxygen Delivery Method Oxygen Flow Rate Sepsis Recent Fever Within 48 Hours Sepsis New/Unexplained Change in Mental Status Sepsis Action Taken by Nursing 12/15/23 21:45 12/15/23 21:45 12/15/23 22:00 Temperature Temperature Source Pulse Rate Pulse Rate [Apical] 79 Pulse Rate from SpO2 Sensor Respiratory Rate Respiratory Effort / Characteristics Respiratory Depth Respiratory Pattern Blood Pressure 171/87 H 162/86 H Blood Pressure [Right Arm] 171/87 H Blood Pressure Mean 123 116 Blood Pressure Mean [Right Arm] 115 Pulse Oximetry Oxygen Delivery Method Oxygen Flow Rate Sepsis Recent Fever Within 48 Hours Sepsis New/Unexplained Change in Mental Status Sepsis Action Taken by Nursing 12/15/23 22:06 12/15/23 22:10 12/15/23 22:12 Temperature Temperature Source Pulse Rate 75 67 70 Pulse Rate [Apical] Pulse Rate from SpO2 Sensor 68 62 Respiratory Rate 18 15 Respiratory Effort / Characteristics Respiratory Depth Respiratory Pattern Blood Pressure Blood Pressure [Right Arm] Blood Pressure Mean Blood Pressure Mean [Right Arm] Pulse Oximetry 96 97 Oxygen Delivery Method Room Air Oxygen Flow Rate Sepsis Recent Fever Within 48 Hours Sepsis New/Unexplained Change in Mental Status Sepsis Action Taken by Nursing 12/15/23 22:15 12/15/23 22:15 12/15/23 22:15 Temperature Temperature Source Pulse Rate Pulse Rate [Apical] Pulse Rate from SpO2 Sensor Respiratory Rate Respiratory Effort / Characteristics Respiratory Depth Respiratory Pattern Blood Pressure 172/79 H 172/79 H 172/79 H Blood Pressure [Right Arm] Blood Pressure Mean 122 122 122 Blood Pressure Mean [Right Arm] Pulse Oximetry Oxygen Delivery Method Oxygen Flow Rate Sepsis Recent Fever Within 48 Hours Sepsis New/Unexplained Change in Mental Status Sepsis Action Taken by Nursing 12/15/23 22:15 12/15/23 22:18 12/15/23 22:30 Temperature Temperature Source Pulse Rate 69 70 Pulse Rate [Apical] Pulse Rate from SpO2 Sensor 65 67 Respiratory Rate 19 17 Respiratory Effort / Characteristics Respiratory Depth Respiratory Pattern Blood Pressure 172/79 H Blood Pressure [Right Arm] Blood Pressure Mean 122 Blood Pressure Mean [Right Arm] Pulse Oximetry 97 96 Oxygen Delivery Method Room Air Oxygen Flow Rate Sepsis Recent Fever Within 48 Hours Sepsis New/Unexplained Change in Mental Status Sepsis Action Taken by Nursing 12/15/23 23:01 12/15/23 23:31 12/15/23 23:45 Temperature Temperature Source Pulse Rate 70 88 64 Pulse Rate [Apical] Pulse Rate from SpO2 Sensor 63 Respiratory Rate 18 16 20 Respiratory Effort / Characteristics Respiratory Depth Respiratory Pattern Blood Pressure 147/87 H 131/98 140/87 Blood Pressure [Right Arm] Blood Pressure Mean 91 101 104 Blood Pressure Mean [Right Arm] Pulse Oximetry 98 100 99 Oxygen Delivery Method Room Air Room Air Room Air Oxygen Flow Rate Sepsis Recent Fever Within 48 Hours Sepsis New/Unexplained Change in Mental Status Sepsis Action Taken by Nursing Laboratory Data 12/15/23 21:30 12/15/23 21:30 Lab Results 12/15/23 Range/Units 21:30 WBC 6.38 (4.8-10.8) K/ul RBC 4.11 L (4.70-6.10) M/uL Hgb 14.7 (14.0-18.0) g/dl Hct 44.0 (42.0-52.0) % MCV 107.1 H (80.0-100.0) fL MCH 35.8 H (25.0-34.0) pg MCHC 33.4 (32.0-36.0) g/dL RDW Std Deviation 45.9 (36.4-46.3) fL RDW Coeff of [place] 11.8 (11.5-14.5) % Plt Count 226 (130-400) K/uL MPV 10.6 (9.4-12.4) fL Immature Gran % (Auto) 0.2 % Neut % (Auto) 64.6 % Lymph % (Auto) 22.1 % [place] % (Auto) 11.9 % Eos % (Auto) 0.9 % Baso % (Auto) 0.3 % Neut # (Auto) 4.12 (1.40-6.50) K/uL Lymph # (Auto) 1.41 (1.20-3.40) K/uL [place] # (Auto) 0.76 H (0.11-0.59) K/uL Eos # (Auto) 0.06 (0.00-0.50) K/uL Baso # (Auto) 0.02 (0.00-0.20) K/uL Immature Gran # (Auto) 0.01 (0.01-0.20) K/uL Sodium 136 (136-145) mmol/L Potassium 4.3 (3.5-5.1) mmol/L Chloride 103 (98-107) mmol/L Carbon Dioxide 27 (21-32) mmol/L Anion Gap 6 (3-11) BUN 22 (6-23) mg/dl Creatinine 0.99 (0.6-1.4) mg/dl Est Cr Clr Drug Dosing 64.5 ml/min Est GFR ( Amer) 81.9 ml/min Est GFR (Non-Af Amer) 70.6 ml/min BUN/Creatinine Ratio 22.2 H (10-20) Glucose 116 H (70-99(Fasting)) mg/dl Calcium 9.4 (8.6-10.3) mg/dl Total Bilirubin 0.8 (0.2-1.0) mg/dl AST 37 (13-39) U/L ALT 24 (7-52) U/L Alkaline Phosphatase 115 H (34-104) U/L Troponin I High Sens 9.4 (0-20) pg/ml Total Protein 7.6 (6.0-8.3) gm/dl Albumin 3.8 (3.4-5.0) gm/dl Globulin 3.8 (2.5-4.0) gm/dl Albumin/Globulin Ratio 1.0 (0.9-2) Lipase 10 L (11-82) U/L Administered Medications Discontinued Medications Nitroglycerin (Nitroglycerin Sl 0.4 Mg/Tab Tab) 0.4 mg SL NOW STA Stop: 12/15/23 21:41 Last Admin: 12/15/23 21:45 Dose: 0.4 mg Documented By: NINFA Discharge Plan Visit Data Chief Complaint: Chest Pain Stated Complaint: Substernal Chest Pain ED Provider: Royal Worthy Discharge Problem: Chest pain, HTN (hypertension), Hyperglycemia Forms Stand Alone Forms: [facility] [place] [employer] Prescriptions Prescriptions: No Action carvedilol 12.5 mg Tablet 12.5 mg PO BID Rx Instructions: must administer with a meal/food pantoprazole 40 mg Tablet,Delayed Release (Dr/Ec) 40 mg PO QAM amlodipine [Norvasc] 5 mg Tablet 5 mg PO QAM Qty: 30 0RF losartan 50 mg Tablet 50 mg PO DAILY isosorbide mononitrate 60 mg Tablet Extended Release 24 Hr 60 mg PO DAILY aspirin 325 mg Tablet 325 mg PO QAM Rx Instructions: take with food multivitamin Tablet 1 tab PO QAM atorvastatin 80 mg Tablet 80 mg PO DAILY clopidogrel 75 mg Tablet 75 mg PO DAILY nitroglycerin 0.4 mg Tablet, Sublingual 0.4 mg sublingual UD PRN (Reason: Chest Pain) Rx Instructions: place 1 tablet under the tongue on daily as needed x3 if no relief ,call medical Referrals Referrals: Behzad JULIO [Primary Care Provider] - Discharge Problem: Chest pain Qualifiers: Chest pain type: unspecified Qualified Code(s): R07.9 - Chest pain, unspecified HTN (hypertension) Qualifiers: Hypertension type: unspecified Qualified Code(s): I10 - Essential (primary) hypertension
[2023-12-15 21:45] LABS: Basophils # (auto) 0.02 K/uL (0.00-0.20); Basophils % (auto) 0.3 %; Eosinophils # (auto) 0.06 K/uL (0.00-0.50); Eosinophils % (auto) 0.9 %; Hemoglobin 14.7 g/dl (14.0-18.0); Immature Granulocytes # (auto) 0.01 K/uL (0.01-0.20); Immature Granulocytes % (auto) 0.2 %; Lymphocytes # (auto) 1.41 K/uL (1.20-3.40); Lymphocytes % (auto) 22.1 %; Mean Corpuscular Hemoglobin 35.8 pg (25.0-34.0); Mean Corpuscular Hgb Conc 33.4 g/dL (32.0-36.0); Mean Corpuscular Volume 107.1 fL (80.0-100.0); Mean Platelet Volume 10.6 fL (9.4-12.4); Monocytes # (auto) 0.76 K/uL (0.11-0.59); Monocytes % (auto) 11.9 %; Neutrophils # (auto) 4.12 K/uL (1.40-6.50); Neutrophils % (auto) 64.6 %; Platelet Count 226 K/uL (130-400); RDW Coefficient of Variation 11.8 % (11.5-14.5); RDW Standard Deviation 45.9 fL (36.4-46.3); Red Blood Count 4.11 M/uL (4.70-6.10); White Blood Count 6.38 K/ul (4.8-10.8)
[2023-12-15] MEDS: NITROGLYCERIN SL 0.4 MG/TAB TAB SL STA (21:45)
[2023-12-15 22:02] LABS: Albumin Level 3.8 gm/dl (3.4-5.0); BUN Creatinine Ratio 22.2 (10-20); Bilirubin,Total 0.8 mg/dl (0.2-1.0); Calcium 9.4 mg/dl (8.6-10.3); Creatinine Clr Calc Pharmacy 64.5 ml/min; Est GFR (African American) 81.9 ml/min; Est GFR (Non-African American) 70.6 ml/min; Globulin 3.8 gm/dl (2.5-4.0); Potassium 4.3 mmol/L (3.5-5.1); Total Protein 7.6 gm/dl (6.0-8.3)
[2023-12-15 22:08] LABS: Troponin I High Sensitivity 9.4 pg/ml (0-20)
--- NOTE | 2023-12-16 01:37 | History & Physical Report ---
Date of Service December 16, 2023 Assessment & Plan (1) Chest pain: Plan: 83-year-old male with past medical history significant for CAD status post stents , hypertension, hyperlipidemia, GERD, chronic anemia baseline hemoglobin 12-13, latent TB as per records, antisocial personality, chronic pain, history of hypertensive urgency comes from jail because of chest pain starting 4 AM yesterday. Patient states pain is located in his center of chest radiating to the neck and also the right arm and severe in nature. Pain was more while ambulating. Also having nausea. And abdominal pain. States also having severe headache. States he has runny nose and sore throat which is going around currently in jail as per patient. Vision is okay. Has some cough. No difficulty swallowing. Appetite not great as food is not great as per patient. No diarrhea or constipation. Micturating okay. Resting comfortably and hemodynamically stable. Chest pain History of CAD s/p stents Initial EKG and troponin negative Will follow serial cardiac enzymes and echo and repeat EKG in a.m. N.p.o. for now Med/telemetry Cardiac consult in a.m. Abdominal pain and nausea N.p.o. IV fluids, IV antiemetics prn Will follow CT abdomen pelvis History of CAD s/p stents On aspirin and Plavix and Coreg and Imdur and statin Hypertension On amlodipine, Coreg, Imdur, losartan Will monitor Hyperlipidemia Statin GERD No Protonix DVT prophylaxis SCDs Disposition Observation med/telemetry Full code. History of Present Illness Chief Complaint: Chest pain and abdominal pain Primary Care Provider: SUMANTH Wen 83-year-old male with past medical history significant for CAD status post stents , hypertension, hyperlipidemia, GERD, chronic anemia baseline hemoglobin 12-13, latent TB as per records, antisocial personality, chronic pain, history of hypertensive urgency comes from jail because of chest pain starting 4 AM yesterday. Patient states pain is located in his center of chest radiating to the neck and also the right arm and severe in nature. Pain was more while ambulating. Also having nausea. And abdominal pain. States also having severe headache. States he has runny nose and sore throat which is going around currently in jail as per patient. Vision is okay. Has some cough. No difficulty swallowing. Appetite not great as food is not great as per patient. No diarrhea or constipation. Micturating okay. Resting comfortably and hemodynamically stable. Past medical history. As mentioned above Past surgical history. Appendectomy. Cataract surgery. Social history. No smoking. No alcohol use. Currently in jail. Family history significant for heart disease. Allergies Allergy/AdvReac Type Severity Reaction Status Date / Time Iodinated Contrast Media AdvReac Mild Dizziness Verified 12/15/23 22:24 iodine AdvReac Mild Dizziness Verified 12/15/23 22:24 Home Medications Medication Instructions Recorded Confirmed Type aspirin 325 mg tablet 325 mg PO QAM 06/08/22 12/15/23 History atorvastatin 80 mg tablet 80 mg PO DAILY 06/08/22 12/15/23 History clopidogrel 75 mg tablet 75 mg PO DAILY 06/08/22 12/15/23 History multivitamin 1 tab PO QAM 06/08/22 12/15/23 History nitroglycerin 0.4 mg sublingual 0.4 mg sublingual UD PRN Chest Pain 06/08/22 12/15/23 History tablet carvedilol 12.5 mg tablet 12.5 mg PO BID 08/14/22 12/15/23 History pantoprazole 40 mg tablet,delayed 40 mg PO QAM 08/14/22 12/15/23 History release amlodipine 5 mg tablet (Norvasc) 5 mg PO QAM #30 tabs 12/07/22 12/15/23 Rx isosorbide mononitrate 60 mg 60 mg PO DAILY 12/13/22 12/15/23 History tablet,extended release 24 hr losartan 50 mg tablet 50 mg PO DAILY 12/13/22 12/15/23 History Past Med/Surg History Problem List (Updated 12/16/23 @ 00:32 by Royal Worthy DO) Hyperglycemia (Acute) HTN (hypertension) (Acute) Chest pain (Acute) Hypercholesterolemia Non-cardiac chest pain Weakness (Acute) Chest pain (Acute) ASCVD (arteriosclerotic cardiovascular disease) Hypertensive urgency Chest pain (Acute) Hypertension (Acute) Lightheadedness Atypical chest pain Concussion Head trauma Hypertension (Acute) Fall (Acute) Pulmonary nodule Ascending aortic aneurysm Sacral fracture, closed (Acute) Fall Hx of cataract extraction lt. Chronic anemia Stroke-like symptoms (Acute) Chest pain (Acute) Hypertension Dyslipidemia, goal LDL below 70 Acute tonsillitis (Acute) Angioedema (Acute) Sepsis Dysphagia Encounter for pre-operative examination Thyroid nodule Depression Coronary artery disease Gastroesophageal reflux Peritonsillar abscess Medical History [facility] current use of anticoagulant therapy Inmate in correctional facility Constipation Chronic pain 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 (per records) Osteoarthritis Hypertensive renal disease without failure Atherosclerotic heart disease On anticoagulant therapy plavix daily Antisocial personality disorder Hypertension Angina pectoris, unspecified Hyperlipidemia Surgical History History of heart artery stent x2? History of cardiac cath per records multiple heart caths, last was 2018?? with stent placed Family History Mother , in her 80s of an [place] Myocardial infarction Father , of a gunshot wound in his 60s No problems noted. Social History Smoking Status: Never smoker Hx Alcohol Use: No Hx Substance Use: No Preferred Language: Pry[place]in[place] Communication Ability: Effective Loop Tender Required: No Beliefs That Will Affect Care: None Current Living Situation: Other Current Living Situation Comment: [facility] Other Information That Helps Us Care for You: No Feels Safe at Home: Yes Assistive Devices: Glasses Review of Systems Review of Systems: All systems reviewed & are unremarkable except as noted in HPI & below Physical Exam Physical Exam: General- Not in distress. Head- atraumatic Eyes- PERRL, EOMI, anicteric ENT- oropharynx clear Neck- supple, no JVD. Lungs- clear to auscultation no wheezing or crackles. Heart- regular rhythm; no murmur, no gallop. Abdomen- normal bowel sounds, soft,diffuse tender, no distension Extremities- no pretibial edema, no erythema seen Neuro- alert, oriented PERRL, no facial palsy; no dysarthria; moves extremities Results & Data Results & Data Vital Signs (Past 12 Hours) Vital Signs Temp Pulse Pulse Resp BP BP Pulse Ox 12/16/23 01:00 64 17 164/87 H 96 12/16/23 00:30 72 21 143/88 H 99 12/16/23 00:15 67 20 152/82 H 97 12/15/23 23:45 64 20 140/87 99 12/15/23 23:31 88 16 131/98 100 12/15/23 23:01 70 18 147/87 H 98 12/15/23 22:30 70 17 96 12/15/23 22:18 69 19 97 12/15/23 22:15 172/79 H 12/15/23 22:15 172/79 H 12/15/23 22:15 172/79 H 12/15/23 22:15 172/79 H 12/15/23 22:12 70 15 97 12/15/23 22:10 67 12/15/23 22:06 75 18 96 12/15/23 22:00 162/86 H 12/15/23 21:45 171/87 H 12/15/23 21:45 79 171/87 H 12/15/23 21:39 83 20 12/15/23 21:30 166/102 H 12/15/23 21:30 72 26 H 12/15/23 21:27 83 23 12/15/23 21:26 159/83 H 12/15/23 21:26 159/83 H 12/15/23 21:25 97 12/15/23 21:25 36.9 C 78 26 H 159/83 H 97 12/15/23 21:22 97 O2 Del Method O2 Flow Rate 12/16/23 01:00 Room Air 12/16/23 00:30 Room Air 12/16/23 00:15 Room Air 12/15/23 23:45 Room Air 12/15/23 23:31 Room Air 12/15/23 23:01 Room Air 12/15/23 22:30 Room Air 12/15/23 22:18 12/15/23 22:15 12/15/23 22:15 12/15/23 22:15 12/15/23 22:15 12/15/23 22:12 12/15/23 22:10 12/15/23 22:06 Room Air 12/15/23 22:00 12/15/23 21:45 12/15/23 21:45 12/15/23 21:39 12/15/23 21:30 12/15/23 21:30 12/15/23 21:27 12/15/23 21:26 12/15/23 21:26 12/15/23 21:25 Room Air 0 12/15/23 21:25 Room Air 12/15/23 21:22 Room Air Diagnostic Findings Laboratory Results WBC 6.38 K/ul (4.8-10.8) 12/15/23 21:30 RBC 4.11 M/uL (4.70-6.10) L 12/15/23 21:30 Hgb 14.7 g/dl (14.0-18.0) 12/15/23 21:30 Hct 44.0 % (42.0-52.0) 12/15/23 21:30 MCV 107.1 fL (80.0-100.0) H 12/15/23 21:30 MCH 35.8 pg (25.0-34.0) H 12/15/23 21:30 MCHC 33.4 g/dL (32.0-36.0) 12/15/23 21:30 RDW Std Deviation 45.9 fL (36.4-46.3) 12/15/23 21:30 RDW Coeff of [place] 11.8 % (11.5-14.5) 12/15/23 21:30 Plt Count 226 K/uL (130-400) 12/15/23 21:30 MPV 10.6 fL (9.4-12.4) 12/15/23 21:30 Immature Gran % (Auto) 0.2 % 12/15/23 21:30 Neut % (Auto) 64.6 % 12/15/23 21:30 Lymph % (Auto) 22.1 % 12/15/23 21:30 [place] % (Auto) 11.9 % 12/15/23 21:30 Eos % (Auto) 0.9 % 12/15/23 21:30 Baso % (Auto) 0.3 % 12/15/23 21:30 Neut # (Auto) 4.12 K/uL (1.40-6.50) 12/15/23 21: Lymph # (Auto) 1.41 K/uL (1.20-3.40) 12/15/23 21:30 [place] # (Auto) 0.76 K/uL (0.11-0.59) H 12/15/23 21:30 Eos # (Auto) 0.06 K/uL (0.00-0.50) 12/15/23 21:30 Baso # (Auto) 0.02 K/uL (0.00-0.20) 12/15/23 21:30 Immature Gran # (Auto) 0.01 K/uL (0.01-0.20) 12/15/23 21:30 Sodium 136 mmol/L (136-145) 12/15/23 21:30 Potassium 4.3 mmol/L (3.5-5.1) 12/15/23 21:30 Chloride 103 mmol/L (98-107) 12/15/23 21:30 Carbon Dioxide 27 mmol/L (21-32) 12/15/23 21:30 Anion Gap 6 (3-11) 12/15/23 21:30 BUN 22 mg/dl (6-23) 12/15/23 21:30 Creatinine 0.99 mg/dl (0.6-1.4) 12/15/23 21:30 Est Cr Clr Drug Dosing 64.5 ml/min 12/15/23 21:30 Est GFR ( Amer) 81.9 ml/min 12/15/23 21:30 Est GFR (Non-Af Amer) 70.6 ml/min 12/15/23 21:30 BUN/Creatinine Ratio 22.2 (10-20) H 12/15/23 21:30 Glucose 116 mg/dl (70-99(Fasting)) H 12/15/23 21:30 Calcium 9.4 mg/dl (8.6-10.3) 12/15/23 21:30 Total Bilirubin 0.8 mg/dl (0.2-1.0) 12/15/23 21:30 AST 37 U/L (13-39) 12/15/23 21:30 ALT 24 U/L (7-52) 12/15/23 21:30 Alkaline Phosphatase 115 U/L (34-104) H 12/15/23 21:30 Troponin I High Sens 9.4 pg/ml (0-20) 12/15/23 21:30 Total Protein 7.6 gm/dl (6.0-8.3) 12/15/23 21:30 Albumin 3.8 gm/dl (3.4-5.0) 12/15/23 21:30 Globulin 3.8 gm/dl (2.5-4.0) 12/15/23 21:30 Albumin/Globulin Ratio 1.0 (0.9-2) 12/15/23 21:30 Lipase 10 U/L (11-82) L 12/15/23 21:30 ECG Additional Comments: ECG. Normal sinus rhythm with PACs at a rate of 81. Nonspecific T wave abnormality. QTc 439 Code Status & VTE Plan VTE Prophylaxis Plan VTE Prophylaxis will be ordered: Yes (1) Chest pain Chest pain type: unspecified Qualified Code(s): R07.9 - Chest pain, unspecified
[2023-12-16] MEDS ORDERED: ONDANSETRON INJ 2 MG/ML 2 ML VIAL IV PRN (04:50)
[2023-12-16] MEDS ORDERED: NITROGLYCERIN SL 0.4 MG/TAB TAB SL PRN (04:50)
[2023-12-16] MEDS ORDERED: HYDROmorphone INJ 0.5 MG/0.5 ML SYR IV PRN (04:50)
[2023-12-16] MEDS: SODIUM CHLORIDE 0.9% 1,000 ML IV SCH ×3 (05:12→18:32)
--- NOTE | 2023-12-16 06:41 | XRay Report ---
XR chest 1V portable HISTORY: 83 years-old Male Chest pain, nonspecific COMPARISON: 10/25/2023 TECHNIQUE: AP view of the chest FINDINGS: Cardiac silhouette is mildly enlarged. A hiatal hernia. Lungs are clear. No pneumothorax or pleural e ffusion. IMPRESSION: No acute process. ACT 112: Negative or not required by law. The above report was generated using voice recognition software. It may contain grammatical, syntax o r spelling errors. Electronically signed by: Dustin Hurtado M.D. 12/16/2023 6:38 AM
[2023-12-16 06:54] LABS: Basophils # (auto) 0.02 K/uL (0.00-0.20); Basophils % (auto) 0.3 %; Eosinophils # (auto) 0.07 K/uL (0.00-0.50); Eosinophils % (auto) 1.2 %; Hematocrit (blood only) 43.7 % (42.0-52.0); Hemoglobin 14.6 g/dl (14.0-18.0); Immature Granulocytes # (auto) 0.02 K/uL (0.01-0.20); Immature Granulocytes % (auto) 0.3 %; Lymphocytes # (auto) 1.74 K/uL (1.20-3.40); Lymphocytes % (auto) 29.5 %; Mean Corpuscular Hemoglobin 35.8 pg (25.0-34.0); Mean Corpuscular Hgb Conc 33.4 g/dL (32.0-36.0); Mean Corpuscular Volume 107.1 fL (80.0-100.0); Mean Platelet Volume 11.3 fL (9.4-12.4); Monocytes # (auto) 0.83 K/uL (0.11-0.59); Monocytes % (auto) 14.1 %; Neutrophils # (auto) 3.21 K/uL (1.40-6.50); Neutrophils % (auto) 54.6 %; Platelet Count 187 K/uL (130-400); Platelet Estimate Normal (Normal); RDW Coefficient of Variation 11.8 % (11.5-14.5); RDW Standard Deviation 46.5 fL (36.4-46.3); Red Blood Count 4.08 M/uL (4.70-6.10); White Blood Count 5.89 K/ul (4.8-10.8)
[2023-12-16 07:08] LABS: BUN Creatinine Ratio 19.5 (10-20); Calcium 9.1 mg/dl (8.6-10.3); Creatinine Clr Calc Pharmacy 56.5 ml/min; Est GFR (African American) 69.8 ml/min; Est GFR (Non-African American) 60.2 ml/min; Magnesium 1.9 mg/dl (1.7-2.4); Potassium 4.5 mmol/L (3.5-5.1); Troponin I High Sensitivity 10.2 pg/ml (0-20)
[2023-12-16] MEDS: amLODIPine BESYLATE 5 MG TAB PO SCH (10:08)
[2023-12-16] MEDS: ATORVASTATIN 40 MG TAB PO SCH (10:09)
[2023-12-16] MEDS: ASPIRIN 325 MG ECTAB PO SCH (10:09)
[2023-12-16] MEDS: CLOPIDOGREL BISULFATE 75 MG TAB PO SCH (10:10)
[2023-12-16] MEDS: carvediloL 12.5 MG TAB PO SCH (10:10)
[2023-12-16] MEDS: ISOSORBIDE MONO EXTENDED REL 60 MG TABCR PO SCH (10:11)
[2023-12-16] MEDS: LOSARTAN POTASSIUM 50 MG TAB PO SCH (10:11)
[2023-12-16] MEDS: MULTIVITAMIN TAB PO SCH (10:12)
[2023-12-16] MEDS: PANTOprazole 40 MG TAB PO SCH (10:12)
[2023-12-16 10:30] LABS: Adenovirus PCR Not Detected (NotDetected); Bordetella parapertussis PCR Not Detected (NotDetected); Bordetella pertussis PCR Not Detected (NotDetected); Chlamydia pneumoniae PCR Not Detected (NotDetected); Coronavirus 229E PCR Not Detected (NotDetected); Coronavirus CoV-2 (COVID19)PCR Not Detected (NotDetected); Coronavirus HKU1 PCR Not Detected (NotDetected); Coronavirus NL63 PCR Not Detected (NotDetected); Coronavirus OC43PCR Not Detected (NotDetected); Human Metapneumovirus PCR Not Detected (NotDetected); Influenza A PCR Not Detected (NotDetected); Influenza B PCR Not Detected (NotDetected); Mycoplasma pneumoniae PCR Not Detected (NotDetected); Parainfluenza Virus 1 PCR Not Detected (NotDetected); Parainfluenza Virus 2 PCR Not Detected (NotDetected); Parainfluenza Virus 3 PCR Not Detected (NotDetected); Parainfluenza Virus 4 PCR Not Detected (NotDetected); Respiratory Syncytial VirusPCR Not Detected (NotDetected); Rhinovirus/Enterovirus PCR Not Detected (NotDetected)
--- NOTE | 2023-12-16 10:33 | CT Scan Report ---
ABDOMEN AND PELVIS CT WITHOUT CONTRAST CT DOSE: 1386.88 mGy.cm HISTORY: Acute generalized abdominal pain with nausea abdominal pain and nausea TECHNIQUE: Multiaxial CT images of the abdomen and pelvis were performed without contrast. A dose lo wering technique was utilized adhering to the principles of ALARA. COMPARISON STUDY: 10/10/2022 FINDINGS: Cardiomegaly with decreased attenuation of the cardiac blood pool suggestive of anemia. Sta ble 7 mm subpleural solid nodule within the right middle lobe, image 28 series 4. Stable 4 mm nodule in the left lower lobe on image 38. Unchanged 3 mm subpleural solid nodule at the right lower lobe on image 67. No pneumatosis or pneumoperitoneum. The unenhanced spleen, pancreas, gallbladder and adren al glands are unremarkable. Liver is also within normal limits. Mild nonspecific bilateral perinephric stranding. 3.7 cm exophytic cyst of the superior pole right ki dney with subcentimeter marginal calcification. 2 mm nonobstructing calculus of the superior pole rig ht kidney. 2.9 cm cyst in the inferior pole left kidney with layering milk of calcium. Cortical thinn ing of the kidneys. No ureteral calculi or hydronephrosis. Prostatomegaly with calcifications of vas deferens. Urinary bladder wall thickening with partial distention. Small fat filled inguinal hernias. Atherosclerosis of the aorta. Moderate sized hiatal hernia. No bowel obstruction. Extensive colonic diverticulosis. Wall thickening of the mid sigmoid colon with subtle adjacent inflammatory changes is similar to the prior study. Th ere are 2 nodular foci seen adjacent to the sigmoid on image 210 series 3 within the omentum measurin g up to 7 mm. These are similar to prior. Appendix is not visualized. Postoperative changes of the an terior abdominal wall. Degenerative changes of the spine, pelvis and hips. Chronic sacral fracture. 1 .7 cm right paracentral mid abdominal wall hernia is fat filled on image 174 series 3. Diastases rect i. IMPRESSION: 1. Extensive colonic diverticulosis. Wall thickening of the sigmoid colon is similar to prior, likely secondary to chronic diverticular disease. There may also be a subtle component of acute on chronic diverticulitis which should be correlated clinically. 2. There are two subcentimeter nodular omental/peritoneal foci adjacent to the proximal sigmoid which are unchanged from prior. 3. No bowel obstruction or pneumoperitoneum. 4. Moderate-sized hiatal hernia. 5. Right nephrolithiasis. No ureteral calculi or hydronephrosis. 6. Additional findings as above. ACT 112: Negative or not required by law. The above report was generated using voice recognition software. It may contain grammatical, syntax o r spelling errors. Electronically signed by: Dustin Hurtado M.D. 12/16/2023 10:31 AM
--- NOTE | 2023-12-16 11:21 | Communication Note ---
Date of Service: December 16, 2023 Patient was seen and examined at bedside. 83-year-old male with PMH of CAD status post stents, HTN, HLD, GERD, chronic anemia [baseline hemoglobin 12-13], latent TB, antisocial personality, chronic pain, hypertensive urgency comes from detention because of chest pain starting about 4 AM from the day prior. Patient reported centrally located chest pain radiating to the neck and also to the right arm, severe in nature, worse with ambulating, also associated with nausea and upper abdominal pain. He also stated having severe headache. He also reported having runny nose and sore throat which has been going around currently in the detention as per patient. He is being managed for the following: Chest pain: History of CAD status post stent Patient came in with central chest pain radiating to neck/right arm/upper belly Admitting EKG w/ sinus rhythm w/ PACs, ECHO w/ EF 65-70%, no RWMA, Grade I diastolic dysfunction. Trop x 3 neg. Pt reports on and off chest pain. doesn't appear to be in distress. c/w tele monitor, cardio on board, await recs. Abdominal pain and nausea: Likely associated with chest discomfort, CTAP with no acute finding. Patient did not abdominal tenderness on exam/No concern for diverticulitis. Continue with as needed antiemetics and IV fluid. Can resume diet once cardiology evaluation done. Other chronic medical conditions: Continue with/resume home meds as and when able History of CAD status post stents: Continue with home aspirin and Plavix and Coreg and Imdur and statin. Hypertension: Continue with home amlodipine, Coreg, Imdur, losartan Hyperlipidemia: Continue with home statin GERD: c/w home Protonix DVT prophylaxis: Continue with SCDs Disposition: Med/tele Full code for detailed information on the patient, refer to today's H&P note.
--- NOTE | 2023-12-16 13:11 | Electrocardiogram Report ---
Test Reason : Blood Pressure : */* mmHG Vent. Rate : 81 BPM Atrial Rate : 81 BPM P-R Int : 144 ms QRS Dur : 78 ms QT Int : 378 ms P-R-T Axes : 63 -24 2 degrees QTcB Int : 439 ms Poor data quality, interpretation may be adversely affected Sinus rhythm with Premature atrial complexes Nonspecific T wave abnormality Abnormal ECG When compared with ECG of 25-Oct-2023 05:23, Premature atrial complexes are now Present ST no longer elevated in Lateral leads Confirmed by Clay Hearn ([id number]) on 12/16/2023 1:11:08 PM Referred By: Behzad JULIO Confirmed By: Clay Hearn
--- NOTE | 2023-12-16 13:15 | Electrocardiogram Report ---
Test Reason : Blood Pressure : */* mmHG Vent. Rate : 72 BPM Atrial Rate : 72 BPM P-R Int : 154 ms QRS Dur : 86 ms QT Int : 374 ms P-R-T Axes : 79 3 19 degrees QTcB Int : 409 ms Sinus rhythm with Premature supraventricular complexes Nonspecific T wave abnormality Abnormal ECG When compared with ECG of 15-Dec-2023 21:24, (unconfirmed) Nonspecific T wave abnormality now evident in Anterior leads Confirmed by Clay Hearn ([id number]) on 12/16/2023 1:15:04 PM Referred By: Behzad [facility] Confirmed By: Clay Hearn
--- NOTE | 2023-12-16 13:53 | Cardiology Consultation ---
Date of Consultation December 16, 2023 Assessment & Plan (1) Non-cardiac chest pain: (2) ASCVD (arteriosclerotic cardiovascular disease): Plan Patient is an 83-year-old male with known coronary disease with remote left anterior coronary artery stent but negative ischemic workup serially since that time. Presents now with extended episode of abdominal pain and chest pain symptoms lasting greater than 36 hours. No EKG changes or troponin elevation, normal LV systolic function on echocardiogram. Patient on excellent guideline directed medical therapy. Do not suspect acute coronary syndrome Would liberalize diet and ambulate History of Present Illness Reason for Consultation: Chest pain, abdominal pain Requesting Physician: Dr. Plaza Attending Physician: Sai Plaza MD History of Present Illness Patient is an 83-year-old male with limited records available from past cardiac interventions but history per review of records includes 1. Atherosclerotic coronary disease prior left anterior descending coronary stenting. Cardiac catheterization have been repeated over years with most recent study available 2018 with patent stent in minor disease only. 2. Hypertension 3. Hyperlipidemia on treatment 4. Chronic abdominal pain, gastroesophageal reflux Patient presents this admission having developed nausea and abdominal discomfort followed by chest pain after emesis. Symptoms lasted 24 to 36 hours before resolving in hospital. Currently minimal abdominal discomfort no chest pain. No tachycardia palpitations syncope or near syncope. No fevers chills or unexplained infections. No orthopnea PND or peripheral edema. Cardiac evaluation since admission includes EKG without acute ST segment changes, cardiac enzymes x 3 without elevation or evolution. Echocardiogram with normal to hyperdynamic LV function and no wall motion abnormalities Allergies Allergy/AdvReac Type Severity Reaction Status Date / Time Iodinated Contrast Media AdvReac Mild Dizziness Verified 12/15/23 22:24 iodine AdvReac Mild Dizziness Verified 12/15/23 22:24 Home Medications Medication Instructions Recorded Confirmed Type aspirin 325 mg tablet 325 mg PO QAM 06/08/22 12/15/23 History atorvastatin 80 mg tablet 80 mg PO DAILY 06/08/22 12/15/23 History clopidogrel 75 mg tablet 75 mg PO DAILY 06/08/22 12/15/23 History multivitamin 1 tab PO QAM 06/08/22 12/15/23 History nitroglycerin 0.4 mg sublingual 0.4 mg sublingual UD PRN Chest Pain 06/08/22 12/15/23 History tablet carvedilol 12.5 mg tablet 12.5 mg PO BID 08/14/22 12/15/23 History pantoprazole 40 mg tablet,delayed 40 mg PO QAM 08/14/22 12/15/23 History release amlodipine 5 mg tablet (Norvasc) 5 mg PO QAM #30 tabs 12/07/22 12/15/23 Rx isosorbide mononitrate 60 mg 60 mg PO DAILY 12/13/22 12/15/23 History tablet,extended release 24 hr losartan 50 mg tablet 50 mg PO DAILY 12/13/22 12/15/23 History Patient History Medical History detention current use of anticoagulant therapy Inmate in correctional facility Constipation Chronic pain 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 (per records) Osteoarthritis Hypertensive renal disease without failure Atherosclerotic heart disease On anticoagulant therapy plavix daily Antisocial personality disorder Hypertension Angina pectoris, unspecified Hyperlipidemia Surgical History History of heart artery stent x2? History of cardiac cath per records multiple heart caths, last was 2018?? with stent placed Family History Mother , in her 80s of an [place] Myocardial infarction Father , of a gunshot wound in his 60s No problems noted. Social History Smoking Status: Never smoker Hx Alcohol Use: No Hx Substance Use: No Preferred Language: Armenian Communication Ability: Effective Lab Support Tech Required: No Beliefs That Will Affect Care: None Current Living Situation: Other Current Living Situation Comment: [facility] Other Information That Helps Us Care for You: No Feels Safe at Home: Yes Assistive Devices: Glasses Review of Systems Review of Systems: All systems reviewed & are unremarkable except as noted in Subjective Results & Data Vital Signs (Past 12 Hours) Vital Signs Temp Pulse Pulse Pulse Resp BP BP 12/16/23 11:39 36.6 C 83 16 118/55 L 12/16/23 08:23 36.5 C 62 16 134/66 12/16/23 08:00 70 12/16/23 05:05 12/16/23 05:05 36.6 C 76 20 177/72 H 12/16/23 04:50 36.6 C 76 18 177/72 H 12/16/23 04:00 72 12 168/89 H 12/16/23 02:30 72 20 161/94 H 12/16/23 02:12 69 18 173/84 H 12/16/23 02:11 76 Pulse Ox O2 Del Method 12/16/23 11:39 100 Room Air 12/16/23 08:23 96 Room Air 12/16/23 08:00 12/16/23 05:05 Room Air 12/16/23 05:05 97 Room Air 12/16/23 04:50 97 Room Air 12/16/23 04:00 99 Room Air 12/16/23 02:30 99 Room Air 12/16/23 02:12 96 Room Air 12/16/23 02:11 Laboratory Results Laboratory Results - last 24 hr 12/15/23 12/16/23 12/16/23 21:30 02:19 05:58 WBC 6.38 5.89 RBC 4.11 L 4.08 L Hgb 14.7 14.6 Hct 44.0 43.7 MCV 107.1 H 107.1 H MCH 35.8 H 35.8 H MCHC 33.4 33.4 RDW Std Deviation 45.9 46.5 H RDW Coeff of [place] 11.8 11.8 Plt Count 226 187 MPV 10.6 11.3 Immature Gran % (Auto) 0.2 0.3 Neut % (Auto) 64.6 54.6 Lymph % (Auto) 22.1 29.5 [place] % (Auto) 11.9 14.1 Eos % (Auto) 0.9 1.2 Baso % (Auto) 0.3 0.3 Neut # (Auto) 4.12 3.21 Lymph # (Auto) 1.41 1.74 [place] # (Auto) 0.76 H 0.83 H Eos # (Auto) 0.06 0.07 Baso # (Auto) 0.02 0.02 Immature Gran # (Auto) 0.01 0.02 Platelet Estimate Normal Sodium 136 138 Potassium 4.3 4.5 Chloride 103 103 Carbon Dioxide 27 29 Anion Gap 6 6 BUN 22 22 Creatinine 0.99 1.13 Est Cr Clr Drug Dosing 64.5 56.5 Est GFR ( Amer) 81.9 69.8 Est GFR (Non-Af Amer) 70.6 60.2 BUN/Creatinine Ratio 22.2 H 19.5 Glucose 116 H 97 Calcium 9.4 9.1 Magnesium 1.9 Total Bilirubin 0.8 AST 37 ALT 24 Alkaline Phosphatase 115 H Troponin I High Sens 9.4 10.2 Total Protein 7.6 Albumin 3.8 Globulin 3.8 Albumin/Globulin Ratio 1.0 Lipase 10 L Nasal Screen MRSA (PCR) Negative Adenovirus (PCR) B. pertussis DNA (PCR) B.parapertussis DNA PCR C. pneumoniae DNA (PCR) Coronavirus OC43 (PCR) Coronavirus HKU1 (PCR) Coronavirus 229E (PCR) SARS-CoV-2 (PCR) Coronavirus NL63 (PCR) Human Metapneumovir PCR Influenza Type A (PCR) Influenza Type B (PCR) M. pneumoniae (PCR) Parainfluenza 1 (PCR) Parainfluenza 2 (PCR) Parainfluenza 3 (PCR) Parainfluenza 4 (PCR) RSV (PCR) Entero/Rhino (PCR) 12/16/23 12/16/23 09:30 10:41 WBC RBC Hgb Hct MCV MCH MCHC RDW Std Deviation RDW Coeff of [place] Plt Count MPV Immature Gran % (Auto) Neut % (Auto) Lymph % (Auto) [place] % (Auto) Eos % (Auto) Baso % (Auto) Neut # (Auto) Lymph # (Auto) [place] # (Auto) Eos # (Auto) Baso # (Auto) Immature Gran # (Auto) Platelet Estimate Sodium Potassium Chloride Carbon Dioxide Anion Gap BUN Creatinine Est Cr Clr Drug Dosing Est GFR ( Amer) Est GFR (Non-Af Amer) BUN/Creatinine Ratio Glucose Calcium Magnesium Total Bilirubin AST ALT Alkaline Phosphatase Troponin I High Sens 9.9 Total Protein Albumin Globulin Albumin/Globulin Ratio Lipase Nasal Screen MRSA (PCR) Adenovirus (PCR) Not Detected B. pertussis DNA (PCR) Not Detected B.parapertussis DNA PCR Not Detected C. pneumoniae DNA (PCR) Not Detected Coronavirus OC43 (PCR) Not Detected Coronavirus HKU1 (PCR) Not Detected Coronavirus 229E (PCR) Not Detected SARS-CoV-2 (PCR) Not Detected Coronavirus NL63 (PCR) Not Detected Human Metapneumovir PCR Not Detected Influenza Type A (PCR) Not Detected Influenza Type B (PCR) Not Detected M. pneumoniae (PCR) Not Detected Parainfluenza 1 (PCR) Not Detected Parainfluenza 2 (PCR) Not Detected Parainfluenza 3 (PCR) Not Detected Parainfluenza 4 (PCR) Not Detected RSV (PCR) Not Detected Entero/Rhino (PCR) Not Detected
[2023-12-16] MEDS: ALBUMIN 25% 25 GM/100 ML VIAL IV ONE (18:27)
[2023-12-17] MEDS: ACETAMINOPHEN 1,000 MG/100 ML VIAL IV PRN (10:43)
[2023-12-17] MEDS: CALCIUM CARBONATE 500 MG CHEWABLE TAB PO SCH (12:06)
--- NOTE | 2023-12-17 15:32 | Electrocardiogram Report ---
Test Reason : Blood Pressure : */* mmHG Vent. Rate : 72 BPM Atrial Rate : 72 BPM P-R Int : 156 ms QRS Dur : 82 ms QT Int : 398 ms P-R-T Axes : 67 -2 -27 degrees QTcB Int : 435 ms Normal sinus rhythm Nonspecific T wave abnormality Abnormal ECG When compared with ECG of 16-Dec-2023 04:38, Premature supraventricular complexes are no longer Present Inverted T waves have replaced nonspecific T wave abnormality in Inferior leads Nonspecific T wave abnormality, improved in Lateral leads Confirmed by Clay Hearn ([id number]) on 12/17/2023 3:31:58 PM Referred By: Behzad SCI Confirmed By: Clay Hearn
--- NOTE | 2023-12-17 15:38 | Hospitalist Progress Note ---
Date of Service December 17, 2023 Assessment & Plan (1) Chest pain: Plan 83-year-old male with PMH of CAD status post stents, HTN, HLD, GERD, chronic anemia [baseline hemoglobin 12-13], latent TB, antisocial personality, chronic pain, hypertensive urgency comes from halfway because of chest pain starting about 4 AM from the day prior. Patient reported centrally located chest pain radiating to the neck and also to the right arm, severe in nature, worse with ambulating, also associated with nausea and upper abdominal pain. He also stated having severe headache. He also reported having runny nose and sore throat which has been going around currently in the halfway as per patient. He is being managed for the following: Chest pain: ruled out acs. History of CAD status post stent Patient came in with central chest pain radiating to neck/right arm/upper belly Admitting EKG w/ sinus rhythm w/ PACs, ECHO w/ EF 65-70%, no RWMA, Grade I diastolic dysfunction. Trop x 4 neg. Pt reports on and off chest pain. Poor historian, now reports retrosternal burning sensation. doesn't appear to be in distress. c/w tele monitor, cardio evaled, appreciate recs. Ambrosio tums, if w/ clinical improvement, increase home ppi to bid. Abdominal pain and nausea: Likely associated with chest discomfort or GERD, CTAP with no acute finding. Patient did not have abdominal tenderness on exam/No concern for diverticulitis. Continue with as needed antiemetics and IV fluid. No N, V, report eating ok and moving bowels ok today. Hypotension: noted 12/15, cardiac meds were held, BP getting better today, gradu ally resume cardiac meds from today as tolerated. Coreg resumed. Losartan and amlod on hold, assess clinically in AM. Other chronic medical conditions: Continue with/resume home meds as and when able History of CAD status post stents: Continue with home aspirin and Plavix and Coreg and Imdur and statin. Hypertension: Continue with home Coreg, Imdur. Amlod and losartan on hold , see above. Hyperlipidemia: Continue with home statin GERD: c/w home Protonix DVT prophylaxis: Continue with SCDs Disposition: Med/tele, likely dc in next 1-2 days. Full code Admission and Anticipated Discharge Date Admission Date: December 16, 2023 Subjective patient was seen and examined at bedside. Patient was lying in bed, on room air, NAD, resting comfortably. Patient reports chest discomfort and mostly burning sensation, will trial Tums, if patient with clinical improvement, plan to increase PPI to twice daily. Patient reports some dizziness today, was hypotensive yesterday, his blood pressure medications were held after hypotensive episode yesterday. Patient reports eating okay and moving bowels okay. Patient denies abdominal pain. Physical Exam Physical Exam: General- Not in distress. Head- atraumatic Eyes- PERRL, EOMI, anicteric ENT- oropharynx clear Neck- supple, no JVD. Lungs- clear to auscultation no wheezing or crackles. Heart- regular rhythm; no murmur, no gallop. Abdomen- normal bowel sounds, soft, non tender, no distension Extremities- no pretibial edema, no erythema seen Neuro- alert, oriented PERRL, no facial palsy; no dysarthria; moves extremities Results & Data Results & Data Vital Signs (Past 12 Hours) Vital Signs Temp Pulse Pulse Resp BP Pulse Ox O2 Del Method 12/17/23 15:11 37 C 68 16 134/61 92 Room Air 12/17/23 14:05 83 12/17/23 11:22 37 C 68 18 134/64 96 Room Air 12/17/23 11:15 111 H 12/17/23 08:34 36.8 C 70 16 119/74 100 Room Air (1) Chest pain Chest pain type: unspecified Qualified Code(s): R07.9 - Chest pain, unspecified
[2023-12-18 06:48] LABS: Hematocrit (blood only) 33.6 % (42.0-52.0); Hemoglobin 11.2 g/dl (14.0-18.0); Mean Corpuscular Hemoglobin 35.7 pg (25.0-34.0); Mean Corpuscular Hgb Conc 33.3 g/dL (32.0-36.0); Mean Platelet Volume 11.2 fL (9.4-12.4); Platelet Count 162 K/uL (130-400); RDW Coefficient of Variation 11.6 % (11.5-14.5); RDW Standard Deviation 45.5 fL (36.4-46.3); Red Blood Count 3.14 M/uL (4.70-6.10)
[2023-12-18 06:49] LABS: BUN Creatinine Ratio 17.5 (10-20); Calcium 8.3 mg/dl (8.6-10.3); Est GFR (Non-African American) 59.6 ml/min; Magnesium 1.6 mg/dl (1.7-2.4); Phosphorus 2.4 mg/dl (2.5-4.9); Potassium 3.8 mmol/L (3.5-5.1)
--- NOTE | 2023-12-18 09:25 | Electrocardiogram Report ---
Test Reason : Blood Pressure : */* mmHG Vent. Rate : 71 BPM Atrial Rate : 71 BPM P-R Int : 158 ms QRS Dur : 82 ms QT Int : 430 ms P-R-T Axes : 12 15 -32 degrees QTcB Int : 467 ms Normal sinus rhythm T wave abnormality, consider inferior ischemia Abnormal ECG When compared with ECG of 17-Dec-2023 10:02, No significant change was found Confirmed by Clay Hearn ([id number]) on 12/18/2023 9:24:54 AM Referred By: Behzad JULIO Confirmed By: Clay Hearn
[2023-12-18] MEDS: MECLIZINE 12.5 MG TAB PO PRN (11:46)
--- NOTE | 2023-12-18 12:02 | Hospitalist Progress Note ---
Date of Service December 18, 2023 Assessment & Plan (1) Chest pain: Plan 83-year-old male with PMH of CAD status post stents, HTN, HLD, GERD, chronic anemia [baseline hemoglobin 12-13], latent TB, antisocial personality, chronic pain, hypertensive urgency comes from [facility] because of chest pain starting about 4 AM from the day prior. Patient reported centrally located chest pain radiating to the neck and also to the right arm, severe in nature, worse with ambulating, also associated with nausea and upper abdominal pain. He also stated having severe headache. He also reported having runny nose and sore throat which has been going around currently in the [facility] as per patient. He is being managed for the following: Chest pain: ruled out acs. History of CAD status post stent Patient came in with central chest pain radiating to neck/right arm/upper belly Admitting EKG w/ sinus rhythm w/ PACs, ECHO w/ EF 65-70%, no RWMA, Grade I diastolic dysfunction. Trop x 4 neg. Pt reports on and off chest pain. Poor historian, now reports retrosternal burning sensation. doesn't appear to be in distress. Appreciate cardiology input and recommendationthe chest pain seems to be noncardiac No changes medications have been met Will increase PPI to twice daily Like to be discharged this afternoon Dizziness With and without changing of posture Does not have any associated neurological symptoms Does not have any associated cardiac symptoms Orthostatics have been negative Will try small dose of Antivert Likely discharge this afternoon Abdominal pain and nausea: Likely associated with chest discomfort or GERD, CTAP with no acute finding. Patient did not have abdominal tenderness on exam/No concern for diverticulitis. Continue with as needed antiemetics and IV fluid. No N, V, report eating ok and moving bowels ok today. Will increase PPI to twice daily Hypotension: noted 8, cardiac meds were held, BP getting better today, gradually resume cardiac meds from today as tolerated. Coreg resumed. Losartan and amlod on hold, assess clinically in AM. Blood pressure is noted to be elevated and all of his home medications were restarted Other chronic medical conditions: Continue with/resume home meds as and when able History of CAD status post stents: Continue with home aspirin and Plavix and Coreg and Imdur and statin. Hypertension: Continue with home Coreg, Imdur. Amlod and losartan on hold , see above. Hyperlipidemia: Continue with home statin GERD: c/w home Protonix DVT prophylaxis: Continue with SCDs Disposition: Med/tele, likely dc in next 1-2 days. Full code Admission and Anticipated Discharge Date Admission Date: December 17, 2023 Subjective 12/18/2023 The patient was seen and examined in medical telemetry unit He has been complaining of epigastric/chest pain radiation to both arms He also complains to have dizziness without any associated neurological symptoms He denies any abdominal pain nausea no vomiting Review of Systems Review of Systems: All systems reviewed and are unremarkable except as noted below Physical Exam Physical Exam: Lying in bed without any acute distress Constitutional: well developed and well nourished; not ill appearing Eyes: PERRL, conjunctivae normal, anicteric sclerae ENMT: external ear and nose normal, oropharynx normal Neck: trachea midline, no thyromegaly Respiratory: no respiratory distress Auscultation: lungs clear to auscultation bilaterally Cardiovascular: Rate/Rhythm: regular rate and regular rhythm; not tachycardic Heart Sounds: normal S1 and normal S2; no murmur Extremities: no edema Gastrointestinal (Abdomen): Inspection/Auscultation: normal bowel sounds; abdomen not distended Percussion/Palpation: abdomen soft; abdomen nontender Musculoskeletal: No acute arthritis involving any of the joints Neurologic: normal touch/pain/proprioception and moves all extremities; no focal motor deficits Lymphatic: no cervical or axillary lymphadenopathy Results & Data Results & Data Vital Signs (Past 12 Hours) Vital Signs Temp Pulse Pulse Resp BP BP Pulse Ox 12/18/23 11:22 36.5 C 61 18 132/68 97 12/18/23 08:45 158/81 H 12/18/23 08:44 161/70 H 12/18/23 08:41 146/62 H 12/18/23 08:02 71 12/18/23 07:19 36.7 C 66 18 132/71 98 12/18/23 02:55 36.6 C 69 18 123/65 96 O2 Del Method 12/18/23 11:22 Room Air 12/18/23 08:45 12/18/23 08:44 12/18/23 08:41 12/18/23 08:02 12/18/23 07:19 Room Air 12/18/23 02:55 Room Air Laboratory Results Short CBC 12/18/23 Range/Units 05:37 WBC 4.40 L (4.8-10.8) K/ul Hgb 11.2 L D (14.0-18.0) g/dl Hct 33.6 L (42.0-52.0) % Plt Count 162 (130-400) K/uL BMP 12/18/23 05:37 Sodium 139 Potassium 3.8 Chloride 110 H Carbon Dioxide 23 BUN 20 Creatinine 1.14 Glucose 95 Calcium 8.3 L Medications Administered Current Inpatient Medications Amlodipine Besylate (Amlodipine Besylate 5 Mg Tab) [facility] [place] Stop: 01/15/24 08:59 Last Admin: 12/16/23 10:08 Dose: 5 mg Aspirin (Aspirin 325 Mg Ectab) 325 [facility] [place] Stop: 01/15/24 08:59 Last Admin: 12/18/23 08:51 Dose: 325 mg Atorvastatin Calcium (Atorvastatin 40 Mg Tab) 80 mg PO DAILY [facility] Stop: 01/15/24 08:59 Last Admin: 12/18/23 08:51 Dose: 80 mg Calcium Carbonate (Calcium Carbonate 500 Mg Chewable Tab) 1,000 mg PO Q8H [facility] Stop: 12/20/23 03:16 Last Admin: 12/18/23 11:26 Dose: 1,000 mg Carvedilol (Carvedilol 12.5 Mg Tab) 12.5 mg PO BID [facility] Stop: 01/15/24 08:59 Last Admin: 12/18/23 08:51 Dose: 12.5 mg Clopidogrel Bisulfate (Clopidogrel Bisulfate 75 Mg Tab) 75 mg PO DAILY [facility] Stop: 01/15/24 08:59 Last Admin: 12/18/23 08:51 Dose: 75 mg Hydromorphone HCl (Hydromorphone Inj 0.5 Mg/0.5 Ml Syr) 0.5 mg IV Q4H PRN PRN Reason: Severe Pain (Scale 7, 8, 9,10) Stop: 12/30/23 04:49 Acetaminophen (Ofirmev) 1,000 mg in 100 mls @ 400 mls/hr IV Q8H PRN PRN Reason: Pain or Fever Stop: 12/19/23 04:49 Last Infusion: 12/17/23 11:19 Dose: Infused Isosorbide Mononitrate (Isosorbide [place] Extended Rel 60 Mg Tabcr) 60 mg PO DAILY [facility] Stop: 01/15/24 08:59 Last Admin: 12/18/23 08:51 Dose: 60 mg Losartan Potassium (Losartan Potassium 50 Mg Tab) 50 mg PO DAILY [facility] Stop: 01/15/24 08:59 Last Admin: 12/16/23 10:11 Dose: 50 mg Meclizine HCl (Meclizine 12.5 Mg Tab) 12.5 mg PO Q6H PRN PRN Reason: Dizziness or Vertigo Stop: 01/17/24 09:43 Last Admin: 12/18/23 11:46 Dose: 12.5 mg Multivitamins (Multivitamin Tab) 1 tab PO QAM [facility] Stop: 01/15/24 08:59 Last Admin: 12/18/23 08:51 Dose: 1 tab Nitroglycerin (Nitroglycerin Sl 0.4 Mg/Tab Tab) 0.4 mg SL Q5M PRN PRN Reason: Chest Pain Stop: 01/15/24 04:49 Ondansetron HCl (Ondansetron Inj 2 Mg/Ml 2 Ml Vial) 4 mg IV Q6H PRN PRN Reason: Nausea Stop: 01/15/24 04:49 Pantoprazole Sodium (Pantoprazole 40 Mg Tab) 40 mg PO BID [facility] Stop: 01/17/24 20:59 (1) Chest pain Chest pain type: unspecified Qualified Code(s): R07.9 - Chest pain, unspecified
[2023-12-18] MEDS: PANTOprazole 40 MG TAB PO SCH (19:52)
[2023-12-19 07:40] VITALS: RESP 20
[2023-12-19] MEDS: MAGNESIUM OXIDE 400 MG TAB PO ONE (10:36)
[2023-12-19] MEDS: POT PHOSPHATE MONOBASIC W/ SOD TAB PO STA (10:36)
[2023-12-19 11:10] VITALS: PULSE 76; TEMP 97.7; O2SAT 99
--- NOTE | 2023-12-19 11:23 | Hospitalist Progress Note ---
Date of Service December 19, 2023 Assessment & Plan (1) Chest pain: Plan 83-year-old male with PMH of CAD status post stents, HTN, HLD, GERD, chronic anemia [baseline hemoglobin 12-13], latent TB, antisocial personality, chronic pain, hypertensive urgency comes from [facility] because of chest pain starting about 4 AM from the day prior. Patient reported centrally located chest pain radiating to the neck and also to the right arm, severe in nature, worse with ambulating, also associated with nausea and upper abdominal pain. He also stated having severe headache. He also reported having runny nose and sore throat which has been going around currently in the [facility] as per patient. He is being managed for the following: Chest pain: ruled out acs. History of CAD status post stent Patient came in with central chest pain radiating to neck/right arm/upper belly Admitting EKG w/ sinus rhythm w/ PACs, ECHO w/ EF 65-70%, no RWMA, Grade I diastolic dysfunction. Trop x 4 neg. Pt reports on and off chest pain. Poor historian, now reports retrosternal burning sensation. doesn't appear to be in distress. Appreciate cardiology input and recommendationthe chest pain seems to be noncardiac No changes medications have been met Will increase PPI to twice daily No more cardiac symptoms this morning No new complaints of cramps in the legs Electrolytes remain EKG unremarkable-he will be discharged back to [facility] this afternoon Dizziness With and without changing of posture Does not have any associated neurological symptoms Does not have any associated cardiac symptoms Orthostatics have been negative Will try small dose of Antivert Dizziness is improved Abdominal pain and nausea: Likely associated with chest discomfort or GERD, CTAP with no acute finding. Patient did not have abdominal tenderness on exam/No concern for diverticulitis. Continue with as needed antiemetics and IV fluid. No N, V, report eating ok and moving bowels ok today. Will increase PPI to twice daily Denies any more abdominal pain, discomfort, nausea and vomiting Hypotension: noted 12/15, cardiac meds were held, BP getting better today, gradually resume cardiac meds from today as tolerated. Coreg resumed. Losartan and amlod on hold, assess clinically in AM. Blood pressure is noted to be elevated and all of his home medications were restarted outpatient blood pressure medications have been started and the blood pressure remains Unremarkable Other chronic medical conditions: Continue with/resume home meds as and when able History of CAD status post stents: Continue with home aspirin and Plavix and Coreg and Imdur and statin. Hypertension: Continue with home Coreg, Imdur. Amlod and losartan on hold , see above. Hyperlipidemia: Continue with home statin GERD: c/w home Protonix DVT prophylaxis: Continue with SCDs Disposition: Med/tele, likely dc in next 1-2 days. Full code Will be discharged to [facility] this afternoon Admission and Anticipated Discharge Date Admission Date: December 17, 2023 Subjective 12/18/2023 The patient was seen and examined in medical telemetry unit He has been complaining of epigastric/chest pain radiation to both arms He also complains to have dizziness without any associated neurological symptoms He denies any abdominal pain nausea no vomiting 12/19/2023 The patient was seen and examined in medical telemetry unit He complains to nonspecific symptoms of chest pain, dizziness at times and cramps in the legs He remains hemodynamically stable with unremarkable labs He will be discharged to [facility] this afternoon Review of Systems Review of Systems: All systems reviewed and are unremarkable except as noted below Physical Exam Physical Exam: Lying in bed without any acute distress Constitutional: well developed and well nourished; not ill appearing Eyes: PERRL, conjunctivae normal, anicteric sclerae ENMT: external ear and nose normal, oropharynx normal Neck: trachea midline, no thyromegaly Respiratory: no respiratory distress Auscultation: lungs clear to auscultation bilaterally Cardiovascular: Rate/Rhythm: regular rate and regular rhythm; not tachycardic Heart Sounds: normal S1 and normal S2; no murmur Extremities: no edema Gastrointestinal (Abdomen): Inspection/Auscultation: normal bowel sounds; abdomen not distended Percussion/Palpation: abdomen soft; abdomen nontender Neurologic: normal touch/pain/proprioception and moves all extremities; no focal motor deficits Lymphatic: no cervical or axillary lymphadenopathy Results & Data Results & Data Vital Signs (Past 12 Hours) Vital Signs Temp Pulse Pulse Resp BP BP Pulse Ox 12/19/23 11:08 36.5 C 76 20 151/71 H 99 12/19/23 07:40 36.6 C 66 20 124/56 L 98 12/19/23 07:23 65 12/19/23 03:49 36.7 C 67 18 132/64 97 12/18/23 23:42 36.8 C 76 18 135/69 99 O2 Del Method 12/19/23 11:08 Room Air 12/19/23 07:40 Room Air 12/19/23 07:23 12/19/23 03:49 Room Air 12/18/23 23:42 Room Air Medications Administered Current Inpatient Medications Amlodipine Besylate (Amlodipine Besylate 5 Mg Tab) 5 mg PO QAM [facility] Stop: 01/15/24 08:59 Last Admin: 12/19/23 10:35 Dose: 5 mg Aspirin (Aspirin 325 Mg Ectab) 325 mg PO QAM [facility] Stop: 01/15/24 08:59 Last Admin: 12/19/23 10:36 Dose: 325 mg Atorvastatin Calcium (Atorvastatin 40 Mg Tab) 80 mg PO DAILY [facility] Stop: 01/15/24 08:59 Last Admin: 12/19/23 10:35 Dose: 80 mg Carvedilol (Carvedilol 12.5 Mg Tab) 12.5 mg PO BID [facility] Stop: 01/15/24 08:59 Last Admin: 12/19/23 10:35 Dose: 12.5 mg Clopidogrel Bisulfate (Clopidogrel Bisulfate 75 Mg Tab) 75 mg PO DAILY [facility] Stop: 01/15/24 08:59 Last Admin: 12/19/23 10:35 Dose: 75 mg Hydromorphone HCl (Hydromorphone Inj 0.5 Mg/0.5 Ml Syr) 0.5 mg IV Q4H PRN PRN Reason: Severe Pain (Scale 7, 8, 9,10) Stop: 12/30/23 04:49 Isosorbide Mononitrate (Isosorbide [place] Extended Rel 60 Mg Tabcr) 60 mg PO DAILY [facility] Stop: 01/15/24 08:59 Last Admin: 12/19/23 10:35 Dose: 60 mg Losartan Potassium (Losartan Potassium 50 Mg Tab) 50 mg PO DAILY [facility] Stop: 01/15/24 08:59 Last Admin: 12/19/23 10:35 Dose: 50 mg Meclizine HCl (Meclizine 12.5 Mg Tab) 12.5 mg PO Q6H PRN PRN Reason: Dizziness or Vertigo Stop: 01/17/24 09:43 Last Admin: 12/18/23 11:46 Dose: 12.5 mg Multivitamins (Multivitamin Tab) 1 tab PO QAM [facility] Stop: 01/15/24 08:59 Last Admin: 12/19/23 10:35 Dose: 1 tab Nitroglycerin (Nitroglycerin Sl 0.4 Mg/Tab Tab) 0.4 mg SL Q5M PRN PRN Reason: Chest Pain Stop: 01/15/24 04:49 Ondansetron HCl (Ondansetron Inj 2 Mg/Ml 2 Ml Vial) 4 mg IV Q6H PRN PRN Reason: Nausea Stop: 01/15/24 04:49 Pantoprazole Sodium (Pantoprazole 40 Mg Tab) 40 mg PO BID [facility] Stop: 01/17/24 20:59 Last Admin: 12/19/23 10:34 Dose: 40 mg (1) Chest pain Chest pain type: unspecified Qualified Code(s): R07.9 - Chest pain, unspecified
[2023-12-19 14:48] VITALS: BP 132/64
--- NOTE | 2023-12-19 16:54 | Discharge Summary ---
Date of Service December 19, 2023 Admission HPI Per Admitting Provider 83-year-old male with past medical history significant for CAD status post stents , hypertension, hyperlipidemia, GERD, chronic anemia baseline hemoglobin 12-13, latent TB as per records, antisocial personality, chronic pain, history of hypertensive urgency comes from residential because of chest pain starting 4 AM yesterday. Patient states pain is located in his center of chest radiating to the neck and also the right arm and severe in nature. Pain was more while ambulating. Also having nausea. And abdominal pain. States also having severe headache. States he has runny nose and sore throat which is going around currently in residential as per patient. Vision is okay. Has some cough. No difficulty swallowing. Appetite not great as food is not great as per patient. No diarrhea or constipation. Micturating okay. Resting comfortably and hemodynamically stable. Past medical history. As mentioned above Past surgical history. Appendectomy. Cataract surgery. Social history. No smoking. No alcohol use. Currently in residential. Family history significant for heart disease. Admission Exam Per Admitting Provider Physical Exam: General- Not in distress. Head- atraumatic Eyes- PERRL, EOMI, anicteric ENT- oropharynx clear Neck- supple, no JVD. Lungs- clear to auscultation no wheezing or crackles. Heart- regular rhythm; no murmur, no gallop. Abdomen- normal bowel sounds, soft,diffuse tender, no distension Extremities- no pretibial edema, no erythema seen Neuro- alert, oriented PERRL, no facial palsy; no dysarthria; moves extremities Principal Diagnosis Noncardiac chest pain, ASCVD, dizziness, GERD, hypertension Discharge Exam Lying in bed without any acute distress Constitutional well developed and well nourished; not ill appearing Eyes PERRL, conjunctivae normal, anicteric sclerae ENMT external ear and nose normal, oropharynx normal Neck trachea midline, no thyromegaly Respiratory no respiratory distress Auscultation: lungs clear to auscultation bilaterally Cardiovascular Rate/Rhythm: regular rate and regular rhythm; not tachycardic Heart Sounds: normal S1 and normal S2; no murmur Extremities: no edema Gastrointestinal (Abdomen) Inspection/Auscultation: normal bowel sounds; abdomen not distended Percussion/Palpation: abdomen soft; abdomen nontender Neurologic normal touch/pain/proprioception and moves all extremities; no focal motor deficits Lymphatic no cervical or axillary lymphadenopathy Discharge Data Allergies Allergy/AdvReac Type Severity Reaction Status Date / Time Iodinated Contrast Media AdvReac Mild Dizziness Verified 12/15/23 22:24 iodine AdvReac Mild Dizziness Verified 12/15/23 22:24 Consultations 12/15/23 22:17 ED Decision to Admit Stat 12/16/23 08:00 Consult Cardiology Routine Ordered Studies 12/16/23 04:50 CT Abd and Pelvis [CT abd pelvis wo con] Urgent Hospital Course (1) Chest pain: Plan 83-year-old male with PMH of CAD status post stents, HTN, HLD, GERD, chronic anemia [baseline hemoglobin 12-13], latent TB, antisocial personality, chronic pain, hypertensive urgency comes from residential because of chest pain starting about 4 AM from the day prior. Patient reported centrally located chest pain radiating to the neck and also to the right arm, severe in nature, worse with ambulating, also associated with nausea and upper abdominal pain. He also stated having severe headache. He also reported having runny nose and sore throat which has been going around currently in the residential as per patient. He is being managed for the following: Chest pain: ruled out acs. History of CAD status post stent Patient came in with central chest pain radiating to neck/right arm/upper belly Admitting EKG w/ sinus rhythm w/ PACs, ECHO w/ EF 65-70%, no RWMA, Grade I diastolic dysfunction. Trop x 4 neg. Pt reports on and off chest pain. Poor historian, now reports retrosternal burning sensation. doesn't appear to be in distress. Appreciate cardiology input and recommendationthe chest pain seems to be noncardiac No changes medications have been met Will increase PPI to twice daily No more cardiac symptoms this morning No new complaints of cramps in the legs Electrolytes remain EKG unremarkable-he will be discharged back to residential this afternoon Dizziness With and without changing of posture Does not have any associated neurological symptoms Does not have any associated cardiac symptoms Orthostatics have been negative Will try small dose of Antivert Dizziness is improved Abdominal pain and nausea: Likely associated with chest discomfort or GERD, CTAP with no acute finding. Patient did not have abdominal tenderness on exam/No concern for diverticulitis. Continue with as needed antiemetics and IV fluid. No N, V, report eating ok and moving bowels ok today. Will increase PPI to twice daily Denies any more abdominal pain, discomfort, nausea and vomiting Hypotension: noted 12/15, cardiac meds were held, BP getting better today, gradually resume cardiac meds from today as tolerated. Coreg resumed. Losartan and amlod on hold, assess clinically in AM. Blood pressure is noted to be elevated and all of his home medications were restarted outpatient blood pressure medications have been started and the blood pressure remains Unremarkable Other chronic medical conditions: Continue with/resume home meds as and when able History of CAD status post stents: Continue with home aspirin and Plavix and Coreg and Imdur and statin. Hypertension: Continue with home Coreg, Imdur. Amlod and losartan on hold , see above. Hyperlipidemia: Continue with home statin GERD: c/w home Protonix DVT prophylaxis: Continue with SCDs Disposition: Med/tele, likely dc in next 1-2 days. Full code Will be discharged to residential this afternoon Total Time Total Time Spent Total Time Spent (In Minutes): 40 minutes Discharge Plan Discharge Items [facility] Reason For Visit: CHEST PAIN, ABDOMINAL PAIN Discharge Diagnosis: Noncardiac chest pain, ASCVD, dizziness, GERD, hypertension Condition on Discharge: Good Activity: Resume your previous activity Non-emergency contact: Primary Care Provider Call non-emergency contact if: you have any medication questions and your symptoms worsen Follow-up/Referrals: Behzad JULIO [Primary Care Provider] - Diet: Heart Healthy Addtl Attending Provider Instructions: Please take precautions to prevent falls Take your medications as advised Pending Studies at Discharge: No Stand-Alone Forms: My [facility] Skilled Items Patient informed of condition?: Yes Discharge Level of Care: Other Communicable Disease: No Discharge Prognosis: Stable Lines: None Urinary Catheter: No Medications and DC Order Prescriptions: New meclizine 12.5 mg Tablet 12.5 mg PO Q6H PRN (Reason: dizziness) Qty: 30 0RF pantoprazole 40 mg Tablet,Delayed Release (Dr/Ec) 40 mg PO BID Qty: 6 0RF Continued carvedilol 12.5 mg Tablet 12.5 mg PO BID Rx Instructions: must administer with a meal/food amlodipine [Norvasc] 5 mg Tablet 5 mg PO QAM Qty: 30 0RF losartan 50 mg Tablet 50 mg PO DAILY isosorbide mononitrate 60 mg Tablet Extended Release 24 Hr 60 mg PO DAILY aspirin 325 mg Tablet 325 mg PO QAM Rx Instructions: take with food multivitamin Tablet 1 tab PO QAM atorvastatin 80 mg Tablet 80 mg PO DAILY clopidogrel 75 mg Tablet 75 mg PO DAILY nitroglycerin 0.4 mg Tablet, Sublingual 0.4 mg sublingual UD PRN (Reason: Chest Pain) Rx Instructions: place 1 tablet under the tongue on daily as needed x3 if no relief ,call medical Discontinued pantoprazole 40 mg Tablet,Delayed Release (Dr/Ec) 40 mg PO QAM Discharge Orders: Discharge Order (Routine); Ordered 12/19/23 Ordered By: Sang Goodson Admission Data Admit Date/Time: 12/17/23 15:35 Attending Provider: Sang Goodson Admit Provider: James Restrepo Primary Care Provider: Behzad JULIO Other Providers: James Restrepo; Jackson Freed; Sai Plaza Other Interventions: Discharge Summary Assessment (RN) Last Done: 12/19/23 14:47
== END 2023-12-19 15:32 | DRG 313 ==
LOC: 2N 21:20 → ED 21:20 → 2N 12-16 04:18 → SUATTDRO 12-17 15:35